=== PATIENT | female | born 1955 | race Caucasian/White ===

== ENCOUNTER 2022-09-15 12:39 | Outpatient (OUT) | payer BC, SELFPAY ==
--- NOTE | 2022-09-15 12:48 | XR_ITS ---
The [address] [address] Patient Name: HERMINIO NICKERSON MRN: [id number] date: 1955 Sex: F Assigned Patient Location: [facility] Current Patient Location: [facility] Accession/Order Number: [id number] Exam Date: 09/15/2022 12:50 Report Date: 09/15/2022 13:16 At the request of: NON-STAFF PHYSICIAN Procedure: XR chest 2V EXAM: XR chest 2V HISTORY: Acute Cough R05.1 for 2 weeks. COMPARISON: 03/09/2021 TECHNIQUE: Upright PA and lateral chest x-ray FINDINGS: The heart is not enlarged and the vasculature is not distended. No acute infiltrate, effusion or pneumothorax is identified. The osseous structures are grossly intact. IMPRESSION: No apparent acute infiltrate or evidence of cardiac decompensation. The overall appearance of the chest has not changed significantly. Electronically authenticated by: MIK MEJIA Date: 09/15/2022 13:16
== END 2022-09-15 12:40 ==
LOC: RAD 12:43
PROVIDERS: PCP Internal Medicine; Visit Provider Internal Medicine
DX: R05.9 Cough, unspecified (principal)
CPT/HCPCS: 71046

== ENCOUNTER 2023-07-29 17:40 | Emergency (ER) | payer BC, SELFPAY ==
[2023-07-29] VITALS (23 sets, daily range): BP systolic 149–166; BP diastolic 48–66; PULSE 74–104; TEMP 36.8; O2SAT 92–99; BMI 35.2
--- NOTE | 2023-07-29 18:02 | ECG_ITS ---
The [facility] Test Date: 2023-07-29 Pat Name: HERMINIO NICKERSON Department: Room: - Gender: Female [employer] T[employer]: : 1955 Requested By: [id number] Order Number: [id number] Reading MD: MURTAZA BONDS Measurements Intervals [place] Rate: 84 P: 73 MO: 166 QRS: 39 QRSD: 80 T: 32 QT: 374 QTc: 415 Interpretive Statements 1100 Sinus rhythm 9110 normal ECG Compared to ECG 03/09/2021 21:43:30 Myocardial infarct finding no longer present Electronically Signed On 07-30-2023 7:13:38 EDT by MURTAZA BONDS
--- NOTE | 2023-07-29 18:13 | CT_ITS ---
The [address] [address] Patient Name: HERMINIO NICKERSON MRN: [id number] date: 1955 Sex: F Assigned Patient Location: ER Current Patient Location: ER Accession/Order Number: [id number] Exam Date: 07/29/2023 19:25 Report Date: 07/29/2023 20:24 At the request of: SYMONE MART Procedure: CT angio chest CT angio chest HISTORY: sob TECHNIQUE: CTA chest with intravenous contrast attention to pulmonary arteries. Sagittal, coronal and slab 3D MIP coronal reconstructed images were also created for further evaluation and interpretation. One of the following dose optimization techniques was utilized in the performance of this exam: Automated exposure control; adjustment of the mA and/or kV according to the patient's size; or use of an iterative reconstruction technique. Specific details can be referenced in the facility's radiology CT exam operational policy. COMPARISON: None. FINDINGS: Thoracic aorta: Normal size no dissection. Pulmonary arteries: No evidence of pulmonary embolism. Mediastinum: Negative. Lymph nodes: Negative. Lungs/pleura: Subpleural atelectasis or fibrosis. Visualized upper abdomen: Negative. Bones/soft tissues: Negative. CT/CT angio chest IMPRESSION: 1. No evidence of pulmonary embolism. Electronically authenticated by: SUN CORBIN Date: 07/29/2023 20:24
--- NOTE | 2023-07-29 18:20 | ED.GENADUL1 ---
Documented by User: Symone Upton MD 07/29/23 20:55 HPI HPI - General Adult General Chief complaint: Upper Respiratory Infection Stated complaint: PNEUMONIA, NOT GETTING BETTER Time Seen by Provider: 07/29/23 18:00 Source: patient Mode of arrival: walk-in History of Present Illness HPI narrative: Patient is a 68-year-old female who is presenting to the ER with chief complaint of 8 weeks of coughing, dry cough, no production. Patient has had some sinus congestion. Patient also using significant amount of cough drops as well. Patient saw her PCP, Dr. Tristan on July 18. Patient had amoxicillin ordered at that time, she finished a few days ago. Patient was on no inhalers, steroids, or any other medications. Patient says that years ago, she did take a Medrol Dosepak, and she had chest fullness at that time. Patient is not diabetic. She has thyroid medication that she takes. No recent traveling. Non-smoker. No history of asthma, no history of emphysema COPD. No acute complaints. All systems are negative except as noted/marked. All systems reviewed and otherwise negative. Nurses note and vital signs reviewed and patient is not hypoxic. General: The patient appears well and in no apparent distress. Patient is resting comfortably on cart. Patient is not toxic, lethargic, or listless Skin: Warm, dry, no pallor noted. There is no rash noted. No petechiae, purpura. Head: Normocephalic, atraumatic Eye: Normal conjunctiva, no drainage, EOMI. PERRL Ears, Nose, Mouth, and Throat: oral mucosa is moist. Nares patent. Mouth without vesicles. Cardiovascular: Regular Rate and Rhythm, no murmur, gallop, rub Respiratory: Patient is in no distress, no accessory muscle use, lungs decreased breath sounds bilateral, diffuse wheezing, equal breath sounds, trachea midline, no splinting Back: non-tender, no CVA tenderness bilaterally to percussion. No CT LS midline pain GI: Obese, no tenderness to palpation, no masses appreciated. No rebound, guarding, or rigidity noted. No distention Musculoskeletal: Patient has full range of motion of all of the extremities, no motor, sensory, or focal neurological deficits Neurological: A&O x4, normal speech Psychiatric: Cooperative Related Data Home Medications ?Medication ?Instructions ?Recorded ?Confirmed benzonatate 100 mg capsule 100 mg PO Q6H 07/29/23 07/29/23 levothyroxine 100 mcg tablet 100 mcg PO DAILY 07/29/23 07/29/23 Previous Rx's ?Medication ?Instructions ?Recorded albuterol sulfate 90 mcg/actuation 2 inh inhalation Q4H PRN shortness 07/29/23 aerosol inhaler of breath or wheezing 7 days #8.5 grams ikxddgasnptfcyf-yxbsywlypgfvlfs-PU 10 ml PO Q6H PRN cold symptoms 07/29/23 2 mg-30 mg-10 mg/5 mL oral syrup #200 mL (Bromfed DM) prednisone 50 mg tablet 50 mg PO DAILY 5 days #5 tabs 07/29/23 Allergies Allergy/AdvReac Type Severity Reaction Status Date / Time No Known Drug Allergies Allergy Verified 07/29/23 17:55 Opioid HPI Opioid Management Most Recent Opioid Data: No Data to Display Exam Constitutional Vital Signs, click to edit/add: Last Vital Signs Temp 98.2 F 07/29/23 17:44 Pulse 87 07/29/23 20:44 Resp 18 07/29/23 20:44 BP 149/48 H 07/29/23 20:44 Pulse Ox 94 L 07/29/23 20:44 O2 Del Method Room Air 07/29/23 20:44 Course Vital Signs Vital signs: Vital Signs Temperature 98.2 F 07/29/23 17:44 Pulse Rate 89 07/29/23 17:44 Respiratory Rate 18 07/29/23 17:44 Blood Pressure 166/66 H 07/29/23 17:44 Pulse Oximetry 95 07/29/23 17:44 Oxygen Delivery Method Room Air 07/29/23 17:44 Temperature 98.2 F 07/29/23 17:44 Pulse Rate 87 07/29/23 20:44 Respiratory Rate 18 07/29/23 20:44 Blood Pressure 149/48 H 07/29/23 20:44 Pulse Oximetry 94 L 07/29/23 20:44 Oxygen Delivery Method Room Air 07/29/23 20:44 Medical Decision Making [facility] Narrative Medical decision making narrative: 1899 patient CBC shows no acute changes, EKG shows no acute findings. Patient was given 1 L of IV fluid, Solu-Medrol, DuoNeb. Patient will have lab work done, and a CT of the chest to rule out any other acute pathology. Patient's x-ray showed some type of airway disease, patient was uncertain what exactly that was. On July 18, patient x-ray showed pneumonia, patient was placed on amoxicillin. Patient has some sinus symptoms. CTA will be done secondary to coughing for 8 weeks. Patient most likely has mucous plugs, CT of the chest will be done. Patient is transition to Dr. Anderson. He will follow-up with patient's metabolic panel, troponin, CTA of the chest and finish disposition. Patient will be sent home with cough medication, 5-day burst of steroids, albuterol inhaler to help with mucous plugs Lab Data Lab results reviewed: Yes I reviewed the patient's lab results Labs: Lab Results 07/29/23 Range/Units 18:17 WBC 8.8 (4.0-11.0) 10^3/uL RBC 4.80 (4.20-5.40) 10^6/uL Hgb 13.2 (12.0-16.0) g/dL Hct 41.1 (36.0-48.0) % MCV 85.6 (81.0-99.0) fL MCH 27.5 (26.7-34.0) pg MCHC 32.1 (29.9-35.2) g/dL RDW 13.6 (11.0-15.0) % Plt Count 245 (150-450) 10^3/uL MPV 11.2 (9.5-13.5) fL Neut % (Auto) 66.0 (43.0-75.0) % Lymph % (Auto) 21.0 (20.5-60.0) % [place] % (Auto) 9.3 (1.7-12.0) % Eos % (Auto) 3.2 (0.9-7.0) % Baso % (Auto) 0.3 (0.2-2.0) % Neut # (Auto) 5.8 (1.4-6.5) 10^3/uL Lymph # (Auto) 1.9 (1.2-3.8) 10^3/uL [place] # (Auto) 0.8 (0.3-0.8) 10^3/uL Eos # (Auto) 0.3 (0.0-0.7) 10^3/uL Baso # (Auto) 0.0 (0.0-0.1) 10^3/uL Abs Immat Gran (auto) 0.02 (0.00-0.03) 10^3/uL Imm/Tot Granulo (auto) 0.2 (0.0-0.5) % Sodium 143 (136-145) mmol/L Potassium 3.9 (3.5-5.1) mmol/L Chloride 106 (98-107) mmol/L Carbon Dioxide 27.6 (21.0-32.0) mmol/L Anion Gap 13.3 BUN 14.0 (7.0-18.0) mg/dL Creatinine 0.70 (0.55-1.02) mg/dL Est GFR ( Amer) >60 (>=60) Est GFR (Non-Af Amer) >60 (>=60) BUN/Creatinine Ratio 20.0 Glucose 117 H (74-106) mg/dL Calcium 9.3 (8.5-10.1) mg/dL Total Bilirubin 0.3 (0.2-1.0) mg/dL AST 21 (15-37) U/L ALT 42 (14-59) U/L Alkaline Phosphatase 136 H (46-116) U/L Troponin I High Sens 8.1 (4.0-51.3) pg/mL NT-Pro-B Natriuret Pep 138.0 (<=900.0) pg/mL Total Protein 6.9 (6.4-8.2) g/dL Albumin 3.2 L (3.4-5.0) g/dL Globulin 3.7 g/dL Albumin/Globulin Ratio 0.[address] scan - chest: Radiologist's impression: ITS Impressions Chest CTA 07/29/23 18:13 IMPRESSION: 1. No evidence of pulmonary embolism. Electronically authenticated by: SUN CORBIN Date: 07/29/2023 20:24 ECG Data Attestation: I personally reviewed and interpreted this ECG as follows: (EKG interpretation. Normal sinus rhythm 84 beats a minute. Normal axis deviation. No acute ST elevation, no acute ectopy. QTc of 415.) Discharge Plan Discharge Stand Alone Forms: Portal Instructions Chief Complaint: Upper Respiratory Infection Clinical Impression: Cough, Wheezing, Bronchitis Patient Disposition: Home, Self-Care Time of Disposition Decision: 20:31 Condition: Good Mode of Transportation: Private Vehicle Prescriptions / Home Meds: New prednisone 50 mg tablet 50 mg PO DAILY 5 Days Qty: 5 0RF albuterol sulfate 90 mcg/actuation HFA aerosol inhaler 2 inh inhalation Q4H PRN (Reason: shortness of breath or wheezing) 7 Days Qty: 8.5 0RF hswdivzswejcnbe-wdunivrdu-ED [Bromfed DM] 2-30-10 mg/5 mL syrup 10 ml PO Q6H PRN (Reason: cold symptoms) Qty: 200 0RF No Action benzonatate 100 mg capsule 100 mg PO Q6H levothyroxine 100 mcg tablet 100 mcg PO DAILY Print Language: Swazi Instructions: How to Use a Metered-Dose Inhaler (ED), Chronic Bronchitis (ED), Wheezing (ED) Additional Instructions: Increase fluids at home, Gatorade, Powerade, or water. Alternate using DayQuil, NyQuil, and Flonase. Add Mucinex as well as needed. Alternate Tylenol and Motrin every 4 hours to help with fever control, body aches or joint pain. Use pdhr-byc-yadrnck vitamin C, vitamin D3, and zinc to help fight infection and help with her immune system. Referrals: SYMONE TRISTAN [Primary Care Provider] - 1 week Discharge Date/Time: 07/29/23 20:46 Documented by User: Harris Anderson MD 07/29/23 20:34 HPI HPI - General Adult General Chief complaint: Upper Respiratory Infection Stated complaint: PNEUMONIA, NOT GETTING BETTER Time Seen by Provider: 07/29/23 18:00 Related Data Home Medications ?Medication ?Instructions ?Recorded ?Confirmed benzonatate 100 mg capsule 100 mg PO Q6H 07/29/23 07/29/23 levothyroxine 100 mcg tablet 100 mcg PO DAILY 07/29/23 07/29/23 Previous Rx's ?Medication ?Instructions ?Recorded albuterol sulfate 90 mcg/actuation 2 inh inhalation Q4H PRN shortness 07/29/23 aerosol inhaler of breath or wheezing 7 days #8.5 grams veyqyoidmrwoeea-mzzdojebmqbcklk-BQ 10 ml PO Q6H PRN cold symptoms 07/29/23 2 mg-30 mg-10 mg/5 mL oral syrup #200 mL (Bromfed DM) prednisone 50 mg tablet 50 mg PO DAILY 5 days #5 tabs 07/29/23 Allergies Allergy/AdvReac Type Severity Reaction Status Date / Time No Known Drug Allergies Allergy Verified 07/29/23 17:55 Opioid HPI Opioid Management Most Recent Opioid Data: No Data to Display Exam Constitutional Vital Signs, click to edit/add: Last Vital Signs Temp 98.2 F 07/29/23 17:44 Pulse 87 07/29/23 20:44 Resp 18 07/29/23 20:44 BP 149/48 H 07/29/23 20:44 Pulse Ox 94 L 07/29/23 20:44 O2 Del Method Room Air 07/29/23 20:44 Course Vital Signs Vital signs: Vital Signs Temperature 98.2 F 07/29/23 17:44 Pulse Rate 89 07/29/23 17:44 Respiratory Rate 18 07/29/23 17:44 Blood Pressure 166/66 H 07/29/23 17:44 Pulse Oximetry 95 07/29/23 17:44 Oxygen Delivery Method Room Air 07/29/23 17:44 Temperature 98.2 F 07/29/23 17:44 Pulse Rate 87 07/29/23 20:44 Respiratory Rate 18 07/29/23 20:44 Blood Pressure 149/48 H 07/29/23 20:44 Pulse Oximetry 94 L 07/29/23 20:44 Oxygen Delivery Method Room Air 07/29/23 20:44 Medical Decision Making [facility] Narrative Medical decision making narrative: 1899 patient CBC shows no acute changes, EKG shows no acute findings. Patient was given 1 L of IV fluid, Solu-Medrol, DuoNeb. Patient will have lab work done, and a CT of the chest to rule out any other acute pathology. Patient's x-ray showed some type of airway disease, patient was uncertain what exactly that was. On July 18, patient x-ray showed pneumonia, patient was placed on amoxicillin. Patient has some sinus symptoms. CTA will be done secondary to coughing for 8 weeks. Patient most likely has mucous plugs, CT of the chest will be done. Patient is transition to Dr. Anderson. He will follow-up with patient's metabolic panel, troponin, CTA of the chest and finish disposition. Patient will be sent home with cough medication, 5-day burst of steroids, albuterol inhaler to help with mucous plugs JK 8:30 PM CTA is negative and she is able to be discharged home. Findings were discussed with the patient. Differential Diagnosis Differential Diagnosis: URI, PE, pneumonia Lab Data Labs: Lab Results 07/29/23 Range/Units 18:17 WBC 8.8 (4.0-11.0) 10^3/uL RBC 4.80 (4.20-5.40) 10^6/uL Hgb 13.2 (12.0-16.0) g/dL Hct 41.1 (36.0-48.0) % MCV 85.6 (81.0-99.0) fL MCH 27.5 (26.7-34.0) pg MCHC 32.1 (29.9-35.2) g/dL RDW 13.6 (11.0-15.0) % Plt Count 245 (150-450) 10^3/uL MPV 11.2 (9.5-13.5) fL Neut % (Auto) 66.0 (43.0-75.0) % Lymph % (Auto) 21.0 (20.5-60.0) % [place] % (Auto) 9.3 (1.7-12.0) % Eos % (Auto) 3.2 (0.9-7.0) % Baso % (Auto) 0.3 (0.2-2.0) % Neut # (Auto) 5.8 (1.4-6.5) 10^3/uL Lymph # (Auto) 1.9 (1.2-3.8) 10^3/uL [place] # (Auto) 0.8 (0.3-0.8) 10^3/uL Eos # (Auto) 0.3 (0.0-0.7) 10^3/uL Baso # (Auto) 0.0 (0.0-0.1) 10^3/uL Abs Immat Gran (auto) 0.02 (0.00-0.03) 10^3/uL Imm/Tot Granulo (auto) 0.2 (0.0-0.5) % Sodium 143 (136-145) mmol/L Potassium 3.9 (3.5-5.1) mmol/L Chloride 106 (98-107) mmol/L Carbon Dioxide 27.6 (21.0-32.0) mmol/L Anion Gap 13.3 BUN 14.0 (7.0-18.0) mg/dL Creatinine 0.70 (0.55-1.02) mg/dL Est GFR ( Amer) >60 (>=60) Est GFR (Non-Af Amer) >60 (>=60) BUN/Creatinine Ratio 20.0 Glucose 117 H (74-106) mg/dL Calcium 9.3 (8.5-10.1) mg/dL Total Bilirubin 0.3 (0.2-1.0) mg/dL AST 21 (15-37) U/L ALT 42 (14-59) U/L Alkaline Phosphatase 136 H (46-116) U/L Troponin I High Sens 8.1 (4.0-51.3) pg/mL NT-Pro-B Natriuret Pep 138.0 (<=900.0) pg/mL Total Protein 6.9 (6.4-8.2) g/dL Albumin 3.2 L (3.4-5.0) g/dL Globulin 3.7 g/dL Albumin/Globulin Ratio 0.[address] scan - chest: Radiologist's impression: ITS Impressions Chest CTA 07/29/23 18:13 IMPRESSION: 1. No evidence of pulmonary embolism. Electronically authenticated by: SUN CORBIN Date: 07/29/2023 20:24 Discharge Plan Discharge Stand Alone Forms: Portal Instructions Chief Complaint: Upper Respiratory Infection Clinical Impression: Cough, Wheezing, Bronchitis Patient Disposition: Home, Self-Care Time of Disposition Decision: 20:31 Condition: Good Mode of Transportation: Private Vehicle Prescriptions / Home Meds: New prednisone 50 mg tablet 50 mg PO DAILY 5 Days Qty: 5 0RF albuterol sulfate 90 mcg/actuation HFA aerosol inhaler 2 inh inhalation Q4H PRN (Reason: shortness of breath or wheezing) 7 Days Qty: 8.5 0RF mflkobxfkplceqo-osunufszw-IK [Bromfed DM] 2-30-10 mg/5 mL syrup 10 ml PO Q6H PRN (Reason: cold symptoms) Qty: 200 0RF No Action benzonatate 100 mg capsule 100 mg PO Q6H levothyroxine 100 mcg tablet 100 mcg PO DAILY Print Language: Swazi Instructions: How to Use a Metered-Dose Inhaler (ED), Chronic Bronchitis (ED), Wheezing (ED) Additional Instructions: Increase fluids at home, Gatorade, Powerade, or water. Alternate using DayQuil, NyQuil, and Flonase. Add Mucinex as well as needed. Alternate Tylenol and Motrin every 4 hours to help with fever control, body aches or joint pain. Use vruk-wks-ofmdhfl vitamin C, vitamin D3, and zinc to help fight infection and help with her immune system. Referrals: SYMONE TRISTAN [Primary Care Provider] - 1 week Discharge Date/Time: 07/29/23 20:46
[2023-07-29] MEDS: IPRATROPIUM/ALBUTEROL SULFATE 3 ML AMPUL.NEB IH (18:31)
[2023-07-29] MEDS: 0.9 % SODIUM CHLORIDE 1,000 ML 1000 ML IV (18:32)
[2023-07-29] MEDS: METHYLPREDNISOLONE SOD SUCC PF 125 MG/2 ML VIAL IVP (18:33)
[2023-07-29 18:36] LABS: Basophils Percent Auto 0.3 % (0.2-2.0); Eosinophils Absolute Auto 0.3 10^3/uL (0.0-0.7); Eosinophils Percent Auto 3.2 % (0.9-7.0); Hematocrit 41.1 % (36.0-48.0); Hemoglobin 13.2 g/dL (12.0-16.0); Immature Granulocytes Abs Auto 0.02 10^3/uL (0.00-0.03); Immature Granulocytes Pct Auto 0.2 % (0.0-0.5); Lymphocytes Absolute Auto 1.9 10^3/uL (1.2-3.8); Mean Corpuscular HGB Conc 32.1 g/dL (29.9-35.2); Mean Corpuscular Hemoglobin 27.5 pg (26.7-34.0); Mean Corpuscular Volume 85.6 fL (81.0-99.0); Mean Platelet Volume 11.2 fL (9.5-13.5); Monocytes Absolute Auto 0.8 10^3/uL (0.3-0.8); Monocytes Percent Auto 9.3 % (1.7-12.0); Neutrophils Absolute Auto 5.8 10^3/uL (1.4-6.5); Platelet Count 245 10^3/uL (150-450); Red Cell Distribution Width 13.6 % (11.0-15.0); White Blood Count 8.8 10^3/uL (4.0-11.0)
[2023-07-29 18:49] LABS: Alanine Aminotransferase 42 U/L (14-59); Albumin Globulin Ratio 0.9; Albumin Level 3.2 g/dL (3.4-5.0); Alkaline Phosphatase 136 U/L (46-116); Anion Gap 13.3; Aspartate Amino Transferase 21 U/L (15-37); Bilirubin Total 0.3 mg/dL (0.2-1.0); Calcium 9.3 mg/dL (8.5-10.1); Carbon Dioxide 27.6 mmol/L (21.0-32.0); Chloride 106 mmol/L (98-107); Estimated GFR (African America >60 (>=60); Estimated GFR (Non-African Ame >60 (>=60); Globulin 3.7 g/dL; Glucose 117 mg/dL (74-106); Potassium 3.9 mmol/L (3.5-5.1); Sodium 143 mmol/L (136-145); Total Protein 6.9 g/dL (6.4-8.2)
[2023-07-29 18:55] LABS: Troponin I High Sensitivity 8.1 pg/mL (4.0-51.3)
== END 2023-07-29 20:46 | disposition home or self-care (01) ==
PROVIDERS: Emergency Medicine; Emergency Provider Emergency Medicine; PCP Internal Medicine
DX: J40 Bronchitis, not specified as acute or chronic (principal); R05.9 Cough, unspecified; R06.2 Wheezing; Z79.899 Other long term (current) drug therapy; Z79.890 Hormone replacement therapy
CPT/HCPCS: 36415; 71275; 80053; 83880; 84484; 85025; 93005; 94640; 96374; 99285; J2919; Q9967

== ENCOUNTER 2024-02-16 09:52 | Emergency (ER) | payer MEDICARE, SELFPAY ==
[2024-02-16 09:58] VITALS: BP 189/71; PULSE 79; TEMP 36.6; O2SAT 99; BMI 33.6
[2024-02-16] MEDS: ONDANSETRON PF 4 MG/2 ML VIAL IV (10:17)
[2024-02-16] MEDS: KETOROLAC TROMETHAMINE 30 MG/ML VIAL 15 MG IVP (10:17)
[2024-02-16] MEDS: MORPHINE SULFATE 4 MG/ML VIAL IV (10:17)
--- NOTE | 2024-02-16 10:20 | CT_ITS ---
[address] [address] Patient Name: HERMINIO NICKERSON MRN: [id number] date: 1955 Sex: F Assigned Patient Location: ER Current Patient Location: .[facility] Accession/Order Number: [id number] Exam Date: 02/16/2024 11:05 Report Date: 02/16/2024 11:40 At the request of: SYMONE MART Procedure: CT abdomen pelvis w con EXAMINATION: CT abdomen pelvis w con HISTORY: left flank pain , left lower quadrant pain, nausea COMPARISON: CT abdomen pelvis 08/28/2020 TECHNIQUE: Axial, Coronal, and Sagittal images were obtained without and/or with IV contrast as indicated by examination type. Dose reduction techniques were achieved by using automated exposure control and/or adjustment of mA and/or kV according to patient size and/or use of iterative reconstruction technique. FINDINGS: LUNG BASES: No visible pulmonary or pleural disease. LIVER: No enlargement, atrophy, suspicious density, or significant focal lesion. BILIARY: Cholecystectomy. PANCREAS: No lesion, fluid collection, or abnormal duct dilatation. SPLEEN: No enlargement or focal lesion. ADRENALS: No mass or enlargement. KIDNEYS: A few tiny cysts. Mild left hydronephrosis and hydroureter secondary to a partially obstructing 9 x 5 x 5 mm stone within the mid ureter. No additional urinary tract calculi. BOWEL/MESENTERY: Mild diverticulosis of distal colon without acute inflammatory changes. No visible mass, obstruction, or bowel wall thickening. Normal appendix. AORTA/VASCULAR: No aneurysm or dissection. RETROPERITONEUM: No mass or adenopathy. LYMPH NODES: No adenopathy. URINARY BLADDER: No visible focal wall thickening, lesion, or calculus. PELVIC ORGANS: Prominent periuterine vessels. No visible mass. Pelvic organs appropriate for patient age. ABDOMINAL WALL: No mass or hernia. BONES: No bony lesion or fracture. OTHER: Negative. CT/CT abdomen pelvis w con IMPRESSION: 1. Minimal left hydronephrosis and hydroureter secondary to a partially obstructing 9 x 5 x 5 mm stone versus 2 adjacent stones within the mid ureter. Electronically authenticated by: BRANDT BROUSSARD Date: 02/16/2024 11:40
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
[2024-02-16 10:25] LABS: Basophils Percent Auto 0.3 % (0.2-2.0); Eosinophils Absolute Auto 0.1 10^3/uL (0.0-0.7); Eosinophils Percent Auto 1.5 % (0.9-7.0); Hematocrit 42.9 % (36.0-48.0); Hemoglobin 14.2 g/dL (12.0-16.0); Immature Granulocytes Abs Auto 0.01 10^3/uL (0.00-0.03); Immature Granulocytes Pct Auto 0.2 % (0.0-0.5); Lymphocytes Absolute Auto 1.9 10^3/uL (1.2-3.8); Lymphocytes Percent Auto 29.2 % (20.5-60.0); Mean Corpuscular HGB Conc 33.1 g/dL (29.9-35.2); Mean Corpuscular Hemoglobin 28.5 pg (26.7-34.0); Mean Platelet Volume 10.9 fL (9.5-13.5); Monocytes Absolute Auto 0.4 10^3/uL (0.3-0.8); Monocytes Percent Auto 6.6 % (1.7-12.0); Neutrophils Absolute Auto 4.1 10^3/uL (1.4-6.5); Neutrophils Percent Auto 62.2 % (43.0-75.0); Platelet Count 236 10^3/uL (150-450); Red Blood Count 4.99 10^6/uL (4.20-5.40); Red Cell Distribution Width 13.9 % (11.0-15.0); White Blood Count 6.6 10^3/uL (4.0-11.0)
[2024-02-16 10:51] LABS: Alanine Aminotransferase 57 U/L (14-59); Albumin Level 3.5 g/dL (3.4-5.0); Alkaline Phosphatase 140 U/L (46-116); Anion Gap 13.7; Aspartate Amino Transferase 31 U/L (15-37); BUN Creatinine Ratio 20.9; Bilirubin Total 0.4 mg/dL (0.2-1.0); Calcium 9.1 mg/dL (8.5-10.1); Carbon Dioxide 27.6 mmol/L (21.0-32.0); Chloride 107 mmol/L (98-107); Estimated GFR (African America >60 (>=60 mL/min/1.73m^2); Estimated GFR (Non-African Ame >60 (>=60 mL/min/1.73m^2); Globulin 3.6 g/dL; Glucose 105 mg/dL (74-106); Potassium 4.3 mmol/L (3.5-5.1); Sodium 144 mmol/L (136-145); Total Protein 7.1 g/dL (6.4-8.2)
[2024-02-16 11:59] LABS: Bilirubin Urine NEGATIVE (NEGATIVE); Blood Urine LARGE (NEGATIVE); Clarity Urine CLEAR (CLEAR); Color Urine YELLOW (YELLOW); Glucose Urine UA NEGATIVE (NEGATIVE); Ketones Urine NEGATIVE (NEGATIVE); Leukocyte Esterase Urine NEGATIVE (NEGATIVE); Nitrite Urine NEGATIVE (NEGATIVE); Protein Urine 30 mg/dL (NEG/TRACE); Specific Gravity Urine >=1.030 (1.005-1.025); Urobilinogen Urine 0.2 EU/dL (0.2-1.0); pH Urine 5.5 (5.0-9.0)
[2024-02-16 12:15] LABS: Mucus Urine MODERATE (NONE SEEN); RBC Urine 20-50 #/HPF (0-2); WBC Urine 0-2 #/HPF (NONE SEEN)
[2024-02-16 12:16] LABS: Bacteria Urine TRACE #/HPF (NONE SEEN); Cast Seen? NONE SEEN #/LPF (NONE SEEN); Crystals Seen? None Seen #/HPF (None Seen); Squamous Epithelial Cell Urine FEW #/LPF (NONE/RARE)
== END 2024-02-16 14:28 | disposition home or self-care (01) ==
PROVIDERS: Emergency Provider Emergency Medicine; PCP Internal Medicine
DX: N13.2 Hydronephrosis with renal and ureteral calculous obstruction (principal); Z90.49 Acquired absence of other specified parts of digestive tract; Z87.442 Personal history of urinary calculi
CPT/HCPCS: 36415; 74177; 80053; 81001; 83690; 85025; 96374; 96375; 99284; J1885; J2270; J2405; Q9967

== ENCOUNTER 2024-03-12 08:55 | Outpatient (OUT) | payer MEDICARE, SELFPAY ==
--- NOTE | 2024-03-12 08:57 | US_ITS ---
[address] [address] Patient Name: HERMINIO NICKERSON MRN: [id number] date: 1955 Sex: F Assigned Patient Location: Current Patient Location: Accession/Order Number: [id number] Exam Date: 03/12/2024 08:58 Report Date: 03/13/2024 06:01 At the request of: JULIUS BOOKER Procedure: US renal BI EXAMINATION: US renal BI HISTORY: Kidney Stones COMPARISON: CT abdomen pelvis 02/16/2024 TECHNIQUE: Ultrasound examination was performed of the kidneys and urinary bladder. FINDINGS: RIGHT KIDNEY: No evidence of pelvocaliectasis, mass, or calculi. Normal parenchymal echogenicity. Color Doppler demonstrates blood flow within the kidney. Kidney: 9.8 x 5.1 x 3.7 cm LEFT KIDNEY: Minimal dilation of a few calyces. No abnormal dilation of the renal pelvis. Nonobstructing 6 mm stone within inferior pole. Normal parenchymal echogenicity. Color Doppler demonstrates blood flow within the kidney. Kidney: 11.4 x 4.6 x 4.9 cm BLADDER: No visible wall thickening, mass, or calculi. US/US renal BI IMPRESSION: 1. No convincing hydronephrosis. 2. Nonobstructing left nephrolithiasis. Electronically authenticated by: BRANDT BROUSSARD Date: 03/13/2024 06:01
--- NOTE | 2024-03-12 09:36 | XR_ITS ---
The [address] [address] Patient Name: HERMINIO NICKERSON MRN: [id number] date: 1955 Sex: F Assigned Patient Location: US Current Patient Location: US Accession/Order Number: [id number] Exam Date: 03/12/2024 09:29 Report Date: 03/13/2024 06:55 At the request of: JULIUS BOOKER Procedure: XR abdomen 1V EXAMINATION: XR abdomen 1V HISTORY: Kidney Stones COMPARISON: CT abdomen pelvis 02/16/2024 FINDINGS: KIDNEY/URETER - RIGHT: No visible renal or ureteral calcifications. KIDNEY/URETER - LEFT: No visible renal or ureteral calcifications. PELVIS: No visible ureteral stones. BOWEL: No abnormal dilation or deviation. BONES: No acute abnormality. OTHER: Negative. No abnormal gaseous collections. XR/XR abdomen 1V IMPRESSION: 1. No appreciable urinary tract calculi. Electronically authenticated by: BRANDT BROUSSARD Date: 03/13/2024 06:55
== END 2024-03-12 08:56 | disposition home or self-care (01) ==
LOC: US 08:55
PROVIDERS: PCP Internal Medicine; Visit Provider Student in an Organized Health Care Education/Training Program
DX: N20.0 Calculus of kidney (principal)
CPT/HCPCS: 74018; 76775

== ENCOUNTER 2024-03-14 21:20 | Emergency (ER) | payer MEDICARE, SELFPAY ==
--- OUTSIDE RECORDS SUMMARY | 2024-03-14 21:32 | XMS_ITS | CCD ---
Author Organization [facility] Care Team Providers Care Foundation Digger Name Role Phone Bob Carter Unavailable Unavailable Unavailable EMMA, DR ASHBY Admitting Unavailable EMMA, DR ASHBY Attending Unavailable EMMA, DR ASHBY Primary Care Unavailable MISC, DR MOISE Consulting Unavailable MISC, DR MOISE Admitting Unavailable MISC, DR MOISE Attending Unavailable EMMA, DR ASHBY Primary Care Unavailable MISC, DR MOISE Consulting Unavailable MISC, DR MOISE Admitting Unavailable MISC, DR MOISE Attending Unavailable EMMA, DR ASHBY Primary Care Unavailable EMMA, DR ASHBY Admitting Unavailable EMMA, DR ASHBY Attending Unavailable EMMA, DR ASHBY Consulting Unavailable EMMA, DR ASHBY Primary Care Unavailable COOK, DR PARUL Seay Consulting Unavailable COOK, DR PARUL Seay Admitting Unavailable COOK, DR PARUL Seay Attending Unavailable EMMA, DR ASHBY Primary Care Unavailable ZIANGEL, DR BRANDT Dykes Consulting Unavailable MARKER, DR GUTIERREZ Admitting Unavailable MARKER, DR GUTIERREZ Consulting Unavailable MARKER, DR GUTIERREZ Attending Unavailable EMMA, DR ASHBY Primary Care Unavailable SaidGabe Consulting Unavailable ZIEBJOSELITO, DR BRANDT Dykes Consulting Unavailable PAY, DR ASHBY Admitting Unavailable PAY, DR ASHBY Attending Unavailable EMMA, DR ASHBY Primary Care Unavailable PAY, DR ASHBY Consulting Unavailable EMMA, DR ASHBY Primary Care Unavailable PAY, DR ASHBY Consulting Unavailable PAY, DR ASHBY Admitting Unavailable PAY, DR ASHBY Attending Unavailable JOLLY KITCHEN Consulting Unavailable Emma, Dr. Bob Rondon Primary Care Evette Clement, Dr. Agustin Referring Unavailable Urbano, Dr. Agustin Attending Unavailable Emma, Dr. Bob Rondon Referring Evette Carter, Dr. Bob Rondon Primary Care Evette Clement, Dr. Agustin Attending Unavailable Emma, Dr. Bob Rondon Primary Care Evette Cooper, ABDI Mcdonald Referring Unavailable ABDI Cooper Attending Unavailable DO Bob Carter Primary Care Provider DO Mason Fowler Attending Provider DO Bob Carter Primary Care Provider DO Bob Carter Attending Provider [phone] Bob Carter Primary Care Unavailable Mason Fowler Admitting Unavailable Mason Fowler Attending Unavailable Bob Carter Primary Care Unavailable Bob Carter Attending Unavailable Bob Carter Admitting Unavailable Bob Carter DO Primary Care Provider [phone] Bob Carter DO Unavailable BOB CARTER Primary Care Physician Unavail able BOB CARTER Attending Unavailable DOMINIQUE RAI Referring Unavailable BOB CARTER Attending Unavailable BOB CARTER Referring Unavailable BOB CARTER Referring Unavailable JOSEPH PLATT Attending Unavailable BOB CARTER Referring Unavailable BOB CARTER Attending Unavailable CECE BABIN Attending Unavailable ARIEL COOPER Attending Unavailable BOB CARTER Attending Unavailable ARIEL COOPER Attending Unavailable ARIEL COOPER Referring Unavailable ARIEL COOPER Attending Unavailable ARIEL COOPER Attending Unavailable ARIEL COOPER Attending Unavailable BOB CARTER Attending Unavailable BOB CARTER Referring Unavailable BOB CARTER Referring Unavailable BOB CARTER Attending Unavailable BOB CARTER Referring Unavailable JEISON PITT Attending Unavailable MD JULIUS RASHEED Attending Unav ailable MD JULIUS RASHEED Referring Unav ailable MD JULIUS RASHEED Admitting Unav ailable MD JULIUS RASHEED Attending Unav ailable JULIUS RASHEED Referring Unavail able JULIUS RASHEED Attending Unavail able JULIUS RASHEED Admitting Unavail able JULIUS RASHEED Attending Unavail able Allergies Allergy Classification Reported Allergen(s) Allergy Type Date of Onset Reaction(s) Facility (2 sources) Corticosteroids Propensity to adverse reactions 04-01-20 chest pressure [facility] (20 sources) PARoxetine; Translations: [paroxetine] Drug Allergy 07-13-19 GI intolerance, Unknown (qualifier value), Nausea (finding) [facility] (20 sources) methylPREDNISolone; Translations: [methylprednisolone ] Drug Allergy 07-19-19 Other, Unknown (qualifier value) [facility] (19 sources) PARoxetine Drug Allergy 01-26-20 [facility] (19 sources) Amoxicillin-Pot Clavulanate Propensity to adverse reactions 08-08-19 Rash [facility] Work Phone: (4 sources) Amoxicillin / Clavulanate; Translations: [amoxicillin-clavul anate] Drug Allergy Unknown (qualifier value) [facility] (2 sources) methylPREDNISolone; Translations: [Medrol] Drug Allergy [facility] (2 sources) No Known Medication Allergies; Translations: [No Known Medication Allergies] Propensity to adverse reactions (disorder) [facility] Medications Current Medications Medication Drug Class(es) Dates Sig (Normalized) Sig (Original) acetaminophen 325 mg / HYDROcodone bitartrate 5 mg oral tablet (4 sources) Opioid Agonist Start: 02-22-2024 acetaminophen-hydr ocodone 325 mg-5 mg oral tablet 1 tab(s), Refill(s) 0 Start Date: 02/22/24 Status: Ordered Start: 08-21-2020 End: 03-14-2021 take 1 tablet by mouth every four to six hours Hydrocodone-Acetaminophen Discontinued 1 TAB PO EVERY 4-6 HOURS 12 August 21, 2020 March 14, 2021 6:50pm acetaminophen 325 mg / oxyCODONE hydrochloride 5 mg oral tablet (9 sources) Opioid Agonist Start: 01-03-2024 End: 01-20-2024 take 1 tablet by mouth every six hours oxyCODONE-acetaminophen (Percocet) 5-325 MG tablet Indications: Hammertoe of right foot Take 1 tablet by mouth every 6 (six) hours for 5 days 20 tablet 01/15/2024 01/20/2024 Active Start: 08-21-2020 End: 03-14-2021 take 1 tablet by mouth every four hours Oxycodone-Acetaminophen Discontinued 1 - 2 TAB PO Every 4 hours August 21, 2020 12:00am March 14, 2021 6:53pm [id number] 200 actuat albuterol 0.09 mg/actuat metered dose inhaler (4 sources) beta2-Adrenergic Agonist Start: 07-30-2023 End: 01-03-2024 take 2 puff(s) by inhalation every four hours for wheezing albuterol HFA 90 mcg/act inhaler Inhale 2 puffs every 4 (four) hours if needed for shortness of breath or wheezing 07/30/2023 01/03/2024 Discontinued Start: 04-01-2021 take 1 puff(s) by in halation every six hours Albuterol Sulfate Active 1 - 2 PUFF INHALATION Q6H April 01, 2021 1:00am Ascorbic Acid (2 sources) Vitamin C Start: 02-22-2024 Vitamin C Daily Start Date: 02/22/24 Status: Ordered aspirin 81 mg delayed release oral tablet (5 sources) Platelet Aggregation Inhibitor, Nonsteroidal Anti-inflammatory Drug Start: 02-19-2021 Aspirin (Jayme Low Dose Aspirin) 81 mg Tablet,Delayed Release (Dr/Ec) Active 81 MG PO Daily April 01, 2021 1:00am brompheniramine maleate 0.4 mg/ml / dextromethorphan hydrobromide 2 mg/ml / pseudoephedrine hydrochloride 6 mg/ml oral solution (4 sources) alpha-Adrenergic Agonist, Uncompetitive O-mdkyqp-K-aspartat e Receptor Antagonist, Sigma-1 Agonist Start: 07-30-2023 End: 01-03-2024 take 10 mL by mouth every six hours as needed brompheniramine-p seudoephedrine-DM 30-2-10 MG/5ML syrup take 10ml BY MOUTH EVERY 6 HOURS NEEDED 07/30/2023 01/03/2024 Discontinued Start: 03-14-2021 take 1 mL by mouth every six hours Nwvydotmuuvhpck-Sffwoknyh-Zf Active 5 ML PO Q6H March 14, 2021 1:00am calcium citrate 600 mg and vitamin D3 (Citrical & Minerals + Vit D) 600-200 MG-UNIT tablet (19 sources) take 1 tablet by mouth once daily in the morning calcium citrate 600 mg and vitamin D3 (Citrical & Minerals + Vit D) 600-200 MG-UNIT tablet Take 1 tablet by mouth in the morning and 1 tablet before bedtime. Active cholecalciferol 0.05 mg oral capsule (2 sources) Vitamin D Start: take 1 capsule by mouth once daily Cholecalciferol (Vitamin D3) (Vitamin D3) 50 mcg (2,000 unit) Capsule Active 50 MCG PO Daily April 01, 2021 1:00am Cholecalciferol-Vitami n C (Vitamin D3-Vitamin C) 1000-500 UNIT-MG capsule (19 sources) take 1 capsule by mouth once daily Cholecalciferol-Vitam in C (Vitamin D3-Vitamin C) 1000-500 UNIT-MG capsule Take 1,000 Units by mouth 1 (one) time each day at the same time. Active diclofenac sodium 75 mg delayed release oral tablet (4 sources) Nonsteroidal Anti-inflammatory Drug Start: End: take 1 tablet by mouth in the morning diclofenac (Voltaren) 75 MG EC tablet Indications: Chronic right-sided low back pain without sciatica , Pain of right hip Take 1 tablet (75 mg) by mouth in the morning and 1 tablet (75 mg) before bedtime. Do all this for 10 days. Do not crush, chew, or split.. 20 tablet 02/13/2024 02/23/2024 Active estradiol 0.1 mg/ml vaginal cream (2 sources) Estrogen Start: estradiol (Estrace) 0.1 MG/GM vaginal cream Indications: Vaginal atrophy Apply 1 gram daily for 2 weeks, then 1 gram twice weekly 30 g 3 02/26/2024 Active Glucosamine (2 sources) Start: glucosamine Oral Start Date: 02/22/24 Status: Ordered hydrOXYzine pamoate 25 mg oral capsule (2 sources) Antihistamine Start: take 1 capsule by mouth every six hours hydrOXYzine pamoate (Vistaril) 25 MG capsule Indications: Anxiety, generalized (CMS/HCC) Take 1 capsule (25 mg) by mouth every 6 (six) hours if needed for itching 10 capsule 02/26/2024 Active ketorolac tromethamine 10 mg oral tablet (1 source) Nonsteroidal Anti-inflammatory Drug, Cyclooxygenase Inhibitor Start: ketorolac 10 mg Tab 10 mg = 1 tab(s), Refills(s) 0 Start Date: 02/22/24 Status: Ordered levothyroxine sodium 0.1 mg oral tablet (20 sources) l-Thyroxine Start: take 1 tablet by mouth once daily levothyroxine (Synthroid, Levoxyl) 100 MCG tablet Indications: Hypothyroidism, unspecified (CMS/HCC) TAKE 1 TABLET BY MOUTH DAILY ON AN EMPTY STOMACH 90 tablet 3 09/21/2023 Active Start: 08-21-2020 Synthroid Oral , Daily, Refills(s) 0 Start Date: 08/21/20 Status: Ordered Start: 08-21-2020 take 100 ug by mouth once daily Levothyroxine Active 100 MCG PO Daily August 21, 2020 12:00am metoprolol tartrate 25 mg oral tablet (5 sources) beta-Adrenergic Stiven Start: 03-14-2021 take 12.5 mg by mouth twice daily Metoprolol Tartrate Active 12.5 MG PO Twice daily March 14, 2021 1:00am Start: 02-19-2021 take 0.5 tablet by m outh twice daily Metoprolol Tartrate 25 MG Oral Tablet TAKE 0.5 TABLET Twice daily Quantity: 90 Refills: 3 Ordered: 19-Feb-2021 Urbano DO Vamsi Start : 19-Feb-2021 Active new start Multi Vitamins oral tablet (2 sources) Start: 02-22-2024 take 1 tablet by mouth once daily Multi Vitamins oral tablet 1 tab(s), Oral, Daily Start Date: 02/22/24 Status: Ordered Multiple Vitamin (Multi Vitamin) tablet (19 sources) Multiple Vitamin (Multi Vitamin) tablet 1 (one) time each day at the same time. Active Nature's B[employer] Red Krill Oil (2 sources) Start: 02-22-2024 take 1 mg by mouth once daily [employer] B[employer] Red Krill Oil mg, Oral, Daily Start Date: 02/22/24 Status: Ordered 24 hr oxybutynin chloride 5 mg extended release oral tablet (3 sources) Cholinergic Muscarinic Antagonist Start: 02-28-2024 take 1 tablet by mouth once daily oxybutynin 5 mg ER Tab 5 mg = 1 tab(s), Oral, Daily, # 90 tab(s), Refills(s) 0, Pharmacy: [id number], 154.5, cm, 02/28/24 7:03:00 EST, Height/Length Dosing, 77.5, kg, 02/28/24 7:03:00 EST, Weight Dosing Start Date: 02/28/24 Status: Ordered Start: 08-21-2020 End: 03-14-2021 take 5 mg by mouth twice daily Oxybutynin Chloride Dis continued 5 MG PO Twice daily August 21, 2020 12:00am March 14, 2021 6:53pm oxyCODONE hydrochloride 5 mg oral tablet (1 source) Opioid Agonist Start: 02-28-2024 take 1 tablet by mouth every six hours as needed for pain Roxicodone 5 mg Tab 5 mg = 1 tab(s), Oral, q6hr, PRN for pain, # 7 tab(s), Refills(s) 0, Pharmacy: [id number], 154.5, cm, 02/28/24 7:03:00 EST, Height/Length Dosing, 77.5, kg, 02/28/24 7:03:00 EST, Weight Dosing Start Date: 02/28/24 Status: Ordered tamsulosin hydrochloride 0.4 mg oral capsule (4 sources) alpha-Adrenerg ic Stiven Start: 02-22-2024 tamsulosin 0.4 mg Cap 0.4 mg = 1 cap(s), Refills(s) 0 Start Date: 02/22/24 Status: Ordered Start: 08-21-2020 End: 03-14-2021 take 0.4 mg by mouth once daily Tamsulosin Discontinued 0.4 MG PO Daily August 21, 2020 12:00am March 14, 2021 6:53pm Vitamin D3 (2 sources) Start: 02-22-2024 Vitamin D3 Sta rt Date: 02/22/24 Status: Ordered Zinc (2 sources) Start: 04-01-2021 take 50 mg by mouth once daily Zinc Active 50 MG PO Daily April 01, 2021 1:00am Completed/Discontinued Medications Medication Drug Class(es) Dates Sig (Normalized) Sig (Original) benzonatate 100 mg oral capsule (2 sources) Non-narcotic Antitussive Start: 03-14-20 End: 04-01-20 take 100 mg by mouth three times daily Benzonatate Discontinued 100 MG PO Three times daily March 14, 2021 1:00am April 01, 2021 10:17am ciprofloxacin 500 mg oral tablet (2 sources) Quinolone Antimicrobial Start: 08-22-19 End: 03-14-20 take 1 tablet by mouth every two hours Ciprofloxacin Hcl (Cipro) 500 mg tablet Discontinued 500 MG PO Q12H August 21, 2020 12:00am March 14, 2021 6:49pm administer dose at least 2 hrs before/6 hrs after dairy products, calcium, zinc, and/or iron-containing products codeine phosphate 2 mg/ml / promethazine hydrochloride 1.25 mg/ml oral solution (2 sources) Opioid Agonist, Phenothiazine Start: 03-14-20 End: 04-06-19 take 1 mL by mouth every four to six hours Promethazine-Codeine Discontinued 5 ML PO EVERY 4-6 HOURS 118 7 March 14, 2021 1:00am April 06, 2021 1:00pm dexamethasone 6 mg oral tablet (2 sources) Corticosteroid Start: 03-14-20 End: 04-01-20 take 1 tablet by mouth once daily Dexamethasone (Decadron) 6 mg tablet Discontinued 6 MG PO Daily March 14, 2021 1:00am April 01, 2021 10:18am hydroCHLOROthiazide 25 mg oral tablet (5 sources) Thiazide Diuretic Start: 02-20-20 End: 04-01-20 take 25 mg by mouth once daily Hydrochlorothiazide Discontinued 25 MG PO Daily March 14, 2021 1:00am April 01, 2021 10:18am latanoprost 0.05 mg/ml ophthalmic solution (20 sources) Prostaglandin Analog Start: 12-30-19 take 1 drop(s) into the eye(s) once daily Latanoprost 0.005 % Ophthalmic Solution INSTILL 1 DROP IN BOTH EYES EVERY NIGHT Quantity: 8 Refills: 0 Ordered: 29-Dec-2021 DO Start : 29-Dec-2021 Active Start: 08-21-2020 take 1 drop(s) into the eye(s) at bedtime Latanoprost Active 1 DROPS EYE-BOTH Bedtime August 21, 2020 12:00am latanoprost (Xal atan) 0.005 % ophthalmic solution 1 (one) time each day at the same time. Active Multi Vitamin Daily TABS (2 sources) Multi Vitamin Da josue TABS TAKE 1 TABLET DAILY. Quantity: 0 Refills: 0 Ordered: 17-Jan-2022 DO Active 24 hr nitroglycerin 0.2 mg/hr transdermal system (5 sources) Nitrate Vasodilator Start: 02-20-20 End: 04-06-19 Nitroglycerin Discontinued 1 PATCH TRANSDERML Daily March 14, 2021 1:00am April 06, 2021 3:52pm APPLY 1 PATCH FOR 12 TO 14 HOURS PER DAY THEN REMOVE ondansetron 4 mg disintegrating oral tablet (4 sources) Serotonin-3 Receptor Antagonist Start: 03-14-20 End: 04-01-20 take 4 mg by mouth every eight hours Ondansetron Discontinued 4 MG PO Q8H March 14, 2021 1:00am April 01, 2021 10:19am Start: 08-21-2020 End: 04-01-2021 take 4 mg by mouth every eight hours Ondansetron Hcl Discontinued 4 MG PO Every 8 hours August 21, 2020 12:00am April 01, 2021 10:19am sulfamethoxazole 800 mg / trimethoprim 160 mg oral tablet (4 sources) Dihydrofolate Reductase Inhibitor Antibacterial, Sulfonamide Antimicrobial Start: 01-29-2024 End: 02-13-2024 take 1 tablet by mouth once in the morning, then take 1 tablet by mouth once at bedtime sulfamethoxazole-trimethoprim (Bactrim DS) 800-160 MG per tablet Indications: Surgery follow-up examination Take 1 tablet by mouth in the morning and 1 tablet before bedtime. Do all this for 10 days. 20 tablet 01/29/2024 02/13/2024 Discontinued (Therapy completed) 1 ml triamcinolone acetonide 40 mg/ml prefilled syringe (20 sources) Corticosteroid Start: 02-21-2024 End: 02-21-2024 triamcinolone acetonide (Kenalog-40) injection 40 mg Start: 02-21-2024 End: 02-21-2024 triamcinolone acetonide (Kenalog-40) injection 40 mg Start: 02-21-2024 End: 02-21-2024 inject 40 mg by intramuscular injection once 40 mg, Intramuscular, Once, On Mon02/21/24 at 0915, For 1 dose Start: 02-21-2024 End: 02-21-2024 inject 40 mg by intramuscular injection once 40 mg, Intramuscular, Once, On Mon02/21/24 at 0915, For 1 dose Start: 02-01-2023 triamcinolone acetonide (Kenalog-40) injection 60 mg Problems Active Problems Problem Classification Problem Date Documented Da te Episodic/Chronic Acquired foot deformities (6 sources) Hammer toe; Translations: [Other hammer toe(s) (acquired), right foot] 01-03-2024 Chronic Anxiety disorders (2 sources) Generalized anxiety disorder; Translations: [Generalized anxiety disorder] 02-26-2024 Chronic Calculus of urinary tract (12 sources) Unspecified renal colic; Translations: [Calculus of kidney] Onset: 08-20-2020 Episodic Cardiac dysrhythmias (6 sources) Palpitations; Translations: [Palpitations] Onset: 02-13-2021 Episodic Complication of device; implant or graft (2 sources) Retained ureteric stent 08-28-2020 Episodic Coronary atherosclerosis and other heart disease (3 sources) Angina pectoris; Translations: [Other and unspecified angina pectoris] Chronic Disorders of lipid metabolism (20 sources) Raised low density lipoprotein cholesterol; Translations: [Pure hypercholesterolemia , unspecified] Onset: 01-03-2024 01-03-2024 Chronic Diverticulosis and diverticulitis (19 sources) Diverticular disease; Translations: [Diverticulosis of intestine, part unspecified, without perforation or abscess without bleeding] Onset: 01-23-2023 01-23-2023 Chronic Essential hypertension (5 sources) Benign essential hypertension; Translations: [Benign essential hypertension] Chronic Fever of unknown origin (1 source) Fever, unspecified; Translations: [FEVER UNSPECIFIED] Onset: 03-11-2021 Episodic Genitourinary symptoms and ill-defined conditions (20 sources) Incontinence; Translations: [Mixed incontinence] Onset: 07-17-2017 01-23-2023 Chronic Glaucoma (20 sources) Bilateral glaucoma; Translations: [Unspecified glaucoma] Onset: 01-03-2024 01-03-2024 Chronic Immunizations and screening for infectious disease (1 source) Encounter for immunization; Translations: [ENCOUNTER FOR IMMUNIZATION] Onset: 03-16-2021 Episodic Malaise and fatigue (1 source) Other fatigue; Translations: [OTHER FATIGUE] Onset: 02-13-2021 Episodic Menopausal disorders (4 sources) Atrophy of vagina; Translations: [Postmenopausal atrophic vaginitis] 02-26-2024 Chronic Osteoarthritis (20 sources) Primary gonarthrosis, bilateral; Translations: [Bilateral primary osteoarthritis of knee] Onset: 03-01-2023 01-03-2024 Chronic Osteoporosis (2 sources) Postmenopausal osteoporosis; Translations: [Age-related osteoporosis without current pathological fracture] 02-26-2024 Chronic Other acquired deformities (2 sources) Acquired deformity of ankle AND/OR foot; Translations: [Unspecified acquired deformity of right lower leg] 01-03-2024 Episodic Other aftercare (1 source) oysterman (current) use of aspirin; Translations: [JAIL CURRENT USE OF ASPIRIN] Onset: 03-11-2021 Episodic Other aftercare (4 sources) Surgical follow-up; Translations: [Encounter for follow-up examination after completed treatment for conditions other than malignant neoplasm] 01-15-2024 Episodic Other connective tissue disease (6 sources) Pain in right foot; Translations: [Pain in right foot] 01-15-2024 Episodic Other connective tissue disease (2 sources) Trochanteric bursitis; Translations: [Trochanteric bursitis, right hip] 02-21-2024 Episodic Other diseases of kidney and ureters (1 source) Hydronephrosis; Translations: [Hydronephrosis with renal and ureteral calculous obstruction] 08-21-2020 Episodic Other diseases of kidney and ureters (1 source) Hydronephrosis with renal and ureteral calculous obstruction; Translations: [Hydronephrosis with urinary obstruction due to ureteral calculus] 08-21-2020 Episodic Other diseases of kidney and ureters (1 source) Urinary tract obstruction; Translations: [Hydronephrosis with renal and ureteral calculous obstruction] Onset: 02-22-2024 Episodic Other gastrointestinal disorders (19 sources) Irritable bowel syndrome with diarrhea; Translations: [Irritable bowel syndrome with diarrhea] Onset: 05-21-2019 09-30-2022 Chronic Other lower respiratory disease (5 sources) Dyspnea on exertion; Translations: [Other respiratory abnormalities] Episodic Other lower respiratory disease (1 source) Dyspnea, unspecified; Translations: [DYSPNEA UNSPECIFIED] Onset: 03-11-2021 Episodic Other non-traumatic joint disorders (4 sources) Effusion, left ankle; Translations: [EFFUSION LEFT ANKLE] Onset: 02-08-2021 Episodic Other non-traumatic joint disorders (4 sources) Hip pain; Translations: [Pain in right hip] 02-21-2024 Episodic Other nutritional; endocrine; and metabolic disorders (7 sources) Obesity; Translations: [Obesity, unspecified] Chronic Other nutritional; endocrine; and metabolic disorders (20 sources) Obesity caused by energy imbalance; Translations: [Morbid (severe) obesity due to excess calories] Onset: 06-30-2020 01-03-2024 Chronic Other screening for suspected conditions (not mental disorders or infectious disease) (16 sources) Cardiovascular stress test abnormal; Translations: [Other nonspecific abnormal results of function study of cardiovascular system] Onset: 06-27-2020 Episodic Other skin disorders (2 sources) [place] of toe; Translations: [Corns and callosities] 01-03-2024 Episodic Residual codes; unclassified (5 sources) Edema of lower extremity; Translations: [Edema] Episodic Residual codes; unclassified (1 source) Acquired absence of other specified parts of digestive tract; Translations: [ACQ ABSENCE OTH PART DIGESTV TRACT] Onset: 03-11-2021 Episodic Spondylosis; intervertebral disc disorders; other back problems (20 sources) Arthritis of lumbosacral spine; Translations: [Spondylosis without myelopathy or radiculopathy, lumbosacral region] Onset: 01-03-2024 01-03-2024 Chronic Spondylosis; intervertebral disc disorders; other back problems (5 sources) Low back pain; Translations: [Chronic low back pain] Onset: 08-28-2020 Episodic Thyroid disorders (20 sources) Hypothyroidism; Translations: [Unspecified acquired hypothyroidism] Onset: 12-12-2019 01-03-2024 Chronic Unclassified (1 source) COUGH, UNSPECIFIED; Translations: [COUGH, UNSPECIFIED] Onset: 03-11-2021 Unclassified (2 sources) Obstructive hydronephrosis 02-22-2024 Viral infection (2 sources) Disease caused by 2019-nCoV; Translations: [COVID-19] 03-14-2021 Episodic Viral infection (4 sources) COVID-19; Translations: [COVID-19] Onset: 03-11-2021 Past or Other Problems Problem Classification Problem Date Documented Date Episodic/Chronic Abdominal pain (3 sources) Unspecified abdominal pain; Translations: [UNSPECIFIED ABDOMINAL PAIN] Onset: 08-20-2020 Episodic Headache; including migraine (19 sources) Migraine; Translations: [Migraine, unspecified, not intractable, without status migrainosus] Onset: 05-21-2019 Resolved: 01-03-2024 01-03-2024 Chronic Other aftercare (1 source) Other half-way (current) drug therapy; Translations: [OTH RESEARCH CLERK CURRENT DRUG THERAPY] Onset: 08-24-2020 Episodic Other circulatory disease (2 sources) H/O: angina pectoris; Translations: [Personal history of other diseases of circulatory system] Resolved: 01-17-2022 Episodic Other diseases of kidney and ureters (1 source) Crossing vessel and stricture of ureter without hydronephrosis; Translations: [CROSSING VES STRICT URETER W/O HN] Onset: 09-02-2020 Episodic Other diseases of veins and lymphatics (19 sources) Peripheral venous insufficiency; Translations: [Venous insufficiency (chronic) (peripheral)] Onset: 09-27-2016 01-23-2023 Episodic Other lower respiratory disease (19 sources) Persistent cough; Translations: [Persistent cough] Onset: 07-19-2023 Resolved: 01-03-2024 01-03-2024 Episodic Other nutritional; endocrine; and metabolic disorders (20 sources) Body mass index 30+ - obesity; Translations: [Body mass index (BMI) 35.0-35.9, adult] Onset: 07-19-2023 Resolved: 01-03-2024 01-03-2024 Chronic Peripheral and visceral atherosclerosis (19 sources) Atherosclerosis of aorta; Translations: [Atherosclerosis of aorta] Onset: 08-30-2023 Resolved: 02-26-2024 08-30-2023 Chronic Residual codes; unclassified (19 sources) Memory impairment; Translations: [Other amnesia] Onset: 01-23-2023 Resolved: 01-03-2024 01-03-2024 Episodic Unclassified (5 sources) Never smoked tobacco; Translations: [Never a smoker] Results Test Name Value Interpretation Reference Range Facility Calculus Analysison 03-05-20 24 Calcium oxalate dihydrate Infrared spectroscopy (Stone) [Mass fraction] 60 % Invalid Interpretation Code [facility] Comment on above: Performed By: #### 1 [id number] #### [facility] Laboratory [address] [place] [address] Calcium oxalate monohydrate (Stone) [Mass fraction] 35 % Invalid Interpretation Code [facility] Comment on above: Performed By: #### 1 [id number] #### [facility] [address] [place] [address] Calculus analysis [Interp] Comment Invalid Interpretation Code [facility] Comment on above: Result Comment: Calc ium phosphate (hydroxyl form) includes hydroxyapatite, amorphous calcium phosphate, and whitlockite. Hydroxyapatite is the most common of the calcium phosphate salts found in human kidney stones. Performed By: #### 1 [id number] #### [facility] [address] [place] [address] Color (Stone) Bee Invalid Interpretation Code [facility] Comment on above: Performed By: #### 1 [id number] #### [facility] [address] [place] [address] Composition Comment Invalid Interpretation Code [facility] Comment on above: Result Comment: Perc entage (Represents the % composition) Performed By: #### 1 [id number] #### [facility] [address] [place] [address] Disclaimer: Comment Invalid Interpretation Code [facility] Comment on above: Result Comment: This test was developed and its performance characteristics determined by [facility]. It has not been cleared or approved by the Food and Drug Administration. Performed at: [address] [id number] PhD Judith Guan Performed By: #### 1 [id number] #### [facility] [address] [place] [address] Hydroxyapatite: 5 % Invalid Interpretation Code [facility] Comment on above: Performed By: #### 1 [id number] #### [facility] [address] [place] [address] Laboratory comment Colin (Report) Comment Invalid Interpretation Code [facility] Comment on above: Result Comment: Kierra stone questions regarding Calculi Analysis contact [facility] at: [phone]. Performed By: #### 1 [id number] #### [facility] [address] [place] [address] Please Note: Comment Invalid Interpretation Code [facility] Comment on above: Result Comment: Calc elke report will follow via computer, mail or rigger delivery. Performed By: #### 1 [id number] #### [facility] [address] [place] [address] Size (Stone) [Entitic vol] 4x3 Invalid Interpretation Code [facility] Comment on above: Result Comment: Mult iple pieces received. Dimensions of the largest piece reported. Performed By: #### 1 [id number] #### [facility] [address] [place] [address] Specimen source subject Nom Comment Invalid Interpretation Code [facility] Comment on above: Result Comment: Left Kidney Performed By: #### 1 [id number] #### [facility] [address] [place] [address] Stone Photo Comment Invalid Interpretation Code [facility] Comment on above: Result Comment: Phot ograph will follow under a separate cover Performed By: #### 1 [id number] #### [facility] [address] [place] [address] Weight (Stone) 17 mg Invalid Interpretation Code [facility] Comment on above: Performed By: #### 1 [id number] #### [facility] [address] [place] [address] No Panel Informationon 03-05 WIN MISCELLANEOUS COMMENT [facility] Comment on above: Test Ordered: [id number] IGP, Apt HPV,rfx 16/18,45 DIAGNOSIS: Comment 01 NEGATIVE FOR INTRAEPITHELIAL LESION OR MALIGNANCY. Specimen adequacy: Comment 01 Satisfactory for evaluation. No endocervical component is identified. Clinician provided ICD10: Comment 01 Z01.419 Z12.4 Performed by: Comment 01 Brook Chaney, Catalogue Compiler (ASCP) . 01 Note: Comment 01 The Pap smear is a screening test designed to aid in the detection of premalignant and malignant conditions of the uterine cervix. It is not a diagnostic procedure and should not be used as the sole means of detecting cervical cancer. Both false-positive and false-negative reports do occur. Test Methodology: Comment 01 This liquid based ThinPrep(R) pap test was screened with the use of an image guided system. HPV Aptima Negative 02 Reference Range: Negative This nucleic acid amplification test detects fourteen high-risk HPV types (16,18,31,33,35,39,45,51,52,56,58,59,66,68) without differentiation. Performed At: [address], [place] [id number] Tj Epperson MD Ph:[phone] Performed At: [facility] [address] [facility] [place], [place] [id number] Tj Epperson MD Ph:[phone] Specimen Comment: No. of containers..[address] [facility] XR Urography Retrograde Left on 03-05-2024 XR Urography Retrograde Left Exam Date/Time: 02/28/2024 08:45 EST Reason for Exam: Kidney stone Report IMPRESSION: LEFT RETROGRADE UROGRAM, WITH FILLING DEFECT(S) AND SUBSEQUENT LEFT URETERAL STENT PLACEMENT. CLINICAL HISTORY: Kidney stone. COMMENT: 3 views were obtained in the OR. On the initial image, there is a guidewire extending up the left ureter to the upper pole of the left kidney and contrast has been injected into the left ureter. There is a filling defect at the left ureteropelvic junction and there also are findings suggesting additional filling defects in the proximal and mid left ureter. On the next image, an instrument has been introduced into the distal left ureter, and there are now two guidewires extending up the left ureter to the upper pole. There is some residual contrast in the left renal pelvicalyceal system. On the final image, a left ureteral stent has been placed, with the proximal end in the upper pole and the distal pigtail end in the urinary bladder. The end of a scope is visualized in the bladder. Of incidental note, there are surgical clips in the right upper quadrant of the abdomen from prior cholecystectomy. Air Kerma: 2.2 mGy. Ordering Provider: JULIUS RASHEED FINAL REPORT Dictated: 03/05/2024 11:24 am Vamsi Wong M.D. Signed (Electronic Signature): 03/05/2024 11:24 am Signed by: Vamsi Wong M.D. Transcribed by: FARIBA Technologist: PEG Technical Comments Radiation Dose: Ka,r in mGy = 2.20 DAP = 146.41 Normal [facility] COAGULATIONOrdered By: Raysa Beyer on 02-28-2024 aPTT Coag (PPP) [Time] 36.7 s High 25.1 - 36.5 second(s) [facility] Auto [facility] Comment on above: Interpretive Data: P arameter 15 days - 4 weeks 1 - 5 months 6 - 11 months 1 - 5 years 6 - 10 years 11 - 17 years PTT Mean: 35.4 (27.6-45.6) Mean: 33.5 (24.8-40.7) Mean: 32.4 (25.1-40.7) Mean: 31.6 (24.0-39.2) Mean: 31.6 (26.9-38.7) Mean: 31.0 (24.6-38.4) Pediatric Reference ranges were obtained from a study by Baljinder Barrios et al. prepared from 1437 samples obtained at 7 different centers using the same coagulation reagent and instrumentation as [facility]. Currently there are no coagulation studies available worldwide for children to 14 days, and no normal ranges. Heparin therapeutic range (represented by Anti-Factor Xa activity of 0.2 - 0.4 U/mL) corresponds to PTT of 56.6 - 109.0 sec. INR Coag (PPP) [Relative time] 1.06 {INR} Invalid Interpretation Code [facility] Comment on above: Interpretive Data: I NR results are specifically intended to assess patients stabilized on long-term Anticoagulation therapy suggested INR s Less Intensive Anticoagulation 2.0 3.0 Conventional Range 3.0 4.5 PT Coag (PPP) [Time] 11.9 s Normal 9.4 - 1 2.5 second(s) [facility] Comment on above: Interpretive Data: 1 5 days - 4 weeks 1 - 5 months 6 -11 months 1-5 years 6-10 years 11 -17 years Mean: 11.2 (9.5-12.6) Mean: 11.0 (9.7-12.8) Mean: 11.0 (9.8-13.0) Mean: 11.3 (9.9-13.4) Mean: 11.7 (10.0-14.6) Mean: 11.8 (10.0 - 14.1) Pediatric Reference ranges were obtained from a study by Baljinder Barrios et al. prepared from 1437 samples obtained at 7 different centers using the same coagulation reagent and instrumentation as [facility]. Currently there are no coagulation studies available worldwide for children to 14 days, and no normal ranges. Discharge Instructionson Discharge Instructions Discharge Instructions HERMINIO DRAKE :1955 Visit Date:02/28/2024 Inpatient Discharge Instructions Your Care Team Admitting Physician - JHONY NICHOLS, JULIUS Referring Physician - JULIUS RASHEED MD Reason for Your Visit LEFT URETERAL STONE Your Diagnosis Preoperative clearance Tests Performed Calculi Analysis Urinary -- Results Pending -- XR Chest 2 Views XR Urography Retrograde Left -- Results Pending -- Please visit your patient portal for your results or contact your primary care physician. Procedure History Cystoscopic removal of ureteric stent (08/28/2020), Cystoscope (08/12/2020), Tonsillectomy (1968), section, Cholecystectomy, Colonoscopy, Procedure on foot. What to do next Instructions From Your Doctor Event Name Event Result Discharge Instructions Freetext Stents in 5 days. Blood in the urine is suspected with stent in place. Hydrate vigorously with a least 2 L/day. Take Tylenol, ibuprofen for stent discomfort. Follow-up in 6 weeks. Discharge Activity Ambulate as tolerated, Resume normal activities in 24 hours, Arrange for a responsible adult supervision for 24 hours, Expect minimal amount of drainage and/or bleeding Discharge Restrictions No driving for 24 hrs Discharge Diet(s) Regular Call Your Doctor For Persistent or heavy bleeding, Temperature above 101.5 degrees Discharge Instructions Discharge Instructions New Follow Up Appointments after Discharge Follow Up with JULIUS RASHEED When: Comments: Follow-up in 6 weeks with [facility], renal ultrasound. Where: [address] [place] [phone] Business (1) Medications What How Much When Instructions Next Dose New oxybutynin (oxybutynin 5 mg ER Tab) 1 Tablets By Mouth Every day Pickup at [facility] New oxycodone (Roxicodone 5 mg Tab) 1 Tablets By Mouth Every 6 hours as needed for for pain Pickup at [facility] Unchanged acetaminophen-hydrocodo ne (acetaminophen-hydrocod one 325 mg-5 mg oral tablet) 1 Tablets Unchanged ascorbic acid (Vitamin C) Every day Unchanged cholecalciferol (Vitamin D3) Unchanged glucosamine By Mouth Unchanged levothyroxine (Synthroid) By Mouth Every day Unchanged multivitamin (Multi Vitamins oral tablet) 1 Tablets By Mouth Every day Unchanged omega-3 polyunsaturated fatty acids (Nature's Bounty Red Krill Oil) By Mouth Every day Unchanged tamsulosin (tamsulosin 0.4 mg Cap) 1 Capsules Pharmacy Information [facility]: [address] [place], [place] [id number] [phone] [facility] [employer] [facility] [place], [place] Dr. Parul Pitts Post-operative Instructions for Ureteroscopy, Laser Lithotripsy, Stone Extraction and Stent Placement There are no incisions or dressings to be concerned with, as the procedure was performed inside the urinary system. For 24 hours after surgery: ??? No driving or operating machinery ??? Do not make important decisions ??? Do not consume alcohol, sleeping pills Stent Placement You may have a stent which spans the distance between your bladder and your kidney, allowing urine to pass through. It prevents blockage from swelling, kidney stones in ureter (tube connecting the kidney to the bladder), or scars. The presence of the stent may cause: ??? Back or side pain, especially with urination ??? Frequent or urgent urination ??? Bladder pressure or pain ??? Blood in urine You may pass stone debris or small blood clots, which is expected. Drinking plenty of water to dilute the urine may help. If there is a thread coming out of urinary channel, be careful not to accidently pull on this, as it is attached to the stent. The stent will most likely be removed in the office during a short procedure in which a scope is placed into the bladder, the stent is grasped and removed. At other times the stent may need to stay longer, either in preparation for other procedures or for other reasons. If it is to remain half-way, however, changes of the stent are required (about every 3-4 months). Diet You may resume your normal diet, but you may want to start slowly and avoid spicy food, caffeine, carbonated beverages and alcohol, especially if you have a stent. Your diet and fluid intake may make irritation from the stent worse. Activity You may resume your normal activities, although you should take it easy on the day of the procedure. Minimizing activity may decrease the back discomfort and irritation from the stent, if present. Medications ??? You may resume your home medications unless instructed otherwise. ??? Hold aspirin, ibuprofen, Coumadin (warfarin) and other blood thinners until your office visit (we will discuss when to resume these medications) ??? Take your prescribed medications as directed, including y (more content not included)... Normal [facility] Comment on above: Result Comment: Elec tronically Signed By: Mallory TORREZ, Dimitris Durham\.br\Date and Time Signed: 02/28/24 09:16 EST Inpatient Patient Summaryon 02-28-2024 Inpatient Patient Summary Inpatient Patient Summary [place] [id number] [facility] Clinical Discharge Instructions PERSON INFORMATION Name: HERMINIO DRAKE [facility]#:[id number] PHYSICIANS Admitting Physician: JULIUS RASHEED MD Attending Physician: JULIUS RASHEED MD PCP: BOB CARTER DO Discharge Diagnosis: Comment: PATIENT EDUCATION INFORMATION Instructions: Medication Leaflets: Follow up: With: Address: When: JULIUS RASHEED [address] [place] [phone] Business (1) Comments: Follow-up in 6 weeks with [facility], renal ultrasound. MEDICATION LIST New Medications [facility], [address] [place], [place] [id number], [phone] oxybutynin (oxybutynin 5 mg ER Tab) 1 Tablets By Mouth every day. Refills: 0. oxycodone (Roxicodone 5 mg Tab) 1 Tablets By Mouth every 6 hours as needed for pain. Refills: 0. Medications to Continue with No Changes Other Medications acetaminophen-hydrocodo ne (acetaminophen-hydrocod one 325 mg-5 mg oral tablet) 1 Tablets. ascorbic acid (Vitamin C) every day. cholecalciferol (Vitamin D3) glucosamine By Mouth. levothyroxine (Synthroid) By Mouth every day. multivitamin (Multi Vitamins oral tablet) 1 Tablets By Mouth every day. omega-3 polyunsaturated fatty acids (Nature's Bounty Red Krill Oil) By Mouth every day. tamsulosin (tamsulosin 0.4 mg Cap) 1 Capsules. Comment: Viktor [facility] Main OR Intraoperative Recor don 02-28-2024 Main OR Intraoperative Record Main OR Intraoperative Record IntraOp Document Type FT Summary Primary Physician: JULIUS RASHEED MD Finalized Date/Time: 02/28/24 14:46:19 Pt. Name: KRISHANHERMINIO/Sex: 1955 Female Med Rec #: [id number] Physician: JULIUS RASHEED MD Financial #: [id number] Pt. Type: A Room/Bed: [place] [address] Admit/Disch: 02/28/24 06:12:05 - 02/28/24 10:30:46 Institution: Case Times FT Entry 1 Patient Times In Room 02/28/24 07:44:00 Out Room 02/28/24 08:31:00 Procedure Times Start 02/28/24 07:54:00 Stop 02/28/24 08:23:00 Anesthesia Times Start 02/28/24 07:44:00 Stop 02/28/24 08:31:00 Last Modified By: Tarah Porras RN 02/28/24 09:51:26 General Comments: 02/28/24 Chart opened to review and send charges [facility]FA Case Attendance FT Entry 1 Entry 2 Entry 3 Case Attendee Neftaly SOLOMON, STEVE, Queen JHONY NICHOLS, Tarah Porras RN Role Performed RELIEF MASTER Surgeon - Primary Metal Room Dental Technician - Primary Time In 02/28/24 07:44:00 02/28/24 07:53:00 02/28/24 07:44:00 Time Out 02/28/24 08:31:00 02/28/24 08:28:00 02/28/24 08:31:00 Procedure CYSTOSCOPY W/ HOMIUM CYSTOSCOPY W/ HOMIUM CYSTOSCOPY W/ HOMIUM LASER(Left), CYSTOSCOPY LASER(Left), CYSTOSCOPY LASER(Left), CYSTOSCOPY RETROGRADE STENT RETROGRADE STENT RETROGRADE STENT INSERTION(Left) INSERTION(Left) INSERTION(Left) Comments Dr. Lyon anesthesia animal shelter supervisor Last Modified By: Chiquita RN, Tarah Porras RN, Tarah Porras RN, Tarah Andrea 02/28/24 09:52:03 02/28/24 09:52:03 02/28/24 09:52:03 Entry 4 Entry 5 Entry 6 Case Attendee Atif, Rachael Marie, Zurdo Hogue RN, Carmen Seay Role Performed Scrub - Primary Animal Behaviourist Staff - Other Time In 02/28/24 07:44:00 02/28/24 07:44:00 02/28/24 07:44:00 Time Out 02/28/24 08:31:00 02/28/24 08:31:00 02/28/24 07:52:00 Procedure CYSTOSCOPY W/ HOMIUM CYSTOSCOPY W/ HOMIUM CYSTOSCOPY W/ HOMIUM LASER(Left), CYSTOSCOPY LASER(Left), CYSTOSCOPY LASER(Left), CYSTOSCOPY RETROGRADE STENT RETROGRADE STENT RETROGRADE STENT INSERTION(Left) INSERTION(Left) INSERTION(Left) Comments room assist Last Modified By: Chiquita RN, Tarah Porras RN, Tarah Porras RN, Tarah Andrea 02/28/24 09:52:23 02/28/24 09:52:23 02/28/24 09:52:03 General Comments: Ajay Cortez rep present for this case. LORE Freitastransition mgr rn Protocols FT Pre-Care Text: Implements protective measures prior to operative or invasive procedure, confirms identity before the operative or invasive procedure, verifies operative procedure, surgical site, and laterality Entry 1 Procedure(s) CYSTOSCOPY W/ HOMIUM Patient Identity Birthday, ID Band LASER(Left), CYSTOSCOPY Verified (select at Check, Patient RETROGRADE STENT least 2): Participation INSERTION(Left) Consents / H and P Anesthesia Consent, Operative Site N/A Verified H&P, Surgery/Procedure Marking Verified Consent, Transfusion Consent Surgical Site Yes Laterality Verified Yes Verified Procedure Verified Yes Correct Patient Yes Position Verified Availability Equipment, Implant, Prep Dry n/a Verified (If Medication, X-ray Applicable) PreOp Antibiotic Yes Time Out Neftaly SOLOMON CRNA, Queen Given Participants N., JHONY NICHOLS, Chiquita MADRID RN, Atif Mane Madison A, Hargrove, Bryce Time Out Complete 02/28/24 07:54:00 Outcomes Met? Yes Last Modified By: Tarah Porras RN 02/28/24 08:00:56 Post-Care Text: The patient is free from signs and symptoms of injury caused by extraneous objects Allergy Information FT Pre-Care Text: Verifies allergies Entry 1 Allergies Reviewed? Yes Allergies Reviewed Self/Patient With Outcomes Met? Yes Last Modified By: Tarah Porras RN 02/28/24 08:01:02 Post-Care Text: The patient received appropriate medication(s) safely administered during the perioperative period Surgical Procedures FT Entry 1 Entry 2 Procedure Description Procedure CYSTOSCOPY W/ HOMIUM CYSTOSCOPY RETROGRADE LASER STENT INSERTION Modifiers Left Left Surgeon Description CYSTOSCOPY, LEFT CYSTOSCOPY, LEFT URETEROSCOPY, LASER URETEROSCOPY, LASER LITHOTRIPSY, LEFT STENT LITHOTRIPSY, LEFT PLACEMENT STENT PLACEMENT Primary Procedure Yes No Primary Surgeon JHONY NICHOLS, JHONY NICHOLS, JULIUS MADRID Start 02/28/24 07:54:00 02/28/24 07:54:00 Stop 02/28/24 08:23:00 02/28/24 08:23:00 Anesthesia Type General General Surgical Service Anesthesia Anesthesia Wound Class 2 - Clean-Contaminated 2 - Clean-Contaminated Last Modified By: Tarah Porras RN, RN, Leann E 02/28/24 09:52:55 02/28/24 09:53:06 General Case Data FT Pre-Care Text: Classifies surgical wound, implements aseptic technique, initiates traffic control Entry 1 Case Information OR OR 1 FT Case Level Level 3 Wound Class 2 - Clean-Contaminated Specialty Anesthesia ASA Class 2 Preop Diagnosis LEFT URETERAL STONE Postop Same As Preop Yes Postop Diagnosis LEFT URETERAL STONE Outcomes Met? Yes Last Modified By: (more content not included)... Normal [facility] Main OR PACU I Recordon 02-02 Main OR PACU I Record Main OR PACU I Rec ord PACU Phase I Document Type FT Summary Primary Physician: JULIUS RASHEED MD Finalized Date/Time: 02/28/24 09:16:28 Pt. Name: HERMINIO DRAKE Nell Lucio./Sex: 1955 Female Med Rec #: [id number] Physician: JULIUS RASHEED MD Financial #: [id number] Pt. Type: A Room/Bed: [place] [address] Admit/Disch: 02/28/24 06:12:05 - Institution: Case Times PACU I FT Pre-Care Text: Identifies barriers to communication and implements measures to provide psychological support Develops individualized plan of care, and ensures continuity of care Maintains patient's dignity and privacy, and maintains patient confidentiality Identifies and reports philosophical, cultural, and spiritual beliefs and values Identifies individual values and wishes concerning care Implements aseptic technique, and administers prescribed antibiotic therapy and immunizing agents as ordered Evaluates postoperative tissue perfusion Implements thermoregulation measures, and monitors body temperature Evaluates postoperative respiratory status Evaluates postoperative cardiac status Evaluates postoperative neurological status Assesses pain control, collaborated in initiating patient-controlled analgesia and implements alternative methods of pain control Verifies allergies, administers prescribed medications and solutions, evaluates response to medications Entry 1 In PACU I 02/28/24 08:33:00 Discharge from PACU 02/28/24 09:03:00 I Outcomes Met? Yes Last Modified By: Sydni Sparrow RN 02/28/24 09:16:13 Post-Care Text: The patient demonstrates knowledge of the expected response to the operative or invasive procedure The patient's care is consistent with the individualized perioperative plan of care The patient's right to privacy is maintained The patient's value system, lifestyle, ethnicity, and culture are considered, respected, and incorporated into the perioperative plan of care The patient participates in decisions affecting his or her perioperative plan of care The patient is free from signs and symptoms of infection The patient has wound/tissue perfusion consistent with or improved from baseline levels established preoperatively The patient is at or returning to normothermia at the conclusion of the immediate postoperative period The patient's respiratory function is consistent with or improved from baseline levels established preoperatively The patient's cardiovascular status is consistent with or improved from baseline levels established preoperatively The patient's cardiovascular status is consistent with or improved from baseline levels established preoperatively The patient demonstrates and/or reports adequate pain control throughout the perioperative period The patient received appropriate medication(s), safely administered during the perioperative period Acuity Level PACU I FT Entry 1 Start Time 02/28/24 08:33:00 Stop Time 02/28/24 09:03:00 Acuity Level Acuity Level I Last Modified By: Sydni Sparrow RN 02/28/24 09:16:24 Finalized By: Sydni Sparrow RN Document Signatures Signed By: Sydni Sparrow RN 02/28/24 09:16 [facility] Main OR PACU II Recordon Main OR PACU II Record Main OR PACU II Record PACU Phase II Document Type FT Summary Primary Physician: JULIUS RASHEED MD Finalized Date/Time: 02/28/24 10:29:31 Pt. Name: KRISHANHERMINIO/Sex: 1955 Female Med Rec #: [id number] Physician: JULIUS RASHEED MD Financial #: [id number] Pt. Type: Room/Bed: [place] [address] Admit/Disch: 02/28/24 06:12:05 - Institution: Case Times PACU II FT Pre-Care Text: Identifies barriers to communication and implements measures to provide psychological support and determines knowledge level Develops individualized plan of care, and ensures continuity of care Maintains patient's dignity and privacy, and maintains patient confidentiality Identifies and reports philosophical, cultural, and spiritual beliefs and values Identifies individual values and wishes concerning care administers prescribed antibiotic therapy and immunizing agents as ordered, Evaluates postoperative tissue perfusion Implements thermoregulation measures, and monitors body temperature Evaluates postoperative respiratory status Evaluates postoperative cardiac status Evaluates postoperative neurological status Assesses pain control, collaborated in initiating patient-controlled analgesia and implements alternative methods of pain control Verifies allergies, administers prescribed medications and solutions, evaluates response to medications Entry 1 In PACU II 02/28/24 09:10:00 Discharge from PACU 02/28/24 10:29:00 II Last Modified By: Carli Solorzano 02/28/24 10:29:29 Post-Care Text: The patient demonstrates knowledge of the expected response to the operative or invasive procedure The patient's care is consistent with the individualized perioperative plan of care The patient's right to privacy is maintained The patient's value system, lifestyle, ethnicity, and culture are considered, respected, and incorporated into the perioperative plan of care The patient participates in decisions affecting his or her perioperative plan of care. The patient is free from signs and symptoms of infection The patient has wound/tissue perfusion consistent with or improved from baseline levels established preoperatively The patient is at or returning to normothermia at the conclusion of the immediate postoperative period The patient's respiratory function is consistent with or improved from baseline levels established preoperatively The patient's cardiovascular status is consistent with or improved from baseline levels established preoperatively The patient's neurological status is consistent with or improved from baseline levels established preoperatively The patient demonstrates and/or reports adequate pain control throughout the perioperative period The patient received appropriate medication(s), safely administered during the perioperative period Finalized By: Carli Solorzano Document Signatures Signed By: Carli Solorzano 02/28/24 10:29 [facility] Main OR Preoperative Recordo n 02-28-2024 Main OR Preoperative Record Main OR Preoperative Record PreOp Document Type FT Summary Primary Physician: JUILUS RASHEED MD Finalized Date/Time: 02/28/24 09:50:18 Pt. Name: HERMINIO DRAKE/Sex: 1955 Female Med Rec #: [id number] Physician: JULIUS RAHSEED MD Financial #: [id number] Pt. Type: A Room/Bed: [place] [address] Admit/Disch: 02/28/24 06:12:05 - Institution: Case Times PreOp FT Pre-Care Text: Verifies consent for planned procedure, identifies individual values and wishes concerning care, includes family members in perioperative teaching Entry 1 Patient Times. In Pre Surgery 02/28/24 06:00:00 Out Pre Surgery 02/28/24 07:42:00 Outcomes Met? Yes Last Modified By: Tarah Porras RN 02/28/24 09:50:17 Post-Care Text: The patient participates in decisions affecting his or her perioperative plan of care Finalized By: Tarah Porras RN Document Signatures Signed By: Tarah Porras RN 02/28/24 09:50 Normal [facility] Operative Reporton Operative Report Operative Report Patient: HERMINIO DRAKE Age: 68 years Sex: Female : 1955 Associated Diagnoses: None Author: JULIUS RASHEED MD Procedure SURGEON: Julius Rasheed MD PREOPERATIVE DIAGNOSIS: Left obstructing ureteral calculi POSTOPERATIVE DIAGNOSIS: Same PROCEDURE: Cystoscopy, Left ureteroscopy left laser lithotripsy, left ureteral stent placement, left retrograde pyelogram FINDINGS: Ureteral stone lasered into submillimeter fragments and flushed out of the ureter with no calculi noted at conclusion of procedure ANESTHESIA: General INTRAVENOUS FLUIDS: See anesthesia records ESTIMATED BLOOD LOSS: None TUBES AND DRAINS: 6 x 24 cm double-J ureteral stent with a string SPECIMENS: Stone analysis COMPLICATIONS: None INDICATIONS FOR PROCEDURE: Is a 68-year-old Female Who Presented with an Impacted Left Mid Ureteral Stone. She Presents Today for Definitive Stone Treatment. H&P Was Reviewed, Informed Consent Was Obtained, Patient Understood Risk, Benefits, Alternatives to the Procedure and Wished to Proceed. OPERATIVE DETAIL: Patient was brought to the operative suite and placed on continuous pulse oximetry and cardiac monitoring by anesthesia. IV antibiotics including 2 g of Ancef was administered. Patient was then placed in the dorsolithotomy position and prepped and draped in normal sterile fashion. Timeout was performed confirming patient, procedure, side, all in the room agreed. A well-lubricated 22 Estonian cystoscopic sheath with a 30 degree lens was inserted into the urethral meatus and advanced into the bladder. Upon entering the bladder we did a mcclelland cystoscopy I did not visualize any abnormalities. We then directed attention to the left ureteral orifice which we cannulated with a Glidewire and passed the dual-lumen shooting contrast to delineate a mid ureteral impacted stone. We then passed a second wire and over one of the wires we went up with a semirigid ureteroscope into the mid ureter where we visualized the stone and obtained a 200 ???m laser fiber and lasered the stone into small submillimeter fragments. We then basketed a couple of the stones for analysis. The stones were then flushed out of the ureter and we took the semirigid ureteroscope all the way to the proximal ureter where no stones were visualized. The scope was then removed. Then over the wire we placed a 6 x 24 cm double-J ureteral stent visualizing a curl in the renal pelvis and a curl in the bladder. Patient's bladder was then emptied. The strings on the stent were then taped to the mons pubis. This concluded the procedure. Patient was then awakened by anesthesia and transferred to PACU in stable condition. PLAN: Will remove her stent in 5 days Hydrate vigorously with at least 2 L/day Take Tylenol, ibuprofen for pain. Roxicodone for breakthrough. Oxybutynin for bladder spasms. Normal [facility] Comment on above: Result Comment: Elec tronically Signed By: JULIUS RASHEED MD\.br\Date and Time Signed: 02/28/24 08:55 EST Outpatient Surgery Discharge Instructionon 02-28-2024 Outpatient Surgery Discharge Instruction Outpatient Surgery Discharge Instruction [address] [address] Patient Discharge Instructions PERSON INFORMATION Name: HERMINIO DRAKE Date of : 1955 Current Date: 02/28/2024 08:42:38 PHYSICIANS Admitting Physician: JULIUS RASHEED MD Discharge Diagnosis: HERMINIO DRAKE has been given the following list of follow-up instructions, prescriptions, and patient education materials: IF UNABLE TO CONTACT YOUR PHYSICIAN AND YOU FEEL IT IS AN EMERGENCY, GO TO THE NEAREST EMERGENCY ROOM OR CALL 911 I, HERMINIO DRAKE, have received the attached patient education materials/instructions and have verbalized understanding: May we do a follow up call? Yes No I was present when discharge instructions were given Patient Signature Date Clinican/Nurse Signature _ Date Follow up: With: Address: When: JULIUS RASHEED [address] [place] [address] [phone] Business (1) Comments: Follow-up in 6 weeks with [facility], renal ultrasound. Pharmacy Information: You may receive a survey from [facility] asking you to rate your care experience. Your feedback is important and will help us understand what we do well and how we can improve the quality of care we provide to you, your loved ones and our community. It???s an honor to serve you. Thank you for choosing [facility] HERE ARE THE MEDICATION CHANGES THAT OCCURRED DURING YOUR HOSPITAL STAY New Medications [id number], [address] [place], [place] [id number], [phone] oxybutynin (oxybutynin 5 mg ER Tab) 1 Tablets By Mouth every day. Refills: 0. oxycodone (Roxicodone 5 mg Tab) 1 Tablets By Mouth every 6 hours as needed for pain. Refills: 0. Medications to Continue with No Changes Other Medications acetaminophen-hydrocodo ne (acetaminophen-hydrocod one 325 mg-5 mg oral tablet) 1 Tablets. ascorbic acid (Vitamin C) every day. cholecalciferol (Vitamin D3) glucosamine By Mouth. levothyroxine (Synthroid) By Mouth every day. multivitamin (Multi Vitamins oral tablet) 1 Tablets By Mouth every day. omega-3 polyunsaturated fatty acids (Nature's Bounty Red Krill Oil) By Mouth every day. tamsulosin (tamsulosin 0.4 mg Cap) 1 Capsules. PATIENT EDUCATION INFORMATION Instructions: Medication Leaflets: Normal [facility] PT & PTTon 02-28-2024 aPTT Coag (PPP) [Time] 36.7 second(s) High 25.1-36.5 [facility] Comment on above: Result Comment: Para meter 15 days - 4 weeks 1 - 5 months 6 - 11 months 1 - 5 years 6 - 10 years 11 - 17 years PTT Mean: 35.4 (27.6-45.6) Mean: 33.5 (24.8-40.7) Mean: 32.4 (25.1-40.7) Mean: 31.6 (24.0-39.2) Mean: 31.6 (26.9-38.7) Mean: 31.0 (24.6-38.4) Pediatric Reference ranges were obtained from a study by Baljinder Barrios et al. prepared from 1437 samples obtained at 7 different centers using the same coagulation reagent and instrumentation as [facility]. Currently there are no coagulation studies available worldwide for children to 14 days, and no normal ranges. Heparin therapeutic range (represented by Anti-Factor Xa activity of 0.2 - 0.4 U/mL) corresponds to PTT of 56.6 - 109.0 sec. Performed By: #### 1 [id number] ####[facility] [id number] [place] [address] INR Coag (PPP) [Relative time] 1.06 {INR} Invalid Interpretation Code [facility] Comment on above: Result Comment: INR results are specifically intended to assess patients stabilized on long-term Anticoagulation therapy suggested INR???s ???Less Intensive Anticoagulation??? 2.0 ??? 3.0 Conventional Range 3.0 ??? 4.5 Performed By: #### 1 [id number] ####[facility] [id number] [place] [address] PT Coag (PPP) [Time] 11.9 second(s) Normal 9.4-12.5 [facility] Comment on above: Result Comment: 15 d ays - 4 weeks 1 - 5 months 6 -11 months 1- 5 years 6-10 years 11 -17 years Mean: 11.2 (9.5-12.6) Mean: 11.0 (9.7-12.8) Mean: 11.0 (9.8-13.0) Mean: 11.3 (9.9-13.4) Mean: 11.7 (10.0-14.6) Mean: 11.8 (10.0 - 14.1) Pediatric Reference ranges were obtained from a study by jer Mcneil al. prepared from 1437 samples obtained at 7 different centers using the same coagulation reagent and instrumentation as [facility]. Currently there are no coagulation studies available worldwide for children to 14 days, and no normal ranges. Performed By: #### 1 [id number] ####[facility] [id number] [place] [address] XR Chest 2 Viewson XR Chest 2 Views Exam Date/Time: 02/28/2024 06:28 EST Reason for Exam: P.A.T. Report IMPRESSION: NO EVIDENCE OF ACTIVE CARDIOPULMONARY DISEASE. EXAM: XR Chest 2 Views DATE: 02/28/2024 6:16 AM CLINICAL HISTORY: P.A.T.. COMPARISON: None available TECHNIQUE: Upright PA and lateral radiographs of the chest were obtained. FINDINGS: There is no significant pulmonary infiltrate, cardiomegaly, pleural effusion, vascular congestion, pneumothorax, or displaced fractures identified. Ordering Provider: Jasiel Teague FINAL REPORT Dictated: 02/28/2024 7:04 am Enoch Martino MD Signed (Electronic Signature): 02/28/2024 7:04 am Signed by: Enoch Martino MD Transcribed by: AFRIBA Technologist: JAVI Technical Comments Radiation Dose: Ka,r in mGy = 0 DAP = 0 Normal [facility] Ambulatory Visit Summaryon 1 04-23-2023 Ambulatory Visit Summary Ambulatory Visit Summary HERMINIO DRAKE :1955 Visit Date:02/22/2024 Ambulatory Visit Instructions Your Diagnosis Ureteral stone with hydronephrosis Urge incontinence Your Care Team Attending Physician - JHONY NICHOLS, JULIUS Primary Care Physician - BOB CARTER DO This Is Your Medications List Contact prescribing physician if questions or concerns acetaminophen-hydrocodo ne (acetaminophen-hydrocod one 325 mg-5 mg oral tablet) ascorbic acid (Vitamin C) cholecalciferol (Vitamin D3) glucosamine ketorolac (ketorolac 10 mg Tab) levothyroxine (Synthroid) multivitamin (Multi Vitamins oral tablet) omega-3 polyunsaturated fatty acids (Nature's Bounty Red Krill Oil) tamsulosin (tamsulosin 0.4 mg Cap) Procedures Performed Cystoscopic removal of ureteric stent (08/28/2020), Cystoscope (08/12/2020), Tonsillectomy (1968), section, Cholecystectomy, Colonoscopy, Procedure on foot. Discharge Vitals Height 152 cm Height 60 in Weight 78.4 kg Weight 172.842 lb BMI 33.93 What to do next Scheduled Follow-Up Appointments Monday 8:45 AM EST Where: [facility] Monday 10:30 AM EST Where: [facility] You Need to Schedule the Following Appointments Follow Up with JHONY NICHOLS, MAYO MADRID When: Where: Medications What How Much When Instructions Unchanged acetaminophen-hydrocodo ne (acetaminophen-hydrocod one 325 mg-5 mg oral tablet) 1 Tablets Contact prescribing physician if questions or concerns Unchanged ascorbic acid (Vitamin C) Every day Contact prescribing physician if questions or concerns Unchanged cholecalciferol (Vitamin D3) Contact prescribing physician if questions or concerns Unchanged glucosamine By Mouth Contact prescribing physician if questions or concerns Unchanged ketorolac (ketorolac 10 mg Tab) 1 Tablets Contact prescribing physician if questions or concerns Unchanged levothyroxine (Synthroid) By Mouth Every day Contact prescribing physician if questions or concerns Unchanged multivitamin (Multi Vitamins oral tablet) 1 Tablets By Mouth Every day Contact prescribing physician if questions or concerns Unchanged omega-3 polyunsaturated fatty acids (Nature's Bounty Red Krill Oil) By Mouth Every day Contact prescribing physician if questions or concerns Unchanged tamsulosin (tamsulosin 0.4 mg Cap) 1 Capsules Contact prescribing physician if questions or concerns Allergies Augmentin (Unknown) Medrol (Unknown) PARoxetine (Unknown) Problems Ongoing - Any problem that you are currently receiving treatment for. BMI 34.0-34.9,adult Glaucoma Hypothyroidism Kidney stone Retained ureteral stent Ureteral stone Ureteral stone with hydronephrosis Urge incontinence Patient Survey You may receive a survey via text or e-mail asking about your office visit. Please share your experience with us by completing your survey. We appreciate your feedback and thank you for choosing us for your care. Education Materials Ureteroscopy Ureteroscopy is a procedure to check for and treat problems inside part of the urinary tract. In this procedure, a long rigid or flexible tube with a lens and light at the end (ureteroscope) is used to look at the inside of the kidneys and the ureters. The ureters are the tubes that carry urine from the kidneys to the bladder. The ureteroscope is inserted into one or both of the ureters. You may need this procedure if you have frequent urinary tract infections (UTIs), blood in your urine, or a stone in one or both of your ureters. A ureteroscopy can be done: ??? To find the cause of urine blockage in a ureter and to evaluate other abnormalities inside the ureters or kidneys. ??? To remove stones. ??? To remove or treat growths of tissue (polyps), abnormal tissue, and some types of tumors. ??? To remove a tissue sample and check it for disease under a microscope (biopsy). Tell a health care provider about: ??? Any allergies you have. ??? All medicines you are taking, including vitamins, herbs, eye drops, creams, and kncb-sfb-ggmeunf medicines. ??? Any problems you or family members have had with anesthetic medicines. ??? Any bleeding problems you have. ??? Any surgeries you have had. ??? Any medical conditions you have. ??? Whether you are or may be . What are the risks? Your health care provider will talk with you about risks. These may include: ??? Abdominal pain or a burning feeling or pain while urinating. ??? Abnormal bleeding. ??? A UTI. ??? Allergic reactions to medicines. ??? Scarring that narrows the ureter (stricture) or swelling. ??? Creating a hole (perforation) in the ureter. ??? Damage to other structures or organs, such as the part of your body that drains urine from your bladder (urethra), your bladder, or y (more content not included)... Normal [facility] Urology Office/Clinic Noteon 02-22-2024 Urology Office/Clinic Note Urology Office/Clinic Note Chief Complaint ER F/U HPI Staff 68 year old female here for F/U to [facility] ER on 02/16/24 due to Lt. flank and Lt. lower quadrant pain. Pt. has seen Dr. Bryson in 2020 for kidney stones and had a stent placed. Pt. has passed other kidney stones in the passed. Pt. states she has passed some gravel stones since being in the ER. Pt. states not having pain now but did take some pain medication this morning due to Lt. flank pain CT while in ER History of Present Illness Tests reviewed: reviewed UA, ER records, labs, CT, external records. I have reviewed the previous health record information and history for this patient from external provider and Dr. Bryson. I have reviewed and verified the staff HPI to be accurate for this encounter. There have been no associated fever, chills, flank pain, or blood in the urine. Denies any urinary infections since last encounter. Review of Systems ROS - Provider Constitutional: denies weight loss, denies hot flashes. Eyes: denies eye problems. Gastrointestinal: denies nausea, denies vomiting. Cardiovascular: denies chest pain or angina. Integumentary: no dryness Musculoskeletal: denies musculoskeletal symptoms. ENMT: denies otolaryngeal symptoms. Respiratory: no shortness of breath. Heme/Lymph: denies easy bleeding tendency, denies easy bruising tendency. Psychiatric: no confusion, no anxiety. Genitourinary: See HPI. Physical Exam Vitals & Measurements HT: 60 in HT: 152 cm WT: 78.4 kg WT: 172.842 lb BMI: 33.93 General Appearance: alert , no acute distress, well nourished, well developed female. Assessment/Plan Prior Dr. Bryson pt who is here for f/up to ureteral stone episode. Hx of hypogonadism. PSH ~three sections, cholecystectomy, tubal ligation. Pt shares that she has severe hip pain and has been worked up for this. Nothing has been found. 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 Portions of this record may have been created with voice recognition artificial intelligence software, specifically [employer], [employer] and or [employer]. Substitutions may have occurred due to the inherent limitations of voice recognition and artificial intelligence software. 1. Ureteral stone with hydronephrosis (N13.2: Hydronephrosis with renal and ureteral calculous obstruction) S/p cysto, R RPG, R URS, ureteroscopic holmium laser ablation, ureteroscopic stone basket extraction and R stent placement 08/21/20. S/p cysto and R stent removal 08/28/20. Stone analysis ~60% ca ox monohydrate and 40% ca ox dihydrate. Mentions following stent removal she was diagnosed with a staph infection and was told she had MRSA, had boils which were very bothersome. Pt has passed stones naturally in the past. Reports she has had three stones in the past (pt only remembers 2 stone episodes, daughter states she had 3 stones) Pt presented to [facility] ER 02/16/24 with L flank pain and mild nausea. CT AP w con [facility] - minimal L hydronephrosis and hydroureter secondary to a partial obstructing 9 x 5 x 5 mm stone vs 2 adjacent stones within the mid ureter. BUN & Cr are not significantly elevated. Has been straining her urine, has seen sediment pass but not the actual stone. Not currently experiencing pain but took pain medication this morning. UA today shows large blood and trace leuks. Given the size and location of stone surgical management is recommended. Pt states she did not tolerate a stent in the past. Explained to pt the risks of not placing a stent. Discussed risks of ureteroscopy which include bleeding, pain, infection, damage to surrounding structures, ureteral perforation, stricture, inability to treat the stone and need for additional procedures. If a stent is placed, pt understands this is not permanent and needs to be removed or exchanged within 3 months to prevent encrustation, infection, permanent renal damage and need for more invasive procedures. -Cont straining urine, obtain stone if she passes it -Will schedule cysto, L RPG, L URS, laser litho, possible L stent placement under MAC. Risks above 2. Urge incontinence (N39.41: Urge incontinence) BBSQ 23 Pt states she has no control over her bladder. Not taking any bladder meds. Advised pt that we will further eval pt's bladder during stone treatment. -Eval bladder at the time of cysto and ureteroscopy -Will further discuss at f/up visit Patient presents with left-sided flank pain. CT abdomen pelvis demonstrates an obstructing 9 mm mid ureteral stone. We will proceed with a ureteroscopy, laser lithotripsy. Patient did state that she is having overactive bladder as well. We will discuss this history upon resolution of her stone with treatment. Follow-up With When Contact Information JHONY NCIHOLS, JULIUS, MAYO Additional Instructions: Schedule cysto, L RPG, L URS, laser litho, possible L stent placement Patient Education Ureteroscopy I, Jaylin Lopez, personally scribed for Dr (more content not included)... Normal [facility] Comment on above: Result Comment: Elec tronically Signed By: JULIUS RASHEED MD\.br\Date and Time Signed: 02/22/24 16:06 EST\.br\Electronically Co-Signed By: Jaylin Lopez\.br\Date and Time Co-Signed: 02/22/24 15:39 EST\.br\Electronically Co-Signed By: Jaylin Lopez\.br\Date and Time Co-Signed: 02/22/24 15:43 EST\.br\Electronically Co-Signed By: Jaylin Lopez\.br\Date and Time Co-Signed: 02/22/24 15:44 EST XR Foot - right 3 Viewson Imaging Result: Three views of the right foot: AP, MO, LAT were performed today in the office. Radiographs were read by myself and demonstrate: No evidence of acute fracture or dislocation. Normal joint spaces noted with no evidence of narrowing or osteophyte formation. Resection of the head of the 5th proximal phalanx, good position to the 5th digit [facility] Radiology Study observation (narrative) [facility] XR HIPS BILATERAL 2 VW WITH OR WITHOUT PELVISon 02-13-2024 XR HIPS BILATERAL 2 VW WITH OR WITHOUT PELVIS EXAM: XR Pelvis and Bilateral Hips, Five Views. REASON FOR EXAM: Low back pain radiates to bilateral hips. COMPARISON: None FINDINGS: Five images. Joint space is maintained. Trabecular pattern of the hips is preserved. Sacral struts and sacroiliac joints are preserved. Bony cortices and joint spaces are maintained. No radiopaque foreign body visualized radiographically.Soft tissues without abnormality radiographically. No erosions. IMPRESSION: No acute bony abnormalities. *This report is generated using voice recognition reporting ([employer]). On occasion [employer] erroneously drops words from the report or replaces the spoken word with similar sounding words. Please call with any questions/concerns regarding this report.* Dictated and transcribed 02/13/24/dpd This report has been electronically signed and approved by the interpreting radiologist. Normal Not Available XR LUMBAR SPINE 2-3 VIEWSon 02-13-2024 XR LUMBAR SPINE 2-3 VIEWS EXAM: XR Lumbar Spine, Two Views. REASON FOR EXAM: Low back pain that radiates to bilateral hips. COMPARISON: None FINDINGS: Two images. For counting purposes, there are five nonrib-bearing type lumbar vertebral bodies. Vertebral body height is maintained. 2 to 3 mm of anterolisthesis of L4 on L5 and L3 on L4 present. Mild anterior spurring at these levels. Atherosclerosis noted. Angulation of the sacrococcygeal elements chronic appearing. Sacral struts and sacroiliac joints are preserved. IMPRESSION: Spondylosis with grade 1 spondylolisthesis of L4 on L5 and L5 on S1. This report is generated using voice recognition reporting (Prelert). On occasion, Powerscribe erroneously drops words from the report or replaces the spoken word with a similar sounding word. Please call with any questions/concerns regarding the report. Dictated and transcribed 02/13/2024/tm This report has been electronically signed and approved by the interpreting radiologist. Normal Not Available XR Lumbar spine 2 or 3 Views on 02-13-2024 EXAM: XR Lumbar Spin e, Two Views. REASON FOR EXAM: Low back pain that radiates to bilateral hips. COMPARISON: None FINDINGS: Two images. For counting purposes, there are five nonrib-bearing type lumbar vertebral bodies. Vertebral body height is maintained. 2 to 3 mm of anterolisthesis of L4 on L5 and L3 on L4 present. Mild anterior spurring at these levels. Atherosclerosis noted. Angulation of the sacrococcygeal elements chronic appearing. Sacral struts and sacroiliac joints are preserved. IMPRESSION: Spondylosis with grade 1 spondylolisthesis of L4 on L5 and L5 on S1. This report is generated using voice recognition reporting (Somonic Solutionscribe). On occasion, Powerscribe erroneously drops words from the report or replaces the spoken word with a similar sounding word. Please call with any questions/concerns regarding the report. Dictated and transcribed 02/13/2024/tm This report has been electronically signed and approved by the interpreting radiologist. IMAGING Vamsi Hutton MD - 02/13/2024 EXAM: XR Lumbar Spine, Two Views. REASON FOR EXAM: Low back pain that radiates to bilateral hips. COMPARISON: None FINDINGS: Two images. For counting purposes, there are five nonrib-bearing type lumbar vertebral bodies. Vertebral body height is maintained. 2 to 3 mm of anterolisthesis of L4 on L5 and L3 on L4 present. Mild anterior spurring at these levels. Atherosclerosis noted. Angulation of the sacrococcygeal elements chronic appearing. Sacral struts and sacroiliac joints are preserved. IMPRESSION: Spondylosis with grade 1 spondylolisthesis of L4 on L5 and L5 on S1. This report is generated using voice recognition reporting (Somonic Solutionscribe). On occasion, Powerscribe erroneously drops words from the report or replaces the spoken word with a similar sounding word. Please call with any questions/concerns regarding the report. Dictated and transcribed 02/13/2024/tm This report has been electronically signed and approved by the interpreting radiologist. [facility] Radiology Study observation (narrative) [facility] XR Pelvis AP and Hip - bilat eral GE 2 Viewson 02-13-2024 EXAM: XR Pelvis and Bilateral Hips, Five Views. REASON FOR EXAM: Low back pain radiates to bilateral hips. COMPARISON: None FINDINGS: Five images. Joint space is maintained. Trabecular pattern of the hips is preserved. Sacral struts and sacroiliac joints are preserved. Bony cortices and joint spaces are maintained. No radiopaque foreign body visualized radiographically.Soft tissues without abnormality radiographically. No erosions. IMPRESSION: No acute bony abnormalities. *This report is generated using voice recognition reporting (PowerScribe). On occasion PowerScribe erroneously drops words from the report or replaces the spoken word with similar sounding words. Please call with any questions/concerns regarding this report.* Dictated and transcribed 02/13/24/dpd This report has been electronically signed and approved by the interpreting radiologist. IMAGING Vamsi Hutton MD - 02/13/2024 EXAM: XR Pelvis and Bilateral Hips, Five Views. REASON FOR EXAM: Low back pain radiates to bilateral hips. COMPARISON: None FINDINGS: Five images. Joint space is maintained. Trabecular pattern of the hips is preserved. Sacral struts and sacroiliac joints are preserved. Bony cortices and joint spaces are maintained. No radiopaque foreign body visualized radiographically.Soft tissues without abnormality radiographically. No erosions. IMPRESSION: No acute bony abnormalities. *This report is generated using voice recognition reporting ([employer]). On occasion [employer] erroneously drops words from the report or replaces the spoken word with similar sounding words. Please call with any questions/concerns regarding this report.* Dictated and transcribed 02/13/24dpd This report has been electronically signed and approved by the interpreting radiologist. [facility] Radiology Study observation (narrative) [facility] XR Pelvis AP and Hip - bilat eral GE 2 ViewsOrdered By: Vamsi Hutton on 02-13-2024 [facility] Work Phone: XR Foot - right 3 Viewson Imaging Result: Three views of the right foot: AP, MO, LAT were performed today in the office. Radiographs were read by myself and demonstrate: No evidence of acute fracture or dislocation. Normal joint spaces noted with no evidence of narrowing or osteophyte formation. Resection of the head of the 5th proximal phalanx, good position to the 5th digit [facility] Radiology Study observation (narrative) [facility] XR CHEST 2 VIEWSon 4 XR CHEST 2 VIEWS FINDINGS: Comparison made with prior examination of July 19, 2023. Stable right apical pleural thickening and diffuse interstitial prominence. No new parenchymal consolidation, lymphadenopathy pulmonary edema or pleural effusion. Normal cardiac silhouette size, mild left ventricular prominence IMPRESSION: Stable parenchymal and pleural findings. TRANSCRIBED BY: ELECTRONICALLY SIGNED BY: Linwood Cooley MD Normal Not Available XR CHEST 2 VIEWSon 4 XR CHEST 2 VIEWS HISTORY: Cough, SOB FINDINGS: Very subtle interstitial prominence within both lung bases. Mild upper lobe emphysematous changes. Asymmetric right apical pleural thickening. No calcified or non-calcified pleural plaques throughout the remainder of the hemithoraces. No pulmonary edema or pleural effusions. Normal cardiac silhouette size. IMPRESSION: 1. Parenchymal findings can be consistent with interstitial lung disease, conceivably interstitial pneumonia if clinically suspect. 2. Right apical pleural thickening, non-aggressive appearance with underlying emphysematous changes. If prior film stability cannot be established chest CT imaging would be of assistance. TRANSCRIBED BY: ELECTRONICALLY SIGNED BY: Linwood Cooley MD Normal Not Available MM diagnostic mammo BI w/CAD on 01-26-2023 MM diagnostic mammo BI w/CAD [facility] [place] [address] [place] [address] Mammography Report Signed Patient: Herminio Drake MR#: [id number] : 1955 Acct:[id number] Age/Sex: 67 / F ADM Date: 01/26/23 Loc: [place] Room: Type: [facility] Attending Dr: Bob Carter DO Copies to: Bob Carter DO Ordering Provider: Bob Carter DO Date of Service: 01/26/23 MM/MM diagnostic mammo BI w/CAD: R92.1 CLINICAL DATA: Follow-up suspicious calcifications right breast BilateralDIAGNOSTIC MAMMOGRAM - WITH TOMOSYNTHESIS AND CAD COMPARISON:Mammograms dating back to 2019 Tomosynthesis imaging was obtained using low-dose digital technique. This examination was reviewed with the aid of CAD. FINDINGS: The breasts are composed of scattered fibroglandular densities. No evidence of architectural distortion, worrisome masses or suspicious microcalcifications are noted. The calcifications seen within the right breast appear benign in morphology. MM/MM diagnostic mammo BI w/CAD IMPRESSION: NO MAMMOGRAPHIC EVIDENCE OF MALIGNANCY. ROUTINE FOLLOW-UP IS RECOMMENDED IN ONE YEAR. RESULT CODE: 2 Benign Findings(s) DENSITY CODE: 2 (approximately 25-50% glandular) FOLLOW UP: 1YR The false-negative rate of mammography is approximately 10-percent. Management of a palpable abnormality must be based on clinical grounds. Patient was entered into a reminder system with a target due date for the next mammogram. Impression dictated by: Linwood Johnson Jr., D.ODevin01/26/2023 8:19 AM Dictation Location: DWS01 Transcribed By: YANIV 01/26/23818 Dictated By: Linwood Johnson Jr, 01/26/23799 Signed By: 01/26/23818 Normal [facility] MM diagnostic mammo BI w/CAD on 07-26-2022 MM diagnostic mammo BI w/CAD [place] [address] Mammography Report Signed Patient: Herminio Drake MR#: [id number] : 1955 Acct:[id number] Age/Sex: 67 / F ADM Date: 07/26/22 Loc: [place] Room: Type: [facility] Attending Dr: Mason Fowler DO Copies to: DO Mason Lala DO Ordering Provider: Mason Fowler DO Date of Service: 07/26/22 MM/MM diagnostic mammo BI w/CAD: 6mos. f/u;Abnormal mammogram of right breast BILATERAL Diagnostic Full Field digital mammogram with 3-D imaging. Full field digital CC and MLO imaging performed. CAD utilized. COMPARISON: 01/17/2022, 07/12/2021. HISTORY:Follow-up right breast calcifications. BREAST COMPOSITION: Scattered fibroglandular densities of the breast parenchyma identified BENIGN BREAST CALCIFICATIONS: Similar loosely grouped and scattered bilateral breast calcifications identified. Similar loose grouped calcifications of the right breast at a posterior depth identified. VASCULAR CALCIFICATIONS:None DEVELOPING ARCHITECTURAL DISTORTION:None DEVELOPING BREAST NODULE:None DEVELOPING MALIGNANT CALCIFICATIONS:None AXILLARY LYMPH NODES:Normal POSTSURGICAL CHANGES:None MM/MM diagnostic mammo BI w/CAD IMPRESSION:Stable loosely grouped calcifications of the right breast. Six-month follow-up diagnostic right mammogram recommended. RESULT CODE: 3 Probably Benign Finding Short Term Follow-Up DENSITY CODE: 2 (approximately 25-50% glandular) FOLLOW UP: 6M THE FALSE-NEGATIVE RATE OF MAMMOGRAPHY IS APPROXIMATELY 10%. IMAGING OF A PALPABLE ABNORMALITY MUST BE BASED ON CLINICAL GROUNDS. PATIENT WAS ENTERED INTO A REMINDER SYSTEM WITH A TARGET DUE DATE FOR THE NEXT MAMMOGRAM. Impression dictated by: Bob Crawford M.D.07/26/2022 9:53 AM Dictation Location: DWS01 Transcribed By: YANIV 07/26/22 0953 Dictated By: Bob Crawford DO 07/26/22 0822 Signed By: 07/26/22 0953 [facility] Office Visit (Cardiology)on 01-17-2022 Follow-up visit Diagnoses/Problems Assessed Normal coronary angiogram (V72.85) Normal echocardiogram (V72.85) Class 1 obesity with body mass index (BMI) of 33.0 to 33.9 in adult (278.00,V85.33) (E66.9,Z68.33) Orders Class 1 obesity with body mass index (BMI) of 33.0 to 33.9 in adult A diet that is low in fat, cholesterol, and sodium is considered a cardiac diet.; Status:Complete; Done: 17Jan2022 Patient Instructions Please bring all medicines, vitamins, and herbal supplements with you when you come to the office. Prescriptions will not be filled unless you are compliant with your follow up appointments or have a follow up appointment scheduled as per instruction of your physician. Refills should be requested at the time of your visit. PLAN: Through informed decision making process incorporating patients unique circumstances, the following treatment plan will be initiated: 1. Prescription drug management of cardiovascular medication for efficacy, adherence to treatment, side effect assessment and polypharmacy. Current treatment clinically warranted and to continue without modifications. 2. Follow-up [facility] as needed Chief Complaint Cardiac risk stratification for R TKR. HERMINIO DRAKE is being seen for a month follow-up of pre-operative clearance. Patient presents to the office today to obtain cardiac risk stratification prior to a right total knee replacement with Dr. Vazquez , date yet to be scheduled. Patient is ambulatory with steady gait. Last evaluated in clinic Dr. Clement February 2021. Cardiovascular history: April 2021 cardiac cath with angiographically normal coronaries February 2021 echo LVEF 60%, no valvular heart disease No history of dysrhythmias Patient denies any hospitalizations since last office follow-up. Daily activity is mostly limited due to right total knee pain. She denies any exertional chest pain, no dyspnea on exertion or change in exercise capacity or functional tolerance. Total DASI: 36.7 METs 7.25 EKG in office sinus rhythm/sinus arrhythmia without evidence of ischemic changes. Patient does not exhibit any major clinical markers: No ACS within 30 days, evidence of decompensated heart failure, severe valvular heart disease or significant dysrhythmias. Surgical specific risk: Intermediate orthopedic procedure According to ACC/AHA guidelines a patient with recent favorable results on angiogram with no change in symptoms may proceed to the operating room without additional cardiovascular testing. LUCY Revised Cardiac Risk Index: Very low risk with 0.4% MACE. At this time, there are no prohibitive cardiovascular risk to proceed with much-needed surgical procedure. History of Present Illness The patient states she has been generally doing well since the last visit. Symptoms: denies chest pain at rest, denies exertional chest pain, denies dyspnea, denies fatigue, stable exercise intolerance, denies palpitations, denies edema, denies orthopnea, denies dizziness and denies orthostatic dizziness. Associated symptoms: no syncope. Her symptoms do not limit her activities. Disease Monitoring: The patient has had a stable weight. Medications: the patient is adherent with her medication regimen. She denies medication side effects. Surgical History Problems History of section x 3 History of Cholecystectomy History of Complete colonoscopy History of Plantar fasciotomy History of Tonsillectomy Past Medical History Problems History of angina pectoris (V12.59) (Z86.79) Resolved Date: 17 Jan 2022 Current Meds Medication NameInstruction Latanoprost 0.005 % Ophthalmic SolutionINSTILL 1 DROP IN BOTH EYES EVERY NIGHT Multi Vitamin Daily TABSTAKE 1 TABLET DAILY. Synthroid 100 MCG Oral TabletTAKE 1 TABLET DAILY. Patient did not bring medication list or bottles. Updated verbally with patient. Allergies Medication No Known Drug Allergies Recorded By: Melly Justice; 02/19/2021 9:32:01 AM Family History Mother Family history of asthma (V17.5) (Z82.5) Family history of diabetes mellitus (V18.0) (Z83.3) Family history of myocardial infarction (V17.3) (Z82.49) Father Family history of cardiac disorder (V17.49) (Z82.49) Family history of throat cancer (V16.0) (Z80.0) Sister Family history of emphysema (V17.6) (Z82.5) Family history of macular degeneration (V19.19) (Z83.518) Brother Family history of Bradycardia Family history of diabetes mellitus (V18.0) (Z83.3) Family history of lymphoma (V16.7) (Z80.7) Family history of malignant neoplasm of colon (V16.0) (Z80.0) Family history of malignant neoplasm of kidney (V16.51) (Z80.51) Family history of PTCA (V17.49) (Z82.49) Social History Problems Consumes alcohol occasionally (V49.89) (Z78.9) Daily caffeine consumption Coffee 1 cup every other day. Pop 2 monthly. Tea 2 monthly Never a smoker No illicit drug use Review of Systems Constitutional: not feeling tired. Cardiovascula (more content not included)... [facility] PHQ-2 VITALSon 01-17-2022 Adult depression screening assessment No [facility] [employer] [place] [address] DO Work Phone: Fall risk assessment a) No falls within the last year [facility] [employer] [place] [address] DO Work Phone: Tobacco use status [facility] b) No [facility] [employer] 250 DO Work Phone: Diagnostic Mammogram, Unilat eral Right w/Pedro (3D)on 06-28-2021 Diagnostic Mammogram, Unilateral Right w/Pedro (3D) CLINICAL HISTORY: Abnormal Screening Mammogram COMPARISON: 12/28/2020, 12/14/2020, 12/12/2019, 08/06/2018, and 07/09/2016. TECHNIQUE: Spot compression 2D and 3D Tomosynthesis of the left breast was performed. Directed left breast ultrasound was also performed. FINDINGS: A somewhat linear group of fine pleomorphic microcalcifications are present within the lateral aspect of the right breast. A stereotactic biopsy is suggested. IMPRESSION: BIRADS 4 : SUSPICIOUS ABNORMALITIES, BIOPSY SHOULD BE CONSIDERED. A STEREOTACTIC RIGHT BREAST BIOPSY IS SUGGESTED. Board certified radiologist. Accredited by the ACR and FDA. MAMMOGRAPHY IS VERY IMPORTANT TO YOUR HEALTH. CURRENT [employer] GUIDELINES RECOMMENDS ANNUAL MAMMOGRAPHY BEGINNING AT AGE 40. THIS FACILITY USUALLY USES A REMINDER SYSTEM TO ENSURE ALL POSITIONS RECEIVED REMINDER NOTIFICATIONS AT THE TIME BASED ON THE RECOMMENDATIONS OF THIS EXAM. Report reported and signed by Brandt Martion on 06/28/[address] [facility] Specialist Laboratory - Chemistry and C hemistry - challengeon 04-01-2021 Cholesterol [Mass/Vol] 253\S\253 above high threshold 140-200 [facility] [place] [address] DO Work Phone: [phone] Comment on above: Chol less than 200 m g/dl low risk Chol 201-239 mg/dl borderline risk Chol 240 mg/dl and greater high risk Cholesterol in LDL [Mass/Vol] 154\S\154 above high threshold 0-100 [facility] [place] [address] DO Work Phone: [phone] Comment on above: LDL ATP III CLASSIFI CATION LDL less than 100 mg/dL Optimal LDL 100-129 mg/dL Near or above optimal LDL 130-159 mg/dL Borderline high LDL 160-189 mg/dL High LDL greater than 189 mg/dL Very high No Panel Informationon 04-01 0.0\S\0.0 Normal 0.0-0.2 [facility] [place] [address] DO Work Phone: [phone] Comment on above: PERFORMED BY:[place] [id number] [place], [place] [id number] MEDICAL DIRECTORCHAIM FORMAN M.D. 0.2\S\0.2 Normal 0.0-0.45 [facility] [place] [address] DO Work Phone: 0.5\S\0.5 Normal 0.0-0.8 [facility] [place] [address] DO Work Phone: [phone] 1.6\S\1.6 Normal 1.00-4.8 [facility] [place] [address] DO Work Phone: [phone] 3.1\S\3.1 Normal 1.8-7.7 [facility] [place] [address] DO Work Phone: [phone] 0.1\S\0.1 Normal 0-0.5 [facility] [place] [address] DO Work Phone: [phone] 0.6\S\0.6 Normal . [facility] [place] [address] DO Work Phone: 3.5\S\3.5 Normal . [facility] [place] [address] DO Work Phone: 9.3\S\9.3 Normal . [facility] [place] [address] DO Work Phone: 29.2\S\29.2 Normal . [facility] [place] [address] DO Work Phone: 57.4\S\57.4 Normal . [facility] [place] [address] DO Work Phone: 8.2\S\8.2 Normal 6.3-10.7 [facility] [place] [address] DO Work Phone: 208\S\208 Normal 150-450 [facility] [place] [address] DO Work Phone: 14.7\S\14.7 Normal 11.9-15.3 [facility] [place] [address] DO Work Phone: 33.2\S\33.2 Normal 32.0-35.0 [facility] [place] [address] DO Work Phone: 28.4\S\28.4 Normal 24.7-34.3 [facility] [place] [address] DO Work Phone: 85.6\S\85.6 Normal 80-100 [facility] [place] [address] DO Work Phone: 40.9\S\40.9 Normal 34.0-46.4 [facility] [place] [address] DO Work Phone: 13.6\S\13.6 Normal 11.8-15.4 [facility] [place] [address] DO Work Phone: 4.78\S\4.78 Normal 3.60-5.00 [facility] [place] [address] DO Work Phone: 5.5\S\5.5 Normal 3.8-11.6 [facility] [place] [address] DO Work Phone: 32.3\S\32.3 Normal 25.1-36.5 [facility] [place] [address] DO Work Phone: [phone] Comment on above: PERFORMED BY:[place] [id number] [place], [place] [id number] MEDICAL DIRECTORCHAIM FORMAN M.D. 1.0\S\1.0 Normal [facility] [place] [address] DO Work Phone: [phone] Comment on above: INR Therapeutic Rang e A) Pre- and Peroperative OAT started two weeks before surgery. NOT HIP SURGERY: 1.5 - 2.5 HIP SURGERY: 2 - 3 B) Primary and secondary prevention of venous THROMBOSIS: 2 - 3 C) Active venous thrombosis, pulmonary embolism and prevention of recurrent venous thrombosis: 2 - 3 D) Prevention of arterial thromboembolism including patients with mechanical heart valves: 3 - 4.5 11.0\S\11.0 Normal 9.0-12.9 [facility] [address] DO Work Phone: 27.2\S\27.2 Normal 22.0-30.0 [facility] [place] [address] DO Work Phone: 103\S\103 Normal 95-114 [facility] [place] [address] DO Work Phone: 4.5\S\4.5 Normal 3.5-5.1 [facility] [place] [address] DO Work Phone: 139\S\139 Normal 136-146 [facility] [place] [address] DO Work Phone: 12\S\12 Normal 9-23 [facility] [place] [address] DO Work Phone: > 60 Normal [facility] [place] [address] DO Work Phone: [phone] Comment on above: GFR estimated refere nce range: According to KDOQI guidelines, <60 ml/min/1.73m2 is sufficient to diagnose a patient with chronic kidney disease. 0.75\S\0.75 Normal 0.44-1.03 [facility] [place] [address] DO Work Phone: [phone] 5.4\S\5.4 Normal <5.0 [facility] [place] [address] DO Work Phone: Comment on above: PERFORMED BY:[place] [address] [place], [place] [id number] MEDICAL DIRECTORCHAIM FORMAN M.D. 52\S\52 Normal [facility] [place] [address] DO Work Phone: 262\S\262 above high threshold 35-149 [facility] [place] [address] DO Work Phone: Comment on above: TRIG ATP III CLASSIF ICATION TRIG less than 150 mg/dL Normal TRIG 150-199 mg/dL Borderline high TRIG 200-500 mg/dL High TRIG greater than 500 mg/dL Very high Standard traceable to the Center for Disease Conrtrol and Prevention (CDC) test method. 47\S\47 Normal 35-85 [facility] [place] 250 DO Work Phone: Comment on above: HDL CHOL ATP-III CLA SSIFICATION Cardiovascular Risk HDL > or equal to 60 mg/dL LOW HDL < 40 mg/dL HIGH CT Chest w/o Contraston 03-04 CT Chest w/o Contrast CLINICAL HISTORY: Recent diagnosis of COVID pneumonia COMPARISON: Chest x-ray 03/03/21. TECHNIQUE: Spiral CT acquisition of the chest from the thoracic inlet to the upper abdomen. Coronal and sagittal reconstructions. MIP reconstructions. CONTRAST: None. All CT scans at this facility use dose modulation, iterative reconstruction, and/or weight based dosing when appropriate to reduce radiation dose to as low as reasonably achievable. RESULT: Limitations: None. Lines, tubes, and devices: None. Lung parenchyma and pleura: Central airways are patent. There are scattered bilateral ground glass opacities predominantly in the peripheral mid to lower lung zones, compatible with COVID-19 pneumonia. No pleural effusion or pneumothorax. Thoracic inlet, heart, and mediastinum: Visualized thyroid unremarkable. No supraclavicular, axillary, mediastinal, or hilar lymphadenopathy. Mild atherosclerotic calcification of the thoracic aorta. Normal thoracic aorta. Normal pulmonary artery. Normal heart size. No coronary artery calcifications. No pericardial effusion or thickening. Esophagus nondilated. Bones and soft tissues: No destructive bone lesion or acute osseous findings. Chest wall unremarkable. Upper abdomen: No acute abnormality in the imaged upper abdomen. IMPRESSION: Scattered bilateral ground glass opacities predominantly in the lower lung zones, compatible with COVID 19 pneumonia. No suspicious thoracic adenopathy. Report reported and signed by HUY SILVA on 03/30/2021 1022 Normal [facility] Microwave Radio Technician XR CHEST 1 Von 03-10-2021 XR CHEST 1 V EXAMINATION: XR CHES T 1 V, , 03/09/2021 9:50 PM EST INDICATION: SHORTNESS OF BREATH HISTORY: Ordering Provider Reason for Exam: Technologist Note: Additional: COMPARISON: None. TECHNIQUE: Chest x-ray: One view. FINDINGS: Subtle hazy changes are seen in the left lower lung field, which may represent hazy infiltrates. Please correlate clinically and obtain follow-up imaging as clinically indicated. No significant pleural effusion or obvious pneumothorax is seen. Heart is normal in size. Bony thorax is unremarkable. IMPRESSION: Subtle hazy changes are seen in the left lower lung field, which may represent hazy infiltrates. Please correlate clinically and obtain follow-up imaging as clinically indicated. Electronically authenticated by: JOLLY KITCHEN Date: 2021-03-09 22:36 Normal [facility] BNPon 03-09-2021 Natriuretic peptide B (Bld) [Mass/Vol] 60.0 pg/mL Normal <=900.0 [facility] Comment on above: Performed By: #### H STROPN, BNP, BMP ####[facility] [address]jt[address] [place] [id number] Castillo CBC W MANUAL DIFFon 03-09-20 21 ATYPICAL LYMPH # 0.33 103/ul Normal [facility] Comment on above: Performed By: #### C BCMAN ####[facility] Ktjwfzfx[address] [place] [id number] Castillo ATYPICAL LYMPH % 10 % Normal The [facility] Comment on above: Performed By: #### C BCMAN ####[facility] Axkokynkeg3979 [place] [id number] Castillo BAND # Normal 0.0-0.3 [facility] Comment on above: Performed By: #### C BCPURNIMA ####[facility] Qfxcyvcadv0524 [place] [id number]. Yilan Castillo BAND % Normal 0-5 [facility] Comment on above: Performed By: #### C BCMAN ####[facility] Cwcmvmqzzc2264 [place] [id number]. Yilan Castillo BASOM # 0.00 103/ul Normal 0.00-0.10 [facility] Comment on above: Performed By: #### C BCMAN ####[facility] Rykjzxvzoq4566 [place] [id number]. Yilan Castillo BASOM % 0.0 % Critically low 0.2-2.0 The [facility] Comment on above: Performed By: #### C DAYNA ####[facility] Eugpohkv[address] [place] [address]Dr. Yilan Castillo BLAST # Normal [facility] Comment on above: Performed By: #### C DAYNA ####[facility] Dtpxwfzjsz[address] [place] [address]Dr. Yilan Castillo BLAST % Normal [facility] Comment on above: Performed By: #### C BCPURNIMA ####[facility] G[address]rjeof[address] [place] [address]Dr. Maryann Castillo CORRECTED WBC Normal 4.0-11.0 [facility] Comment on above: Performed By: #### C BCPURNIMA ####[facility] Funxklgpii[address] [place] [address]Dr. Yicordell Castillo EOS # 0.00 103/ul Normal 0.00-0.70 [facility] Comment on above: Performed By: #### C BCPURNIMA ####[facility] Ldwmrspjhp8235 [place] [address]Dr. Yicordell Castillo EOS% 0.0 % Critically low 0.9-7.0 [facility] Comment on above: Performed By: #### C BCPURNIMA ####[facility] Ocnhdfasdx6485 [place] [id number]. Yilan Castillo HCT 45.1 % Normal 36.0-48.0 [facility] Comment on above: Performed By: #### C DAYNA ####[facility] Qlcehsdeai2490 [place] [id number]. Maryann Castillo HGB 14.6 g/dl Normal 12.0-16.0 [facility] Comment on above: Performed By: #### C DAYNA ####[facility] Kagiolqxij9775 [place] [id number]. Maryann Castillo LYMPHM # 0.33 103/ul Critically low 1.20-3.80 [facility] Comment on above: Performed By: #### C DAYNA ####[facility] Zoxuwzbgff1595 [place] [id number]. Maryann Castillo LYMPHM% 10.0 % Critically low 20.5-60.0 [facility] Comment on above: Performed By: #### C DAYNA ####[facility] Stzaleopqr0865 [place] [id number]. Maryann Castillo MCH 27.5 pg Normal 26.7-34.0 [facility] Comment on above: Performed By: #### C DAYNA ####[facility] Mbuaieranu2013 [place] [phone]. Maryann Castillo MCHC 32.4 g/dl Normal 29.9-35.2 [facility] Comment on above: Performed By: #### C DAYNA ####[facility] Uhreolwcic4425 [place] [id number]. Maryann Castillo MCV 85.1 fL Normal 81.0-99.0 [facility] Comment on above: Performed By: #### C DAYNA ####[facility] Gxnhxxooew[address]2 [place], [place] [address]Ud. Maryann Castillo METAMYELOCYTE # Normal [facility] Comment on above: Performed By: #### C DAYNA ####[facility] Jviyaqflkb1263 [place] [id number]. Maryann Castillo METAMYELOCYTE % Normal [facility] Comment on above: Performed By: #### Doroteo MCINTOSH ####[facility] Arrgsgbksp32[address] [place] [address]Dr. Maryann Castillo MONOM# 0.33 103/ul Normal 0.30-0.80 [facility] Comment on above: Performed By: #### C DAYNA ####[facility] Ngmgrsnupo0666 [place] [id number]. Maryann Castillo MONOM% 10.0 % Normal 1.7-12.0 [facility] Comment on above: Performed By: #### C DAYNA ####[facility] Zmxsjlpfci8852 [place] [phone]. Maryann Castillo MPV 11.2 fL Normal 9.5-13.5 [facility] Comment on above: Performed By: #### C DAYNA ####[facility] Lufodtjmit[address] [place] [address]Dr. Maryann Castillo MYELOCYTE # Normal [facility] Comment on above: Performed By: #### C DAYNA ####[facility] Skirgldekd[address] [place] [address]Dr. Maryann Castillo MYELOCYTE % Normal [facility] Comment on above: Performed By: #### C DAYNA ####[facility] Odticgjyky75[address] [place] [address]Dr. Maryann Castillo NRBC Normal [facility] Comment on above: Performed By: #### C DAYNA ####[facility] Hzauitcnyx9294 [place] [address]Dr. Maryann Castillo PLT 153 103/ul Normal 150-450 [facility] Comment on above: Performed By: #### C DAYNA ####[facility] Ibewmsypzy2135 [place] [phone]. Maryann Castillo RBC 5.30 106/ul Normal 4.20-5.40 [facility] Comment on above: Performed By: #### C DAYNA ####[facility] Dgmfvynqri4531 [place] [address]Dr. Maryann Castillo RDW 13.2 % Normal 11.0-15.0 [facility] Comment on above: Performed By: #### C DAYNA ####[facility] Wuctmwpspn3414 [place] [address]Dr. Maryann Castillo SEG # 2.31 103/ul Normal 1.40-6.50 [facility] Comment on above: Performed By: #### C DAYNA ####[facility] Gquybgnkrd0013 [place] [address]Dr. Maryann Castillo SEG % 70.0 % Normal 43.0-75.0 [facility] Comment on above: Performed By: #### C DAYNA ####[facility] Ltoajuwugf65[address] [place] [address]Dr. Maryann Castillo WBC 3.3 103/ul Critically low 4.0-11.0 [facility] Comment on above: Performed By: #### C DAYNA ####[facility] Ojizrcjpsu39[address] [place] [address]Dr. Brigettecordell Castillo PROF CHEM 8 (BAS METB)on Anion gap [Moles/Vol] 11.5 mmol/L Normal [facility] Comment on above: Performed By: #### H STROPN, BNP, BMP ####[facility] Cnonkodjzo2947 [place] [address]Dr. Maryann Castillo Calcium [Mass/Vol] 8.8 mg/dL Normal 8.4-10.[address] [facility] Comment on above: Performed By: #### H STROPN, BNP, BMP ####[facility] Hxultdqlsf3922 [place] [address]Dr. Maryann Castillo Chloride [Moles/Vol] 95 mmol/L Critically low 98-107 [facility] Comment on above: Performed By: #### H STROPN, BNP, BMP ####[facility] Ztksnueilj4852 [place] [address]Dr. Maryann Castillo CO2 [Moles/Vol] 30.0 mmol/L Normal 22.0-30.0 [facility] Comment on above: Performed By: #### H STROPN, BNP, BMP ####[facility] Ajywzcsqnl8022 [place] [address]Dr. Maryann Castillo Creatinine [Mass/Vol] 0.87 mg/dL Normal 0.52-1.04 [facility] Comment on above: Performed By: #### H STROPN, BNP, BMP ####[facility] Delbkatemv7974 [place] [address]Dr. Maryann Castillo EGFR-AF SOUTH AFRICAN >60 Normal >=60 [facility] Comment on above: Performed By: #### H STROPN, BNP, BMP ####[facility] Ikoqijlzai4209 [place] [address]Dr. Maryann Castillo EGFR-NON AF SOUTH AFRICAN >60 Normal >=60 [facility] Comment on above: Performed By: #### H STROPN, BNP, BMP ####[facility] Bxyieypfbd9939 [place] [address]Dr. Brigettecordell Castillo Glucose [Mass/Vol] 114 mg/dL Critically high 74-106 T [facility] [place] Comment on above: Performed By: #### H STROPN, BNP, BMP ####[facility] Yekz[address] [place], [place] [address]Dr. Maryann Castillo Potassium [Moles/Vol] 3.5 mmol/L Normal 3.4-5.0 [facility] Comment on above: Performed By: #### H STROPN, BNP, BMP ####[facility] Beubwem[address] [place], [place] [address]Dr. Brigettecordell Jonathan Sodium [Moles/Vol] 133 mmol/L Critically low 137-[address] [facility] Comment on above: Performed By: #### H STROPN, BNP, BMP ####[facility] Ikpedlgmvo9441 [place] [address]Dr. Brigettecordell Jonathan Urea nitrogen [Mass/Vol] 19.0 mg/dL Critically high 7.0-17.0 [facility] Comment on above: Performed By: #### H STROPN, BNP, BMP ####[facility] Xjvpx[address] [place], [place] [address]Dr. Brigettecordell Jonathan Urea nitrogen/Creatinine [Mass ratio] 21.8 mg/mg Normal [facility] Comment on above: Performed By: #### H STROPN, BNP, BMP ####[facility] Lrlrwvtmuv[address] [place], [place] [address]Dr. Maryann Castillo TROPONIN, HIGH SENSITIVITYon 03-09-2021 HSTROP 16.8 pg/mL Normal 4.0-35.5 [facility] Comment on above: Result Comment: CUT- OFF POINTS HAVE BEEN ESTABLISHED BASED ON THE FOURTH UNIVERSAL DEFINITIONS OF MYOCARDIAL INFARCTION. THE UPPER REFERENCE LIMIT (URL) OF TROPONIN, DEFINED THE 99TH PERCENTILE OF cTnI DISTRIBUTION IN A REFERENCE POPULATION, HAS BEEN CONFIRMED THE DECISION THRESHOLD FOR HI DIAGNOSIS. Performed By: #### H STROPN, BNP, BMP ####[facility] Zmeudcuwaq030[address] [place], [place] [address]SeDevin Castillo Office Visit (Cardiology)on 02-19-2021 Follow-up visit Diagnoses/Problems Assessed Dyspnea on exertion (786.09) (R06.00) Hypothyroidism (244.9) (E03.9) Abnormal stress test (794.39) (R94.39) Never a smoker Class 2 obesity with body mass index (BMI) of 35.0 to 35.9 in adult (278.00,V85.35) (E66.9,Z68.35) Palpitation (785.1) (R00.2) Angina pectoris (413.9) (I20.9) Essential hypertension, benign (401.1) (I10) Lower extremity edema (782.3) (R60.0) Orders Abnormal stress test, Angina pectoris, Dyspnea on exertion Cardiac Catherization; Status:Active; Requested for:19Feb2021; Abnormal stress test, Dyspnea on exertion IO EKG Electrocardiogram- 12 Lead; Status:Complete; Done: 19Feb2021 Angina pectoris Start: Nitroglycerin 0.2 MG/HR Transdermal Patch 24 Hour; APPLY PATCH FOR 12 TO 14 HOURS DAILY, THEN REMOVE Angina pectoris, Dyspnea on exertion Start: Aspirin EC Adult Low Strength 81 MG Oral Tablet Delayed Release; TAKE 1 TABLET DAILY DIRECTED Start: Metoprolol Tartrate 25 MG Oral Tablet; TAKE 0.5 TABLET Twice daily Class 2 obesity with body mass index (BMI) of 35.0 to 35.9 in adult, SocHx: Never a smoker Healthy Weight Tips; Status:Complete - Retrospective Authorization; Done: 19Feb2021 Lower extremity edema Start: hydroCHLOROthiazide 25 MG Oral Tablet; TAKE 1 TABLET DAILY SocHx: Never a smoker Tobacco Use Screening; Status:Complete; Done: [id number] Patient Instructions By signing my name below, I, Rianna Link LPN ,Cindy, attest that this documentation has been prepared under the direction and in the presence of Dr. Vamsi Clement DO. All medical record entries made by the Ashleyibrena were at my direction and personally dictated by me. I have reviewed the chart and agree that the record accurately reflects my personal performance of the history, physical exam, discussion and plan. Please bring all medicines, vitamins, and herbal supplements with you when you come to the office. Prescriptions will not be filled unless you are compliant with your follow up appointments or have a follow up appointment scheduled as per instruction of your physician. Refills should be requested at the time of your visit. Follow-up after testing completed Chief Complaint HERMINIO DRAKE is being seen for a consultation for abnormal test(s) results. Patient is a 65-year-old female seen in cardiology consultation at the request of her nurse practitioner for abnormal stress test and symptoms of angina. She describes typical and atypical anterior and retrosternal chest discomfort and shoulder discomfort with and without exertion for approximately a year, worsening over the last 2 to 3 months. She supposed to have knee surgery and because of this and her complaints she underwent preoperative stress perfusion imaging and echocardiography which revealed inferior ischemia, otherwise normal echocardiogram with no evidence of valvular lesions or wall motion abnormalities. Patient is a non-smoker denies diabetes, does not admit to hypertension or current medical therapies other than Synthroid. There is no prior history of myocardial infarction, revascularization, stroke, thromboembolic or bleeding disorder. She professes she is otherwise been healthy and reasonably active. She does complain of significant lower extremity edema and exertional dyspnea in addition to her chest discomfort. Risk benefits alternatives and informed decision-making process of been performed with patient today, today's ECG reveals sinus rhythm and is otherwise normal. We have offered both invasive versus noninvasive management, including initiation appropriate primary/secondary preventive therapies Recommendations: Initiate 81 mg aspirin, metoprolol 12.5 twice daily, Nitro-Dur patch 0.2 mg, hydrochlorothiazide 25 mg daily for substantial 2-3+ edema that occurs now on a regular basis in conjunction with her shortness of breath, proceed with left heart catheterization and possible revascularization next week. Surgical History Problems History of section x 3 History of Cholecystectomy History of Complete colonoscopy History of Plantar fasciotomy History of Tonsillectomy Current Meds Medication NameInstruction Synthroid 100 MCG Oral TabletTAKE 1 TABLET DAILY. Patient did not bring medication list or bottles. Updated verbally with patient Allergies Medication No Known Drug Allergies Recorded By: Melly Justice; 02/19/2021 9:32:01 AM Family History Mother Family history of asthma (V17.5) (Z82.5) Family history of diabetes mellitus (V18.0) (Z83.3) Family history of myocardial infarction (V17.3) (Z82.49) Father Family history of cardiac disorder (V17.49) (Z82.49) Family history of throat cancer (V16.0) (Z80.0) Sister Family history of emphysema (V17.6) (Z82.5) Family history of macular degeneration (V19.19) (Z83.518) Brother Family history of Bradycardia Family history of diabetes mellitus (V18.0) (Z83.3) Family history of lymphoma (V16.7) (Z80.7) Family history of (more content not included)... Normal [email or web address] Tobacco Screening.on 021 Tobacco use status [facility] b) No -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 METHODS: After risks, benefits, and alternatives were explained, written informed consent was obtained. The patient was brought to the stress lab in a resting and fasting state. She was connected to the appropriate hemodynamic and electrocardiographic monitoring. She underwent a Andres protocol for exercise. She was monitored for the standard duration and discharged in a stable state. FINDINGS: TREADMILL EXERCISE: The patient exercised for 1 minute and 54 seconds. The test was terminated due to shortness of breath, neck pain, and back pain. She complained of pain between her shoulder blades. She achieved 4.6 METs. She reached state 1 of the Andres protocol. HEMODYNAMICS: Resting heart rate was 69 bpm, increasing to a maximum of 142 bpm, which is 91% of maximum predicted. Resting blood pressure was 130/90 increasing to maximum of 196/102. EKG: REST EKG: Sinus rhythm, 69 bpm, normal resting EKG. During exercise, there are horizontal depressions in II, III, and aVF 1 mm in amplitude. During exercise that continued into recovery. There are 0.[address] depressions in V5 and V6. These changes returned to baseline at the completion of the test. IMPRESSION: 1. Ischemic EKG changes seen in leads II, III and aVF on treadmill exercise test. 2. Poor exercise tolerance. 3. Varma treadmill score is -8 indicating a one year mortality of 1 to 1.1%. Risk category is moderate risk. Angiography may be indicated. Electronically Authenticated and Edited by: Leland Tabor MD on 02/23/2021 01:13 PM [facility] Signed and Approved by: DR LELAND TABOR 02/23/2021 13:13:00 Normal [facility] ECHOCARDIO M/2D COMPLETEon 1 04-10-2020 ECHOCARDIO M/2D COMPLETE Patient: HERMINIO DRAKE Exam Date: 02/08/2021 : 1955 Gender:F Ordering : DR BOB CARTER Admission #: [id number] Family : Order #: [id number] CLICK HERE TO VIEW EXAM ECHOCARDIOGRAM REPORT PROCEDURE: CARDIO PULMONARY ECHOCARDIO M/2D COMP INDICATIONS: Leg edema, Palpitations, Fatigue COMPARISON: None. DESCRIPTION: COMPLETE ECHOCARDIOGRAM Real-time transthoracic echocardiography with 2D, M-mode, spectral and color flow Doppler performed. QUALITY: Technical quality was good. LEFT VENTRICLE: Normal chamber size. Borderline left ventricular hypertrophy. LV EF: Global left ventricular systolic function appears normal. Calculated left ventricular ejection fraction is 56%. DIASTOLIC: Normal diastolic function. ATRIAL SEPTUM: Inadequately seen. LEFT ATRIUM: Normal chamber size. RIGHT ATRIUM: Mild dilatation. RIGHT VENTRICLE: Normal chamber size. Normal right ventricular systolic function. TRICUSPID VALVE: Normal mobility and thickness. No stenosis with mild regurgitation. No evidence of pulmonary hypertension. RVSP 31mmHg MITRAL VALVE: Normal mobility and thickness. No mitral valve prolapse. No evidence of mitral valve stenosis. There is no mitral annular calcification. Trivial mitral regurgitation. AORTIC VALVE: Normal trileaflet appearance. No visible sclerosis. Normal leaflet mobility. No evidence of aortic valve stenosis. No aortic regurgitation. AORTIC ROOT: Normal diameter and appearance. PULMONIC VALVE: Normal thickness and mobility. No stenosis. Trivial regurgitation. PERICARDIUM: No evidence of pericardial effusion. IVC: Collapses with inspirations. CONCLUSION: Global left ventricular systolic function is normal; visually estimated ejection fraction 55 to 60%. Borderline left ventricular hypertrophy. Normal diastolic function. Mild right atrial enlargement. The right ventricle is normal in size and systolic function. Mild tricuspid regurgitation. Adult Echocardiography Procedure Report Left Ventricle LVEDD (3.7 - 5.6 cm): 4.87 cm LVESD (2.2 - 4.0 cm): 3.63 cm LVIVS thickness (0.6 - 1.2 cm): 1.05 cm LVPW thickness (0.5 - 1.0 cm): 9.52 mm e': 8.77 cm/s E - e': 10.10 LVOT Area (cm2): 3.14 cm2 Peak Velocity (LVOT): 76.50 cm/s LVOT Diameter 2.00 cm Left Ventricular Ejection Fraction: 50 % Left Ventricular Ejection Fraction (A2C): 56 % Left Ventricular Ejection Fraction (A4C): 56 % Left Atrium LA Volume Index (2D A2C): 21.70 ml/m2 Left Atrium Systolic Dimension: 3.30 cm Left Atrium Systolic Area(A2C): 14.90 cm2 Left Atrium Systolic Area(A4C): 17.50 cm2 Left Atrium Systolic Volume(A2C): 14136 mm3 Left Atrium Systolic Volume(A4C): 54027 mm3 Mitral Valve MV E to A Ratio: 1.10 Deceleration Warrick: 5510 mm/s2 Mitral Valve A-Wave Peak Velocity: 80.90 cm/s Mitral Valve E-Wave Peak Velocity: 88.40 cm/s Right Ventricle RV Internal Diastolic Dimension: 3.10 cm Aorta AO Root Diam: 2.50 cm Aortic Valve AoV Area (Peak Jesus): 1.96 cm2 Aortic Valve Cusp Separation: 1.70 cm Peak Velocity(Antegrade Flow): 137.00 cm/s Peak Gradient(Antegrade Flow): 8 mm[Hg] Tricuspid Valve Peak Velocity (Regurgitant Flow): 255.00 cm/s Pulmonic Valve Peak Velocity: 88.90 cm/s Peak Gradient: 3 mm[Hg] Right Atrium Dictated by: Leland Tabor M.D. on 02/08/2021 at 12:17 Approved by: Leland Tabor M.D. on 02/08/2021 at 12:22 Normal [facility] CBC AUTO DIFFon 08-28-2020 BASO # 0.0 103/ul Normal 0.0-0.1 [facility] Comment on above: Performed By: #### C BC ####[facility] [address] [place] [address] Shaniqua Basophils/100 WBC (Bld) 0.2 % Normal 0.2-2.0 [facility] Comment on above: Performed By: #### C BC ####[facility] [address]dukhzrm[address] [place] [address] Shaniqua EO # 0.3 103/ul Normal 0.0-0.7 [facility] Comment on above: Performed By: #### C BC ####[facility] [address] [place] [address] Shaniqua Eosinophils/100 WBC (Bld) 2.7 % Normal 0.9-7.0 [facility] Comment on above: Performed By: #### C BC ####[facility] [address] [place] [address] Shaniqua Erythrocyte distribution width (RBC) [Ratio] 13.5 % Normal 11.0-15.0 [facility] Comment on above: Performed By: #### C BC ####[facility] [address]eyqujf[address] [place] [address] Shaniqua Hematocrit (Bld) [Volume fraction] 45.7 % Normal 36.0-48.0 [facility] Comment on above: Performed By: #### C BC ####[facility] [address] [place], [place] [address]Gerken Shaniqua Hemoglobin (Bld) [Mass/Vol] 15.1 g/dL Normal 12.0-16.0 [facility] Comment on above: Performed By: #### C BC ####[facility] [address] [place] [address] Shaniqua IG # 0.03 10e3/ul Normal 0.00-0.03 [facility] Comment on above: Performed By: #### C BC ####[facility] [address]rs[address] [place] [address] Shaniqua IG % 0.3 % Normal 0.0-0.5 [facility] Comment on above: Performed By: #### C BC ####[facility] [address] [place] [address] Shaniqua LYMPH # 2.0 103/ul Normal 1.2-3.8 [facility] Comment on above: Performed By: #### C BC ####[facility] [address] [place] [address] Shaniqua Lymphocytes/100 WBC (Bld) 18.1 % Critically low 20.5-60.0 [facility] Comment on above: Performed By: #### C BC ####[facility] [address] [place] [address] Shaniqua MANUAL DIFF REQ NO Normal [facility] Comment on above: Performed By: #### C BC ####[facility] [address] [place] [address] Shaniqua MCH (RBC) [Entitic mass] 28.3 pg Normal 26.7-34.0 [facility] Comment on above: Performed By: #### C BC ####[facility] [address] [place] [address] Shaniqua MCHC (RBC) [Mass/Vol] 33.0 g/dL Normal 29.9-35.2 [facility] Comment on above: Performed By: #### C BC ####[facility] [address] [place] [address] Shaniqua MCV (RBC) [Entitic vol] 85.6 fL Normal 81.0-99.0 [facility] Comment on above: Performed By: #### C BC ####[facility] [address]ylx[address]fh[address] [place] [id number] Shaniqua MONO # 0.7 103/ul Normal 0.3-0.8 [facility] Comment on above: Performed By: #### C BC ####[facility] Nyrukygqtx3624 [place] [id number] Shaniqua Monocytes/100 WBC (Bld) 5.9 % Normal 1.7-12.0 [facility] Comment on above: Performed By: #### C BC ####[facility] [address] [place], [place] [address]Gerken Shaniqua NEUT # 8.2 103/ul Critically high 1.4-6.5 [facility] Comment on above: Performed By: #### C BC ####[facility] [address] [place] [address] Shaniqua Neutrophils/100 WBC (Bld) 72.8 % Normal 43.0-75.0 [facility] Comment on above: Performed By: #### C BC ####[facility] [address] [place], [place] [id number] Mcgovern Platelet mean volume (Bld) [Entitic vol] 10.2 fL Normal 9.5-13.5 [facility] Comment on above: Performed By: #### C BC ####[facility] [address] [place], [place] [address]ken Shaniqua PLT 307 103/ul Normal 150-450 [facility] Comment on above: Performed By: #### C BC ####[facility] [address] [place], [place] [address]Gerken Shaniqua RBC 5.34 106/ul Normal 4.20-5.40 [facility] Comment on above: Performed By: #### C BC ####[facility] [address] [place], [place] [address]Gerken Shaniqua WBC 11.2 103/ul Critically high 4.0-11.0 [facility] Comment on above: Performed By: #### C BC ####[facility] [address] [place], [place] [address] ABD/PELV W CONon 08-29-19 CT ABD/PELV W CON EXAMINATION: CT ABD/PELV W CON HISTORY: GENERALIZED ABDOMINAL PAIN ; pain since stent removal from right lower abdomen earlier today COMPARISON: CT abdomen and pelvis without contrast 08/20/2020 TECHNIQUE: Axial, Coronal, and Sagittal images were created with IV contrast. Dose reduction techniques were achieved by using automated exposure control and/or adjustment of mA and/or kV according to patient size and/or use of iterative reconstruction technique. FINDINGS: LUNG BASES: No visible pulmonary or pleural disease. LIVER: No enlargement, atrophy, abnormal density, or significant focal lesion. BILIARY: Cholecystectomy. PANCREAS: No lesion, fluid collection, ductal dilatation, or atrophy. SPLEEN: No enlargement or focal lesion. ADRENALS: No mass or enlargement. KIDNEYS: Mild right hydronephrosis and hydroureter with perinephric stranding extending to the level of the urinary bladder; no visible stone or mass. 3 mm nonobstructing stone and small cyst within left kidney. BOWEL/MESENTERY: Mild diverticulosis of the sigmoid colon. No visible mass, obstruction, or bowel wall thickening. AORTA/VASCULAR: No aneurysm or dissection. RETROPERITONEUM: No mass or adenopathy. LYMPH NODES: No adenopathy. URINARY BLADDER: Air within the urinary bladder consistent with recent procedure. No visible focal wall thickening, lesion, or calculus. PELVIC ORGANS: No visible mass. Pelvic organs appropriate for patient age. ABDOMINAL WALL: Tiny fat filled umbilical hernia without stimulation. BONES: No bony lesion or fracture. OTHER: Negative. IMPRESSION: 1. Mild right hydronephrosis, hydroureter, and mild perinephric edema; nonspecific but likely related to previously seen stone which is no longer present. No ureteral stents. 2. Air within the urinary bladder likely related to recent procedure. Correlate with clinical history. Electronically authenticated by: BRANDT BROUSSARD Date: 2020-08-28 11:58 Normal [facility] LIPASEon 08-28-2020 Lipase [Catalytic activity/Vol] 104.0 U/L Normal 23.0-300.0 [facility] Comment on above: Performed By: #### L IPA, CMP ####[facility] [address] [place], [place] [address]Knnkoc Shaniqua PROF 14(COMP METB)on 021 Albumin [Mass/Vol] 3.7 g/dL Normal 3.5-5.[address] [facility] Comment on above: Performed By: #### L IPA, CMP ####[facility] [address] [place], [place] [address]Krfcfu Shaniqua Albumin/Globulin [Mass ratio] 0.8 {ratio} Normal [facility] Comment on above: Performed By: #### L IPA, CMP ####[facility] [address] [place], [place] [address]Ymstgg Shaniqua ALP [Catalytic activity/Vol] 126 U/L Normal 38-126 [facility] Comment on above: Performed By: #### L IPA, CMP ####[facility] [address] [place], [place] [address]Tapyoo Shaniqua ALT [Catalytic activity/Vol] 69 U/L Critically high 9-52 [facility] Comment on above: Performed By: #### L IPA, CMP ####[facility] [address] [place], [place] [address]Hznhog Shaniqua Anion gap [Moles/Vol] 15.4 mmol/L Normal [facility] Comment on above: Performed By: #### L IPA, CMP ####[facility] [address] [place], [place] [address]Rapmtl Shaniqua AST [Catalytic activity/Vol] 38 U/L Critically high 14-36 [facility] Comment on above: Performed By: #### L IPA, CMP ####[facility] [address] [place], [place] [address]Lhhbtx Shaniqua Bilirubin [Mass/Vol] 0.4 mg/dL Normal 0.2-1.3 [facility] Comment on above: Performed By: #### L IPA, CMP ####[facility] [address] [place], [place] [address]Lphehp Shaniqua Calcium [Mass/Vol] 9.4 mg/dL Normal 8.4-10.2 [facility] [place] [facility] Comment on above: Performed By: #### L IPA, CMP ####[facility] [address] [place], [place] [address]Yecegh Shaniqua Chloride [Moles/Vol] 104 mmol/L Normal 98-107 [facility] Comment on above: Performed By: #### L IPA, CMP ####[facility] [address] [place], [place] [address]Ibkxei Shaniqua CO2 [Moles/Vol] 26.7 mmol/L Normal 22.0-30.0 [facility] Comment on above: Performed By: #### L IPA, CMP ####[facility] [address] [place], [place] [address]Tupmyp Shaniqua Creatinine [Mass/Vol] 1.05 mg/dL Critically high 0.52-1.04 [facility] Comment on above: Performed By: #### L IPA, CMP ####[facility] [address] [place] [address]Tdyivd Shaniqua EGFR-AF SOUTH AFRICAN >60 Normal >=60 [facility] Comment on above: Performed By: #### L IPA, CMP ####[facility] [address] [place] [address]Jlssvw Shaniqua EGFR-NON AF SOUTH AFRICAN 53 mL/min/1.73m2 Critically low >=60 [facility] Comment on above: Performed By: #### L IPA, CMP ####[facility] [address] [place] [address]Qwvymw Shaniqua Globulin (S) [Mass/Vol] 4.4 g/dL Normal [facility] Comment on above: Performed By: #### L IPA, CMP ####[facility] [address] [place], [place] [address]Boozlc Shaniqua Glucose [Mass/Vol] 97 mg/dL Normal 74-106 [facility] [place] [facility] Comment on above: Performed By: #### L IPA, CMP ####[facility] [address] [place] [address]Kvozwp Shaniqua Potassium [Moles/Vol] 4.1 mmol/L Normal 3.4-5.0 [facility] Comment on above: Performed By: #### L IPA, CMP ####[facility] [address] [place], [place] [address]Axgivt Shaniqua Protein [Mass/Vol] 8.1 g/dL Normal 6.1-8.[address] [facility] Comment on above: Performed By: #### L IPA, CMP ####[facility] [address] [place], [place] [address]Pbxgbc Shaniqua Sodium [Moles/Vol] 142 mmol/L Normal 137-145 [facility] [place] [facility] Comment on above: Performed By: #### L IPA, CMP ####[facility] [address] [place], [place] [address]Wiehqr Shaniqua Urea nitrogen [Mass/Vol] 30.0 mg/dL Critically high 7.0-17.0 [facility] Comment on above: Performed By: #### L IPA, CMP ####[facility] [address] [place] [address]Dhrnrh Shaniqua Urea nitrogen/Creatinine [Mass ratio] 28.6 mg/mg Normal [facility] Comment on above: Performed By: #### L IPA, CMP ####[facility] [address] [place] [address]Waaggk Shaniqua XR KUB 1 VIEWon 08-21-2020 XR KUB 1 VIEW EXAMINATION: XR KUB 1 VIEW HISTORY: Kidney stone ; acute right lower quadrant pain; history of kidney stones COMPARISON: CT abdomen pelvis 08/20/2020 FINDINGS: KIDNEY/URETER - RIGHT: No visible renal or ureteral calcifications. KIDNEY/URETER - LEFT: No visible renal or ureteral calcifications. PELVIS: No visible ureteral stones. BOWEL: No abnormal dilation or deviation. BONES: No acute abnormality. OTHER: Negative. No abnormal gaseous collections. IMPRESSION: 1. The stone within the distal right ureter on today's CT study is not visible on this KUB study. No visible urinary tract calculi. Electronically authenticated by: BRANDT BROUSSARD Date: 2020-08-21 07:18 Normal [facility] CBC AUTO DIFFon 08-20-2020 BASO # 0.0 103/ul Normal 0.0-0.1 [facility] Comment on above: Performed By: #### C BC #### [facility] [address] [place], [place] [address] Keron Shaniqua Basophils/100 WBC (Bld) 0.5 % Normal 0.2-2.0 [facility] Comment on above: Performed By: #### C BC #### [facility] [address] [place] [phone] Keron Shaniqua EO # 0.2 103/ul Normal 0.0-0.7 [facility] Comment on above: Performed By: #### C BC #### [facility] [address] [place] [id number] Keron Shaniqua Eosinophils/100 WBC (Bld) 2.4 % Normal 0.9-7.0 [facility] Comment on above: Performed By: #### C BC #### [facility] [address] [place], [place] [address] Keron Shaniqua Erythrocyte distribution width (RBC) [Ratio] 13.3 % Normal 11.0-15.0 [facility] Comment on above: Performed By: #### C BC #### [facility] [address] [place], [place] [address] Keron Shaniqua Hematocrit (Bld) [Volume fraction] 43.0 % Normal 36.0-48.0 [facility] Comment on above: Performed By: #### C BC #### [facility] [address] [place], [place] [address] Keron Shaniqua Hemoglobin (Bld) [Mass/Vol] 14.1 g/dL Normal 12.0-16.0 [facility] Comment on above: Performed By: #### C BC #### [facility] [address] [place], [place] [address] Keron Shaniqua IG # 0.03 10e3/ul Normal 0.00-0.03 [facility] Comment on above: Performed By: #### C BC #### [facility] [address] [place], [place] [address] Keron Shaniqua IG % 0.3 % Normal 0.0-0.5 [facility] Comment on above: Performed By: #### C BC #### [facility] [address] [place] [address] Keron Shaniqua LYMPH # 2.9 103/ul Normal 1.2-3.8 [facility] Comment on above: Performed By: #### C BC #### [facility] [address] [place], [place] [address] Keron Shaniqua Lymphocytes/100 WBC (Bld) 33.0 % Normal 20.5-60.0 [facility] Comment on above: Performed By: #### C BC #### [facility] [address] [place], [place] [address] Keron Shaniqua MANUAL DIFF REQ NO Normal [facility] Comment on above: Performed By: #### C BC #### [facility] [address] [place] [address] Keronsandi Mcgovern MCH (RBC) [Entitic mass] 28.3 pg Normal 26.7-34.0 [facility] Comment on above: Performed By: #### C BC #### [facility] [address] [place] [address] Keronsandi Mcgovern MCHC (RBC) [Mass/Vol] 32.8 g/dL Normal 29.9-35.2 [facility] Comment on above: Performed By: #### C BC #### [facility] [address] [place] [address] Keronsandi Mcgovern MCV (RBC) [Entitic vol] 86.2 fL Normal 81.0-99.0 [facility] Comment on above: Performed By: #### C BC #### [facility] [address] [place] [address] Keron Shaniqua MONO # 0.6 103/ul Normal 0.3-0.8 [facility] Comment on above: Performed By: #### C BC #### [facility] [address] [place], [place] [address] Keron Shaniqua Monocytes/100 WBC (Bld) 7.1 % Normal 1.7-12.0 [facility] Comment on above: Performed By: #### C BC #### [facility] [address] [place] [address] Keron Shaniqua NEUT # 5.0 103/ul Normal 1.4-6.5 [facility] Comment on above: Performed By: #### C BC #### [facility] [address] [place], [place] [address] Keron Mcgovern Neutrophils/100 WBC (Bld) 56.7 % Normal 43.0-75.0 [facility] Comment on above: Performed By: #### C BC #### [facility] [address] [place], [place] [address] Keron Mcgovern Platelet mean volume (Bld) [Entitic vol] 11.3 fL Normal 9.5-13.5 [facility] Comment on above: Performed By: #### C BC #### [facility] [address] [place], [place] [address] Keron Fabianen PLT 201 103/ul Normal 150-450 [facility] Comment on above: Performed By: #### C BC #### [facility] [address] [place], [place] [address] Keron Shaniqua RBC 4.99 106/ul Normal 4.20-5.40 [facility] Comment on above: Performed By: #### C BC #### [facility] [address] [place] [address] Keron Mcgovern WBC 8.8 103/ul Normal 4.0-11.0 [facility] Comment on above: Performed By: #### C BC #### [facility] [address] [place] [address] ABD/PELVIS WO CONon 08-20 CT ABD/PELVIS WO CON EXAM: CT ABD/PELVIS WO CON 08/20/2020 3:00 AM EDT OH001 CLINICAL STATEMENT: CALCULUS OF KIDNEY COMPARISON: 08/24/2012 report TECHNIQUE: Helically acquired images were obtained of the abdomen and pelvis without IV contrast. No oral contrast was administered. AEC is utilized. 2-D reconstructed images are provided. FINDINGS: There is a 6 mm right distal ureteric calculus with moderate right-sided hydronephrosis and hydroureter. Right perinephric stranding. There is a 3 mm nonobstructive left renal calculus. Cholecystectomy. Small ventral umbilical fat-containing hernia. Hepatomegaly. The remaining upper abdominal solid organs are unremarkable. There is no bowel obstruction or free air. There is no ascites. There is no evidence of aortic aneurysm. There is no retroperitoneal adenopathy. There is no appendicitis. Scattered sigmoid diverticulosis without acute diverticulitis. There are no pelvic masses or loculated fluid collections. The lung bases are clear. There are no destructive bone lesions identified. IMPRESSION: 6 mm right distal ureteric calculus with moderate right-sided hydronephrosis and hydroureter. Right perinephric stranding. 3 mm nonobstructive left renal calculus. Hepatomegaly. Small ventral umbilical fat-containing hernia. Scattered sigmoid diverticulosis without acute diverticulitis. FOLLOW-UP: Follow-up as clinically indicated. Dose reduction techniques were achieved by using automated exposure control and/or adjustment of mA and/or kV according to patient size and/or use of iterative reconstruction technique. Electronically authenticated by: GABE BARTON Date: 2020-08-20 04:35 Normal [facility] CULTURE URINEon 08-20-2020 CULTURE URINE Culture Observations : LIGHT GROWTH OF MIXED GENITAL KEVIN. NO POTENTIAL PATHOGENS SEEN. Normal [facility] Comment on above: Performed By: #### U RCX ####[facility] [address] [place] [address]Gerken Shaniqua ER URINE PROFILEon 1 Bilirubin Ql (U) Negative Normal NEGATIVE [facility] Comment on above: Performed By: #### U MICRO, ERUR #### [facility] [address] [place] [address] Keron Shaniqua Clarity (U) CLEAR Normal CLEAR [facility] Comment on above: Performed By: #### U MICRO, ERUR #### [facility] [address] [place] [address] Keron Shaniqua Color (U) YELLOW Normal YELLOW [facility] Comment on above: Performed By: #### U MICRO, ERUR #### [facility] [address] [place] [address] Keron Shaniqua ERUAHD A micrscopic examination will be performed if indicated. Normal [facility] Comment on above: Performed By: #### U MICRO, ERUR #### [facility] [address] [place] [address] Keron Shaniqua Glucose Ql (U) Negative Normal NEGATIVE [facility] Comment on above: Performed By: #### U MICRO, ERUR #### [facility] [address] [place] [address] Keron Shaniqua Hemoglobin Ql (U) LARGE Abnormal NEGATIVE [facility] Comment on above: Performed By: #### U MICRO, ERUR #### [facility] [address] [place] [address] Keron Shaniqua Ketones Ql (U) Negative Normal NEGATIVE [facility] Comment on above: Performed By: #### U MICRO, ERUR #### [facility] [address] [place] [address] Keron Shaniqua LEUKOCYTES Negative Normal NEGATIVE [facility] Comment on above: Performed By: #### U MICRO, ERUR #### [facility] [address] [place] [address] Keron Shaniqua Nitrite Ql (U) Negative Normal NEGATIVE [facility] Comment on above: Performed By: #### U MICRO, ERUR #### [facility] [address] [place] [address] Keron Shaniqua pH (U) 5.5 [pH] Normal 5-9 [facility] Comment on above: Performed By: #### U MICRO, ERUR #### [facility] [address] [place] [address] Keron Shaniqua SPEC GRAVITY >=1.030 Abnormal 1.005-<=1.[address] [place] [address] Comment on above: Performed By: #### U MICRO, ERUR #### [facility] [address] [place] [address] Keron Shaniqua UA PROTEIN TRACE Normal NEGATIVE/ TRACE [facility] Comment on above: Performed By: #### U MICRO, ERUR #### [facility] [address] [place] [address] Keron Shaniqua UR MICRO IND INDICATED Normal [facility] Comment on above: Performed By: #### U MICRO, ERUR #### [facility] [address] [place] [address] Keron Shaniqua Urobilinogen Qn (U) 0.2 {Debra'U}/dL Normal 0.2 - 1. 0 [facility] Comment on above: Performed By: #### U MICRO, ERUR #### [facility] [address] [place], [place] [address] Keronsandi Mcgovern PROF 14(COMP METB)on 021 Albumin [Mass/Vol] 3.7 g/dL Normal 3.5-5.[address] [facility] Comment on above: Performed By: #### C MP #### [facility] [address] [place], [place] [address] Keron Shaniqua Albumin/Globulin [Mass ratio] 0.9 {ratio} Normal [facility] Comment on above: Performed By: #### C MP #### [facility] [address] [place] [address] Keron Shaniqua ALP [Catalytic activity/Vol] 133 U/L Critically high 38-126 [facility] Comment on above: Performed By: #### C MP #### [facility] [address] [place], [place] [address] Keron Shaniqua ALT [Catalytic activity/Vol] 35 U/L Normal 9-52 [facility] Comment on above: Performed By: #### C MP #### [facility] [address] [place], [place] [address] Keron Shaniqua Anion gap [Moles/Vol] 12.3 mmol/L Normal [facility] Comment on above: Performed By: #### C MP #### [facility] [address] [place], [place] [address] Keron Shaniqua AST [Catalytic activity/Vol] 16 U/L Normal 14-36 [facility] Comment on above: Performed By: #### C MP #### [facility] [address] [place], [place] [address] Keron Shaniqua Bilirubin [Mass/Vol] 0.2 mg/dL Normal 0.2-1.3 [facility] Comment on above: Performed By: #### C MP #### [facility] [address] [place], [place] [address] Keron Shaniqua Calcium [Mass/Vol] 9.4 mg/dL Normal 8.4-10.[address] [facility] Comment on above: Performed By: #### C MP #### [facility] [address] [place] [address] Keron Shaniqua Chloride [Moles/Vol] 103 mmol/L Normal 98-107 [facility] Comment on above: Performed By: #### C MP #### [facility] [address] [place] [address] Keron Shaniqua CO2 [Moles/Vol] 30.4 mmol/L Critically high 22.0-30.0 [facility] Comment on above: Performed By: #### C MP #### [facility] [address] [place] [address] Keron Shaniqua Creatinine [Mass/Vol] 0.93 mg/dL Normal 0.52-1.04 [facility] Comment on above: Performed By: #### C MP #### [facility] [address] [place] [address] Keron Shaniqua EGFR-AF SOUTH AFRICAN >60 Normal >=60 [facility] Comment on above: Performed By: #### C MP #### [facility] [address] [place] [address] Keron Shaniqua EGFR-NON AF SOUTH AFRICAN >60 Normal >=60 [facility] Comment on above: Performed By: #### C MP #### [facility] [address] [place] [address] Keron Shaniqua Globulin (S) [Mass/Vol] 4.2 g/dL Normal [facility] Comment on above: Performed By: #### C MP #### [facility] [address] [place] [address] Keron Shaniqua Glucose [Mass/Vol] 120 mg/dL Critically high 74-106 [facility] Comment on above: Performed By: #### C MP #### [facility] [address] [place] [address] Keron Shaniqua Potassium [Moles/Vol] 3.7 mmol/L Normal 3.4-5.0 [facility] Comment on above: Performed By: #### C MP #### [facility] [address] [place] [address] Keron Shaniqua Protein [Mass/Vol] 7.9 g/dL Normal 6.1-8.2 [facility] [place] [facility] Comment on above: Performed By: #### C MP #### [facility] [address] [place] [id number] Keron Shaniqua Sodium [Moles/Vol] 142 mmol/L Normal 137-145 [facility] [place] [facility] Comment on above: Performed By: #### C MP #### [facility] [address] [place] [id number] Keron Shaniqua Urea nitrogen [Mass/Vol] 19.0 mg/dL Critically high 7.0-17.0 [facility] Comment on above: Performed By: #### C MP #### [facility] [address] [place] [address] Keron Shaniqua Urea nitrogen/Creatinine [Mass ratio] 20.4 mg/mg Normal [facility] Comment on above: Performed By: #### C MP #### [facility] [address] [place] [id number] Keron Shaniqua URINE MICROSCOPIC ONLYon BACTERIA SMALL Abnormal NONE SEEN [facility] Comment on above: Performed By: #### U MICRO, ERUR #### [facility] [address] [place] [address] Keron Shaniqua Bacteria identified Cx Nom (U) INDICATED Normal [facility] Comment on above: Performed By: #### U MICRO, ERUR #### [facility] [address] [place] [id number] Keron Shaniqua CAST NONE SEEN Normal NONE SEEN [facility] Comment on above: Performed By: #### U MICRO, ERUR #### [facility] [address] [place] [id number] Keron Shaniqua Crystals LM Nom (Urine sed) NONE SEEN Normal NONE SEEN [facility] Comment on above: Performed By: #### U MICRO, ERUR #### [facility] [address] [place] [id number] Keron Shaniqua Epithelial cells LM Ql (Urine sed) RARE Normal NONE SEEN /RARE [facility] Comment on above: Performed By: #### U MICRO, ERUR #### [facility] [address] [place], [place] [address] Keron Shaniqua MUCOUS NONE SEEN Normal NONE SEEN [facility] Comment on above: Performed By: #### U MICRO, ERUR #### [facility] [address] [place], [place] [address] Keron Shaniqua RBC 20-50 Abnormal 0-2 [facility] Comment on above: Performed By: #### U MICRO, ERUR #### [facility] [address] [place], [place] [address] Keron Shaniqua WBC 0-2 Abnormal NONE SEEN [facility] Comment on above: Performed By: #### U MICRO, ERUR #### [facility] [address] [place] [address] Keron Shaniqua CBC AUTO DIFFon 06-27-2020 BASO # 0.0 103/ul Normal 0.0-0.1 [facility] Comment on above: Performed By: #### C BC #### [facility] [address] [place], [place] [address] Keron Shaniqua Basophils/100 WBC (Bld) 0.5 % Normal 0.2-2.0 [facility] [facility] Comment on above: Performed By: #### C BC #### [facility] [address] [place], [place] [id number] Keron Shaniqua EO # 0.1 103/ul Normal 0.0-0.7 [facility] Comment on above: Performed By: #### C BC #### [facility] [address] [place] [address] Keron Shaniqua Eosinophils/100 WBC (Bld) 2.0 % Normal 0.9-7.0 [facility] Comment on above: Performed By: #### C BC #### [facility] [address] [place], [place] [id number] Keron Shaniqua Erythrocyte distribution width (RBC) [Ratio] 13.2 % Normal 11.0-15.0 [facility] Comment on above: Performed By: #### C BC #### [facility] [address] [place], [place] [id number] Keron Shaniqua Hematocrit (Bld) [Volume fraction] 40.9 % Normal 36.0-48.0 [facility] Comment on above: Performed By: #### C BC #### [facility] [address] [place], [place] [id number] Keron Shaniqua Hemoglobin (Bld) [Mass/Vol] 13.2 g/dL Normal 12.0-16.0 [facility] Comment on above: Performed By: #### C BC #### [facility] [address] [place] [address] Keron Shaniqua IG # 0.04 10e3/ul Critically high 0.00-0.03 [facility] Comment on above: Performed By: #### C BC #### [facility] [address] [place] [address] Keron Shaniqua IG % 0.6 % Critically high 0.0-0.5 [facility] Comment on above: Performed By: #### C BC #### [facility] [address] [place] [address] Keron Shaniqua LYMPH # 1.8 103/ul Normal 1.2-3.8 [facility] Comment on above: Performed By: #### C BC #### [facility] [address] [place], [place] [id number] Keron Mcgovern Lymphocytes/100 WBC (Bld) 27.7 % Normal 20.5-60.0 [facility] Comment on above: Performed By: #### C BC #### [facility] [address] [place] [address] Keronsandi Fabianen MANUAL DIFF REQ NO Normal [facility] Comment on above: Performed By: #### C BC #### [facility] [address] [place], [place] [id number] Keronsandi Fabianen MCH (RBC) [Entitic mass] 28.3 pg Normal 26.7-34.0 [facility] Comment on above: Performed By: #### C BC #### [facility] [address] [place], [place] [id number] Keronsandi Fabianen MCHC (RBC) [Mass/Vol] 32.3 g/dL Normal 29.9-35.2 [facility] Comment on above: Performed By: #### C BC #### [facility] [address] [place], [place] [id number] Keron Mcgovern MCV (RBC) [Entitic vol] 87.8 fL Normal 81.0-99.0 [facility] Comment on above: Performed By: #### C BC #### [facility] [address] [place], [place] [address] Keronsandi Fabianen MONO # 0.5 103/ul Normal 0.3-0.8 [facility] Comment on above: Performed By: #### C BC #### [facility] [address] [place] [address] Keronsandi Mcgovern Monocytes/100 WBC (Bld) 7.9 % Normal 1.7-12.0 [facility] Comment on above: Performed By: #### C BC #### [facility] [address] [place] [address] Keronsandi Fabianen NEUT # 4.0 103/ul Normal 1.4-6.5 [facility] Comment on above: Performed By: #### C BC #### [facility] [address] [place], [place] [address] Keronsandi Mcgovern Neutrophils/100 WBC (Bld) 61.3 % Normal 43.0-75.0 [facility] Comment on above: Performed By: #### C BC #### [facility] [address] [place], [place] [address] Keronsandi Mcgovern Platelet mean volume (Bld) [Entitic vol] 10.3 fL Normal 9.5-13.5 [facility] Comment on above: Performed By: #### C BC #### [facility] [address] [place], [place] [address] Keron Shaniqua PLT 223 103/ul Normal 150-450 [facility] Comment on above: Performed By: #### C BC #### [facility] [address] [place], [place] [address] Keron Shaniqua RBC 4.66 106/ul Normal 4.20-5.40 [facility] Comment on above: Performed By: #### C BC #### [facility] [address] [place], [place] [address] Keron Shaniqua WBC 6.5 103/ul Normal 4.0-11.0 [facility] Comment on above: Performed By: #### C BC #### [facility] [address] [place], [place] [address] Keron Shaniqua LIPID PROFILEon 06-27-2020 CHOL-HDL RATIO NORM SEE BELOW Normal [facility] Comment on above: Result Comment: 3.3 - 4.4 LOW RISK 4.4 - 7.1 AVERAGE RISK 7.1 - 11.0 MODERATE RISK >11.0 HIGH RISK Performed By: #### C MP, LIPID, TSH #### [facility] [address] [address] Keron Shaniqua Cholesterol [Mass/Vol] 184 mg/dL Normal <=200 [facility] Comment on above: Performed By: #### C MP, LIPID, TSH #### [facility] [address] [address] Keron Shaniqua Cholesterol in HDL [Mass/Vol] 53 mg/dL Normal [facility] Comment on above: Performed By: #### C MP, LIPID, TSH #### [facility] [address] [id number] Keron Shaniqua Cholesterol in LDL [Mass/Vol] 104.8 mg/dL Normal [facility] Comment on above: Performed By: #### C MP, LIPID, TSH #### [facility] [address] [id number] Keron Shaniqua Cholesterol.total/Cho lesterol in HDL [Mass ratio] 3.5 {ratio} Normal [facility] Comment on above: Performed By: #### C MP, LIPID, TSH #### [facility] [address] [id number] Keron Shaniqua HDL NORMAL > or = 60 mg/dl - LO W CARDIOVASCULAR RISK <40 mg/dl - HIGH CARDIOVASCULAR RISK Normal [facility] Comment on above: Performed By: #### C MP, LIPID, TSH #### [facility] [address] [id number] Keron Shaniqua LDL CALC NORMAL SEE BELOW Normal [facility] Comment on above: Result Comment: <100 mg/dl OPTIMAL 100 - 129 mg/dl NEAR OR ABOVE OPTIMAL 130 - 159 mg/dl BORDERLINE HIGH 160 - 189 mg/dl HIGH >190 mg/dl VERY HIGH Performed By: #### C MP, LIPID, TSH #### [facility] [address] [id number] Keron Shaniqua Triglyceride [Mass/Vol] 131 mg/dL Normal <=150 [facility] Comment on above: Performed By: #### C MP, LIPID, TSH #### [facility] [address] [id number] Keron Shaniqua VLDL CALC 26.2 mg/dL Normal [facility] Comment on above: Performed By: #### C MP, LIPID, TSH #### [facility] [address] [id number] Keron Mcgovern PROF 14(COMP METB)on 021 Albumin [Mass/Vol] 3.4 g/dL Critically low 3.5-5.0 [facility] Comment on above: Performed By: #### C MP, LIPID, TSH #### [facility] [address] [id number] Keronsandi Fabianen Albumin/Globulin [Mass ratio] 0.9 {ratio} Normal [facility] Comment on above: Performed By: #### C MP, LIPID, TSH #### [facility] [address] [id number] Keron Shaniqua ALP [Catalytic activity/Vol] 111 U/L Normal 38-126 [facility] Comment on above: Performed By: #### C MP, LIPID, TSH #### [facility] [address] [id number] Keron Shaniqua ALT [Catalytic activity/Vol] 41 U/L Normal 9-52 [facility] Comment on above: Performed By: #### C MP, LIPID, TSH #### [facility] [address] [id number] Keron Shaniqua Anion gap [Moles/Vol] 12.1 mmol/L Normal [facility] Comment on above: Performed By: #### C MP, LIPID, TSH #### [facility] [address] [address] Keron Shaniqua AST [Catalytic activity/Vol] 24 U/L Normal 14-36 [facility] Comment on above: Performed By: #### C MP, LIPID, TSH #### [facility] [address] [id number] Keron Shaniqua Bilirubin [Mass/Vol] 0.3 mg/dL Normal 0.2-1.3 [facility] Comment on above: Performed By: #### C MP, LIPID, TSH #### [facility] [address] [place] [address] Keron Shaniqua Calcium [Mass/Vol] 8.8 mg/dL Normal 8.4-10.[address] [facility] Comment on above: Performed By: #### C MP, LIPID, TSH #### [facility] [address] [place] [address] Keron Shaniqua Chloride [Moles/Vol] 104 mmol/L Normal 98-107 [facility] Comment on above: Performed By: #### C MP, LIPID, TSH #### [facility] [address] [place] [address] Keron Shaniqua CO2 [Moles/Vol] 28.9 mmol/L Normal 22.0-30.0 [facility] Comment on above: Performed By: #### C MP, LIPID, TSH #### [facility] [address] [place] [address] Keron Shaniqua Creatinine [Mass/Vol] 0.81 mg/dL Normal 0.52-1.04 [facility] Comment on above: Performed By: #### C MP, LIPID, TSH #### [facility] [address] [place], [place] [address] Keron Shaniqua EGFR-AF SOUTH AFRICAN >60 Normal >=60 [facility] Comment on above: Performed By: #### C MP, LIPID, TSH #### [facility] [address] [place], [place] [address] Keron Shaniqua EGFR-NON AF [place]OUTH AFRICAN >60 Normal >=60 [facility] Comment on above: Performed By: #### C MP, LIPID, TSH #### [facility] [address] [id number] Keron Shaniqua Globulin (S) [Mass/Vol] 3.9 g/dL Normal [facility] Comment on above: Performed By: #### C MP, LIPID, TSH #### [facility] [address] [place] [address] Keron Shaniqua Glucose [Mass/Vol] 92 mg/dL Normal 74-106 [facility] [place] [facility] Comment on above: Performed By: #### C MP, LIPID, TSH #### [facility] [address] [place] [address] Keron Shaniqua Potassium [Moles/Vol] 4.0 mmol/L Normal 3.4-5.0 [facility] Comment on above: Performed By: #### C MP, LIPID, TSH #### [facility] [address] [place] [address] Keron Shaniqua Protein [Mass/Vol] 7.3 g/dL Normal 6.1-8.2 [facility] [place] [facility] Comment on above: Performed By: #### C MP, LIPID, TSH #### [facility] [address] [place] [address] Keron Shaniqua Sodium [Moles/Vol] 141 mmol/L Normal 137-145 [facility] [place] [facility] Comment on above: Performed By: #### C MP, LIPID, TSH #### [facility] [address] [place] [address] Keron Shaniqua Urea nitrogen [Mass/Vol] 18.0 mg/dL Critically high 7.0-17.0 [facility] Comment on above: Performed By: #### C MP, LIPID, TSH #### [facility] [address] [place] [address] Keron Shaniqua Urea nitrogen/Creatinine [Mass ratio] 22.2 mg/mg Normal [facility] Comment on above: Performed By: #### C MP, LIPID, TSH #### [facility] [address] [place] [address] Keron Shaniqua TSHon 06-27-2020 TSH 1.459 uIU/mL Normal 0.470-4.680 [facility] Comment on above: Performed By: #### C MP, LIPID, TSH #### [facility] [address] [place], [place] [address] Keron Mcgovern TSH RANGE SEE BELOW Normal [facility] Comment on above: Result Comment: <0.3 4 UIU/ml HYPERTHYROID 0.34-5.60 UIU/ml EUTHYROID >5.60 UIU/ml HYPOTHYROID Performed By: #### C MP, LIPID, TSH #### [facility] [address] [place], [place] [address] Keron Fabianen Vital Signs Date Time Vital Sign Value Performing Clinician Facility 02-28-2024 10:18-0500 Heart rate 78 /min JULIUS NKANSAH-AMANKRA [facility] 02-28-2024 10:18-0500 SaO2% (BldA) [Mass fraction] 100 % JULIUS NKANSAH-AMANKRA [facility] 02-28-2024 10:17-0500 Diastolic blood pressure 66 mm[Hg] JULIUS NKANSAH-AMANKRA [facility] 02-28-2024 10:17-0500 Mean blood pressure 90 mm[Hg] JULIUS NKANSAH-AMANKRA [facility] 02-28-2024 10:17-0500 Systolic blood pressure 138 mm[Hg] JULIUS NKANSAH-AMANKRA [facility] 02-28-2024 10:16-0500 Respiratory rate 18 /min JULIUS NKANSAH-AMANKRA [facility] 02-28-2024 09:07-0500 Heart rate 67 /min JULIUS NKANSAH-AMANKRA [facility] 02-28-2024 09:07-0500 SaO2% (BldA) [Mass fraction] 99 % JULIUS NKANSAH-AMANKRA [facility] 02-28-2024 09:07-0500 Body temperature 96.62 [degF] JULIUS NKANSAH-AMANKRA [facility] 02-28-2024 09:07-0500 Respiratory rate 16 /min JULIUS NKANSAH-AMANKRA [facility] 02-28-2024 09:05-0500 Diastolic blood pressure 69 mm[Hg] JULIUS NKANSAH-AMANKRA [facility] 02-28-2024 09:05-0500 Mean blood pressure 98 mm[Hg] JULIUS NKANSAH-AMANKRA [facility] 02-28-2024 09:05-0500 Systolic blood pressure 156 mm[Hg] JULIUS NKANSAH-AMANKRA [facility] 02-28-2024 09:00-0500 Diastolic blood pressure 67 mm[Hg] JULIUS NKANSAH-AMANKRA [facility] 02-28-2024 09:00-0500 Heart rate 71 /min JULIUS NKANSAH-AMANKRA [facility] 02-28-2024 09:00-0500 Mean blood pressure 89 mm[Hg] JULIUS NKANSAH-AMANKRA [facility] 02-28-2024 09:00-0500 SaO2% (BldA) [Mass fraction] 98 % JULIUS NKANSAH-AMANKRA [facility] 02-28-2024 09:00-0500 Systolic blood pressure 132 mm[Hg] JULIUS NKANSAH-AMANKRA [facility] 02-28-2024 08:50-0500 Blood Pressure Location JULIUS NKANSAH-AMANKRA [facility] 02-28-2024 08:50-0500 Mean blood pressure 90 mm[Hg] JULIUS NKANSAH-AMANKRA [facility] 02-28-2024 08:50-0500 Respiratory rate 22 /min JULIUS NKANSAH-AMANKRA [facility] 02-28-2024 08:45-0500 Mean blood pressure 86 mm[Hg] JULIUS NKANSAH-AMANKRA [facility] 02-28-2024 08:45-0500 Respiratory rate 12 /min JULIUS NKANSAH-AMANKRA [facility] 02-28-2024 08:33-0500 Body temperature 97.34 [degF] JULIUS NKANSAH-AMANKRA [facility] 02-28-2024 08:30-0500 Respiratory rate 2 /min JULIUS NKANSAH-AMANKRA [facility] 02-28-2024 06:37-0500 Mean blood pressure 90 mm[Hg] JULIUS NKANSAH-AMANKRA [facility] 02-26-2024 15:25-0500 Body mass index (BMI) [Ratio] 33.59 kg/m2 Jeison Pitt MD Work Phone: [facility] 02-26-2024 15:25-0500 Body weight 78.02 kg Jeison Pitt MD Work Phone: [facility] 02-26-2024 15:25-0500 Diastolic blood pressure 70 mm[Hg] Jeison Pitt MD Work Phone: [facility] 02-26-2024 15:25-0500 Systolic blood pressure 138 mm[Hg] Jeison Pitt MD Work Phone: [facility] 02-21-2024 08:52-0500 Body mass index (BMI) [Ratio] 34.18 kg/m2 Bob Carter DO Work Phone: [facility] 02-21-2024 08:52-0500 Body weight 79.38 kg Bob Carter DO Work Phone: [facility] 02-21-2024 08:52-0500 Heart rate 70 /min Bob Carter DO Work Phone: [facility] 02-21-2024 08:52-0500 SaO2% (BldA) [Mass fraction] 98 % Bob Carter DO Work Phone: [facility] 02-13-2024 15:25-0500 Body mass index (BMI) [Ratio] 33.79 kg/m2 Bob Carter DO Work Phone: [facility] 02-13-2024 15:25-0500 Body weight 78.47 kg Bob Carter DO Work Phone: [facility] 02-13-2024 15:25-0500 Diastolic blood pressure 62 mm[Hg] Bob Carter DO Work Phone: [facility] 02-13-2024 15:25-0500 Heart rate 72 /min Bob Carter DO Work Phone: [facility] 02-13-2024 15:25-0500 SaO2% (BldA) [Mass fraction] 98 % Bob Carter DO Work Phone: [facility] 02-13-2024 15:25-0500 Systolic blood pressure 136 mm[Hg] Bobernestine Carter DO Work Phone: [facility] 01-03-2024 10:24-0400 Body height 152.4 cm Bobernestine Carter DO Work Phone: [facility] 01-03-2024 10:24-0400 Body mass index (BMI) [Ratio] 34.37 kg/m2 Bobernestine Carter DO Work Phone: [facility] 01-03-2024 10:24-0400 Body weight 79.83 kg Bob Carter DO Work Phone: [facility] 01-03-2024 10:24-0400 Heart rate 84 /min Bob Carter DO Work Phone: [facility] 01-03-2024 10:24-0400 SaO2% (BldA) [Mass fraction] 97 % Bob Carter DO Work Phone: [facility] 01-17-2022 13:29-0400 Body height 152.4 cm Bob Vasquezman Work Phone: [facility] [employer] 250 DO Work Phone: 01-17-2022 13:29-0400 Body mass index (BMI) [Ratio] 33.79 kg/m2 Bob Vasquezman Work Phone: [facility] [employer] 250 DO Work Phone: 01-17-2022 13:29-0400 Body surface area Derived from formula 1.76 m2 Bob Vasquezman Work Phone: [facility] [employer] 250 DO Work Phone: 01-17-2022 13:29-0400 Body weight 78.47 kg Bob Vasquezman Work Phone: [facility] 250 DO Work Phone: 01-17-2022 13:29-0400 Diastolic blood pressure 78 mm[Hg] Bob Vasquezman Work Phone: [facility] 250 DO Work Phone: 01-17-2022 13:29-0400 Heart rate 64 /min Bob Carter Work Phone: [facility] [employer] 250 DO Work Phone: 01-17-2022 13:29-0400 Systolic blood pressure 136 mm[Hg] Bob Carter Work Phone: [facility] 250 DO Work Phone: 04-01-2021 00:00-0500 154 1 Bob Carter Work Phone: [facility] 250 DO Work Phone: Comment on above: [facility] 02-19-2021 09:35-0500 Diastolic blood pressure 72 mm[Hg] Bob Carter Work Phone: [facility] 250 DO Work Phone: 02-19-2021 09:35-0500 Systolic blood pressure 146 mm[Hg] Bob Carter Work Phone: [facility] 250 DO Work Phone: 02-19-2021 09:34-0500 Body height 152.4 cm Bob Carter Work Phone: [facility] 250 DO Work Phone: 02-19-2021 09:34-0500 Body mass index (BMI) [Ratio] 35.35 kg/m2 Bob Carter Work Phone: [facility] 250 DO Work Phone: 02-19-2021 09:34-0500 Body surface area Derived from formula 1.79 m2 Bob Carter Work Phone: [facility] 250 DO Work Phone: 02-19-2021 09:34-0500 Body weight 82.1 kg Bob Carter Work Phone: [facility] 250 DO Work Phone: 02-19-2021 09:34-0500 Diastolic blood pressure 70 mm[Hg] Bob Carter Work Phone: [facility] 250 DO Work Phone: 02-19-2021 09:34-0500 Heart rate 67 /min Bob Carter Work Phone: [facility] 250 DO Work Phone: 02-19-2021 09:34-0500 Systolic blood pressure 142 mm[Hg] Bob Carter Work Phone: [facility] 250 DO Work Phone: Encounters Encounter Date Encounter Type Care Provider Facility Start: 04-04-2024 ambulatory JULIUS RASHEED Facility:[facility] Start: 02-28-2024 End: 02-28-2024 Admission to same day surgery center [facility] Start: 02-28-2024 End: 02-28-2024 ambulatory MD JULIUS RASHEED Facility:[facility] Start: 02-26-2024 End: 02-26-2024 Initial preventive medicine new patient 66yrs&> Jeison Pitt MD Work Phone: [facility] Comment on above: Screening for malign ant neoplasm of cervix (Primary Dx); Mixed incontinence; Encounter for gynecological examination without abnormal finding; Encounter for screening mammogram for malignant neoplasm of breast; Osteoporosis, post-menopausal (CMS/HCC); Vaginal atrophy; Anxiety, generalized (CMS/HCC) Start: 02-26-2024 End: 02-26-2024 Patient encounter status Jeison Pitt MD Work Phone: [facility] Start: 02-26-2024 End: 02-26-2024 ambulatory JEISON PITT Not Available Start: 02-22-2024 End: 02-22-2024 ambulatory MD JULIUS RASHEED Facility:[facility] Start: 02-22-2024 End: 02-22-2024 Patient encounter procedure JULIUS RASHEED [facility] Start: 02-21-2024 End: 02-21-2024 ambulatory BOB CARTER Not Available Start: 02-21-2024 End: 02-21-2024 Office outpatient visit 25 minutes Bob Carter DO Work Phone: [facility] Comment on above: Kidney stone (Primar y Dx); Pain of right hip; Greater trochanteric bursitis of right hip Start: 02-13-2024 End: 02-13-2024 ambulatory BOB CARTER Not Available Start: 02-13-2024 End: 02-13-2024 ambulatory BOB CARTER Not Available Start: 02-13-2024 End: 02-13-2024 Office outpatient visit 25 minutes Bob Carter DO Work Phone: [facility] Comment on above: Chronic right-sided low back pain without sciatica (Primary Dx); Pain of right hip Start: 02-13-2024 End: 02-13-2024 ambulatory ARIEL COOPER Not Available Start: 02-13-2024 End: 02-13-2024 Postop follow up visit related to original px Ariel Gilmore Cooper DPM Work Phone: [facility] Comment on above: Right foot pain Start: 01-22-2024 End: 01-22-2024 Bamboo flowsheet Ariel Gilmore Cooper DPM Work Phone: [facility] Start: 01-22-2024 End: 01-22-2024 Bamboo flowsheet Ariel Gilmore Cooper DPM Work Phone: [facility] Start: 01-22-2024 End: 01-22-2024 ambulatory ARIEL COOPER Not Available Start: 01-22-2024 End: 01-22-2024 Postop follow up visit related to original px Ariel H Cooper DPM Work Phone: [facility] Comment on above: Surgery follow-up ex amination (Primary Dx); Hammertoe of right foot; Right foot pain Start: 01-15-2024 End: 01-15-2024 Bamboo flowsheet Ariel Cooper DPM Work Phone: [facility] Start: 01-15-2024 End: 01-15-2024 Bamboo flowsheet Ariel Cooper DPM Work Phone: [facility] Start: 01-15-2024 End: 01-15-2024 Postop follow up visit related to original px Ariel Cooper DPM Work Phone: [facility] Comment on above: Surgery follow-up ex amination (Primary Dx); Right foot pain; Hammertoe of right foot Start: 01-15-2024 End: 01-15-2024 ambulatory ARIEL COOPER Not Available Start: 01-10-2024 End: 01-10-2024 ambulatory ARIEL COOPER Not Available Start: 01-03-2024 End: 01-03-2024 Telephone encounter Jr. Reed Vazquez DO Work Phone: [facility] Start: 01-03-2024 End: 01-03-2024 ambulatory ARIEL COOPER Not Available Start: 01-03-2024 End: 01-03-2024 Office outpatient visit 15 minutes Ariel Cooper DPM Work Phone: [facility] Comment on above: Hammertoe of right f oot (Primary Dx); [place] of toe Start: 01-03-2024 End: 01-03-2024 ambulatory BOB CARTER Not Available Start: 01-03-2024 End: 01-03-2024 Office outpatient visit 40 minutes Bob Carter DO Work Phone: [facility] Comment on above: Pre-op evaluation (P rimary Dx); Acquired ankle/foot deformity, right; Facet arthritis of lumbosacral region; Bilateral primary osteoarthritis of knee; Acquired hypothyroidism (CMS/HCC); Glaucoma of both eyes, unspecified glaucoma type (CMS/HCC); Elevated LDL cholesterol level (CMS/HCC); Morbid (severe) obesity due to excess calories (CMS/HCC); Body mass index (BMI) 35.0-35.9, adult Start: 01-03-2024 End: 01-03-2024 Preprocedural examination done Bob Carter DO Work Phone: [facility] Work Phone: Start: 11-27-2023 End: 11-27-2023 ambulatory ARIEL COOPER Not Available Start: 10-04-2023 End: 10-04-2023 ambulatory CECE Zhou OLAF Not Available Start: 08-30-2023 End: 08-30-2023 ambulatory BOB CARTER Not Available Start: 08-23-2023 End: 08-23-2023 ambulatory BOB CARTER Not Available Start: 08-08-2023 End: 08-08-2023 ambulatory BOB CARTER Not Available Start: 07-19-2023 End: 07-19-2023 ambulatory DOMINIQUE Geni RAI Not Available Start: 03-01-2023 End: 03-01-2023 ambulatory BOB CARTER Not Available Start: 01-26-2023 End: 01-26-2023 ambulatory Bob Carter Facility:[facility] Start: 01-26-2023 End: 01-26-2023 ambulatory DO Bob Carter Work Phone: [facility] Work Phone: Start: 01-26-2023 End: 01-26-2023 Patient encounter procedure DO Bob Carter Work Phone: [facility] Work Phone: Start: 07-26-2022 End: 07-26-2022 ambulatory Bob Carter Facility:[facility] Start: 07-26-2022 End: 07-26-2022 ambulatory DO Bob Carter Work Phone: [facility] Work Phone: Start: 07-26-2022 End: 07-26-2022 Patient encounter procedure DO Bob Carter Work Phone: [facility] Work Phone: Start: 01-17-2022 Office outpatient vi sit 15 minutes Bob Carter Work Phone: [facility] 250 DO Work Phone: Start: 01-17-2022 Patient encounter procedure Bob Carter Work Phone: [facility] 250 DO Work Phone: Start: 01-17-[address] Bob Wong Facility: Start: 04-08-2021 FUV, Provider: Vamsi Clement, Status: Pen, Time: 9:10 AM Bob Carter Work Phone: [facility] 250 DO Work Phone: Start: 04-06-[address] Bob Wong Facility:[id number] Start: 04-06-2021 Chart Update Bob keane Work Phone: [facility] 250 DO Work Phone: Start: 03-11-2021 End: 03-11-[address] DOCTOR COTTER Facility:[facility] Start: 03-09-2021 End: 03-10-[address] BOB CARTER Facility:[facility] Start: 02-19-[address] Bob Wong Facility: Start: 02-19-2021 Office consultation new/estab patient 80 min Bob Carter Work Phone: [facility] 250 DO Work Phone: Start: 02-19-2021 Patient encounter procedure Bob Carter Work Phone: [facility] 250 DO Work Phone: Start: 02-16-[address] Bob Carter Faci lity:[facility] Start: 02-08-2021 End: 02-09-[address] DOCTOR COTTER Facility:[facility]1 Start: 08-28-2020 End: 08-28-[address] BRANDT BROUSSARD Facility:[facility] Start: 08-27-[address] BOB CARTER Facil ity:[facility]1 Start: 08-20-2020 End: 08-21-[address] PARUL BRYSON Facility:[facility] Start: 08-20-2020 End: 08-20-[address] MATT URBINA Facility:[facility] Start: 06-27-2020 End: 06-28-[address] BOB CARTER Facility:[facility] Echocardiogram normal Bob Carter Work Phone: [facility] 250 DO Work Phone: Imaging result normal Bob Carter Work Phone: [facility] 250 DO Work Phone: Procedures Date Procedure Procedure Detail Performing Clinician Start: 02-28-2024 Cystoscopy JULIUS RASHEED Comment on above: Left cystoscopy with homium laser, retro stent insert Start: 02-26-2024 SENDOUT TEST MISCELL ANEOUS [facility] Jeison Pitt MD Work Phone: Start: 02-13-2024 End: 02-13-2024 Radex spine lumbosacral 2/3 views Bob Carter DO Work Phone: Start: 02-13-2024 Radex foot complete minimum 3 views Ariel Cooper DPM Work Phone: Start: 01-15-2024 Radex foot complete minimum 3 views Ariel Cooper DPM Work Phone: Start: 01-26-2023 End: 01-26-2023 Bilateral mammography DO Bob Carter Work Phone: Start: 07-26-2022 Bilateral mammography D O Bob Carter Work Phone: Start: 08-28-2020 Cystoscopic removal of ureteric stent JULIUS RASHEED Start: 08-12-2020 Cystoscope, device ( physical object) JULIUS RASHEED Start: 04-03-2000 Total colonoscopy Em Richmond Emma Work Phone: Start: 04-03-1968 Tonsillectomy JULIUS RASHEED section Bob Mauro armdiya Work Phone: Comment on above: x 3; section JULIUS RASHEED Cholecystectomy Bobernestine goodwindiya Work Phone: Cholecystectomy JULIUS RASHEED Colonoscopy JULIUS RASHEED Fasciotomy of foot Bob Vasquezman Work Phone: Procedure on foot JULIUS RASHEED Tonsillectomy Bob Vasqueznell diya Work Phone: Plan of Treatment Date Care Activity Detail Author Start: 03-03-2025 End: 03-03-2025 Patient encounter procedure 03/03/2025 2:30 PM EST Office Visit [facility] [address] [place] [address] Jeison Pitt MD [address] [place] [address] [facility] Start: 02-25-2025 End: 05-28-2025 DBT Breast - bilateral screening Bilateral screening mammogram with tomosynthesis Imaging Routine Encounter for screening mammogram for malignant neoplasm of breast Expected: 02/25/2025, Expires: 05/28/2025 [facility] Work Phone: Comment on above: Expected: 02/25/2025 , Expires: 05/28/2025 Start: 02-25-2025 Medicare Annual Wellness (AWV) Medicare Annual Wellness (AWV) [facility] Start: 07-08-2024 End: 07-08-2024 Patient encounter procedure 07/08/2024 10:30 AM EDT Office Visit [facility] [address] [place] [address] Bob Carter DO [address] [place] [address] [facility] Start: 07-03-2024 End: 01-02-2025 CBC panel - Blood by Automated count CBC Lab Routine Pre-op evaluation Acquired ankle/foot deformity, right Facet arthritis of lumbosacral region Bilateral primary osteoarthritis of knee Acquired hypothyroidism (CMS/HCC) Glaucoma of both eyes, unspecified glaucoma type (CMS/HCC) Elevated LDL cholesterol level (CMS/HCC) Morbid (severe) obesity due to excess calories (CMS/HCC) Body mass index (BMI) 35.0-35.9, adult Expected: 07/03/2024 (Approximate), Expires: 01/02/2025 [facility] Work Phone: Comment on above: Expected: 07/03/2024 (Approximate), Expires: 01/02/2025 Start: 07-03-2024 End: 01-02-2025 Comprehensive metabolic 2000 panel - Serum or Plasma Comprehensive metabolic panel Lab Routine Pre-op evaluation Acquired ankle/foot deformity, right Facet arthritis of lumbosacral region Bilateral primary osteoarthritis of knee Acquired hypothyroidism (CMS/HCC) Glaucoma of both eyes, unspecified glaucoma type (CMS/HCC) Elevated LDL cholesterol level (CMS/HCC) Morbid (severe) obesity due to excess calories (CMS/HCC) Body mass index (BMI) 35.0-35.9, adult Expected: 07/03/2024 (Approximate), Expires: 01/02/2025 [facility] Comment on above: Expected: 07/03/2024 (Approximate), Expires: 01/02/2025 Start: 07-03-2024 End: 01-02-2025 Lipid 1996 panel - Serum or Plasma Lipid panel Lab Routine Pre-op evaluation Acquired ankle/foot deformity, right Facet arthritis of lumbosacral region Bilateral primary osteoarthritis of knee Acquired hypothyroidism (CMS/HCC) Glaucoma of both eyes, unspecified glaucoma type (CMS/HCC) Elevated LDL cholesterol level (CMS/HCC) Morbid (severe) obesity due to excess calories (CMS/HCC) Body mass index (BMI) 35.0-35.9, adult Expected: 07/03/2024 (Approximate), Expires: 01/02/2025 [facility] Comment on above: Expected: 07/03/2024 (Approximate), Expires: 01/02/2025 Start: 07-03-2024 End: 01-02-2025 Thyrotropin [Units/volume] in Serum or Plasma TSH Lab Routine Pre-op evaluation Acquired ankle/foot deformity, right Facet arthritis of lumbosacral region Bilateral primary osteoarthritis of knee Acquired hypothyroidism (CMS/HCC) Glaucoma of both eyes, unspecified glaucoma type (CMS/HCC) Elevated LDL cholesterol level (CMS/HCC) Morbid (severe) obesity due to excess calories (CMS/HCC) Body mass index (BMI) 35.0-35.9, adult Expected: 07/03/2024 (Approximate), Expires: 01/02/2025 [facility] Comment on above: Expected: 07/03/2024 (Approximate), Expires: 01/02/2025 Start: 03-21-2024 End: 03-21-2024 Patient encounter procedure 03/21/2024 2:45 PM EST Office Visit [facility] [address] [facility] [address] [place] [address] Jeison Pitt MD [address] [facility] [address] [place] [address] [facility] Start: 03-21-2024 End: 03-21-2024 Professional / ancillary services management 03/21/2024 2:00 PM EST Ancillary Procedure [facility] [address] [facility] [address] [place] [address] [facility] Start: 03-05-2024 End: 03-05-2024 Patient encounter procedure 03/05/2024 4:00 PM EST Office Visit [facility] [address] [place] [address] Ariel Cooper, DPM [address] [place] [address] [facility] Start: 03-04-2024 End: 03-04-2024 Patient encounter procedure 03/04/2024 2:30 PM EST Office Visit [facility] [address] [place] [id number] Jr. Reed Vazquez, DO [address] [place] [address] [facility] Start: 03-04-2024 End: 03-04-2024 Patient encounter procedure 03/04/2024 11:15 AM EST Office Visit [facility] [address] [place] [phone] Bob Carter, [address] [place] [address] [facility] Start: 03-01-2024 Medicare Annual Wellness (AWV) Medicare Annual Wellness ([facility]) [facility] Start: 02-26-2024 End: 02-25-2025 DXA Skeletal system Views for bone density DEXA bone density Imaging Routine Osteoporosis, post-menopausal ([facility]) Expected: 02/26/2024, Expires: 02/25/2025 [facility] Comment on above: Expected: 02/26/2024 , Expires: 02/25/2025 Start: 02-21-2024 End: 02-21-2024 Patient encounter procedure 02/21/2024 8:45 AM EST Office Visit [facility] [address] [place] [phone] Bob Carter, [address] [place] [address] [facility] Start: 02-13-2024 End: 02-13-2024 Patient encounter procedure 02/13/2024 4:30 PM EST Office Visit [facility] [address] [place] [address] Ariel Cooper, DPM [address] [place] [address] [facility] Start: 01-27-2024 Screening for malign ant neoplasm of breast Mammogram [facility] Start: 01-22-2024 End: 01-22-2024 Patient encounter procedure 01/22/2024 9:30 AM EDT Office Visit [facility] [address] [place] [phone] Ariel Cooper, DPM [address] [place] [address] [facility] Start: 01-15-2024 End: 01-15-2024 Patient encounter procedure [facility] Comment on above: Arrived Start: 01-12-2024 End: 01-12-2024 Patient encounter procedure 01/12/2024 12:30 PM EDT Procedure Visit [facility] Ariel Cooper, DPM [address] [place] [address] [facility] Start: 01-03-2024 End: 01-03-2024 Patient encounter procedure 01/03/2024 11:15 AM EDT Office Visit [facility] [address] [place] [address] Ariel Cooper, DPM [address] [place] [address] [facility] Start: 12-03-2023 Influenza vaccination Influenza Vacc ine (#1) [facility] Start: 03-11-2021 FUV, Provider: Vamsi Clement, Status: Pen, Time: 10:00 AM FUV, Provider: Vamsi Clement, Status: Pen, Time: 10:00 AM [facility] 250 DO Work Phone: Start: 02-23-2021 SURGNONUH, Provider: Vamsi Clement, Status: Pen, Time: 1:00 PM SURGNON, Provider: Vamsi Clement, Status: Pen, Time: 1:00 PM [facility] 250 DO Work Phone: Start: 1961 Pneumococcal Vaccine : 65+ Years (1 of 2 - PCV) Pneumococcal Vaccine: 65+ Years (1 of 2 - PCV) [facility] Start: 1955 Screening for malign ant neoplasm of colon [facility] Immunizations Immunization Date Immunization Notes Care Provider Fa cility NEGATED: Highlighted row has not occurred!08-21-2020 influenza virus vaccine, unspecified formulation JULIUS RASHEED [facility] Payers Date Payer Category Payer Medicare [id number] 2023 Private Health Insurance [id number] 2023 Medicare [id number] 2023 Private Health Insurance CLI [id number] 1959 Self-pay 1955 Unknown [id number] 2.16.840.1.270347.3.579.2.59 3 1956 Unknown [id number] 2.16.840.1.764936.3.579.2.59 3 1956 Unknown [id number] 2.16.840.1.312627.3.579.2.59 3 1956 Unknown [id number] 2.16.840.1.389915.3.579.2.59 3 1956 Unknown [id number] 2.16.840.1.536964.3.579.2.59 3 1956 Unknown [id number] 2.16.840.1.256353.3.579.2.59 3 1956 Unknown [id number] 2.16.840.1.524301.3.579.2.59 3 1956 Unknown [id number] 2.16.840.1.180600.3.579.2.59 3 1956 Unknown [id number] 2.16.840.1.921085.3.579.2.35 6 1956 Unknown [id number] 2.16.840.1.475910.3.579.2.35 6 1956 Unknown [id number] 2.16.840.1.705167.3.579.2.35 6 1956 Unknown [id number] 2.16.840.1.538128.3.579.2.12 59 1956 Unknown [id number] 2.16.840.1.161751.3.579.2.12 59 1956 Unknown [id number] 2.16.840.1.852546.3.579.2.12 59 1956 Unknown [id number] 2.16.840.1.092673.3.579.2.12 59 1956 Unknown [id number] 2.16.840.1.003354.3.579.2.12 59 1956 Unknown [id number] 2.16.840.1.933044.3.579.2.12 59 1956 Unknown [id number] 2.16.840.1.351758.3.579.2.12 59 1956 Unknown [id number] 2.16.840.1.143704.3.579.2.12 59 1956 Unknown [id number] 2.16.840.1.270227.3.579.2.12 59 1956 Unknown [id number] 2.16.840.1.466229.3.579.2.12 59 1956 Unknown [id number] 2.16.840.1.473869.3.579.2.12 59 1956 Unknown [id number] 2.16.840.1.336820.3.579.2.12 59 1956 Unknown [id number] 2.16.840.1.419493.3.579.2.12 59 1956 Unknown [id number] 2.16.840.1.057012.3.579.2.12 59 1956 Unknown [id number] 2.16.840.1.870536.3.579.2.12 59 1956 Unknown [id number] 2.16.840.1.422144.3.579.2.12 59 1956 Unknown [id number] 2.16.840.1.614761.3.579.2.12 59 1956 Unknown [id number] 2.16.840.1.871854.3.579.2.12 59 1956 Unknown [id number] 2.16.840.1.629785.3.579.2.12 59 1956 Unknown [id number] 2.16.840.1.976783.3.579.2.72 7 1956 Unknown [id number] 2.16.840.1.205431.3.579.2.72 7 1956 Unknown [id number] 2.16.840.1.939300.3.579.2.72 7 1956 Unknown [id number] 2.16.840.1.226322.3.579.2.72 7 Unknown [id number] Unknown Unknown [facility] M[facility] [id number] Social History Date Type Detail Facility Start: 07-19-2023 End: 02-26-2024 Consumes alcohol occasionally Consumes alcohol occasionally [facility] 250 DO Work Phone: Comment on above: Coffee 1 cup every o ther day. Pop 2 monthly. Tea 2 monthly; Start: 04-06-2021 End: 09-09-2022 Tobacco smoking status NHIS Never smoked tobacco (finding) [facility] Start: 1955 Sex Assigned At Female F [facility] Start: 09-09-2022 Tobacco use and exposure Smoke less tobacco non-user [facility] Start: 01-03-2024 End: 02-26-2024 Alcoholic beverage intake [facility] Start: 07-19-2023 End: 02-26-2024 Alcohol Use Disorder Identification Test - Consumption [AUDIT-C] [facility] How often to you hav e a drink containing alcohol? Never [facility] How many standard dr inks containing alcohol do you have on a typical day? Patient does not drink [facility] Start: 02-12-2023 Alcohol Comment caffeine- 1 to 2 cups of coffee per day [facility] Start: 1955 Sex assigned at Not on file [facility] Medical Equipment Procedure Code Equipment Code Equipment Origin al Text Equipment Identifier Dates Cystoscopy, with ureteral calculus manipulation and stent placement Polymeric ureteral stent [id number] FDA Start: 08-21-2020 CYSTOSCOPY W/ HOMIUM LASER JULIUS RASHEED MD 02/28/24 Unknown Ureter L FDA Start: 02-28-2024 Functional Status Date Assessment Result Facility 02-28-2024 Functional Status No [facility] 02-26-2024 Functional Status No [facility] 02-22-2024 Functional Status N/A [facility] Clinical Notes 02-19-2021 to 02-28-2024 Note Date & Type Note Facility 02-28-2024 Evaluation + Plan note Extrac citlali from: Title:ANES Post-operative Note---General Author: Dony Lyon MD. Date:02/28/24 Plan Transfer/Discharge: Transfer/Discharge Discharge when meets criteria ( To home ). Extracted from: Title:ANES Pre-operative Note 2022 Author:Dony Smith. Date:02/28/24 Plan [place] [employer] Anesthesiologists (ASA) physical status classification: Class II. Anesthetic Preoperative Plan: Anesthesia General. Diagnostic Tests Pending * Calculi Analysis Urinary 02/28/24 [facility] [id number] Hospital Discharge instructions Patient Education 02/28/2024 09:14:51 [id number] Utereroscopy,Lithotripsy, Stone Extraction, Stent Placement (CUSTOM) [facility] [place], [place] Dr. Parul Pitts Post-operative Instructions for Ureteroscopy, Laser Lithotripsy, Stone Extraction and Stent Placement There are no incisions or dressings to be concerned with, as the procedure was performed inside theurinary system. For 24 hours after surgery: No driving or operating machinery Do not make important decisions Do not consume alcohol, sleeping pills Stent Placement You may have a stent which spans the distance between your bladder and your kidney, allowing urine to pass through. It prevents blockage from swelling, kidney stones in ureter (tube connecting the kidney to the bladder), or scars. The presence of the stent may cause: Back or side pain, especially with urination Frequent or urgent urination Bladder pressure or pain Blood in urine You may pass stone debris or small blood clots, which is expected. Drinking plenty of water to dilute the urine may help. If there is a thread coming out of urinary channel, be careful not to accidently pull on this, as it is attached to the stent. The stent will most likely be removed in the office during a short procedure in which a scope is placed into the bladder, the stent is grasped and removed. At other times the stent may need to stay longer, either in preparation for other procedures or for other reasons. 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 Diet You may resume your normal diet, but you may want to start slowly and avoid spicy food, caffeine, carbonated beverages and alcohol, especially if you have a stent. Your diet and fluid intake may makeirritation from the stent worse. Activity You may resume your normal activities, although you should take it easy on the day of the procedure. Minimizing activity may decrease the back discomfort and irritation from the stent, if present. Medications You may resume your home medications unless instructed otherwise. Hold aspirin, ibuprofen, Coumadin (warfarin) and other blood thinners until your office visit (we will discuss when to resume these medications) Take your prescribed medications as directed, including your antibiotics. You may also be given a prescription for pain medicine or medicines to help with the bladder irritation from stent, if present. Things to watch for which would require an Emergency Room Visit (or call 911) (This is not a complete list) Fever over 101.5 degrees, with or without chills Severe bleeding Severe drug reactions with itching, hives, rash, or severe flank pain Tenderness or swelling or the calves, chest pain, or shortness of breath Please call the office to arrange for your post-operative appointment (with XRAY) [phone] 02/28/2024 09:14:44 Post Op Patient Instructions - FT (CUSTOM) Follow Up Care 02/22/2024 15:55:04 With:JULIUS RASHEED Address: [address] [place] [phone] Business (1) When: Unknown Comments:Follow-up in 6 weeks with KUB, renal ultrasound. [facility] 11-27-2024 NotePatient Education - Text [facility] [place], [place] Dr. Parul Pitts Post-operative Instructions for Ureteroscopy, Laser Lithotripsy, Stone Extraction and Stent Placement There are no incisions or dressings to be concerned with, as the procedure was performed inside theurinary system. For 24 hours after surgery: ??? No driving or operating machinery ??? Do not make important decisions ??? Do not consume alcohol, sleeping pills Stent Placement You may have a stent which spans the distance between your bladder and your kidney, allowing urine to pass through. It prevents blockage from swelling, kidney stones in ureter (tube connecting the kidney to the bladder), or scars. The presence of the stent may cause: ??? Back or side pain, especially with urination ??? Frequent or urgent urination ??? Bladder pressure or pain ??? Blood in urine You may pass stone debris or small blood clots, which is expected. Drinking plenty of water to dilute the urine may help. If there is a thread coming out of urinary channel, be careful not to accidently pull on this, as it is attached to the stent. The stent will most likely be removed in the office during a short procedure in which a scope is placed into the bladder, the stent is grasped and removed. At other times the stent may need to stay longer, either in preparation for other procedures or for other reasons. 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 Diet You may resume your normal diet, but you may want to start slowly and avoid spicy food, caffeine, carbonated beverages and alcohol, especially if you have a stent. Your diet and fluid intake may makeirritation from the stent worse. Activity You may resume your normal activities, although you should take it easy on the day of the procedure. Minimizing activity may decrease the back discomfort and irritation from the stent, if present. Medications ??? You may resume your home medications unless instructed otherwise. ??? Hold aspirin, ibuprofen, Coumadin (warfarin) and other blood thinners until your office visit (we will discuss when to resume these medications) ??? Take your prescribed medications as directed, including your antibiotics. You may also be givena prescription for pain medicine or medicines to help with the bladder irritation from stent, if present. Things to watch for which would require an Emergency Room Visit (or call 911) (This is not a complete list) ??? Fever over 101.5 degrees, with or without chills ??? Severe bleeding ??? Severe drug reactions with itching, hives, rash, or severe flank pain ??? Tenderness or swelling or the calves, chest pain, or shortness of breath Please call the office to arrange for your post-operative appointment (with XRAY) [phone] [facility]11-27-2024 Note Progress Note-Physician Patient: HERMINIO DRAKE Age: 68 years Sex: Female : 1955 Associated Diagnoses: None Author: Dony Lyon MD Postoperative Information Postoperative disposition: Postoperative disposition: To PACU. Optimetrix number: Optimetrix number [id number]. Anesthetic utilized: General. Health Status Allergies: Allergic Reactions (Selected) Severity Not Documented Augmentin- Hives and unknown. Medrol- Unknown. PARoxetine- Nausea and unknown. Physical Examination Vital Signs 02/28/2024 9:07 EST Heart Rate Monitored 67 bpm SpO2 99 % 02/28/2024 9:07 EST Temperature Axillary 35.9 DegC 02/28/2024 9:07 EST Respiratory Rate 16 br/min 02/28/2024 9:05 EST Systolic Blood Pressure 156 mmHg HI Diastolic Blood Pressure 69 mmHg Mean Arterial Pressure, Monitered 98 mmHg 02/28/2024 8:50 EST Heart Rate Monitored 74 bpm Respiratory Rate Monitored 22 br/min Systolic Blood Pressure 138 mmHg Diastolic Blood Pressure 66 mmHg Blood Pressure Location Right arm Mean Arterial Pressure, Cuff 90 mmHg SpO2 98 % Pain Assessment: Controlled. General: Awake, Appropriate. Respiratory: Adequate air exchange. Cardiovascular: Stable. Neurological Assessment Anesthetic outcome No anesthetic complications noted. Adequate pain relief. Review / Management Condition: Stable. Plan Transfer/Discharge: Transfer/Discharge Discharge when meets criteria ( To home ).[facility]Result Comment: Electronically Signed By: Dony Lyon MD\.br\Date and Time Signed: 02/28/24 09:09 EST 02-28-2024 NoteProgress Note-Physician Patient: HERMINIO DRAKE Age: 68 years Sex: Female : 1955 Associated Diagnoses: None Author: Dony Lyon MD Preoperative Information Anesthesia Preop Info: Time patient last ate or drank 02/28/2024 00:00:00. Anesthesia history: Patient history: None. Family history+: None. Informed consent: Signed by patient. Re-evaluation prior to induction: Initial evaluation reviewed: No significant change. Review of Systems Eye Ear/Nose/Mouth/Throat Respiratory: No shortness of breath, No cough. Cardiovascular: Negative, No chest pain. Gastrointestinal: No heartburn. Musculoskeletal Neurologic Health Status Allergies: Allergic Reactions (Selected) Severity Not Documented Augmentin- Hives and unknown. Medrol- Unknown. PARoxetine- Nausea and unknown., Allergies (4) Active Severity Reaction Medrol Unknown Augmentin Unknown PARoxetine Unknown, Nausea Augmentin Hives Current medications: (Selected) Inpatient Medications Ordered Sodium Chloride 0.9% IV Nissa 1000 mL 1,000 mL: 1,000 mL, IV, 150 mL/hr, Routine, Start date 248:30:00 EST, 6.7 hour(s), Total volume (mL): 1,000, 78.4 kg, 1.82, m2 cefazolin additive + Sodium Chloride 0.9% intravenous solution 50 mL: 2 gram = 1 EA, Powder-Inj, IVPiggyback, Once, Stop date 02/28/24 9:00:00 EST, Routine, Start date 02/28/24 9:00:00 EST, 100 mL/hr, Infuse over 30 minute(s), HOLD if patient has history of anaphylactic allergic reaction to Penicillin Documented Medications Documented Multi Vitamins oral tablet: 1 tab(s), Oral, Daily Nature's Bounty Red Krill Oil: mg, Oral, Daily Synthroid: Oral, Daily, Refills(s) 0 Vitamin C: Daily Vitamin D3: acetaminophen-hydrocodone 325 mg-5 mg oral tablet: 1 tab(s), Refill(s) 0 glucosamine: Oral tamsulosin 0.4 mg Cap: 0.4 mg = 1 cap(s), Refills(s) 0, Home Medications (8) Active acetaminophen-hydrocodone 325 mg-5 mg oral tablet 1 tab(s) glucosamine , Oral Multi Vitamins oral tablet 1 tab(s), Oral, Daily Nature's Bounty Red Krill Oil , Oral, Daily Synthroid , Oral, Daily tamsulosin 0.4 mg Cap 0.4 mg = 1 cap(s) Vitamin C , Daily Vitamin D3 , Medications (2) Active Scheduled: (1) ceFAZolin + Sodium Chloride 0.9% Minibag 50 mL 2 gram 1 EA, IV Piggyback, Once Continuous: (1) Sodium Chloride 0.9% 1,000 mL 1,000 mL, IV, 150 mL/hr PRN: (0) Problem list: All Problems BMI 34.0-34.9,adult / SNOMED CT 929433892 / Confirmed Glaucoma / SNOMED CT 85001146 / Confirmed Hypothyroidism / SNOMED CT 50998230 / Confirmed Kidney stone / SNOMED CT 315356548 / Confirmed Retained ureteral stent / SNOMED CT 9683521034 / Confirmed Ureteral stone / SNOMED CT 92740576 / Confirmed Ureteral stone with hydronephrosis / SNOMED CT 2274314456 / Confirmed Urge incontinence / SNOMED CT 806548642 / Confirmed, Active Problems (8) BMI 34.0-34.9,adult Glaucoma Hypothyroidism Kidney stone Retained ureteral stent Ureteral stone Ureteral stone with hydronephrosis Urge incontinence Histories Past Medical History: No active or resolved past medical history items have been selected or recorded. Family History: Diabetes mellitus Mother () Hypertension Mother () Brother () Heart disease Mother () Acute myocardial infarction Mother () Cancer Father Brother () Malignant lymphoma Brother () Procedure history: Cystoscopic removal of ureteric stent ([id number]) on 08/28/2020 at 65 Years. Cystoscope/Rt/ RG/Rt ureteroscopy/ureteroscopic homium laser ablation/ureteroscopic stone basket extraction and Rt. stent ([id number]) on 08/12/2020 at 65 Years. Tonsillectomy (132805121) in 1968 at 13 Years. Cholecystectomy (62127451). sectionx3 (17301949). Procedure on foot ([id number]). Colonoscopy (328239252). Social History Social & Psychosocial Habits Tobacco 02/26/2024 Tobacco Use: Never (less than 100 in l . Physical Examination Vital Signs 02/28/2024 6:37 EST Heart Rate Monitored 62 bpm Systolic Blood Pressure 136 mmHg Diastolic Blood Pressure 67 mmHg Blood Pressure Location Left arm Mean Arterial Pressure, Monitered 90 mmHg 02/28/2024 6:37 EST Heart Rate Monitored 64 bpm SpO2 95 % 02/28/2024 6:36 EST Respiratory Rate 16 br/min 02/28/2024 6:36 EST Temperature Axillary 36.4 DegC 02/28/2024 6:36 EST Systolic Blood Pressure 148 mmHg HI Diastolic Blood Pressure 75 mmHg Blood Pressure Location Right arm Mean Arterial Pressure, Monitered 99 mmHg Vital Signs (last 24 hrs) Last Charted Temp Axillary 36.4 DegC (FEB 27 06:36) Heart Rate Monitored 62 bpm (FEB 27 06:37) SBP 136 mmHg (FEB 27 06:37) DBP 67 mmHg (FEB 27 06:37) Weight 77.5 kg (FEB 27 07:08) BMI 32.47 (FEB 27 06:58) Measurements from flowsheet : Measurements 02/28/2024 7:08 EST Height/Length Measured 154.5 cm Weight Measured 77 (more content not included)...[facility] Comment on above:Result Comment: Electronically Signed By: Camron NICHOLS, Dony Pappas\.br\Date and Time Signed: 02/28/24 07:46 [id number] History of Present illness Narrative* Jeison Pitt MD - 02/26/2024 3:00 PM EST Images from the original note were not included. 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 Pt was referred by Dr Carter. 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 But a few week later found out she has a kidney stone onher left side. Reports having a hip issue and pain, which has not improved with chiropractic treatments and massage therapy. She has been seeing Dr. Carter for this issue. She had foot surgery on January 17 and experienced blood discharge afterward. A few weeks later, she had another kidney stone. She is scheduled for a stent placement on Monday due to the stone being too large to pass. She is postmenopausal and inquires about the possibility of having endometriosis. She has not been sexually active since 2004. The patient experienced vaginal bleeding and is unsure if it was related to her kidney stones or another issue. She has researched endometriosis and its potential relation to sciatic nerve issues andleg aching. Visit Vitals BP 138/70 Wt 172 lb BMI 33.59 kg/m OB Status Postmenopausal Smoking Status Never BSA 1.82 m History of Present Illness, Associated Treatments and Results - OB History Para Term AB Living 3 0 0 0 0 3 SAB IAB Ectopic Multiple Live Births 0 0 0 0 0 # Outcome Date GA Lbr Carmine/2nd Weight Sex Type Anes PTL Lv 3 CS-LTranv 2 CS-LTranv 1 CS-LTranv Obstetric Comments Last pap smear 12/12/19 negative Last mammogram 12/12/19 benign Dexa 07/19/18 normal Review of Systems - Constitutional: Negative. HENT: Negative. Eyes: Negative. Respiratory: Negative. Cardiovascular: Negative. Gastrointestinal: Negative. Endocrine: Negative. Genitourinary: Negative. Musculoskeletal: Negative. Skin: Negative. Allergic/Immunologic: Negative. Neurological: Negative. Hematological: Negative. Psychiatric/Behavioral: Negative. Allergies Allergen Reactions Augmentin [Amoxicillin-Pot Clavulanate] Rash Medrol [Methylprednisolone] Other Chest Pain Paroxetine GI intolerance Paroxetine Hcl Other Reaction(s): nausea and vomiting Current Outpatient Medications: calcium citrate 600 mg and vitamin D3 (Citrical & Minerals + Vit D) 600-200 MG- UNIT tablet, Take 1 tablet by mouth in the morning and 1 tablet before bedtime., Disp: , Rfl: Cholecalciferol-Vitamin C (Vitamin D3-Vitamin C) 1000-500 UNIT-MG capsule, Take 1,000 Units by mouth 1 (one) time each day at the same time., Disp: , Rfl: estradiol (Estrace) 0.1 MG/GM vaginal cream, Apply 1 gram daily for 2 weeks, then 1 gram twice weekly, Disp: 30 g, Rfl: 3 hydrOXYzine pamoate (Vistaril) 25 MG capsule, Take 1 capsule (25 mg) by mouth every 6 (six) hours if needed for itching, Disp: 10 capsule, Rfl: 0 latanoprost (Xalatan) 0.005 % ophthalmic solution, 1 (one) time each day at the same time., Disp: ,Rfl: levothyroxine (Synthroid, Levoxyl) 100 MCG tablet, TAKE 1 TABLET BY MOUTH DAILY ON AN EMPTY STOMACH, Disp: 90 tablet, Rfl: 3 Multiple Vitamin (Multi Vitamin) tablet, 1 (one) time each day at the same time., Disp: , Rfl: Current Facility-Administered Medications: triamcinolone acetonide (Kenalog-40) injection 60 mg, 60 mg, Intramuscular, Once, Becki Ness NP Past Medical History: Diagnosis Date Acute tonsillitis Arthritis Chicken pox Esophageal reflux Glaucoma (CMS/HCC) Heart murmur Hypothyroidism, unspecified (CMS/HCC) Irritable bowel syndrome Kidney stones Lumbago with sciatica, right side Lymphedema Measles Migraine, unspecified, not intractable, without status migrainosus (CMS/HCC) Mitral valve disorder MRSA (methicillin resistant Staphylococcus aureus) Mumps Obesity, unspecified x3 Thyroid disease (CMS/HCC) Unspecified menopausal and perimenopausal disorder Vaginal infection Past Surgical History: Procedure Laterality Date 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 Derotational arthroplasty 5th digit RT CARDIAC CATHETERIZATION 04/2021 negative SECTION, LOW TRANSVERSE x3 CHOLECYSTECTOMY COLONOSCOPY 2009 COLPOSCOPY Procedure:colposcopy-bx's were ok-in [place], [place].;Disease:abnormal pap LAPAROSCOPIC ROSALES PROCEDURE cholecystectomy LITHOTRIPSY 08/2020 OTHER SURGICAL HISTORY 2001 Heel spurs OTHER SURGICAL HISTORY abnormal pap smear TONSILLECTOMY Family History Problem Relation Name Age of Onset Breast cancer Mother Preeti Cousino Diabetes Mother Preeti Cousino Heart disease Mother Preeti Cousino Asthma Mother Preeti Cousino Miscarriages / Stillbirths Mother Preeti Cousino Throat cancer Father Linwood Cousino Heart disease Father Linwood Cousino Hypertension Father Linwood Cousino Cancer Father Linwood Cousino Macular degeneration Sister Cancer Sister Cancer Brother Edkevin Cousino renal and colon Lymphoma Brother Edkevin Cousino Lupus Daughter Kim Col[place] Ulcerative colitis Daughter Kim [place] Miscarriages / Stillbirths Daughter Kim [place] Breast cancer Paternal Grandmother Cancer Brother Angel Cousino Diabetes Brother Angel Cousino Hearing loss Brother Víctor Cousino Vision loss Sister Giana Cousino Social History Tobacco Use Smoking Status Never Smokeless Tobacco Never Physical Exam - General appearance, mentation, extraocular movements, facial strength and movement, hearing, upper and lower extremity strength and tone, sensation to gross testing, coordination, and gait are normalor at baseline unless noted below. Physical Exam Constitutional: Appearance: Normal appearance. Genitourinary: Right Labia: No rash or lesions. Left Labia: No lesions or rash. No vaginal discharge or erythema. No vaginal prolapse present. No vaginal atrophy present. Right Adnexa: not tender and no mass present. Left Adnexa: not tender and no mass present. No cervical lesion. Uterus is not tender. Uterus is anteverted. Breasts: Right: Normal. No mass or nipple discharge. Left: Normal. No mass or nipple discharge. HENT: Head: Normocephalic and atraumatic. Cardiovascular: Rate and Rhythm: Normal rate and regular rhythm. Pulmonary: Breath sounds: Normal breath sounds. Abdominal: General: There is no distension. Palpations: Abdomen is soft. There is no mass. Tenderness: There is no abdominal tenderness. Musculoskeletal: General: Normal range of motion. Cervical back: Neck supple. Lymphadenopathy: Cervical: No cervical adenopathy. Neurological: Mental Status: She is alert and oriented to person, place, and time. Skin: General: Skin is warm and dry. Psychiatric: Mood and Affect: Mood normal. Assessment/Plan ICD-10-CM 1. Screening for malignant neoplasm of cervix Z12.4 SENDOUT TEST MISCELLANEOUS [facility] 2. Mixed incontinence N39.46 3. Encounter for gynecological examination without abnormal finding Z01.419 SENDOUT TEST MISCELLANEOUS [facility] 4. Encounter for screening mammogram for malignant neoplasm of breast Z12.31 Bilateral screening mammogram with tomosynthesis 5. Osteoporosis, post-menopausal ([facility]) M81.0 DEXA bone density 6. Vaginal atrophy N95.2 estradiol (Estrace) 0.1 MG/GM vaginal cream Ambulatory referral to Physical Therapy 7. Anxiety, generalized ([facility]) F41.1 hydrOXYzine pamoate (Vistaril) 25 MG capsule Pap and exam performed. Mammogram ordered Results can be found in [employer] in 7 days Return 1 year for annual 1. Postmenopausal vaginal bleeding: - Plan: a) Perform a transvaginal ultrasound to assess uterine lining thickness and rule out abnormalities. b) Prescribe Estrace cream to be used daily for a week before the ultrasound. c) Instruct the patient to monitor for any further bleeding and report if it occurs. d) Consider a D&C under anesthesia if bleeding persists. 2. Hip pain and sciatic nerve issues: - Plan: a) Continue follow-up with Dr. Carter for hip pain management. b) Discuss the possibility of endometriosis-related sciatic nerve issues with Dr. Carter. 3. Kidney stones and upcoming stent placement: - Plan: a) Proceed with the scheduled stent placement for the 9mm kidney stone. b) Perform the transvaginal ultrasound after the stent is removed. c) Instruct the patient to differentiate between vaginal and bladder bleeding using a tampon. 4. Anxiety management for future paps test - No current medications for anxiety - Plan: a) Monitor and address any anxiety-related concerns during future visits. 5. Pelvic floor dysfunction: - Plan: a) Recommend physical therapy for pelvic floor relaxation and dilation. b) Instruct the patient to use the prescribed Estrace cream before physical therapy sessions. c) Schedule physical therapy sessions after the stent removal to he;p with future pap exams Await IHUS results Probable D&C documented in this encounter[facility] [id number] Hospital Discharge instructions Patient Education 02/22/2024 15:32:56 Ureteroscopy Ureteroscopy Ureteroscopy is a procedure to check for and treat problems inside part of the urinary tract. In this procedure, a long rigid or flexible tube with a lens and light at the end (ureteroscope) is used to look at the inside of the kidneys and the ureters. The ureters are the tubes that carry urine from the kidneys to the bladder. The ureteroscope is inserted into one or both of the ureters. You may need this procedure if you have frequent urinary tract infections (UTIs), blood in your urine, or a stone in one or both of your ureters. A ureteroscopy can be done: To find the cause of urine blockage in a ureter and to evaluate other abnormalities inside the ureters or kidneys. To remove stones. To remove or treat growths of tissue (polyps), abnormal tissue, and some types of tumors. To remove a tissue sample and check it for disease under a microscope (biopsy). Tell a health care provider about: Any allergies you have. All medicines you are taking, including vitamins, herbs, eye drops, creams, and ivuy-zlw-ptjafec medicines. Any problems you or family members have had with anesthetic medicines. Any bleeding problems you have. Any surgeries you have had. Any medical conditions you have. Whether you are or may be . What are the risks? Your health care provider will talk with you about risks. These may include: Abdominal pain or a burning feeling or pain while urinating. Abnormal bleeding. A UTI. Allergic reactions to medicines. Scarring that narrows the ureter (stricture) or swelling. Creating a hole (perforation) in the ureter. Damage to other structures or organs, such as the part of your body that drains urine from your bladder (urethra), your bladder, or your uterus. What happens before the procedure? When to stop eating and drinking 8 hours before your procedure ?Stop eating most foods. Do not eat meat, fried foods, or fatty foods. ?Eat only light foods, such as toast or crackers. ?All liquids are okay except energy drinks and alcohol. 6 hours before your procedure ?Stop eating. ?Drink only clear liquids, such as water, clear fruit juice, black coffee, plain tea, and sports drinks. ?Do not drink energy drinks or alcohol. 2 hours before your procedure ?Stop drinking all liquids. ?You may be allowed to take medicines with small sips of water. Medicines Ask your health care provider about: Changing or stopping your regular medicines. These include any diabetes medicines or blood thinnersyou take. Taking medicines such as aspirin and ibuprofen. These medicines can thin your blood. Do not take these medicines unless your health care provider tells you to. Taking vmnx-gqp-dpclptv medicines, vitamins, herbs, and supplements. General instructions Do not use any products that contain nicotine or tobacco for at least 4 weeks before the procedure.These products include cigarettes, chewing tobacco, and vaping devices, such as e-cigarettes. If you need help quitting, ask your health care provider. If you will be going home right after the procedure, plan to have a responsible adult: ?Take you home from the hospital or clinic. You will not be allowed to drive. ?Care for you for the time you are told. Ask your health care provider what steps will be taken to help prevent infection. These may include: ?Washing skin with a soap that kills germs. ?Receiving antibiotic medicine. Tests You may have an exam or testing. ?You may have a urine sample taken to check for infection. What happens during the procedure? An IV will be inserted into one of your veins. You may be given: ?A sedative. This helps you relax. ?Anesthesia. This will: ?Numb certain areas of your body. ?Make you fall asleep for surgery. Your urethra will be cleaned with a germ-killing solution. The ureteroscope will be passed through your urethra into your bladder. A salt-water solution will be sent through the ureteroscope to fill your bladder. This will help the health care provider see the openings of your ureters more clearly. The ureteroscope will be passed into your ureter. ?If a growth is found, a biopsy may be done. ?If a stone is found, it may be removed through the ureteroscope, or the stone may be broken up using a laser, shock waves, or electrical energy. ?In some cases, if the ureter is too small, a tube may be inserted that keeps the ureter open (ureteral stent). The stent may be left in place for 1 or 2 weeks, and then the ureteroscopy procedure will be done again. The scope will be removed, and your bladder will be emptied. The procedure may vary among health care providers and hospitals. What happens after the procedure? Your blood pressure, heart rate, breathing rate, and blood oxygen level will be monitored until youleave the hospital or clinic. It is up to you to get the results of your procedure. Ask your health care provider, or the department that is doing the procedure, when your results will be ready. Summary Ureteroscopy is a procedure used to look at the inside of the kidneys and the ureters. You may need this procedure if you have frequent urinary tract infections (UTIs), blood in your urine, or a stone in one or both of your ureters. Follow instructions from your health care provider about eating and drinking. In some cases, if the ureter is too small, a tube may be inserted that keeps the ureter open (ureteral stent). The stent may be left in place for 1 or 2 weeks to keep the ureter open, and then the ureteroscopy procedure will be done again. This information is not intended to replace advice given to you by your health care provider. Make sure you discuss any questions you have with your health care provider. Document Revised: 02/20/2023 Document Reviewed: 02/20/2023 [employer] Patient Education 2023 [employer]. Follow Up Care 02/20/2024 12:28:58 With:JULIUS RASHEED MD, URL Address: When: Unknown [facility] 11-21-2024 NotePatient Education Urology Ureteroscopy Ureteroscopy is a procedure to check for and treat problems inside part of the urinary tract. In this procedure, a long rigid or flexible tube with a lens and light at the end (ureteroscope) is used to look at the inside of the kidneys and the ureters. The ureters are the tubes that carry urine from the kidneys to the bladder. The ureteroscope is inserted into one or both of the ureters. You may need this procedure if you have frequent urinary tract infections (UTIs), blood in your urine, or a stone in one or both of your ureters. A ureteroscopy can be done: ??? To find the cause of urine blockage in a ureter and to evaluate other abnormalities inside the ureters or kidneys. ??? To remove stones. ??? To remove or treat growths of tissue (polyps), abnormal tissue, and some types of tumors. ??? To remove a tissue sample and check it for disease under a microscope (biopsy). Tell a health care provider about: ??? Any allergies you have. ??? All medicines you are taking, including vitamins, herbs, eye drops, creams, and ujat-bot-dsfxlaf medicines. ??? Any problems you or family members have had with anesthetic medicines. ??? Any bleeding problems you have. ??? Any surgeries you have had. ??? Any medical conditions you have. ??? Whether you are or may be . What are the risks? Your health care provider will talk with you about risks. These may include: ??? Abdominal pain or a burning feeling or pain while urinating. ??? Abnormal bleeding. ??? A UTI. ??? Allergic reactions to medicines. ??? Scarring that narrows the ureter (stricture) or swelling. ??? Creating a hole (perforation) in the ureter. ??? Damage to other structures or organs, such as the part of your body that drains urine from yourbladder (urethra), your bladder, or your uterus. What happens before the procedure? When to stop eating and drinking ??? 8 hours before your procedure ? Stop eating most foods. Do not eat meat, fried foods, or fatty foods. ? Eat only light foods, such as toast or crackers. ? All liquids are okay except energy drinks and alcohol. ??? 6 hours before your procedure ? Stop eating. ? Drink only clear liquids, such as water, clear fruit juice, black coffee, plain tea, and sports drinks. ? Do not drink energy drinks or alcohol. ??? 2 hours before your procedure ? Stop drinking all liquids. ? You may be allowed to take medicines with small sips of water. Medicines Ask your health care provider about: ??? Changing or stopping your regular medicines. These include any diabetes medicines or blood thinners you take. ??? Taking medicines such as aspirin and ibuprofen. These medicines can thin your blood. Do not take these medicines unless your health care provider tells you to. ??? Taking qkpl-vpw-sweylgb medicines, vitamins, herbs, and supplements. General instructions ??? Do not use any products that contain nicotine or tobacco for at least 4 weeks before the procedure. These products include cigarettes, chewing tobacco, and vaping devices, such as e-cigarettes. If you need help quitting, ask your health care provider. ??? If you will be going home right after the procedure, plan to have a responsible adult: ? Take you home from the hospital or clinic. You will not be allowed to drive. ? Care for you for the time you are told. ??? Ask your health care provider what steps will be taken to help prevent infection. These may include: ? Washing skin with a soap that kills germs. ? Receiving antibiotic medicine. Tests ??? You may have an exam or testing. ? You may have a urine sample taken to check for infection. What happens during the procedure? An IV will be inserted into one of your veins. ??? You may be given: ? A sedative. This helps you relax. ? Anesthesia. This will: ? Numb certain areas of your body. ? Make you fall asleep for surgery. ??? Your urethra will be cleaned with a germ-killing solution. ??? The ureteroscope will be passed through your urethra into your bladder. ??? A salt-water solution will be sent through the ureteroscope to fill your bladder. This will help the health care provider see the openings of your ureters more clearly. ??? The ureteroscope will be passed into your ureter. ? If a growth is found, a biopsy may be done. ? If a stone is found, it may be removed through the ureteroscope, or the stone may be broken up using a laser, shock waves, or electrical energy. ? In some cases, if the ureter is too small, a tube may be inserted that keeps the ureter open (ureteral stent). The stent may be left in place for 1 or 2 weeks, and then the ureteroscopy procedure will be done again. ??? The scope will be removed, and your bladder will be emptied. The procedure may vary among health care providers and hospitals. What happens after the procedure? (more content not included)...[facility]11-12-2024 History of Present illness Narrative* Ariel Cooper, DPNell - 02/13/2024 4:30 PM EST Images from the original note were not included. HPI: Herminio Drake presents today for post-op appointment of derotational arthroplasty right 5th digit. Surgery was performed on 01/12/2024 at [facility]. Patient complains of pain 3 with weight bearing. Current symptoms are sharp and stinging, increased swelling. Majority of her symptoms are along the surgical sites. Patient has been elevating as instructed. Exam: General Examination: GENERAL APPEARANCE: awake, aware of surroundings, in no acute distress Vascular: DORSALIS PEDIS PULSE: 2/4, bilaterally POSTERIOR TIBIAL PULSE: 2/4, bilaterally TEMPERATURE GRADIENT: warm to cool EDEMA: to the 5th digit right CAPILLARY FILLING TIME(sec): capillary fill inact bilateral digits less than 3 secs Neurologic: NEUROLOGIC: light touch is intact to the plantar foot Dermatologic: SKIN FINDINGS: incision site over the 5th toe is well healed. Edema to the right 5th toe. HYPERKERATOSIS: lateral 5th digital nail right NAIL PATHOLOGY: digits 1-5 bilateral are intact SKIN PATHOLOGY: texture, turgor, hair growth, within normal limits Orthopedic: FOOT MORPHOLOGY: neutral JOINT RANGE OF MOTION: without pain or crepitus to the foot and ankle bilateral DEFORMITIES: 5th digit right contracted, rigid PAIN ELICITED WITH PALPATION OF: overlying the PIPJ 5th digit right, to the callous right 5th digit PAIN ELICITED WITH ROM: right 5th digit MUSCLE STRENGTH: 5/5 for all pedal groups tested Assessments: ICD M20.41 - Acquired hammer toe of right foot: ICD M79.671 - Pain in right foot: Treatment Note: Surgery Follow-up Examination: Patient is doing well and has been using the surgical shoe for ambulation. Incision site is healed and majority of dry skin was removed over the incision. Patient was instructed that she can start toreturn to normal shoe gear as long as she does not have any increased pain or symptoms. I did advise that she may need to accommodate shoes based on any rubbing or symptoms over the fifth toe. Coban was dispensed compression to the fifth digit to improve swelling. Patient will follow up in 3-4 weeks with repeat radiographs and for recheck. documented in this encounterShriners Hospitals for [id number] History of Present illness Narrative* Bob Carter, - 02/13/2024 3:00 PM EST Images from the original note were not included. Herminio Drake is a 68 y.o. female presents with chief complaint of Hip Pain (Pt presents right hip pain, since the end of August. Pt. Did see a chiropractor and that didn't help the right hip pain. Pt. Is using ice, which is not helping and taking tylenol or motrin. Pt. Reports she has more pain when she is laying down with pain shoot to her right stomach.) HPI: I have reviewed and reconciled the history and medication list with the patient today. PAST MEDICAL HISTORY: Past Medical History: Diagnosis Date Acute tonsillitis Arthritis Chicken pox Esophageal reflux Glaucoma (CMS/HCC) Heart murmur Hypothyroidism, unspecified (CMS/HCC) Irritable bowel syndrome Kidney stones Lumbago with sciatica, right side Lymphedema Measles Migraine, unspecified, not intractable, without status migrainosus (CMS/HCC) Mitral valve disorder MRSA (methicillin resistant Staphylococcus aureus) Mumps Obesity, unspecified x3 Thyroid disease (CMS/HCC) Unspecified menopausal and perimenopausal disorder Vaginal infection SURGICAL HISTORY: Past Surgical History: Procedure Laterality Date 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 Derotational arthroplasty 5th digit RT CARDIAC CATHETERIZATION 04/2021 negative SECTION, LOW TRANSVERSE x3 CHOLECYSTECTOMY COLONOSCOPY 2010 COLPOSCOPY Procedure:colposcopy-bx's were ok-in [place], [place]Disease:abnormal pap LAPAROSCOPIC ROSALES PROCEDURE cholecystectomy LITHOTRIPSY 08/2020 OTHER SURGICAL HISTORY 2001 Heel spurs OTHER SURGICAL HISTORY abnormal pap smear TONSILLECTOMY SOCIAL HISTORY: Social History Tobacco Use Smoking status: Never Smokeless tobacco: Never Substance Use Topics Alcohol use: Not Currently Comment: caffeine- 1 to 2 cups of coffee per day Drug use: Never Depression: Not at risk (09/30/2022) PHQ-2 PHQ-2 Score: 0 FAMILY HISTORY: Family History Problem Relation Name Age of Onset Breast cancer Mother Preeti Cousino Diabetes Mother Preeti Cousino Heart disease Mother Preeti Cousino Asthma Mother Preeti Cousino Miscarriages / Stillbirths Mother Preeti Cousino Throat cancer Father Linwood Cousino Heart disease Father Linwood Cousino Hypertension Father Linwood Cousino Cancer Father Linwood Cousino Macular degeneration Sister Cancer Sister Cancer Brother Vinny Cousino renal and colon Lymphoma Brother Vinny Cousino Lupus Daughter Kim Colindres Ulcerative colitis Daughter Kim Colindres Miscarriages / Stillbirths Daughter Kim Colindres Breast cancer Paternal Grandmother Cancer Brother Angel Cousino Diabetes Brother Angel Broosksino Hearing loss Brother Víctor Cousino Vision loss Sister Giana Falcon MEDICATIONS: Current Outpatient Medications Medication Instructions calcium citrate 600 mg and vitamin D3 (Citrical & Minerals + Vit D) 600-200 MG- UNIT tablet 1 tablet, 2 times daily Cholecalciferol-Vitamin C (Vitamin D3-Vitamin C) 1000-500 UNIT-MG capsule 1,000 Units, Every 24 hours latanoprost (Xalatan) 0.005 % ophthalmic solution Every 24 hours levothyroxine (SYNTHROID, LEVOXYL) 100 mcg, Oral, Daily, Take on an empty stomach. Multiple Vitamin (Multi Vitamin) tablet Every 24 hours ALLERGIES: Allergies Allergen Reactions Augmentin [Amoxicillin-Pot Clavulanate] Rash Medrol [Methylprednisolone] Other Chest Pain Paroxetine GI intolerance Paroxetine Hcl Other Reaction(s): nausea and vomiting REVIEW OF SYMPTOMS: The ROS was neg. No chest pain or dyspnea. Denies any GI issues. Weight stable. No swellng. Denies any issues with meds. PHYSICAL EXAM: Visit Vitals Pulse 72 Wt 173 lb SpO2 98% BMI 33.79 kg/m Smoking Status Never BSA 1.82 m BP Readings from Last 3 Encounters: 01/03/24 120/60 08/30/23 138/78 08/08/23 152/80 Wt Readings from Last 3 Encounters: 02/13/24 173 lb 01/03/24 176 lb 08/30/23 181 lb Physical exam- No focal neuro signs. No enlarged Lymph Nodes, no thyromegaly/ nodules, HRRR, LCTA, benign ABD exam w/ no bruits. Carotid pulse wnl, no bruits. Pulses intact and palp in all extremities, no edema ASSESSMENT AND PLAN: Assessment/Plan Problem List Items Addressed This Visit None Visit Diagnoses Chronic right-sided low back pain without sciatica - Primary Pain of right hip She is seen today for complaint of right hip and back pain. She had recent surgery on her right foot, which is improving. She also has a right knee that s arthritic and anticipates having surgery on that as well as some point. She s had this pain mouse since August. She has had us over both right and left greater bursa. She has pain greater on the right in the sacral iliac region. The lower spine midline is not tender. The sciatic notches are not tender bilaterally, but there is some pain on the right. 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 I m gonna put her on diclofenac 75 twice a day for 10 days. She s going to get a lumbar and a hip x- ray now. She has some diminished range of motion with right hip flexion. Good muscle strength in both lower extremities. Ambulates without any significant limp, from the fact that she s had right foot surgery. I ll review the x-rays to determine a physical therapy appropriate or if I should bring her back for an injection of steroid in the bursa or SI joint area. This note was Dictated and not read. documented in this encounterShriners Hospitals for [id number] Miscellaneous Notes* Addendum Note - Ariel Arteaga - 02/13/2024 3:00 PM ESTAddended by: ARIEL ARTEAGA on: 02/13/2024 03:48 PM Modules accepted: Orders * Addendum Note - Benjie Rios LPN - 02/13/2024 3:00 PM ESTAddended by: BENJIE RIOS on: 02/13/2024 03:50 PM Modules accepted: Orders documented in this encounterShriners Hospitals for [id number] Note* Addendum Note - Ariel Arteaga - 02/13/2024 3:00 PM ESTAddended by: ARIEL ARTEAGA on: 02/13/2024 03:48 PM Modules accepted: Orders [facility] for [id number] Note* Addendum Note - Benjie Rios LPN - 02/13/2024 3:00 PM ESTAddended by: BENJIE RIOS on: 02/13/2024 03:50 PM Modules accepted: Orders [facility] [id number] Note* Addendum Note - Ariel Arteaga - 02/13/2024 3:00 PM ESTAddended by: ARIEL ARTEAGA on: 02/13/2024 03:48 PM Modules accepted: Orders [facility] for [id number] Note* Addendum Note - Benjie Rios LPN - 02/13/2024 3:00 PM ESTAddended by: BENJIE RIOS on: 02/13/2024 03:50 PM Modules accepted: Orders [facility] for [id number] History of Present illness Narrative* Ariel Cooper DPM - 01/22/2024 9:30 AM EDT HPI: Herminio Drake presents today for post-op appointment of derotational arthroplasty right 5th digit. Surgery was performed on 01/12/2024 at [facility]. Patient complains of pain 3 with weight bearing. Current symptoms are sharp. Majority of her symptoms are along the surgical sites. Honorio dupree has been icing and elevating as instructed. Exam: General Examination: GENERAL APPEARANCE: awake, aware of surroundings, in no acute distress Vascular: DORSALIS PEDIS PULSE: 2/4, bilaterally POSTERIOR TIBIAL PULSE: 2/4, bilaterally TEMPERATURE GRADIENT: warm to cool EDEMA: to the 5th digit right CAPILLARY FILLING TIME(sec): capillary fill inact bilateral digits less than 3 secs Neurologic: NEUROLOGIC: light touch is intact to the plantar foot Dermatologic: SKIN FINDINGS: incision site over the 5th toe is well coapted with sutures intact. Slight edema to the right 5th toe. HYPERKERATOSIS: lateral 5th digital nail right NAIL PATHOLOGY: digits 1-5 bilateral are intact SKIN PATHOLOGY: texture, turgor, hair growth, within normal limits Orthopedic: FOOT MORPHOLOGY: neutral JOINT RANGE OF MOTION: without pain or crepitus to the foot and ankle bilateral DEFORMITIES: 5th digit right contracted, rigid PAIN ELICITED WITH PALPATION OF: overlying the PIPJ 5th digit right, to the callous right 5th digit PAIN ELICITED WITH ROM: right 5th digit MUSCLE STRENGTH: 5/5 for all pedal groups tested Assessments: ICD M20.41 - Acquired hammer toe of right foot: ICD M79.671 - Pain in right foot: Treatment Note: Surgery Follow-up Examination: Sutures were removed to the incision site. Advised that she can begin to get the area wet, but to avoid soaking for the next 2-3 weeks until the skin is completely healed. Patient can use antibiotic cream over the incision due to the opening from the sutures until healed. She can start light touch massage to help prevent nerve pain or symptoms along the incision site. Patient advised to continue with the walking boot/surgical shoe at all times when weightbearing. She can transition back into a softer, accommodative shoe when not working as long as she does not have any pain or symptoms. RTC: 3 weeks. documented in this encounterShriners Hospitals for [id number] History of Present illness Narrative* Ariel Cooper DPM - 01/15/2024 9:30 AM EDT Images from the original note were not included. HPI: Herminio Drake presents today for post-op appointment of derotational arthroplasty right 5th digit. Surgery was performed on 01/12/2024 at [facility]. Patient complains of pain 8. Current symptoms are sharp. Majority of her symptoms are along the surgical sites. Patient has not been i cing but has been elevating as instructed. Exam: General Examination: GENERAL APPEARANCE: awake, aware of surroundings, in no acute distress Vascular: DORSALIS PEDIS PULSE: 2/4, bilaterally POSTERIOR TIBIAL PULSE: 2/4, bilaterally TEMPERATURE GRADIENT: warm to cool EDEMA: to the 5th digit right CAPILLARY FILLING TIME(sec): capillary fill inact bilateral digits less than 3 secs Neurologic: NEUROLOGIC: light touch is intact to the plantar foot Dermatologic: SKIN FINDINGS: incision site over the 5th toe is well coapted with sutures intact. Slight edema to the right 5th toe. HYPERKERATOSIS: lateral 5th digital nail right NAIL PATHOLOGY: digits 1-5 bilateral are intact SKIN PATHOLOGY: texture, turgor, hair growth, within normal limits Orthopedic: FOOT MORPHOLOGY: neutral JOINT RANGE OF MOTION: without pain or crepitus to the foot and ankle bilateral DEFORMITIES: 5th digit right contracted, rigid PAIN ELICITED WITH PALPATION OF: overlying the PIPJ 5th digit right, to the callous right 5th digit PAIN ELICITED WITH ROM: right 5th digit MUSCLE STRENGTH: 5/5 for all pedal groups tested Assessments: ICD M20.41 - Acquired hammer toe of right foot: ICD M79.671 - Pain in right foot: Treatment Note: Surgery Follow-up Examination: Incision site was dressed with betadine, Adaptic and dry sterile dressing splinting the corrected digits in a corrected position. Patient was instructed to continue with use of the surgical shoe at all times when weightbearing. She can remove the shoe and perform passive ROM exercises as tolerated.Advised patient to keep the dressing intact and continue to keep it covered when bathing. Patient does want a refill of her pain medication. Patient will follow- up in 7-10 days for suture removal. documented in this encounterShriners Hospitals for [id number] Telephone encounter Note* Telephone Encounter - Summer Romero - 01/03/2024 1:55 PM EDT Patient scheduled for 03/04/24 with . [facility] [id number] Miscellaneous Notes* Telephone Encounter - Summer Romero - 01/03/2024 1:55 PM EDT Patient scheduled for 03/04/24 with . * Telephone Encounter - Summer Romero - 01/03/2024 12:02 PM EDT Patient stopped in regarding her RT Knee. She wants to do her (R) TKA in May. Patient would like toknow when she should schedule her first appt to see to get everything started? Please advise [phone]. documented in this encounterShriners Hospitals for [id number] Telephone encounter Note* Telephone Encounter - Summer Romero - 01/03/2024 12:02 PM EDT Patient stopped in regarding her RT Knee. She wants to do her (R) TKA in May. Patient would like toknow when she should schedule her first appt to see to get everything started? Please advise [phone]. [facility] for [id number] History of Present illness Narrative* Ariel Cooper DPM - 01/03/2024 11:15 AM EDT Images from the original note were not included. Patient presents today for their pre-operative appointment. The patient is scheduled for derotational arthroplasty right 5th digit at [facility] with Dr. Cooper on 01/12/2024 at 12:30 pm. The patient is here to sign surgery paperwork, receive post-operative shoe (if needed), post-operative instructions and any post-operative prescriptions. HPI: Patient has noted a hammertoe deformity for the past chronic. She are having pain to the toe mostlyrelated with shoe gear and pressure. Patient has tried pading, shoe changes, trimming for treatmentwith improvement, but very temporary. They relate a negative family history of foot deformities. Noother pedal complaints. Exam: General Examination: GENERAL APPEARANCE: awake, aware of surroundings, in no acute distress Vascular: DORSALIS PEDIS PULSE: 2/4, bilaterally POSTERIOR TIBIAL PULSE: 2/4, bilaterally TEMPERATURE GRADIENT: warm to cool EDEMA: to the 5th digit right CAPILLARY FILLING TIME(sec): capillary fill inact bilateral digits less than 3 secs Neurologic: NEUROLOGIC: light touch is intact to the plantar foot Dermatologic: SKIN FINDINGS: normal HYPERKERATOSIS: lateral 5th digital nail right NAIL PATHOLOGY: digits 1-5 bilateral are intact SKIN PATHOLOGY: texture, turgor, hair growth, within normal limits Orthopedic: FOOT MORPHOLOGY: neutral JOINT RANGE OF MOTION: without pain or crepitus to the foot and ankle bilateral DEFORMITIES: 5th digit right contracted, rigid PAIN ELICITED WITH PALPATION OF: overlying the PIPJ 5th digit right, to the callous right 5th digit PAIN ELICITED WITH ROM: right 5th digit MUSCLE STRENGTH: 5/5 for all pedal groups tested Assessments: ICD M20.41 - Acquired hammer toe of right foot: ICD M79.671 - Pain in right foot: Treatment Note: Patient presents today for their pre-operative appointment for proposed procedure: CORRECTION 5TH DIGIT DEFORMITY WITH DEROTATIONAL ARTHROPLASTY RIGHT. Surgical paperwork was completed and signed. The patient elects to proceed with surgical intervention at this time. The risks, complications, benefits, alternatives to surgery including 2nd opinion, OR personnel and rafa and post-op care were discussed in detail with the patient. The elective nature of the procedure was also discussed in detail with the patient. Specific complications related to this surgery were also discussed including, but not limited to: possible infection, the need for oral or IV antibiotics, hospitalization, additionalsurgery including removal of hardware, prolonged pain, stiffness or reoccurrence. Other complications include blood clot, hematoma, loss of use, loss of toe, foot and or leg. Possible complications relating to over activity and limitations during the post-operative period were reviewed in detail. We have reviewed the fact that prolonged swelling is possible up to a year after surgery and could delay return to normal shoes and activities. Patient was dispensed their postoperative prescriptions including: Percocet. A post- operative shoe was also dispensed for use after surgery. Patient instructed to bring this with them on the day of surgery. We discussed the postoperative instructions including protected weight bearing on the surgical foot for at least 4-6 weeks with use of a surgical shoe. The patient was told that no guarantee could be made as to the outcome of the procedure patient consented to the procedure. They will be contacted by the surgery center/hospital regarding their surgical appointment time. Patient was reminded to be NPO at midnight prior to their procedure. Patient will schedule post-op appointment for 3-5 days after surgery. documented in this encounterShriners Hospitals for [id number] NoteHISTORY: Bone density screening COMPARISON: 08/06/2018. PROCEDURE: Imaging of the lumbar spine and bilateral hips was obtained for bone density evaluation. FINDINGS: REGION BMD (g/cm??) YOUNG ADULT T-SCORE AGE-MATCHED Z-SCORE LEFT NECK 0.793 -0.5 1.0 RIGHT NECK 0.825 -0.2 1.3 LUMBAR (L1-L4) 0.934 -1.0 0.8 The mean BMD and corresponding T-score listed above indicates: Normal Bone Mass and places the patient at no significant risk for fracture. This information can serve as a baseline with which to compare future studies. Recommend follow-up exam in 2 years, sooner as clinically necessary. Difficult to compare to prior study due to dissimilar scan type or analysis methods. Within these limits, 3.1% increase in BMD of the hips and 8.5% decrease in BMD of the lumbar spine Comment: The T-score is the primary focus of the interpretation of a patient???s bone mineral density measurement. The T-score is the number of standard deviations and individual is above or below the mean value for a young female having normal bone mass. The WHO defines osteoporosis based on the T-score value: +1.0 to -0.9 : Normal bone mass -1.0 to -2.5 : Osteopenia and thus may be at future risk of fracture. -2.6 to -5.0 : Osteoporosis and at significantly increased risk of fracture. IMPRESSION: NORMAL BONE MASS : TWO YEAR FOLLOW-UP RECOMMENDED Report reported and signed by Pablo Garcia on 02/18/2022 1551[facility] [id number] Chief complaint Narrative - Reported* HERMINIO DRAKE is being seen for a consultation for abnormal test(s) results. * Patient is a 65-year-old female seen in cardiology consultation at the request of her nurse practitioner for abnormal stress test and symptoms of angina. She describes typical and atypical anterior and retrosternal chest discomfort and shoulder discomfort with and without exertion for approximatelya year, worsening over the last 2 to 3 months. She supposed to have knee surgery and because of this and her complaints she underwent preoperative stress perfusion imaging and echocardiography which revealed inferior ischemia, otherwise normal echocardiogram with no evidence of valvular lesions or wall motion abnormalities. * Patient is a non-smoker denies diabetes, does not admit to hypertension or current medical therapies other than Synthroid. * There is no prior history of myocardial infarction, revascularization, stroke, thromboembolic or bleeding disorder. She professes she is otherwise been healthy and reasonably active. She does complain of significant lower extremity edema and exertional dyspnea in addition to her chest discomfort. * Risk benefits alternatives and informed decision-making process of been performed with patient today, today's ECG reveals sinus rhythm and is otherwise normal. * We have offered both invasive versus noninvasive management, including initiation appropriate primary/secondary preventive therapies * Recommendations: Initiate 81 mg aspirin, metoprolol 12.5 twice daily, Nitro- Dur patch 0.2 mg, hydrochlorothiazide 25 mg daily for substantial 2-3+ edema that occurs now on a regular basis in conjunction with her shortness of breath, proceed with left heart catheterization and possible revascularization next week. -[facility] [employer] [address] DO Work Phone: Chief complaint Narrative - ReportedSUSWAPNIL DRAKE is being seen for a consultation for abnormal test(s) results.[facility] [employer] DO Work Phone: Evaluation + Plan note Future Appointments Appointment Date:02/26/2024 08:45:00 AM Scheduled Provider: Location:[facility] Appointment Type:Surgery CALL PAT Appointment Date:02/28/2024 10:30:00 AM Scheduled Provider: Location:[facility] Appointment Type:Surgery [facility] Evaluation noteNo assessment information available [facility] Work Phone: Evaluation note* Diagnosis Pre-op evaluation- Primary Acquired ankle/foot deformity, right Facet arthritis of lumbosacral region Bilateral primary osteoarthritis of knee Acquired hypothyroidism (CMS/HCC) Unspecified hypothyroidism Glaucoma of both eyes, unspecified glaucoma type (CMS/HCC) Elevated LDL cholesterol level (CMS/HCC) Morbid (severe) obesity due to excess calories (CMS/HCC) Body mass index (BMI) 35.0-35.9, adult [facility] Diagnosis Hammertoe of right foot- Primary [place] of toe Corns and callosities [facility]* Diagnosis Surgery follow-up examination- Primary Follow-up examination, following unspecified surgery Right foot pain Pain in soft tissues of limb Hammertoe of right foot [facility]* Diagnosis Surgery follow-up examination- Primary Follow-up examination, following unspecified surgery Hammertoe of right foot Right foot pain Pain in soft tissues of limb [facility]* Diagnosis Right foot pain Pain in soft tissues of limb [facility]* Diagnosis Kidney stone- Primary [place] of kidney Pain of right hip Greater trochanteric bursitis of right hip [facility]* Diagnosis Chronic right-sided low back pain without sciatica- Primary Pain of right hip [facility]* Diagnosis Screening for malignant neoplasm of cervix- Primary Screening for malignant neoplasm of the cervix Mixed incontinence Mixed incontinence urge and stress (male)(female) Encounter for gynecological examination without abnormal finding Encounter for screening mammogram for malignant neoplasm of breast Osteoporosis, post-menopausal (CMS/HCC) Senile osteoporosis Vaginal atrophy Postmenopausal atrophic vaginitis Anxiety, generalized (CMS/HCC) documented in this encounter [facility]ative* The patient states she has been generally doing well since the last visit. * Symptoms: denies chest pain at rest, denies exertional chest pain, denies dyspnea, denies fatigue, stable exercise intolerance, denies palpitations, denies edema, denies orthopnea, denies dizziness and denies orthostatic dizziness. * Associated symptoms: no syncope. * Her symptoms do not limit her activities. * Disease Monitoring: The patient has had a stable weight. * Medications: the patient is adherent with her medication regimen. She denies medication side effects. [facility] [employer] Work Phone: History of Present illness Narrative* The patient states she has been generally doing well since the last visit. * Symptoms: denies chest pain at rest, denies exertional chest pain, denies dyspnea, denies fatigue, stable exercise intolerance, denies palpitations, denies edema, denies orthopnea, denies dizziness and denies orthostatic dizziness. * Associated symptoms: no syncope. * Her symptoms do not limit her activities. * Disease Monitoring: The patient has had a stable weight. * Medications: the patient is adherent with her medication regimen. She denies medication side effects. [facility] [employer] Work Phone: Hospital course Narrative No data available for this section [facility] Progress note No data available for this section [facility] Family History Unknown Family Member Name Dates Details Family history of asthma: Mo ther(V17.5, Z82.5) Status:Active Family history of myocardial infarction: Mother(V17.3, Z82.49) Status:Active Family history of diabetes m ellitus: Mother, Brother(V18.0, Z83.3) Status:Active Family history of throat can cer: Father(V16.0, Z80.0) Status:Active Family history of cardiac di sorder: Father(V17.49, Z82.49) Status:Active Family history of macular de generation: Sister(V19.19, Z83.518) Status:Active Family history of emphysema: Sister(V17.6, Z82.5) Status:Active Family history of lymphoma: Brother(V16.7, Z80.7) Status:Active Family history of malignant neoplasm of kidney: Brother(V16.51, Z80.51) Status:Active Family history of malignant neoplasm of colon: Brother(V16.0, Z80.0) Status:Active Bradycardia: Brother Status:Active Family history of PTCA: Brot her(V17.49, Z82.49) Status:Active Unknown Family Member Name Dates Details Family history of asthma: Mo ther(V17.5, Z82.5) Status:Active Family history of myocardial infarction: Mother(V17.3, Z82.49) Status:Active Family history of diabetes m ellitus: Mother, Brother(V18.0, Z83.3) Status:Active Family history of throat can cer: Father(V16.0, Z80.0) Status:Active Family history of cardiac di sorder: Father(V17.49, Z82.49) Status:Active Family history of macular de generation: Sister(V19.19, Z83.518) Status:Active Family history of emphysema: Sister(V17.6, Z82.5) Status:Active Family history of lymphoma: Brother(V16.7, Z80.7) Status:Active Family history of malignant neoplasm of kidney: Brother(V16.51, Z80.51) Status:Active Family history of malignant neoplasm of colon: Brother(V16.0, Z80.0) Status:Active Bradycardia: Brother Status:Active Family history of PTCA: Brot her(V17.49, Z82.49) Status:Active Unknown Family Member Name Dates Details Family history of asthma: Mo ther(V17.5, Z82.5) Status:Active Family history of myocardial infarction: Mother(V17.3, Z82.49) Status:Active Family history of diabetes m ellitus: Mother, Brother(V18.0, Z83.3) Status:Active Family history of throat can cer: Father(V16.0, Z80.0) Status:Active Family history of cardiac di sorder: Father(V17.49, Z82.49) Status:Active Family history of macular de generation: Sister(V19.19, Z83.518) Status:Active Family history of emphysema: Sister(V17.6, Z82.5) Status:Active Family history of lymphoma: Brother(V16.7, Z80.7) Status:Active Family history of malignant neoplasm of kidney: Brother(V16.51, Z80.51) Status:Active Family history of malignant neoplasm of colon: Brother(V16.0, Z80.0) Status:Active Bradycardia: Brother Status:Active Family history of PTCA: Brot her(V17.49, Z82.49) Status:Active Unknown Family Member Name Dates Details Family history of diabetes m ellitus: Mother, Brother(V18.0, Z83.3) Status:Active Family history of asthma: Mo ther(V17.5, Z82.5) Status:Active Family history of myocardial infarction: Mother(V17.3, Z82.49) Status:Active Family history of throat can cer: Father(V16.0, Z80.0) Status:Active Family history of cardiac di sorder: Father(V17.49, Z82.49) Status:Active Family history of macular de generation: Sister(V19.19, Z83.518) Status:Active Family history of emphysema: Sister(V17.6, Z82.5) Status:Active Family history of lymphoma: Brother(V16.7, Z80.7) Status:Active Family history of malignant neoplasm of kidney: Brother(V16.51, Z80.51) Status:Active Family history of malignant neoplasm of colon: Brother(V16.0, Z80.0) Status:Active Bradycardia: Brother Status:Active Family history of PTCA: Brot her(V17.49, Z82.49) Status:Active Unknown Family Member Name Dates Details Family history of diabetes m ellitus: Mother, Brother(V18.0, Z83.3) Status:Active Family history of asthma: Mo ther(V17.5, Z82.5) Status:Active Family history of myocardial infarction: Mother(V17.3, Z82.49) Status:Active Family history of throat can cer: Father(V16.0, Z80.0) Status:Active Family history of cardiac di sorder: Father(V17.49, Z82.49) Status:Active Family history of macular de generation: Sister(V19.19, Z83.518) Status:Active Family history of emphysema: Sister(V17.6, Z82.5) Status:Active Family history of lymphoma: Brother(V16.7, Z80.7) Status:Active Family history of malignant neoplasm of kidney: Brother(V16.51, Z80.51) Status:Active Family history of malignant neoplasm of colon: Brother(V16.0, Z80.0) Status:Active Bradycardia: Brother Status:Active Family history of PTCA: Brot her(V17.49, Z82.49) Status:Active Relationship Condition Age at Onset Recorded Date/T jakub Not Specified Asthma Unknown Diabetes mellitus Unknown Coronary artery disease Unknown father Coronary artery disease Unknown Malignant neoplasm of throat Unknown Presence of cardiac pacemaker Unknown History of coronary artery bypass surgery Unknown brother Lymphoma Unknown brother Malignant neoplasm of colon Unknown Glaucoma Unknown brother Coronary artery disease Unknown Bradyarrhythmia Unknown Irritable bowel syndrome Unknown Summary Purpose Advance Directives Advance Directive Response Recorded Date/ Time Advance Directives No August 21 12:18pm Chief Complaint * Cardiac risk stratification for R TKR. * HERMINIO DRAKE is being seen for a month follow-up of pre-operative clearance. * Cardiac risk stratification for R TKR. * HERMINIO DRAKE is being seen for a month follow-up of pre-operative clearance. * Patient presents to the office today to obtain cardiac risk stratification prior to a right total knee replacement with Dr. Vazquez , date yet to be scheduled. * Patient is ambulatory with steady gait. * Last evaluated in clinic Dr. Clement February 2021. * Cardiovascular history: * April 2021 cardiac cath with angiographically normal coronaries * February 2021 echo LVEF 60%, no valvular heart disease * No history of dysrhythmias * Patient denies any hospitalizations since last office follow-up. * Daily activity is mostly limited due to right total knee pain. * She denies any exertional chest pain, no dyspnea on exertion or change in exercise capacity or functional tolerance. * Total DASI: 36.7 * METs 7.25 * EKG in office sinus rhythm/sinus arrhythmia without evidence of ischemic changes. * Patient does not exhibit any major clinical markers: No ACS within 30 days, evidence of decompensated heart failure, severe valvular heart disease or significant dysrhythmias. * Surgical specific risk: Intermediate orthopedic procedure * According to ACC/AHA guidelines a patient with recent favorable results on angiogram with no changein symptoms may proceed to the operating room without additional cardiovascular testing. * LUCY Revised Cardiac Risk Index: Very low risk with 0.4% MACE. * At this time, there are no prohibitive cardiovascular risk to proceed with much-needed surgical procedure. Chief Complaint and Reason for Visit Chief Complaint abn mandi Chief Complaint R92.1 Additional Source Comments INFORMATION SOURCE (unrecogn ized section and content) DATE CREATED AUTHOR 03/17/2021 [facility] DATE CREATED AUTHOR AUTHOR'S ORGANIZ ATION 01/22/2022 [facility] DATE CREATED AUTHOR AUTHOR'S ORGANIZ ATION 01/23/2022 [employer] DATE CREATED AUTHOR AUTHOR'S ORGANIZ ATION 02/19/2022 [facility] DATE CREATED AUTHOR AUTHOR'S ORGANIZ ATION 01/28/2023 [facility] DATE CREATED AUTHOR AUTHOR'S ORGANIZ ATION 02/27/2024 [facility] EPIC DATE CREATED AUTHOR AUTHOR'S ORGANIZ ATION 03/01/2024 [facility] DATE CREATED AUTHOR AUTHOR'S ORGANIZ ATION 03/07/2024 [facility] Care Teams (unrecognized sec tion and content) Team Status: Active Member Role Status Dates Bob Carter DO Primary Care Provider Active Team Status: Inactive Member Role Status Dates Bob Carter DO Primary Care Provider Active Mason Fowler DO Attending Provider Active Team Status: Inactive Member Role Status Dates Bob Carter DO Primary Care Provider, Attending Dawood medina Active [employer] Relationship Specialty Start Date End Date Bob Carter DO [address] [place] [address] PCP - General Internal Medicine 09/09/22 Bob Carter DO [address] [place] [address] PCP - [employer] 03/03/23 [employer] Relationship Specialty Start Date End Date Bob Carter DO [address] [place] [address] PCP - General Internal Medicine 09/09/22 Bob Carter DO [address] [place] [address] PCP - [employer] 03/03/23 [employer] Relationship Specialty Start Date End Date Bob Carter DO [address] [place] [address] PCP - General Internal Medicine 09/09/22 Bob Carter DO [address] [place] [address] PCP - [employer] 03/03/23 [employer] Relationship Specialty Start Date End Date Bob Carter DO [address] [place] [address] PCP - General Internal Medicine 09/09/22 [employer] Relationship Specialty Start Date End Date Bob Carter DO [address] [place] [address] PCP - General Internal Medicine 09/09/22 [employer] Relationship Specialty Start Date End Date Bob Carter DO [address] [place] [address] PCP - General Internal Medicine 09/09/22 [employer] Relationship Specialty Start Date End Date Bob Carter DO [address] [place] [address] PCP - General Internal Medicine 09/09/22 [employer] Relationship Specialty Start Date End Date Bob Carter DO [address] [place] [address] PCP - General Internal Medicine 09/09/22 [employer] Relationship Specialty Start Date End Date Bob Carter DO [address] [place] [address] PCP - General Internal Medicine 09/09/22 [employer] Relationship Specialty Start Date End Date Bob Carter DO [address] [place] [address] PCP - General Internal Medicine 09/09/22 Goals (unrecognized section and content) Goals may be documented in a n alternate sectionGoals may be documented in an alternate section No data available for this section No data available for this section Reason for Visit (unrecogniz ed section and content) Reason Comments PSC foot surgery CORRECTION 5TH DIGIT DEFORMITY WITH DEROTATIONAL ARTHROPLASTY RIGHT Reason Comments ER Follow-up Pt presents ER maríao w up on 02/16/2024 for LT flank LLQ pain. She was on [place], Ketorolac, Flomax, Zofran. Pt. Would like to follow up with the x-rays she had done for you on 02/13/24 a hip and lumbar spine. Reason Comments Hip Pain Pt presents right hi p pain, since the end of August. Pt. Did see a chiropractor and that didn't help the right hip pain. Pt. Is using ice, which is not helping and taking tylenol or motrin. Pt. Reports she has more pain when she is laying down with pain shoot to her right stomach. Reason Comments Gynecologic Exam FOR RECORDS PERTAINING TO PATIENTS WHO ARE OR HAVE BEEN ENROLLED IN A CHEMICAL DEPENDENCY/SUBSTANCEABUSE PROGRAM, SOME INFORMATION MAY BE OMITTED. This clinical summary was aggregated from multiple sources. Caution should be exercised in using it in the provision of clinical care. This summary normalizes information from multiple sources, and as a consequence, information in this document may materially change the coding, format and clinical context of patient data. In addition, data may be omitted in some cases. CLINICAL DECISIONS SHOULD BE BASED ON THE PRIMARY CLINICAL RECORDS. [facility] [employer] [facility]. provides no warranty or guarantee of the accuracy or completeness of information in this document.
[2024-03-14 22:03] VITALS: BP 124/70; PULSE 50; TEMP 36.6; O2SAT 98; BMI 33.6
== END 2024-03-14 22:41 | disposition left against medical advice (07) ==
LOC: ER 21:29
PROVIDERS: Emergency Provider Emergency Medicine; PCP Internal Medicine
DX: Z53.21 Procedure and treatment not carried out due to patient leaving prior to being seen by health care provider (principal)

== ENCOUNTER 2024-06-24 22:39 | Emergency (ER) | payer MEDICARE, SELFPAY ==
[2024-06-24 22:45] VITALS: BP 186/89; PULSE 70; TEMP 36.8; O2SAT 98; BMI 33.2
--- OUTSIDE RECORDS SUMMARY | 2024-06-24 22:45 | XMS_ITS | CCD ---
Author Organization [facility] [employer]iniSyn[employer] Care Team Providers Care Crane Helper Name Role Phone Bob Carter Unavailable Unavailable [...] Unavailable EMMA, DR ASHBY Primary Care Unavailable ZIEBJOSELITO, DR BRANDT Dykes Consulting Unavailable MARKER, DR GUTIERREZ Admitting Unavailable MARKER, DR GUTIERREZ Consulting Unavailable MARKER, DR GUTIERREZ Attending Unavailable EMMA, DR ASHBY Primary Care Unavailable SaidGabe Consulting Unavailable BOBO, DR BRANDT Dykes Consulting Unavailable PAY, DR [...] Unavailable Emma, Dr. Bob Rondon Primary Care Unastephanie Cooper, ABDI Mcdonald Referring Unavailable ABDI Cooper Attending Unavailable DO Bob Carter Primary Care Provider DO Mason Fowler Attending Provider DO Bob Carter Primary Care Provider [phone] DO Bob Carter Attending Provider [phone] Bob Carter DO Primary Care Provider [phone] Bob Carter DO Unavailable BOB CARTER Primary Care Physician Unavail able BOB CARTER Attending Unavailable TAIWO RAI Referring Unavailable BOB CARTER Attending Unavailable [...] Attending Unavailable MD JULIUS RASHEED Attending Unav MD JULIUS Juan Referring Unav ailable MD JULIUS RASHEED Admitting Unav ailable MD JULIUS RASHEED Attending Unav ailable Bob Carter Primary Care Unavailable Taiwo Rai Attending Unavailable Taiwo Rai Admitting Unavailable Bob Carter DO Primary Care Provider [phone] Taiwo Rai RN Attending Provider [phone] JULIUS RASHEED Referring Unavail able JULIUS RASHEED Attending Unavail able JULIUS RASHEED Admitting Unavail JULIUS Abbott Attending Unavail MD JULIUS Abbott Attending Una ailable Allergies Allergy Classification Reported Allergen(s) Allergy Type Date of Onset Reaction(s) Facility (3 sources) Corticosteroids Propensity to adverse reactions 04-01-20 chest pressure [facility] Comment on above: oral dose pack (20 sources) PARoxetine; Translations: [paroxetine] Drug Allergy 07-13-19 GI intolerance, Unknown (qualifier value), Nausea (finding) [facility] (20 sources) methylPREDNISolone; Translations: [methylprednisolone ] Drug Allergy 07-19-19 Other, Unknown (qualifier value) [facility] (20 sources) PARoxetine Drug Allergy 01-26-20 [facility] (20 sources) Amoxicillin-Pot Clavulanate Propensity to adverse reactions 08-08-19 24 Rash [facility] Work Phone: (9 sources) Amoxicillin / Clavulanate; Translations: [amoxicillin-clavul anate] Drug Allergy Unknown (qualifier value) [facility] (3 sources) methylPREDNISolone; Translations: [Medrol] Drug Allergy [facility] (3 sources) No Known Medication Allergies; Translations: [No Known Medication Allergies] Propensity to adverse reactions (disorder) [facility] Medications Current Medications Medication Drug Class(es) Dates Sig (Normalized) Sig (Original) acetaminophen 325 mg / HYDROcodone bitartrate 5 mg oral tablet (9 sources) Opioid Agonist Start: 02-22-2024 acetaminophen-hydr ocodone 325 mg-5 mg oral tablet 1 tab(s), Refill(s) 0 Start Date: 02/22/24 Status: Ordered Start: 08-21-2020 End: 03-14-2021 take 1 tablet by mouth every four to six hours as needed for pain Hydrocodone-Acetaminophen 5-325 mg table t Discontinued 1 TAB PO EVERY 4-6 HOURS as needed for pain 03 05August 21, 2020 March 14, 2021 5:50pm acetaminophen 325 mg / oxyCODONE hydrochloride 5 mg oral tablet (10 sources) Opioid Agonist Start: 01-03-2024 End: 01-20-2024 take 1 tablet by mouth every six hours oxyCODONE-acetaminophen (Percocet) 5-325 MG tablet Indications: Hammertoe of right foot Take 1 tablet by mouth every 6 (six) hours for 5 days 20 tablet 01/15/2024 01/20/2024 Active Start: 08-21-2020 End: 03-14-2021 take 1 tablet by mouth every four hours as needed for pain Oxycodone-Acetaminophen 5-325 mg tablet Discontinued 1 - 2 TAB PO Every 4 hours as needed for Pain August 20, 2020 11:00pm March 14, 2021 5:53pm [id number] actuat albuterol 0.09 mg/actuat metered dose inhaler (8 sources) beta2-Adrenergic Agonist Start: 07-30-2023 End: 01-03-2024 take 2 puff(s) by inhalation every four hours for wheezing albuterol HFA 90 mcg/act inhaler Inhale 2 puffs every 4 (four) hours if needed for shortness of breath or wheezing 07/30/2023 01/03/2024 Discontinued Start: 04-01-2021 take 1 puff(s) by in halation every six hours as needed for wheezing Albuterol Sulfate 90 mcg/actuation Hfa Aerosol Inhaler Active 1 - 2 PUFF INHALATION Q6H as needed for Sob/wheezing April 01, 2021 12:00am Ascorbic Acid (6 sources) Vitamin C Start: 02-22-2024 Vitamin C Daily Start Date: 02/22/24 Status: Ordered aspirin 81 mg delayed release oral tablet (6 sources) Platelet Aggregation Inhibitor, Nonsteroidal Anti-inflammatory Drug Start: 02-19-2021 Aspirin (Jayme Low Dose Aspirin) 81 mg Tablet,Delayed Release (Dr/Ec) Active 81 MG PO Daily April 01, 2021 12:00am brompheniramine maleate 0.4 mg/ml / dextromethorphan hydrobromide 2 mg/ml / pseudoephedrine hydrochloride 6 mg/ml oral solution (8 sources) alpha-Adrenergic Agonist, Uncompetitive L-fpotka-Z-aspartat e Receptor Antagonist, Sigma-1 Agonist Start: 07-30-2023 End: 01-03-2024 take 10 mL by mouth every six hours as needed brompheniramine-p seudoephedrine-DM 30-2-10 MG/5ML syrup take 10ml BY MOUTH EVERY 6 HOURS NEEDED 07/30/2023 01/03/2024 Discontinued Start: 03-14-2021 take 1 mL by mouth every six hours Mqxirmlbcgiqfcx-Slmuyqkpt-Bh 2-30-10 mg/ 5 mL syrup Active 5 ML PO Q6H March 14, 2021 12:00am calcium citrate 600 mg and vitamin D3 (Citrical & Minerals + Vit D) 600-200 MG-UNIT tablet (20 sources) take 1 tablet by mouth once daily in the morning calcium citrate 600 mg and vitamin D3 (Citrical & Minerals + Vit D) 600-200 MG-UNIT tablet Take 1 tablet by mouth in the morning and 1 tablet before bedtime. Active cholecalciferol 0.05 mg oral capsule (3 sources) Vitamin D Start: take 1 capsule by mouth once daily Cholecalciferol (Vitamin D3) (Vitamin D3) 50 mcg (2,000 unit) Capsule Active 50 MCG PO Daily April 01, 2021 12:00am Cholecalciferol-Vitami n C (Vitamin D3-Vitamin C) 1000-500 UNIT-MG capsule (20 sources) take 1 capsule by mouth once [...] weekly 30 g 3 02/26/2024 Active Glucosamine (6 sources) Start: glucosamine Oral Start Date: 02/22/24 [...] Refills(s) 0 Start Date: 02/22/24 Status: Ordered Synthroid (20 sources) l-Thyroxine Start: Synthroid Oral, Daily, Refills(s) 0 Start Date: 08/21/20 Status: Ordered Start: 08-21-2020 take 1 tablet by dominic th once daily levothyroxine (Synthroid, Levoxyl) 100 MCG tablet Indications: Hypothyroidism, unspecified (CMS/HCC) TAKE 1 TABLET BY MOUTH DAILY ON AN EMPTY STOMACH 90 tablet 3 09/21/2023 Active metoprolol tartrate 25 mg oral tablet (6 sources) beta-Adrenergic Stiven Start: 03-14-2021 Metopr olol Tartrate 25 mg tablet Active 12.5 MG PO Twice daily March 14, 2021 12:00am Start: 03-14-2021 take 12.5 mg by mout h twice daily Metoprolol Tartrate Active 12.5 MG PO Twice daily March 14, 2021 1:00am Start: 02-19-2021 take 0.5 tablet by m outh twice daily Metoprolol Tartrate 25 MG Oral Tablet TAKE 0.5 TABLET Twice daily Quantity: 90 Refills: 3 Ordered: 19-Feb-2021 Vamsi Clement DO Start : 19-Feb-2021 Active new start Multi Vitamins oral tablet (6 sources) Start: 02-22-2024 take 1 tablet by mouth once daily Multi Vitamins oral tablet 1 tab(s), Oral, Daily Start Date: 02/22/24 Status: Ordered Multiple Vitamin (Multi Vitamin) tablet (20 sources) Multiple Vitamin (Multi Vitamin) tablet 1 (one) time each day at the same time. Active Nature's Bounty Red Krill Oil (6 sources) Start: 02-22-2024 take 1 mg by mouth once daily Evan Franco Red Krill Oil mg, Oral, Daily Start Date: 02/22/24 Status: Ordered 24 hr oxybutynin chloride 5 mg extended release oral tablet (8 sources) Cholinergic Muscarinic Antagonist Start: 02-28-2024 take 1 tablet by mouth once daily oxybutynin 5 mg ER Tab 5 mg = 1 tab(s), Oral, Daily, # 90 tab(s), Refills(s) 0, Pharmacy: [id number], 154.5, cm, 02/28/24 7:03:00 EST, Height/Length Dosing, 77.5, kg, 02/28/24 7:03:00 EST, Weight Dosing Start Date: 02/28/24 Status: Ordered Start: 08-21-2020 End: 03-14-2021 take 1 tablet by mouth twice daily as needed for muscle spasms Oxybutynin Chloride 5 mg tablet Discontinued 5 MG PO Twice daily as needed for bladder spasms 30 August 20, 2020 11:00pm March 14, 2021 5:53pm oxyCODONE hydrochloride 5 mg oral tablet (5 sources) Opioid Agonist Start: 02-28-2024 take 1 tablet by mouth every six hours as needed for pain Roxicodone 5 mg Tab 5 mg = 1 tab(s), Oral, q6hr, PRN for pain, # 7 tab(s), Refills(s) 0, Pharmacy: [id number], 154.5, cm, 02/28/24 7:03:00 EST, Height/Length Dosing, 77.5, kg, 02/28/24 7:03:00 EST, Weight Dosing Start Date: 02/28/24 Status: Ordered tamsulosin hydrochloride 0.4 mg oral capsule (5 sources) alpha-Adrenerg ic Stiven Start: 02-22-2024 tamsulosin 0.4 mg Cap 0.4 mg = 1 cap(s), Refills(s) 0 Start Date: 02/22/24 Status: Ordered Start: 08-21-2020 End: 03-14-2021 take 1 capsule by mouth once daily Tamsulosin 0.4 mg capsule Discontinued 0.4 MG PO Daily August 20, 2020 11:00pm March 14, 2021 5:53pm Vitamin D3 (6 sources) Start: 02-22-2024 Vitamin D3 Sta rt Date: 02/22/24 Status: Ordered Zinc (3 sources) Start: 04-01-2021 take 1 tablet by dominic th once daily Zinc 50 mg Tablet Active 50 MG PO Daily April 01, 2021 12:00am Start: 04-01-2021 take 50 mg by mouth once daily Zinc Active 50 MG PO Daily April 01, 2021 1:00am Completed/Discontinued Medications Medication Drug Class(es) Dates Sig (Normalized) Sig (Original) benzonatate 100 mg oral capsule (3 sources) Non-narcotic Antitussive Start: 03-14-20 End: 04-01-20 take 1 capsule by mouth three times daily as needed for cough Benzonatate 100 mg capsule Discontinued 100 MG PO Three times daily as needed for Cough March 14, 2021 12:00am April 01, 2021 9:17am ciprofloxacin 500 mg oral tablet (3 sources) Quinolone Antimicrobial Start: 08-22-19 End: 03-14-20 take 1 tablet by mouth every two hours Ciprofloxacin Hcl (Cipro) 500 mg tablet Discontinued 500 MG PO Q12H August 20, 2020 11:00pm March 14, 2021 5:49pm administer dose at least 2 hrs before/6 hrs after dairy products, calcium, zinc, and/or iron-containing products codeine phosphate 2 mg/ml / promethazine hydrochloride 1.25 mg/ml oral solution (3 sources) Opioid Agonist, Phenothiazine Start: 03-14-20 End: 04-06-19 take 1 mL by mouth every four to six hours as needed for cough Promethazine-Codeine 6.25-10 mg/5 mL syrup Discontinued 5 ML PO EVERY 4-6 HOURS as needed for cough 118 7 March 14, 2021 12:00am April 06, 2021 12:00pm dexamethasone 6 mg oral tablet (3 sources) Corticosteroid Start: 03-14-20 End: 04-01-20 21 take 1 tablet by mouth once daily Dexamethasone (Decadron) 6 mg tablet Discontinued 6 MG PO Daily March 14, 2021 12:00am April 01, 2021 9:18am hydroCHLOROthiazide 25 mg oral tablet (6 sources) Thiazide Diuretic Start: 02-20-20 End: 04-01-20 take 1 tablet by mouth once daily Hydrochlorothiazide 25 mg tablet Discontinued 25 MG PO Daily March 14, 2021 12:00am April 01, 2021 9:18am latanoprost 0.05 mg/ml ophthalmic solution (20 sources) Prostaglandin Analog Start: 12-30-19 take 1 drop(s) into the eye(s) once daily Latanoprost 0.005 % Ophthalmic Solution INSTILL 1 DROP IN BOTH EYES EVERY NIGHT Quantity: 8 Refills: 0 Ordered: 29-Dec-2021 DO Start : 29-Dec-2021 Active Start: 08-21-2020 take 1 drop(s) into the eye(s) at bedtime Latanoprost 0.005 % drops Active 1 DROPS EYE-BOTH Bedtime August 20, 2020 11:00pm Start: 08-21-2020 take 1 drop(s) into the [...] 24 hr nitroglycerin 0.2 mg/hr transdermal system (6 sources) Nitrate Vasodilator Start: End: apply 1 dose transdermal route once daily as needed, then apply 1 dose transdermal route every twenty-four hours as needed Nitroglycerin 0.2 mg/hr patch 24 hour Discontinued 1 PATCH TRANSDERML Daily as needed for Angina March 14, 2021 12:00am April 06, 2021 2:52pm APPLY 1 PATCH FOR 12 TO 14 HOURS PER DAY THEN REMOVE ondansetron 4 mg disintegrating oral tablet (6 sources) Serotonin-3 Receptor Antagonist Start: End: take 1 tablet by mouth every eight hours Ondansetron 4 mg tablet,disintegratin g Discontinued 4 MG PO Q8H March 14, 2021 12:00am April 01, 2021 9:19am Start: 08-21-2020 End: 12-30-2021 take 1 tablet by mouth every eight hours as needed for nausea Ondansetron Hcl 4 mg tablet Discontinued 4 MG PO Every 8 hours as needed for Nausea August 20, 2020 11:00pm April 01, 2021 9:19am sulfamethoxazole 800 mg / trimethoprim 160 mg [...] Documented Da te Episodic/Chronic Acquired foot deformities (8 sources) Hammer toe; Translations: [Other hammer toe(s) (acquired), right foot] 01-03-2024 Chronic Anxiety disorders (2 sources) Generalized anxiety disorder; Translations: [Generalized anxiety disorder] 02-26-2024 Chronic Calculus of urinary tract (20 sources) Unspecified renal colic; Translations: [Calculus of kidney] Onset: 08-20-2020 Episodic Cardiac dysrhythmias (6 sources) Palpitations; Translations: [Palpitations] Onset: 02-13-2021 Episodic Complication of device; implant or graft (6 sources) Retained ureteric stent 08-28-2020 Episodic Coronary atherosclerosis and other heart disease (3 sources) Angina pectoris; Translations: [Other and unspecified angina pectoris] Chronic Disorders of lipid metabolism (20 sources) Raised low density lipoprotein cholesterol; Translations: [Pure hypercholesterolemia , unspecified] Onset: 01-03-2024 01-03-2024 Chronic Diverticulosis and diverticulitis (20 sources) Diverticular disease; Translations: [Diverticulosis of intestine, [...] leg] 01-03-2024 Episodic Other aftercare (1 source) termite treater (current) use of aspirin; Translations: [RETIREMENT CURRENT USE OF ASPIRIN] Onset: 03-11-2021 Episodic [...] Episodic Other diseases of kidney and ureters (2 sources) Hydronephrosis with renal and ureteral calculous obstruction; Translations: [Hydronephrosis with urinary obstruction due to ureteral calculus] 08-21-2020 Episodic Other diseases of kidney and ureters (2 sources) Urinary tract obstruction; Translations: [Hydronephrosis with renal and ureteral calculous obstruction] Onset: 02-22-2024 Episodic Other gastrointestinal disorders (20 sources) Irritable bowel syndrome with diarrhea; Translations: [...] excess calories] Onset: 06-30-2020 01-03-2024 Chronic Other nutritional; endocrine; and metabolic disorders (20 sources) Body mass index 30+ - obesity; Translations: [Body mass index (BMI) 35.0-35.9, adult] Onset: 07-19-2023 Resolved: 01-03-2024 01-03-2024 Chronic Other screening for suspected conditions (not mental disorders or infectious disease) (16 sources) Cardiovascular stress test abnormal; Translations: [Other nonspecific abnormal results of function study of cardiovascular system] Onset: 06-27-2020 Episodic Other skin disorders (4 sources) [place] of toe; Translations: [Corns and callosities] 01-03-2024 [...] UNSPECIFIED; Translations: [COUGH, UNSPECIFIED] Onset: 03-11-2021 Unclassified (6 sources) Obstructive hydronephrosis 02-22-2024 Viral infection (3 sources) Disease caused by 2019-nCoV; Translations: [COVID-19] 03-14-2021 Episodic Viral infection (4 sources) COVID-19; Translations: [COVID-19] Onset: 03-11-2021 Past or Other Problems Problem Classification Problem Date Documented Date Episodic/Chronic Abdominal pain (3 sources) Unspecified abdominal pain; Translations: [UNSPECIFIED ABDOMINAL PAIN] Onset: 08-20-2020 Episodic Headache; including migraine (20 sources) Migraine; Translations: [Migraine, unspecified, not intractable, without status migrainosus] Onset: 05-21-2019 Resolved: 01-03-2024 01-03-2024 Chronic Other aftercare (1 source) Other snf (current) drug therapy; Translations: [OTH BARREL POLISHER CURRENT DRUG THERAPY] Onset: 08-24-2020 Episodic Other circulatory disease (2 sources) H/O: angina pectoris; Translations: [Personal history of other diseases of circulatory system] Resolved: 01-17-2022 Episodic Other diseases of kidney and ureters (1 source) Crossing vessel and stricture of ureter without hydronephrosis; Translations: [CROSSING VES STRICT URETER W/O HN] Onset: 09-02-2020 Episodic Other diseases of veins and lymphatics (20 sources) Peripheral venous insufficiency; Translations: [Venous insufficiency (chronic) (peripheral)] Onset: 09-27-2016 01-23-2023 Episodic Other lower respiratory disease (20 sources) Persistent cough; Translations: [Persistent cough] Onset: 07-19-2023 Resolved: 01-03-2024 01-03-2024 Episodic Peripheral and visceral atherosclerosis (20 sources) Atherosclerosis of aorta; Translations: [Atherosclerosis of aorta] Onset: 08-30-2023 Resolved: 02-26-2024 08-30-2023 Chronic Residual codes; unclassified (20 sources) Memory impairment; Translations: [Other amnesia] Onset: 01-23-2023 Resolved: 01-03-2024 01-03-2024 Episodic Unclassified (5 sources) Never smoked tobacco; Translations: [Never a smoker] Results Test Name Value Interpretation Reference Range Facility Ambulatory Visit Summaryon 0 04-23-2024 Ambulatory Visit Summary Ambulatory Visit Summary KANDYRoeHERMINIO Emir :1955 Visit Date:04/23/2024 Ambulatory Visit Instructions Your Diagnosis Ureteral stone with hydronephrosis Kidney stone Mixed incontinence Your Care Team Attending Physician - JHONY NICHOLS, [facility] Primary Care Physician - BOB CARTER DO This Is Your Medications List oxybutynin (oxybutynin 5 mg ER Tab) oxycodone (Roxicodone 5 mg Tab) Contact prescribing physician if questions or concerns acetaminophen-hydrocodo ne (acetaminophen-hydrocod one 325 mg-5 mg oral tablet) ascorbic acid (Vitamin C) cholecalciferol (Vitamin D3) glucosamine levothyroxine (Synthroid) multivitamin (Multi Vitamins oral tablet) omega-3 polyunsaturated fatty acids (Nature's Bounty Red Krill Oil) Procedures Performed Cystoscopy (02/28/2024), Cystoscopic removal of ureteric stent (08/28/2020), Cystoscope (08/12/2020), Tonsillectomy (1969), section, Cholecystectomy, Colonoscopy, Procedure on foot. Discharge Vitals Height 152 cm Height 60 in Weight 78.4 kg Weight 172.842 lb BMI 33.93 What to do next Scheduled Follow-Up Appointments 2024 12:30 PM EST Where: [facility] 2024 8:00 AM EST Where: [facility] You Need to Schedule the Following Appointments Follow Up with JHONY NICHOLS, [facility] When: Where: Medications What How Much When Instructions Unchanged oxybutynin (oxybutynin 5 mg ER Tab) 1 Tablets By Mouth Every day Unchanged oxycodone (Roxicodone 5 mg Tab) 1 Tablets By Mouth Every 6 hours as needed for for pain Unchanged acetaminophen-hydrocodo ne (acetaminophen-hydrocod one 325 mg-5 [...] physician if questions or concerns Allergies Augmentin (Hives, Unknown) Medrol (Unknown) PARoxetine (Nausea, Unknown) Problems Ongoing - Any problem that you are currently receiving treatment for. BMI 34.0-34.9,adult Glaucoma Hypothyroidism Kidney stone Mixed incontinence Retained ureteral stent Ureteral stone Ureteral stone with hydronephrosis Urge incontinence Patient Survey You may receive a survey via text or e-mail asking about your office visit. Please share your experience with us by completing your survey. We appreciate your feedback and thank you for choosing us for your care. Education Materials ESWL for Kidney Stones Extracorporeal shock wave lithotripsy (ESWL) is a treatment that can help break up kidney stones that are too large to pass on their own. This is a nonsurgical procedure that breaks up a kidney stone with shock waves. These shock waves pass through your body and focus on the kidney stone. They cause the kidney stone to break into smaller pieces (fragments) while it is still in the urinary tract. The fragments of stone can pass more easily out of your body in the urine. Tell a health care provider about: ??? Any allergies you have. ??? All medicines you are taking, including vitamins, herbs, eye drops, creams, and ahbb-kad-adqumcq medicines. ??? Any problems you or family members have had with anesthetic medicines. ??? Any bleeding problems you have. ??? Any surgeries you have had. ??? Any medical conditions you have. ??? Whether you are or may be . What are the risks? Your health care provider will talk with you about risks. These may include: ??? Infection. ??? Bleeding from the kidney. ??? Bruising of the kidney or skin. ??? Scarring of the kidney. This can lead to: ? Increased blood pressure. ? Poor kidney function. ? Return (recurrence) of kidney stones. ??? Damage to other structures or organs. This may include the liver, colon, spleen, or pancreas. ??? Blockage (obstruction) of the tube that carries urine from the kidney to the bladder (ureter). ??? Failure of the kidney stone to break into fragments. What happens before the procedure? When to stop eating and drinking Follow instructions from your health care provider about what you may eat and drink. These may include: ??? 8 hours before your procedure ? Stop eating most foods. Do not eat meat, fried foods, or fat (more content not included)... [facility] Ambulatory Visit Summary Ambulatory Visit Summary HERMINIO DRAKE :1955 Visit Date:04/23/2024 Ambulatory Visit Instructions Your Diagnosis Ureteral stone with hydronephrosis Kidney stone Mixed incontinence Your Care Team Attending Physician - JHONY NICHOLS, JULIUS Primary Care Physician - BOB CARTER DO This Is Your Medications List oxybutynin (oxybutynin 5 mg ER Tab) oxycodone (Roxicodone 5 mg Tab) Contact prescribing physician if questions or concerns acetaminophen-hydrocodo ne (acetaminophen-hydrocod one 325 mg-5 mg oral tablet) ascorbic acid (Vitamin C) cholecalciferol (Vitamin D3) glucosamine levothyroxine (Synthroid) multivitamin (Multi Vitamins oral tablet) omega-3 polyunsaturated fatty acids (EVRGR's Bounty Red Krill Oil) Procedures Performed Cystoscopy (02/28/2024), Cystoscopic removal of ureteric stent (08/28/2020), Cystoscope (08/12/2020), Tonsillectomy (1969), section, Cholecystectomy, Colonoscopy, Procedure on foot. Discharge Vitals Height 152 cm Height 60 in Weight 78.4 kg Weight 172.842 lb BMI 33.93 What to do next Scheduled Follow-Up Appointments 2024 12:30 PM EST Where: [facility] 2024 8:00 AM EST Where: [facility] You Need to Schedule the Following Appointments Follow Up with JHONY NICHOLS, [facility] When: Where: Medications What How Much When Instructions Unchanged oxybutynin (oxybutynin 5 mg ER Tab) 1 Tablets By Mouth Every day Unchanged oxycodone (Roxicodone 5 mg Tab) 1 Tablets By Mouth Every 6 hours as needed for for pain Unchanged acetaminophen-hydrocodo ne (acetaminophen-hydrocod one 325 mg-5 [...] physician if questions or concerns Allergies Augmentin (Hives, Unknown) Medrol (Unknown) PARoxetine (Nausea, Unknown) Problems Ongoing - Any problem that you are currently receiving treatment for. BMI 34.0-34.9,adult Glaucoma Hypothyroidism Kidney stone Mixed incontinence Retained ureteral stent Ureteral stone Ureteral stone with hydronephrosis Urge incontinence Patient Survey You may receive a survey via text or e-mail asking about your office visit. Please share your experience with us by completing your survey. We appreciate your feedback and thank you for choosing us for your care. Education Materials ESWL for Kidney Stones Extracorporeal shock wave lithotripsy (ESWL) is a treatment that can help break up kidney stones that are too large to pass on their own. This is a nonsurgical procedure that breaks up a kidney stone with shock waves. These shock waves pass through your body and focus on the kidney stone. They cause the kidney stone to break into smaller pieces (fragments) while it is still in the urinary tract. The fragments of stone can pass more easily out of your body in the urine. Tell a health care provider about: ??? Any allergies you have. ??? All medicines you are taking, including vitamins, herbs, eye drops, creams, and [id number]-jaq-[id number] medicines. ??? Any problems you or family members have had with anesthetic medicines. ??? Any bleeding problems you have. ??? Any surgeries you have had. ??? Any medical conditions you have. ??? Whether you are or may be . What are the risks? Your health care provider will talk with you about risks. These may include: ??? Infection. ??? Bleeding from the kidney. ??? Bruising of the kidney or skin. ??? Scarring of the kidney. This can lead to: ? Increased blood pressure. ? Poor kidney function. ? Return (recurrence) of kidney stones. ??? Damage to other structures or organs. This may include the liver, colon, spleen, or pancreas. ??? Blockage (obstruction) of the tube that carries urine from the kidney to the bladder (ureter). ??? Failure of the kidney stone to break into fragments. What happens before the procedure? When to stop eating and drinking Follow instructions from your health care provider about what you may eat and drink. These may include: ??? 8 hours before your procedure ? Stop eating most foods. Do not eat meat, fried foods, or fat (more content not included)... [facility] Urology Office/Clinic Noteon 04-23-2024 Urology Office/Clinic Note Urology Office/Clinic Note Chief Complaint F/U HPI Staff 68 year old female here for 6 week F/U with KUB Previous DX: ureteral stone with hydronephrosis, urge incontinence S/p Cystoscopy, Left ureteroscopy left laser lithotripsy, left ureteral stent placement, left retrograde pyelogram 02/28/24 and cysto, R RPG, R URS, ureteroscopic holmium laser ablation, ureteroscopic stone basket extraction and R stent placement 08/21/20 and cysto and R stent removal 08/28/20. KUB and renal US done 03/12/24 Pt. states no pain with urination and no blood in the urine. Pt. c/o of lower Rt abd pain going around to the back since Last August, mixed incontinence ( Pt. is wearing 4 pads a day). Pt. states the urge incontinence is the biggest urinary issues. History of Present Illness Tests reviewed: reviewed UA, stone analysis, renal US, KUB. I have reviewed the previous health record information and history for this patient from Dr. Sullivan I have reviewed and verified the staff HPI to be accurate for this encounter. There have been no associated fever, chills, flank pain, or blood in the urine. Denies any urinary infections since last encounter. Review of Systems PHQ Score Initial Depression Screen Score: 0 SCORE ROS - Provider Constitutional: denies weight loss, [...] pt who is here for f/up to laser litho. Hx of hypogonadism. PSH ~three sections, cholecystectomy, tubal ligation. Pt shares that she has severe hip pain and has been worked up for this. Nothing has been found. Portions of this record may have been created with voice recognition artificial intelligence software, specifically [employer] ([employer]), [employer] and or [employer]. Substitutions may have occurred due to the [...] she had 3 stones) Pt presented to [facility] ER 02/16/24 with L flank pain and mild nausea. CT AP w con [facility] - minimal L hydronephrosis and hydroureter secondary to a partial obstructing 9 x 5 x 5 mm stone vs 2 adjacent stones within the mid ureter. BUN & Cr are not significantly elevated. S/p cysto, L RPG, L URS, L laser litho, L stent placement 02/28/24 ~Ureteral stone lasered into submillimeter fragments and flushed out of the ureter with no calculi noted at conclusion of procedure. Reports she had no issues with string stent removal. Stone analysis ~60% ca ox dihydrate and 35% ca ox mono, 5% hydroxyapatite. KUB 03/12/24 [facility] - no appreciable urinary tract calculi. Renal US 03/12/24 [facility] - no convincing hydro. -Fluids -See below 2. Kidney stone (N20.0: Calculus of kidney) Renal US 03/12/24 [facility] - no convincing hydro and nonobstructing 6 mm stone within inferior pole. Advised pt that ultrasound tends to overestimate the size of stones. Discussed monitoring stone over time or proceeding with ESWL. Pt wishes to proceed with surgical mgmt of stone. -Will schedule L ESWL. The procedure risks, benefits, details and treatment alternatives have been discussed with the patient. These include blood in the urine, infection, bleeding around the kidney, kidney bruising, inability to break up the stone, need for blood transfusion, blockage from stone fragments, and need for additional procedures, among others. Full informed consent has been obtained. Will order General anesthesia. 3. Mixed incontinence (N39.46: Mixed incontinence) BBSQ 20 (23) UUI > LIBBY. 4 pads per day. UA today shows moderate leuks. Recommend treating UUI first. Discussed med mgmt for OAB vs surgical mgmt such as Botox or Axonics. Pt states Oxybutynin was sent to pharmacy for stone procedure but she never took it. Counseled pt on possible SE (more content not included)... [facility] Comment on above: Result Comment: Elec tronically Signed By: JULIUS RASHEED MD\.br\Date and Time Signed: 04/23/24 10:20 EST\.br\Electronically Co-Signed By: Jaylin Lopez\.br\Date and Time Co-Signed: 04/23/24 10:00 EST MM screening mammo BI w/CADo n 04-02-2024 MM screening mammo BI w/CAD [facility] Main [place] [address] [place] [address] Mammography Report Signed Patient: Herminio Drake MR#: [id number] : 1955 Acct:[id number] Age/Sex: 68 / F ADM Date: 04/02/24 Loc: IN Room: Type: [facility] Attending Dr: Taiwo Rai RN, MSN, ANP-C Copies to: DO CECELIA Lala MICHELE L RN, MSN Ordering Provider: TAIWO RAI RN, MSN Date of Service: 04/02/24 MM/MM screening mammo BI w/CAD: Breast cancer screening CLINICAL DATA: Screening for malignancy. BILATERAL SCREENING MAMMOGRAMS - FULL FIELD DIGITAL WITH TOMOSYNTHESIS AND CAD Tomosynthesis craniocaudal and mediolateral oblique views of both breasts were obtained using low- dose digital technique. Comparison is made to prior studies from July 12, 2021 (right) through January 26, 2023. This examination was reviewed with the aid of CAD. There are scattered fibroglandular densities. Benign calcifications are again seen. There are no developing masses, typically malignant calcifications or architectural distortion. There has been n o significant interval change. MM/MM screening mammo BI w/CAD IMPRESSION: NO MAMMOGRAPHIC EVIDENCE [...] for the next mammogram. Impression dictated by: Shaniqua Harrington M.D.04/02/2024 3:59 PM Dictation Location: [facility] Transcribed By: YANIV 04/02/241558 Dictated By: Shaniqua Harrington MD 04/02/241555 Signed By: 04/02/241558 Normal The Counts Include 234 Beds At [facility] Mammography reportOrdered By : Shaniqua Harrington on 04-02-2024 Diagnostic imaging study [facility] [place] [address] Mammography Report Signed Patient: Herminio Drake MR#: [id number] : 1955 Acct:[id number] Age/Sex: 68 / F ADM Date: 4 Loc: IN Room: Type: [facility] Attending Dr: Taiwo Rai RN, MSN, ANP-C Copies to: DO CECELIA Lala MICHELE L RN, MSN~ Ordering Provider: TAIWO RAI RN, MSN Date of Service: 04/02/24 MM/MM screening mammo BI w/CAD: Breast cancer screening CLINICAL DATA: Screening for malignancy. BILATERAL SCREENING MAMMOGRAMS - FULL FIELD DIGITAL WITH TOMOSYNTHESIS AND CAD Tomosynthesis craniocaudal and mediolateral oblique views of both breasts were obtained using low-dose digital technique. Comparison is made to prior studies from July 12, 2021 (right) through January 26, 2023. This examination was reviewed with the aid of CAD. There are scattered fibroglandular densities. Benign calcifications are again seen. There are no developing masses, typically malignant calcifications or architectural distortion. There has been no significant interval change. MM/MM screening mammo BI w/CAD IMPRESSION: NO MAMMOGRAPHIC EVIDENCE [...] for the next mammogram. Impression dictated by: Shaniqua Harrington M.D.04/02/2024 3:59 PM Dictation Location: [facility] Transcribed By: [facility] 04/02/241558 Dictated By: Shaniqua Harrington MD 04/02/241555 Signed By: 04/02/241558 [facility] Work Phone: Calculus Analysison 03-05-20 24 Calcium oxalate dihydrate Infrared spectroscopy (Stone) [Mass fraction] 60 % Invalid Interpretation Code [facility] Comment on above: Performed By: #### 1 [id number] #### [facility] [address] [place] [address] Calcium oxalate monohydrate (Stone) [Mass fraction] 35 % Invalid Interpretation Code [facility] Comment on above: Performed By: #### 1 [id number] #### [facility] [address] [place] [address] Calculus analysis [Interp] Comment Invalid Interpretation Code [facility] Comment on above: Result Comment: Calc ium phosphate (hydroxyl form) includes hydroxyapatite, amorphous calcium phosphate, and whitlockite. Hydroxyapatite is the most common of the calcium phosphate salts found in human kidney stones. Performed By: #### 1 [id number] #### [facility] [address] [place] [address] Color (Stone) Bee Invalid Interpretation Code [facility] Comment on above: Performed By: #### 1 [id number] #### [facility] [address] [place] [address] Composition Comment Invalid Interpretation Code [facility] Comment on above: Result Comment: Perc entage (Represents the % composition) Performed By: #### 1 [id number] #### [facility] [address] [place] [address] Disclaimer: Comment Invalid Interpretation Code [facility] Comment on above: Result Comment: This test was developed and its performance characteristics determined by [facility]. It has not been cleared or approved by the Food and Drug Administration. Performed at: [facility] [address] [id number] PhD Judith Guan Performed By: #### 1 [id number] #### [facility] [address] [place] [address] Hydroxyapatite: 5 % Invalid Interpretation Code [facility] Comment on above: Performed By: #### 1 [id number] #### [facility] [address] [place] [address] Laboratory comment Colin (Report) Comment Invalid Interpretation Code [facility] Comment on above: Result Comment: Kierra stone questions regarding Calculi Analysis contact [facility] at: [phone]. Performed By: #### 1 [id number] #### [facility] [address] [place] [address] Please Note: Comment Invalid Interpretation Code [facility] Comment on above: Result Comment: Calc elke report will follow via computer, mail or line builder delivery. Performed By: #### 1 [id number] #### [facility] [address] [place] [address] Size (Stone) [Entitic vol] 4x3 Invalid Interpretation Code [facility] Comment on above: Result Comment: Mult iple pieces received. Dimensions of the largest piece reported. Performed By: #### 1 [id number] #### [facility] [address] [place] [address] Specimen source subject Nom Comment Invalid Interpretation Code [facility] Comment on above: Result Comment: Left Kidney Performed By: #### 1 [id number] #### [facility] [address] [place] [address] Stone Photo Comment Invalid Interpretation Code [facility] Comment on above: Result Comment: Phot ograph will follow under a separate cover Performed By: #### 1 [id number] #### [facility] [address] [place] [address] Weight (Stone) 17 mg Invalid Interpretation Code [facility] Comment on above: Performed By: #### 1 [id number] #### [facility] [address] [place] [address] No Panel Informationon 03-05 WIN MISCELLANEOUS COMMENT [facility] Comment on above: Test Ordered: [id number] IGP, Apt HPV,rfx 16/18,45 DIAGNOSIS: Comment 01 NEGATIVE FOR INTRAEPITHELIAL LESION OR MALIGNANCY. Specimen adequacy: Comment 01 Satisfactory for evaluation. No endocervical component is identified. Clinician provided ICD10: Comment 01 Z01.419 Z12.4 Performed by: Comment 01 Brook Chaney, Slat Basket Maker (ASCP) . 01 Note: Comment 01 The [...] types (16,18,31,33,35,39,45,51,52,56,58,59,66,68) without differentiation. Performed At: [address] [id number] Tj Epperson MD Ph:[phone] Performed At: [address] [id number] Tj Epperson MD Ph:[phone] Specimen Comment: No. of containers..01 ThinPrep Vial [facility] XR Urography Retrograde Left on 03-05-2024 [...] mGy = 2.20 DAP = 146.41 [facility] COAGULATIONOrdered By: Raysa Beyer on 02-28-2024 aPTT Coag (PPP) [Time] 36.7 s High 25.1 - 36.5 second(s) [facility] Comment on above: Interpretive Data: [...] the same coagulation reagent and instrumentation as [facility]. Currently there are no coagulation studies available worldwide for children to 14 days, and no normal ranges. Heparin therapeutic range (represented by Anti-Factor Xa activity of 0.2 - 0.4 U/mL) corresponds to PTT of 56.6 - 109.0 sec. INR Coag (PPP) [Relative time] 1.06 {INR} Invalid Interpretation Code [facility] Comment on above: Interpretive Data: I NR results are specifically intended to assess patients stabilized on long-term Anticoagulation therapy suggested INR s Less Intensive Anticoagulation 2.0 3.0 Conventional Range 3.0 4.5 PT Coag (PPP) [Time] 11.9 s Normal 9.4 - 1 2.5 second(s) [facility] Comment on above: Interpretive Data: [...] the same coagulation reagent and instrumentation as [facility]. Currently there are no coagulation studies available worldwide for children to 14 days, and no normal ranges. Discharge Instructionson Discharge Instructions Discharge Instructions HERMINIO DRAKE :1955 Visit Date:02/28/2024 Inpatient Discharge Instructions Your Care Team Admitting Physician - JULIUS RASHEED MD Referring Physician - JULIUS RASHEED MD Reason [...] weeks with KUB, renal ultrasound. Where: [address], [place] [phone] Business (1) Medications What How Much When Instructions Next Dose New oxybutynin (oxybutynin 5 mg ER Tab) 1 Tablets By Mouth Every day Pickup at [facility] New oxycodone (Roxicodone 5 mg Tab) 1 Tablets By Mouth Every 6 hours as needed for for pain Pickup at [facility] Unchanged acetaminophen-hydrocodo ne (acetaminophen-hydrocod one 325 [...] 0.4 mg Cap) 1 Capsules Pharmacy Information [facility]: [address] [place], [place] [phone] [employer] [facility] [place], [place] Dr. Parul Pitts Post-operative Instructions for [...] other reasons. If it is to remain termite treater, however, changes of the stent are required [...] including y (more content not included)... [facility] Comment on above: Result Comment: Elec tronically Signed By: Mallory TORREZ, Dimitris Durham\.br\Date and Time Signed: 02/28/24 09:16 EST Inpatient Patient Summaryon 02-28-2024 Inpatient Patient Summary Inpatient Patient Summary [place] [id number] [facility] Clinical Discharge Instructions PERSON INFORMATION Name: HERMINIO DRAKE PHYSICIANS Admitting Physician: JULIUS RASHEED MD Attending Physician: JULIUS RASHEED MD PCP: BOB CARTER DO Discharge Diagnosis: Comment: PATIENT EDUCATION INFORMATION Instructions: Medication Leaflets: Follow up: With: Address: When: JULIUS RASHEED [address] [place] [phone] Business (1) Comments: Follow-up in 6 weeks with KUB, renal ultrasound. MEDICATION LIST New Medications [facility], [address] [place] [phone], [phone] oxybutynin (oxybutynin 5 mg ER Tab) 1 [...] (tamsulosin 0.4 mg Cap) 1 Capsules. Comment: [facility] Main OR Intraoperative Recor don 02-28-2024 Main OR Intraoperative Record Main OR Intraoperative Record IntraOp Document Type FT Summary Primary Physician: JULIUS RASHEED MD Finalized Date/Time: 02/28/24 14:46:19 Pt. Name: HERMINIO DRAKE/Sex: 1955 Female Med Rec #: [id number] Physician: JULIUS RASHEED MD Financial #: [id number] Pt. Type: A Room/Bed: [facility] Admit/Disch: 02/28/24 06:12:05 - 02/28/24 10:30:46 Institution: Case Times FT Entry 1 Patient Times In Room 02/28/24 07:44:00 Out Room 02/28/24 08:31:00 Procedure Times Start 02/28/24 07:54:00 Stop 02/28/24 08:23:00 Anesthesia Times Start 02/28/24 07:44:00 Stop 02/28/24 08:31:00 Last Modified By: Chiquita TORREZ, Tarah Andrea 02/28/24 09:51:26 General Comments: 02/28/24 Chart opened to review and send charges [facility]FA Case Attendance FT Entry 1 Entry 2 Entry 3 Case Attendee Neftaly SOLOMON, [employer], Queen JHONY NICHOLS, Chiquita TORREZ, Tarah MADRID Role Performed [employer] Surgeon - Primary Manager Travel - Primary Time In 02/28/24 07:44:00 02/28/24 07:53:00 02/28/24 07:44:00 Time Out 02/28/24 08:31:00 02/28/24 08:28:00 02/28/24 08:31:00 Procedure CYSTOSCOPY W/ HOMIUM CYSTOSCOPY W/ HOMIUM CYSTOSCOPY W/ HOMIUM LASER(Left), CYSTOSCOPY LASER(Left), CYSTOSCOPY LASER(Left), CYSTOSCOPY RETROGRADE STENT RETROGRADE STENT RETROGRADE STENT INSERTION(Left) INSERTION(Left) INSERTION(Left) Comments Dr. Lyon anesthesia retail route supervisor Last Modified By: Tarah Porras RN, RN, Tarah Porras RN, Tarah Andrea 02/28/24 09:52:03 02/28/24 09:52:03 02/28/24 09:52:03 Entry 4 Entry 5 Entry 6 Case Attendee Rachael Srivastava Bryce Ferrer RN, Carmen Seay Role Performed Scrub - Primary Vascular Nurse Staff - Other Time In 02/28/24 07:44:00 02/28/24 07:44:00 02/28/24 07:44:00 Time Out 02/28/24 08:31:00 02/28/24 08:31:00 02/28/24 07:52:00 Procedure CYSTOSCOPY W/ HOMIUM CYSTOSCOPY W/ HOMIUM CYSTOSCOPY W/ HOMIUM LASER(Left), CYSTOSCOPY LASER(Left), CYSTOSCOPY LASER(Left), CYSTOSCOPY RETROGRADE STENT RETROGRADE STENT RETROGRADE STENT INSERTION(Left) INSERTION(Left) INSERTION(Left) Comments room assist Last Modified By: Tarah Porras RN, RN, Leann E Ott RN, Leann E 02/28/24 09:52:23 02/28/24 09:52:23 02/28/24 09:52:03 General Comments: Ajay Espinalcuba rep present for this case. 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 [facility] Main OR PACU I Recordon 02-02 Main OR PACU I Record Main OR PACU I Rec ord PACU Phase I Document Type FT Summary Primary Physician: JULIUS RASHEED MD Finalized Date/Time: 02/28/24 09:16:28 Pt. Name: KRISHANHERMINIO./Sex: 1955 Female Med Rec #: [id number] Physician: JULIUS RASHEED MD Financial #: [id number] Pt. Type: A Room/Bed: [place] [address] Admit/Disch: 02/28/24 06:12:05 - Institution: Case Times [...] Signed By: Sydni Sparrow RN 02/28/24 09:16 [facility] Main OR PACU II Recordon Main OR PACU II Record Main OR PACU II Record PACU Phase II Document Type FT Summary Primary Physician: JULIUS RASHEED MD Finalized Date/Time: 02/28/24 10:29:31 Pt. Name: HERMINIO DRAKE/Sex: 1955 Female Med Rec #: [id number] Physician: JULIUS RASHEED MD Financial #: [id number] Pt. Type: A Room/Bed: [place] [address] Admit/Disch: 02/28/24 06:12:05 - Institution: Case Times [...] Signatures Signed By: Carli Solorzano 02/28/24 10:29 [facility] Main OR Preoperative Recordo n 02-28-2024 Main OR Preoperative Record Main OR Preoperative Record PreOp Document Type FT Summary Primary Physician: JULIUS RASHEED MD Finalized Date/Time: 02/28/24 09:50:18 Pt. Name: HERMINIO DRAKE /Sex: 1955 Female Med Rec #: [id number] Physician: JULIUS RASHEED MD Financial #: [id number] Pt. Type: A Room/Bed: [place] [address] Admit/Disch: 02/28/24 06:12:05 - Institution: Case Times [...] By: Tarah Porras RN 02/28/24 09:50 [facility] Operative Reporton Operative Report Operative Report Patient: [...] in the room agreed. A well-lubricated 22 Kiswahili cystoscopic sheath with a 30 degree lens [...] for breakthrough. Oxybutynin for bladder spasms. [facility] Comment on above: Result Comment: Elec tronically Signed By: JHONY NICHOLS, JULIUS\.renetta\Date and Time Signed: 02/28/24 08:55 EST Outpatient Surgery Discharge Instructionon 02-28-2024 Outpatient Surgery Discharge Instruction Outpatient Surgery Discharge Instruction [place] [id number] Patient Discharge Instructions PERSON INFORMATION Name: HERMINIO DRAKE Date of : 1955 Current Date: 02/28/2024 08:42:38 PHYSICIANS Admitting Physician: JHONY NICHOLS, JULIUS Discharge Diagnosis: HERMINIO DRAKE has been given [...] Follow up: With: Address: When: JULIUS RASHEED [address] [place] [phone] Business (1) Comments: Follow-up in 6 weeks with KUB, renal ultrasound. Pharmacy Information: You may receive a survey from [employer] asking you to rate your care experience. Your feedback is important and will help us understand what we do well and how we can improve the quality of care we provide to you, your loved ones and our community. It???s an honor to serve you. Thank you for choosing [facility] HERE ARE THE MEDICATION CHANGES THAT OCCURRED DURING YOUR HOSPITAL STAY New Medications [facility], [address] [place] [phone], [phone] oxybutynin (oxybutynin 5 mg ER Tab) 1 [...] PATIENT EDUCATION INFORMATION Instructions: Medication Leaflets: [facility] PT & PTTon 02-28-2024 aPTT Coag (PPP) [Time] 36.7 second(s) High 25.1-36.5 [facility] Comment on above: Result Comment: Para meter [...] the same coagulation reagent and instrumentation as [facility]. Currently there are no coagulation studies available worldwide for children to 14 days, and no normal ranges. Heparin therapeutic range (represented by Anti-Factor Xa activity of 0.2 - 0.4 U/mL) corresponds to PTT of 56.6 - 109.0 sec. Performed By: #### 1 [id number] #### [facility] [address] [place] [address] INR Coag (PPP) [Relative time] 1.06 {INR} Invalid Interpretation Code [facility] Comment on above: Result Comment: INR results are specifically intended to assess patients stabilized on long-term Anticoagulation therapy suggested INR???s ???Less Intensive Anticoagulation??? 2.0 ??? 3.0 Conventional Range 3.0 ??? 4.5 Performed By: #### 1 [id number] #### [facility] [address] [place] [address] PT Coag (PPP) [Time] 11.9 second(s) Normal 9.4-12.5 [facility] Comment on above: Result Comment: 15 d [...] the same coagulation reagent and instrumentation as [facility]. Currently there are no coagulation studies available worldwide for children to 14 days, and no normal ranges. Performed By: #### 1 [id number] #### [facility] [address] [place] [address] XR Chest 2 Viewson XR Chest 2 [...] Signed by: Enoch Martino MD Transcribed by: FARIBA Technologist: JAVI Technical Comments Radiation Dose: Ka,r in mGy = 0 DAP = 0 [facility] Ambulatory Visit Summaryon 1 04-23-2023 Ambulatory Visit Summary Ambulatory Visit Summary HERMINIO DRAKE :1955 Visit Date:02/22/2024 Ambulatory Visit Instructions Your Diagnosis Ureteral stone with hydronephrosis Urge incontinence Your Care Team Attending Physician - JULIUS RASHEED MD Primary Care Physician - BOB CARTER DO [...] Follow-Up Appointments Monday 8:45 AM EST Where: [facility] Monday 10:30 AM EST Where: [facility] You Need to Schedule the Following Appointments Follow Up with JULIUS RASHEED MD, URL When: Where: Medications What How Much When [...] including vitamins, herbs, eye drops, creams, and bzrt-mof-tbgxosn medicines. ??? Any problems you or family [...] or y (more content not included)... [facility] Urology Office/Clinic Noteon 02-22-2024 Urology Office/Clinic Note Urology Office/Clinic Note Chief Complaint ER F/U HPI Staff 68 year old female here for F/U to [facility] ER on 02/16/24 due to Lt. [...] been found. Pt states she has a CERAMIC ENGINEER appointment next week. Portions of this record may have been created with voice recognition artificial intelligence software, specifically Azuki (Vozero/Gengibre), [employer] and or WebVisible. Substitutions may have occurred due to the [...] she had 3 stones) Pt presented to [facility] ER 02/16/24 with L flank pain and mild nausea. CT AP w con [facility] - minimal L hydronephrosis and hydroureter [...] with treatment. Follow-up With When Contact Information JULIUS RASHEED MD, URL Additional Instructions: Schedule cysto, L RPG, L URS, laser litho, possible L stent placement Patient Education Ureteroscopy IJaylin, personally scribed for (more content not included)... [facility] Comment on above: Result Comment: Elec tronically [...] phalanx, good position to the 5th digit Critical access hospital Radiology Study observation (narrative) [facility] XR HIPS BILATERAL 2 VW WITH OR [...] report is generated using voice recognition reporting (PrepChamps). On occasion PowerScribe erroneously drops words from [...] report is generated using voice recognition reporting (BuildersCloud). On occasion, Powerscribe erroneously drops words from [...] report is generated using voice recognition reporting (BuildersCloud). On occasion, Powerscribe erroneously drops words from the report or replaces the spoken word with a similar sounding word. Please call with any questions/concerns regarding the report. Dictated and transcribed 02/13/2024 This report has been electronically signed and [...] report is generated using voice recognition reporting (BuildersCloud). On occasion, Powerscribe erroneously drops words from the report or replaces the spoken word with a similar sounding word. Please call with any questions/concerns regarding the report. Dictated and transcribed 02/13/2024/tm This report has been electronically signed and approved by the interpreting radiologist. Critical access hospital Radiology Study observation (narrative) [facility] XR Pelvis AP and Hip - bilat [...] report is generated using voice recognition reporting (PrepChamps). On occasion PowerScribe erroneously drops words from the report or replaces the spoken word with similar sounding words. Please call with any questions/concerns regarding this report.* Dictated and transcribed 02/13/24/dpd This report has been electronically signed and approved by the interpreting radiologist. Vamsi Owens MD - 02/13/2024 EXAM: XR Pelvis and [...] report is generated using voice recognition reporting (PrepChamps). On occasion PowerScribe erroneously drops words from the report or replaces the spoken word with similar sounding words. Please call with any questions/concerns regarding this report.* Dictated and transcribed 02/13/24/dpd This report has been electronically signed and approved by the interpreting radiologist. [facility] 51edj Radiology Study observation (narrative) [facility] 51edj XR Pelvis AP and Hip - bilat eral GE 2 ViewsOrdered By: Vamsi Hutton on 02-13-2024 [facility] 51edj Work Phone: XR Foot - right 3 [...] phalanx, good position to the 5th digit Critical access hospital Radiology Study observation (narrative) [facility] XR Foot - right 3 [facility] Result: Three views of the right foot: AP, MO, LAT were performed today in the office. Radiographs were read by myself and demonstrate: No evidence of acute fracture or dislocation. Normal joint spaces noted with no evidence of narrowing or osteophyte formation. Delta phalanx along the head of the proximal phalanx with lateral deviation of the PIPJ 5th digit Critical access hospital Radiology Study observation (narrative) [facility] XR CHEST 2 VIEWSon 4 XR CHEST [...] BY: Linwood Cooley MD Normal Not Available Office Visit (Cardiology)on 01-17-2022 Follow-up visit Diagnoses/Problems [...] tired. Cardiovascula (more content not included)... Normal [facility] PHQ-2 VITALSon 01-17-2022 Adult depression screening assessment No -[facility] 250 DO Work Phone: Fall risk assessment a) No falls within the last year [facility] 250 DO Work Phone: Tobacco use status CP b) No [facility] 250 DO Work Phone: Diagnostic Mammogram, Unilat [...] IS VERY IMPORTANT TO YOUR HEALTH. CURRENT [employer] GUIDELINES RECOMMENDS ANNUAL MAMMOGRAPHY BEGINNING AT AGE 41. THIS FACILITY USUALLY USES A REMINDER SYSTEM TO ENSURE ALL POSITIONS RECEIVED REMINDER NOTIFICATIONS AT THE TIME BASED ON THE RECOMMENDATIONS OF THIS EXAM. Report reported and signed by Brandt Martino on 06/28/2021 1002 Normal [facility] Specification Writer Laboratory - Chemistry and C hemistry - challengeon 04-01-2021 Cholesterol [Mass/Vol] 253\S\253 above high threshold 140-200 [facility] 250 DO Work Phone: Comment on above: Chol less than 200 m g/dl low risk Chol 201-239 mg/dl borderline risk Chol 240 mg/dl and greater high risk Cholesterol in LDL [Mass/Vol] 154\S\154 above high threshold 0-100 [facility] 250 DO Work Phone: Comment on above: LDL ATP III CLASSIFI CATION LDL less than 100 mg/dL Optimal LDL 100-129 mg/dL Near or above optimal LDL 130-159 mg/dL Borderline high LDL 160-189 mg/dL High LDL greater than 189 mg/dL Very high No Panel Informationon 04-01 0.0\S\0.0 Normal 0.0-0.2 -[facility] 250 DO Work Phone: [phone] Comment on above: PERFORMED BY:[facility] [place]UNGin[place]WE[address] [place] [phone] MEDICAL DIRECTORCHAIM FORMAN M.D. 0.2\S\0.2 Normal 0.0-0.45 [facility] 250 DO Work Phone: 0.5\S\0.5 Normal 0.0-0.8 [facility] 250 DO Work Phone: 1.6\S\1.6 Normal 1.00-4.8 [facility] 250 DO Work Phone: 3.1\S\3.1 Normal 1.8-7.7 [facility] 250 DO Work Phone: 0.1\S\0.1 Normal 0-0.5 [facility] 250 DO Work Phone: 0.6\S\0.6 Normal . [facility] 250 DO Work Phone: 3.5\S\3.5 Normal . [facility] 250 DO Work Phone: 9.3\S\9.3 Normal . [facility] 250 DO Work Phone: 29.2\S\29.2 Normal . [facility] 250 DO Work Phone: 57.4\S\57.4 Normal . [facility] 250 DO Work Phone: 8.2\S\8.2 Normal 6.3-10.7 [facility] 250 DO Work Phone: 208\S\208 Normal 150-450 [facility] 250 DO Work Phone: 14.7\S\14.7 Normal 11.9-15.3 [facility] 250 DO Work Phone: 33.2\S\33.2 Normal 32.0-35.0 [facility] 250 DO Work Phone: 28.4\S\28.4 Normal 24.7-34.3 [facility] 250 DO Work Phone: 85.6\S\85.6 Normal 80-100 [facility] 250 DO Work Phone: 40.9\S\40.9 Normal 34.0-46.4 [facility] 250 DO Work Phone: 13.6\S\13.6 Normal 11.8-15.4 [facility] 250 DO Work Phone: 4.78\S\4.78 Normal 3.60-5.00 [facility] 250 DO Work Phone: 5.5\S\5.5 Normal 3.8-11.6 [facility] 250 DO Work Phone: 32.3\S\32.3 Normal 25.1-36.5 [facility] 250 DO Work Phone: Comment on above: PERFORMED BY:[facility] [place], [place] [phone] MEDICAL DIRECTORCHAIM FORMAN M.D. 1.0\S\1.0 Normal [facility] 250 DO Work Phone: [phone] Comment on above: INR Therapeutic Rang [...] valves: 3 - 4.5 11.0\S\11.0 Normal 9.0-12.9 [facility] 250 DO Work Phone: 27.2\S\27.2 Normal 22.0-30.0 [facility] 250 DO Work Phone: 103\S\103 Normal 95-114 [facility] 250 DO Work Phone: 4.5\S\4.5 Normal 3.5-5.1 [facility] 250 DO Work Phone: 139\S\139 Normal 136-146 [facility] 250 DO Work Phone: 12\S\12 Normal 9-23 [facility] 250 DO Work Phone: > 60 Normal [facility] 250 DO Work Phone: [phone] Comment on above: GFR estimated refere nce range: According to KDOQI guidelines, <60 ml/min/1.73m2 is sufficient to diagnose a patient with chronic kidney disease. 0.75\S\0.75 Normal 0.44-1.03 [facility] 250 DO Work Phone: 5.4\S\5.4 Normal <5.0 [facility] 250 DO Work Phone: Comment on above: PERFORMED BY:[place] [address] [place] [place], [place] [phone] MEDICAL DIRECTORCHAIM FORMAN M.D. 52\S\52 Normal [facility] 250 DO Work Phone: 262\S\262 above high threshold 35-149 [facility] 250 DO Work Phone: Comment on above: TRIG ATP III CLASSIF ICATION TRIG less than 150 mg/dL Normal TRIG 150-199 mg/dL Borderline high TRIG 200-500 mg/dL High TRIG greater than 500 mg/dL Very high Standard traceable to the Center for Disease Conrtrol and Prevention (CDC) test method. 47\S\47 Normal 35-85 -[facility] 250 DO Work Phone: Comment on above: [...] by HUY SILVA on 03/30/2021 1022 Normal [facility] Specification Writer XR CHEST 1 Von 03-10-2021 XR CHEST [...] JOLLY KITCHEN Date: 2021-03-09 22:36 Normal [facility] BNPon 03-09-2021 Natriuretic peptide B (Bld) [Mass/Vol] 60.0 pg/mL Normal <=900.0 [facility] Comment on above: Performed By: #### H STROPN, BNP, BMP ####[facility] [address] [place] [address]Dr. Brigettelan Castillo CBC W MANUAL DIFFon 03-09-20 21 ATYPICAL LYMPH # 0.33 103/ul Normal [facility] Comment on above: Performed By: #### C DAYNA ####[facility] [address] [place] [address]Dr. Brigtetelan Castillo ATYPICAL LYMPH % 10 % Normal [facility] Comment on above: Performed By: #### C BCMAN ####[facility] [address] [place] [address]Dr. Yilan Castillo BAND # Normal 0.0-0.3 [facility] Comment on above: Performed By: #### C DAYNA ####[facility] [address] [place] [address]Dr. Yilan Castillo BAND % Normal 0-5 [facility] Comment on above: Performed By: #### C BCMAN ####[facility] [address] [place] [address]Dr. Brigettelan Castillo BASOM # 0.00 103/ul Normal 0.00-0.10 [facility] Comment on above: Performed By: #### C WENDYMAN ####[facility] [address] [place] [address]Dr. Maryann Castillo BASOM % 0.0 % Critically low 0.2-2.0 The [facility] Comment on above: Performed By: #### C DAYNA ####[facility] [address] [place] [address]Dr. Maryann Castillo BLAST # Normal [facility] Comment on above: Performed By: #### C DAYNA ####[facility] [address] [place] [id number]. Maryann Castillo BLAST % Normal [facility] Comment on above: Performed By: #### C DAYNA ####[facility] [address]to[address] [place] [address]Dr. Maryann Castillo CORRECTED WBC Normal 4.0-11.0 [facility] Comment on above: Performed By: #### C DAYNA ####[facility] [address] [place], [place] [address]Dr. Maryann Castillo EOS # 0.00 103/ul Normal 0.00-0.70 [facility] Comment on above: Performed By: #### C DAYNA ####[facility] [address] [place], [place] [address]Dr. Maryann Castillo EOS% 0.0 % Critically low 0.9-7.0 [facility] Comment on above: Performed By: #### C DAYNA ####[facility] [address] [place], [place] [address]Dr. Maryann Castillo HCT 45.1 % Normal 36.0-48.0 [facility] Comment on above: Performed By: #### C DAYNA ####[facility] S[address] [place], [place] [address]Dr. Maryann Castillo HGB 14.6 g/dl Normal 12.0-16.0 [facility] Comment on above: Performed By: #### C DAYNA ####[facility] [address] [place], [place] [address]Dr. Maryann Castillo LYMPHM # 0.33 103/ul Critically low 1.20-3.80 The [facility] Comment on above: Performed By: #### C DAYNA ####[facility] [address] [place], [place] [address]Dr. Yilan Castillo LYMPHM% 10.0 % Critically low 20.5-60.0 The [facility] Comment on above: Performed By: #### C DAYNA ####[facility] [address] [place] [id number]. Maryann Castillo MCH 27.5 pg Normal 26.7-34.0 [facility] Comment on above: Performed By: #### C DAYNA ####[facility] [address] [place] [phone]. Maryann Castillo MCHC 32.4 g/dl Normal 29.9-35.2 [facility] Comment on above: Performed By: #### C DAYNA ####[facility] [address] [place] [phone]. Maryann Castillo MCV 85.1 fL Normal 81.0-99.0 [facility] Comment on above: Performed By: #### C DAYNA ####[facility] [address] [place] [phone]. Maryann Castillo METAMYELOCYTE # Normal [facility] Comment on above: Performed By: #### C DAYNA ####[facility] [address] [place] [phone]. Maryann Castillo METAMYELOCYTE % Normal [facility] Comment on above: Performed By: #### C DAYNA ####[facility] [address] [place] [address]Dr. Maryann Castillo MONOM# 0.33 103/ul Normal 0.30-0.80 [facility] Comment on above: Performed By: #### C DAYNA ####[facility] [address] [place] [phone]. Maryann Castillo MONOM% 10.0 % Normal 1.7-12.0 [facility] Comment on above: Performed By: #### C DAYNA ####[facility] [address] [place] [phone]. Maryann Castillo MPV 11.2 fL Normal 9.5-13.5 [facility] Comment on above: Performed By: #### C DAYNA ####[facility] [address] [place], [place] [address]Tu. Maryann Castillo MYELOCYTE # Normal [facility] Comment on above: Performed By: #### C DAYNA ####[facility] [address] [place] [phone]. Maryann Castillo MYELOCYTE % Normal [facility] Comment on above: Performed By: #### C DAYNA ####[facility] [address]emdx[address] [place] [phone]. Maryann Castillo NRBC Normal [facility] Comment on above: Performed By: #### C DAYNA ####[facility] [address] [place] [phone]. Maryann Castillo PLT 153 103/ul Normal 150-450 [facility] Comment on above: Performed By: #### Doroteo MCINTOSH ####[facility] [address] [place] [phone]. Maryann Castillo RBC 5.30 106/ul Normal 4.20-5.40 [facility] Comment on above: Performed By: #### C DAYNA ####[facility] [address] [place] [phone]. Maryann Castillo RDW 13.2 % Normal 11.0-15.0 [facility] Comment on above: Performed By: #### Doroteo MCINTOSH ####[facility] [address]av[address] [place] [phone]. Maryann Castillo SEG # 2.31 103/ul Normal 1.40-6.50 [facility] Comment on above: Performed By: #### Doroteo MCINTOSH ####[facility] [address]tcngb[address] [place] [phone]. Maryann Castillo SEG % 70.0 % Normal 43.0-75.0 [facility] Comment on above: Performed By: #### C DAYNA ####[facility] X[address]ux4[address] [place] [phone]. Maryann Castillo WBC 3.3 103/ul Critically low 4.0-11.0 The [facility] Comment on above: Performed By: #### Doroteo MCINTOSH ####[facility] [address] [place] [address]Dr. Maryann Castillo PROF CHEM 8 (BAS METB)on Anion gap [Moles/Vol] 11.5 mmol/L Normal [facility] Comment on above: Performed By: #### H STROPN, BNP, BMP ####[facility] [address]qsi[address] [place] [address]Dr. Brigettecordell Castillo Calcium [Mass/Vol] 8.8 mg/dL Normal 8.4-10.2 [facility] Comment on above: Performed By: #### H STROPN, BNP, BMP ####[facility] [address] [place] [address]Dr. Maryann Castillo Chloride [Moles/Vol] 95 mmol/L Critically low 98-107 [facility] Comment on above: Performed By: #### H STROPN, BNP, BMP ####[facility] [address]ub[address] [place] [address]Dr. Brigettecordell Castillo CO2 [Moles/Vol] 30.0 mmol/L Normal 22.0-30.0 [facility] Comment on above: Performed By: #### H STROPN, BNP, BMP ####[facility] [address]fr[address]ftic[address] [place] [address]Dr. Maryann Castillo Creatinine [Mass/Vol] 0.87 mg/dL Normal 0.52-1.04 [facility] Comment on above: Performed By: #### H STROPN, BNP, BMP ####[facility] [address] [place] [address]Dr. Brigettecordell Jonathan EGFR-AF BURMESE >60 Normal >=60 [facility] Comment on above: Performed By: #### H STROPN, BNP, BMP ####[facility] [address] [place] [address]Dr. Maryann Castillo EGFR-NON AF BURMESE >60 Normal >=60 [facility] Comment on above: Performed By: #### H STROPN, BNP, BMP ####[facility] [address]xot[address] [place] [address]Dr. Maryann Castillo Glucose [Mass/Vol] 114 mg/dL Critically high 74-106 T [facility] Comment on above: Performed By: #### H STROPN, BNP, BMP ####[facility] [address]laaf[address] [place] [address]Dr. Maryann Castillo Potassium [Moles/Vol] 3.5 mmol/L Normal 3.4-5.0 [facility] Comment on above: Performed By: #### H STROPN, BNP, BMP ####[facility] [address]vddp[address] [place] [address]Dr. Maryann Castillo Sodium [Moles/Vol] 133 mmol/L Critically low 137-145 Th [facility] Comment on above: Performed By: #### H STROPN, BNP, BMP ####[facility] [address]akt[address] [place] [address]Dr. Maryann Castillo Urea nitrogen [Mass/Vol] 19.0 mg/dL Critically high 7.0-17.0 [facility] Comment on above: Performed By: #### H STROPN, BNP, BMP ####[facility] [address]des[address] [place] [address]Dr. Maryann Castillo Urea nitrogen/Creatinine [Mass ratio] 21.8 mg/mg Normal [facility] Comment on above: Performed By: #### H STROPN, BNP, BMP ####[facility] [address] [place] [address]Dr. Maryann Castillo TROPONIN, HIGH SENSITIVITYon 03-09-2021 HSTROP 16.8 pg/mL Normal 4.0-35.5 [facility] Comment on above: Result Comment: CUT- OFF POINTS HAVE BEEN ESTABLISHED BASED ON THE FOURTH UNIVERSAL DEFINITIONS OF MYOCARDIAL INFARCTION. THE UPPER REFERENCE LIMIT (URL) OF TROPONIN, DEFINED THE 99TH PERCENTILE OF cTnI DISTRIBUTION IN A REFERENCE POPULATION, HAS BEEN CONFIRMED THE DECISION THRESHOLD FOR [place] DIAGNOSIS. Performed By: #### H STROPN, BNP, BMP ####[facility] [address] [place] [address]Dr. Maryann Castillo Office Visit (Cardiology)on 02-19-2021 Follow-up visit [...] a smoker Tobacco Use Screening; Status:Complete; Done: 19Feb2021 Patient Instructions By signing my name below, I, Rianna Link LPN, Scribe, attest that this documentation has been prepared under the direction and in the presence of Dr. Vamsi Clement DO. All medical record entries made by the Cindy were at my direction and personally dictated [...] Follow-up after testing completed Chief Complaint HERMINIO SEBETTO is being seen for a consultation for [...] history of (more content not included)... Normal [employer] 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 DATE: 02/09/2021 09:00 DICTATING PHYSICIAN: LELAND TABOR [...] Leland Tabor MD on 02/23/2021 01:13 PM EST [facility] Signed and Approved by: DR LELAND TABOR 02/23/2021 13:13:00 Normal [facility] ECHOCARDIO M/2D COMPLETEon 1 04-10-2020 ECHOCARDIO M/2D COMPLETE Patient: HERMINIO DRAKE Exam Date: 02/08/2021 : 1955 Gender:F Ordering : DR BOB CARTER Admission #: [id number] Family : Order #: [id number] CLICK HERE TO VIEW EXAM ECHOCARDIOGRAM REPORT [...] Area(A4C): 17.50 cm2 Left Atrium Systolic Volume(A2C): 41707 mm3 Left Atrium Systolic Volume(A4C): 85041 mm3 Mitral Valve MV E to A Ratio: 1.10 Deceleration Luna: 5510 mm/s2 Mitral Valve A-Wave Peak Velocity: [...] M.D. on 02/08/2021 at 12:22 Normal [facility] CBC AUTO DIFFon 08-28-2020 BASO # 0.0 103/ul Normal 0.0-0.1 [facility] Comment on above: Performed By: #### C BC ####[facility] [address] [place], [place] [address]Gerken Shaniqua Basophils/100 WBC (Bld) 0.2 % Normal 0.2-2.0 [facility] Comment on above: Performed By: #### C BC ####[facility] [address] [place], [place] [address]Gerken Shaniqua EO # 0.3 103/ul Normal 0.0-0.7 [facility] Comment on above: Performed By: #### C BC ####[facility] [address] [place], [place] [address]Gerken Shaniqua Eosinophils/100 WBC (Bld) 2.7 % Normal 0.9-7.0 [facility] Comment on above: Performed By: #### C BC ####[facility] W[address] [place], [place] [address]Gerken Shaniqua Erythrocyte distribution width (RBC) [Ratio] 13.5 % Normal 11.0-15.0 [facility] Comment on above: Performed By: #### C BC ####[facility] [address] [place], [place] [address]Gerken Shaniqua Hematocrit (Bld) [Volume fraction] 45.7 % Normal 36.0-48.0 [facility] Comment on above: Performed By: #### C BC ####[facility] Cf[address]rs[address]hw[address] [place], [place] [address]Gerken Shaniqua Hemoglobin (Bld) [Mass/Vol] 15.1 g/dL Normal 12.0-16.0 [facility] Comment on above: Performed By: #### C BC ####[facility] [address]awtj[address] [place], [place] [address]Gerken Shaniqua IG # 0.03 10e3/ul Normal 0.00-0.03 [facility] Comment on above: Performed By: #### C BC ####[facility] [address] [place], [place] [address]Gerken Shaniqua IG % 0.3 % Normal 0.0-0.5 [facility] Comment on above: Performed By: #### C BC ####[facility] [address] [place] [address] Shaniqua LYMPH # 2.0 103/ul Normal 1.2-3.8 [facility] Comment on above: Performed By: #### C BC ####[facility] [address] [place] [address] Shaniqua Lymphocytes/100 WBC (Bld) 18.1 % Critically low 20.5-60.0 [facility] Comment on above: Performed By: #### C BC ####[facility] [address] [place] [address] Shaniqua MANUAL DIFF REQ NO Normal [facility] Comment on above: Performed By: #### C BC ####[facility] [address] [place] [address] Shaniqua MCH (RBC) [Entitic mass] 28.3 pg Normal 26.7-34.0 [facility] Comment on above: Performed By: #### C BC ####[facility] [address] [place] [address] Shaniqua MCHC (RBC) [Mass/Vol] 33.0 g/dL Normal 29.9-35.2 [facility] Comment on above: Performed By: #### C BC ####[facility] [address] [place] [address] Shaniqua MCV (RBC) [Entitic vol] 85.6 fL Normal 81.0-99.0 [facility] Comment on above: Performed By: #### C BC ####[facility] [address] [place] [address] Shaniqua MONO # 0.7 103/ul Normal 0.3-0.8 [facility] Comment on above: Performed By: #### C BC ####[facility] [address] [place], [place] [address]sandi Mcgovern Monocytes/100 WBC (Bld) 5.9 % Normal 1.7-12.0 [facility] Comment on above: Performed By: #### C BC ####[facility] [address] [place] [address] Shaniqua NEUT # 8.2 103/ul Critically high 1.4-6.5 The [facility] Comment on above: Performed By: #### C BC ####[facility] [address] [place] [address]Geovanna Mcgovern Neutrophils/100 WBC (Bld) 72.8 % Normal 43.0-75.0 The [facility] Comment on above: Performed By: #### C BC ####[facility] [address] [place] [address]Keron Mcgovern Platelet mean volume (Bld) [Entitic vol] 10.2 fL Normal 9.5-13.5 [facility] Comment on above: Performed By: #### C BC ####[facility] [address] [place] [address]Gerken Shaniqua PLT 307 103/ul Normal 150-450 [facility] Comment on above: Performed By: #### C BC ####[facility] [address] [place] [id number] Mcgovern RBC 5.34 106/ul Normal 4.20-5.40 [facility] Comment on above: Performed By: #### C BC ####[facility] [address] [place], [place] [address]Keron Mcgovern WBC 11.2 103/ul Critically high 4.0-11.0 The [facility] Comment on above: Performed By: #### C BC ####[facility] [address] [place], [place] [address]Keron Mcgovern CT ABD/PELV W CONon 08-29-19 CT [...] BRANDT BROUSSARD Date: 2020-08-28 11:58 Normal The [facility] LIPASEon 08-28-2020 Lipase [Catalytic activity/Vol] 104.0 U/L Normal 23.0-300.0 [facility] Comment on above: Performed By: #### L IPA CMP ####[facility] [address] [place] [address]Keron Mcgovern PROF 14(COMP METB)on 021 Albumin [Mass/Vol] 3.7 g/dL Normal 3.5-5.0 [facility] Comment on above: Performed By: #### L LACY CMP ####[facility] [address] [place] [address]Keron Mcgovern Albumin/Globulin [Mass ratio] 0.8 {ratio} Normal [facility] Comment on above: Performed By: #### L IPA CMP ####[facility] [address] [place] [phone] Shaniqua ALP [Catalytic activity/Vol] 126 U/L Normal 38-126 [facility] Comment on above: Performed By: #### L IPA, CMP ####[facility] [address] [place], [place] [address]Uhogxv Shaniqua ALT [Catalytic activity/Vol] 69 U/L Critically high 9-52 [facility] Comment on above: Performed By: #### L IPA, CMP ####[facility] [address] [place], [place] [address]Dwerxv Shaniqua Anion gap [Moles/Vol] 15.4 mmol/L Normal Th e [facility] Comment on above: Performed By: #### L IPA, CMP ####[facility] [address] [place], [place] [address]Auxtvg Shaniqua AST [Catalytic activity/Vol] 38 U/L Critically high 14-36 [facility] Comment on above: Performed By: #### L IPA, CMP ####[facility] [address] [place], [place] [address]Vndjus Shaniqua Bilirubin [Mass/Vol] 0.4 mg/dL Normal 0.2-1.3 [facility] Comment on above: Performed By: #### L IPA, CMP ####[facility] [address] [place] [address]Cpjjav Shaniqua Calcium [Mass/Vol] 9.4 mg/dL Normal 8.4-10.2 [facility] Comment on above: Performed By: #### L IPA, CMP ####[facility] [address] [place], [place] [address]Rdcgot Shaniqua Chloride [Moles/Vol] 104 mmol/L Normal 98-107 The [facility] Comment on above: Performed By: #### L IPA, CMP ####[facility] [address]24[address] [place], [place] [address]Cdrawx Shaniqua CO2 [Moles/Vol] 26.7 mmol/L Normal 22.0-30.0 [facility] Comment on above: Performed By: #### L IPA, CMP ####[facility] [address] [place], [place] [address]Emqcpk Shaniqua Creatinine [Mass/Vol] 1.05 mg/dL Critically high 0.52-1.04 [facility] Comment on above: Performed By: #### L IPA, CMP ####[facility] [address] [place], [place] [address]Uaicmq Shaniqua EGFR-AF BURMESE >60 Normal >=60 [facility] Comment on above: Performed By: #### L IPA, CMP ####[facility] [address] [place], [place] [address]Ylljmj Shaniqua EGFR-NON AF BURMESE 53 mL/min/1.73m2 Critically low >=60 [facility] Comment on above: Performed By: #### L IPA, CMP ####[facility] [address] [place], [place] [address]Rmueou Shaniqua Globulin (S) [Mass/Vol] 4.4 g/dL Normal [facility] Comment on above: Performed By: #### L IPA, CMP ####[facility] [address] [place] [phone] Shaniqua Glucose [Mass/Vol] 97 mg/dL Normal 74-106 [facility] Comment on above: Performed By: #### L IPA, CMP ####[facility] [address] [place], [place] [address]Gerken Shaniqua Potassium [Moles/Vol] 4.1 mmol/L Normal 3.4-5.0 [facility] Comment on above: Performed By: #### L IPA, CMP ####[facility] [address] [place], [place] [address]Pxoitu Shaniqua Protein [Mass/Vol] 8.1 g/dL Normal 6.1-8.2 [facility] Comment on above: Performed By: #### L IPA, CMP ####[facility] [address] [place] [phone] Shaniqua Sodium [Moles/Vol] 142 mmol/L Normal 137-145 [facility] Comment on above: Performed By: #### L IPA, CMP ####[facility] [address] [place], [place] [address]Giykvx Shaniqua Urea nitrogen [Mass/Vol] 30.0 mg/dL Critically high 7.0-17.0 [facility] Comment on above: Performed By: #### L IPA, CMP ####[facility] [address] [place], [place] [address]Jjeapr Shaniqua Urea nitrogen/Creatinine [Mass ratio] 28.6 mg/mg Normal The [facility] Comment on above: Performed By: #### L IPA, CMP ####[facility] [address] [place], [place] [address]Uncbeh Shaniqua XR KUB 1 VIEWon 08-21-2020 XR [...] BRANDT BROUSSARD Date: 2020-08-21 07:18 Normal The [facility] CBC AUTO DIFFon 08-20-2020 BASO # 0.0 103/ul Normal 0.0-0.1 [facility] Comment on above: Performed By: #### C BC #### [facility] [address] [place], [place] [address] Keron Shaniqua Basophils/100 WBC (Bld) 0.5 % Normal 0.2-2.0 [facility] Comment on above: Performed By: #### C BC #### [facility] [address] [place], [place] [address] Keron Shaniqua EO # 0.2 103/ul Normal 0.0-0.7 [facility] Comment on above: Performed By: #### C BC #### [facility] [address] [place], [place] [address] Keron Shaniqua Eosinophils/100 WBC (Bld) 2.4 % Normal 0.9-7.0 [facility] Comment on above: Performed By: #### C BC #### [facility] [address] [place] [address] Keron Shaniqua Erythrocyte distribution width (RBC) [Ratio] 13.3 % Normal 11.0-15.0 [facility] Comment on above: Performed By: #### C BC #### [facility] [address] [place] [address] Keron Shaniqua Hematocrit (Bld) [Volume fraction] 43.0 % Normal 36.0-48.0 [facility] Comment on above: Performed By: #### C BC #### [facility] [address] [place] [address] Keron Shaniqua Hemoglobin (Bld) [Mass/Vol] 14.1 g/dL Normal 12.0-16.0 [facility] Comment on above: Performed By: #### C BC #### [facility] [address] [place] [address] Keron Shaniqua IG # 0.03 10e3/ul Normal 0.00-0.03 [facility] Comment on above: Performed By: #### C BC #### [facility] [address] [place] [address] Keron Shaniqua IG % 0.3 % Normal 0.0-0.5 [facility] Comment on above: Performed By: #### C BC #### [facility] [address] [place] [address] Keron Shaniqua LYMPH # 2.9 103/ul Normal 1.2-3.8 [facility] Comment on above: Performed By: #### C BC #### [facility] [address] [place] [address] Keron Shaniqua Lymphocytes/100 WBC (Bld) 33.0 % Normal 20.5-60.0 [facility] Comment on above: Performed By: #### C BC #### [facility] [address] [place], [place] [phone] Keron Shaniqua MANUAL DIFF REQ NO Normal [facility] Comment on above: Performed By: #### C BC #### [facility] [address] [place] [address] Keron Mcgovern MCH (RBC) [Entitic mass] 28.3 pg Normal 26.7-34.0 [facility] Comment on above: Performed By: #### C BC #### [facility] [address] [place] [address] Keron Mcgovern MCHC (RBC) [Mass/Vol] 32.8 g/dL Normal 29.9-35.2 [facility] Comment on above: Performed By: #### C BC #### [facility] [address] [place], [place] [address] Keronsandi Mcgovern MCV (RBC) [Entitic vol] 86.2 fL Normal 81.0-99.0 [facility] Comment on above: Performed By: #### C BC #### [facility] [address] [place] [address] Keron Mcgovern MONO # 0.6 103/ul Normal 0.3-0.8 [facility] Comment on above: Performed By: #### C BC #### [facility] [address] [place] [address] Keron Mcgovern Monocytes/100 WBC (Bld) 7.1 % Normal 1.7-12.0 [facility] Comment on above: Performed By: #### C BC #### [facility] [address] [place] [address] Keron Mcgovern NEUT # 5.0 103/ul Normal 1.4-6.5 [facility] Comment on above: Performed By: #### C BC #### [facility] [address] [place] [address] Keron Mcgovern Neutrophils/100 WBC (Bld) 56.7 % Normal 43.0-75.0 [facility] Comment on above: Performed By: #### C BC #### [facility] [address] [place], [place] [phone] Keronsandi Mcgovern Platelet mean volume (Bld) [Entitic vol] 11.3 fL Normal 9.5-13.5 [facility] Comment on above: Performed By: #### C BC #### [facility] [address] [place], [place] [address] Keron Mcgovern PLT 201 103/ul Normal 150-450 [facility] Comment on above: Performed By: #### C BC #### [facility] [address] [place], [place] [address] Keron Mcgovern RBC 4.99 106/ul Normal 4.20-5.40 [facility] Comment on above: Performed By: #### C BC #### [facility] [address] [place], [place] [address] Keron Fabianen WBC 8.8 103/ul Normal 4.0-11.0 [facility] Comment on above: Performed By: #### C BC #### [facility] [address] [place], [place] [address] ABD/PELVIS WO CONon 08-20 [...] iterative reconstruction technique. Electronically authenticated by: GABE SAID Date: 2020-08-20 04:35 Normal [facility] CULTURE URINEon 08-20-2020 CULTURE URINE Culture Observations : LIGHT GROWTH OF MIXED GENITAL KEVIN. NO POTENTIAL PATHOGENS SEEN. Normal [facility] Comment on above: Performed By: #### U RCX ####[facility] [address] [place] [id number] Shaniqua ER URINE PROFILEon Bilirubin Ql (U) Negative Normal NEGATIVE [facility] Comment on above: Performed By: #### U MICRO, ERUR #### [facility] [address] [place] [address] Keron Shaniqua Clarity (U) CLEAR Normal CLEAR [facility] Comment on above: Performed By: #### U MICRO, ERUR #### [facility] [address] [place] [address] Keron Shaniqua Color (U) YELLOW Normal YELLOW [facility] Comment on above: Performed By: #### U MICRO, ERUR #### [facility] [address] [place] [address] Keron Shaniqua ERUAHD A micrscopic examination will be performed if indicated. Normal [facility] Comment on above: Performed By: #### U MICRO, ERUR #### [facility] [address] [place] [address] Keron Shaniqua Glucose Ql (U) Negative Normal NEGATIVE The [facility] Comment on above: Performed By: #### U MICRO, ERUR #### [facility] [address] [place] [address] Keron Shaniqua Hemoglobin Ql (U) LARGE Abnormal NEGATIVE [facility] Comment on above: Performed By: #### U MICRO, ERUR #### [facility] [address] [place] [address] Keron Shaniqua Ketones Ql (U) Negative Normal NEGATIVE The [facility] Comment on above: Performed By: #### U MICRO, ERUR #### [facility] [address] [place] [address] Keron Shaniqua LEUKOCYTES Negative Normal NEGATIVE [facility] Comment on above: Performed By: #### U MICRO, ERUR #### [facility] [address] [place], [place] [phone] Keron Mcgovern Nitrite Ql (U) Negative Normal NEGATIVE [facility] Comment on above: Performed By: #### U MICRO, ERUR #### [facility] [address] [place], [place] [address] Keron Mcgovern pH (U) 5.5 [pH] Normal 5-9 [facility] Comment on above: Performed By: #### U MICRO, ERUR #### [facility] [address] [place] [address] Keron Mcgovern SPEC GRAVITY >=1.030 Abnormal 1.005-<=1.02 5 [facility] Comment on above: Performed By: #### U MICRO, ERUR #### [facility] [address] [place] [address] Keron Mcgovern UA PROTEIN TRACE Normal NEGATIVE/ TRACE [facility] Comment on above: Performed By: #### U MICRO, ERUR #### [facility] [address] [place] [address] Keron Mcgovern UR MICRO IND INDICATED Normal [facility] Comment on above: Performed By: #### U MICRO, ERUR #### [facility] [address] [place] [address] Keron Mcgovern Urobilinogen Qn (U) 0.2 {Debra'U}/dL Normal 0.2 - 1. 0 [facility] Comment on above: Performed By: #### U MICRO, ERUR #### [facility] [address] [place] [address] Keron Mcgovern PROF 14(COMP METB)on 021 Albumin [Mass/Vol] 3.7 g/dL Normal 3.5-5.0 [facility] Comment on above: Performed By: #### C MP #### [facility] [address] [place] [address] Keron Mcgovern Albumin/Globulin [Mass ratio] 0.9 {ratio} Normal [facility] Comment on above: Performed By: #### C MP #### [facility] [address] [place], [place] [address] Keron Shaniqua ALP [Catalytic activity/Vol] 133 U/L Critically high 38-126 [facility] Comment on above: Performed By: #### C MP #### [facility] [address] [place] [phone] Keron Shaniqua ALT [Catalytic activity/Vol] 35 U/L Normal 9-52 [facility] Comment on above: Performed By: #### C MP #### [facility] [address] [place] [address] Keron Shaniqua Anion gap [Moles/Vol] 12.3 mmol/L Normal Th [facility] Comment on above: Performed By: #### C MP #### [facility] [address] [place] [address] Keron Shaniqua AST [Catalytic activity/Vol] 16 U/L Normal 14-36 [facility] Comment on above: Performed By: #### C MP #### [facility] [address] [place] [address] Keron Shaniqua Bilirubin [Mass/Vol] 0.2 mg/dL Normal 0.2-1.3 [facility] Comment on above: Performed By: #### C MP #### [facility] [address] [place] [address] Keron Shaniqua Calcium [Mass/Vol] 9.4 mg/dL Normal 8.4-10.2 [facility] Comment on above: Performed By: #### C MP #### [facility] [address] [place] [address] Keron Shaniqua Chloride [Moles/Vol] 103 mmol/L Normal 98-107 [facility] Comment on above: Performed By: #### C MP #### [facility] [address] [place] [phone] Keron Shaniqua CO2 [Moles/Vol] 30.4 mmol/L Critically high 22.0-30.0 [facility] Comment on above: Performed By: #### C MP #### [facility] [address] [place] [phone] Keron Shaniqua Creatinine [Mass/Vol] 0.93 mg/dL Normal 0.52-1.04 [facility] Comment on above: Performed By: #### C MP #### [facility] [address] [place] [phone] Keron Shaniqua EGFR-AF BURMESE >60 Normal >=60 [facility] Comment on above: Performed By: #### C MP #### [facility] [address] [place] [address] Keron Shaniqua EGFR-NON AF BURMESE >60 Normal >=60 [facility] Comment on above: Performed By: #### C MP #### [facility] [address] [place] [phone] Keron Shaniqua Globulin (S) [Mass/Vol] 4.2 g/dL Normal [facility] Comment on above: Performed By: #### C MP #### [facility] [address] [place] [address] Keron Shaniqua Glucose [Mass/Vol] 120 mg/dL Critically high 74-106 [facility] Comment on above: Performed By: #### C MP #### [facility] [address] [place], [place] [address] Keron Shaniqua Potassium [Moles/Vol] 3.7 mmol/L Normal 3.4-5.0 [facility] Comment on above: Performed By: #### C MP #### [facility] [address] [place], [place] [address] Keron Shaniqua Protein [Mass/Vol] 7.9 g/dL Normal 6.1-8.2 [facility] Comment on above: Performed By: #### C MP #### [facility] [address] [place], [place] [address] Keron Shaniqua Sodium [Moles/Vol] 142 mmol/L Normal 137-145 [facility] Comment on above: Performed By: #### C MP #### [facility] [address] [place], [place] [address] Keron Shaniqua Urea nitrogen [Mass/Vol] 19.0 mg/dL Critically high 7.0-17.0 [facility] Comment on above: Performed By: #### C MP #### [facility] [address] [place] [phone] Keron Shaniqua Urea nitrogen/Creatinine [Mass ratio] 20.4 mg/mg Normal [facility] Comment on above: Performed By: #### C MP #### [facility] [address] [place] [address] Keron Shaniqua URINE MICROSCOPIC ONLYon BACTERIA SMALL Abnormal NONE SEEN The [facility] Comment on above: Performed By: #### U MICRO, ERUR #### [facility] [address] [place] [address] Keron Shaniqua Bacteria identified Cx Nom (U) INDICATED Normal [facility] Comment on above: Performed By: #### U MICRO, ERUR #### [facility] [address] [place] [address] Keron Shaniqua CAST NONE SEEN Normal NONE SEEN The [facility] Comment on above: Performed By: #### U MICRO, ERUR #### [facility] [address] [place] [address] Keron Shaniqua Crystals LM Nom (Urine sed) NONE SEEN Normal NONE SEEN The [facility] Comment on above: Performed By: #### U MICRO, ERUR #### [facility] [address] [place] [address] Keron Shaniqua Epithelial cells LM Ql (Urine sed) RARE Normal NONE SEEN /RARE [facility] Comment on above: Performed By: #### U MICRO, ERUR #### [facility] [address] [place] [address] Keron Shaniqua MUCOUS NONE SEEN Normal NONE SEEN [facility] Comment on above: Performed By: #### U MICRO, ERUR #### [facility] [address] [place] [address] Keron Shaniqua RBC 20-50 Abnormal 0-2 [facility] Comment on above: Performed By: #### U MICRO, ERUR #### [facility] [address] [place], [place] [address] Keron Shaniqua WBC 0-2 Abnormal NONE SEEN The [facility] Comment on above: Performed By: #### U MICRO, ERUR #### [facility] [address] [place], [place] [address] Keron Shaniqua CBC AUTO DIFFon 06-27-2020 BASO # 0.0 103/ul Normal 0.0-0.1 [facility] Comment on above: Performed By: #### C BC #### [facility] [address] [place], [place] [address] Keron Shaniqua Basophils/100 WBC (Bld) 0.5 % Normal 0.2-2.0 [facility] Comment on above: Performed By: #### C BC #### [facility] [address] [place] [phone] Keron Shaniqua EO # 0.1 103/ul Normal 0.0-0.7 [facility] Comment on above: Performed By: #### C BC #### [facility] [address] [place], [place] [address] Keron Shaniqua Eosinophils/100 WBC (Bld) 2.0 % Normal 0.9-7.0 [facility] Comment on above: Performed By: #### C BC #### [facility] [address] [place] [phone] Keron Shaniqua Erythrocyte distribution width (RBC) [Ratio] 13.2 % Normal 11.0-15.0 [facility] Comment on above: Performed By: #### C BC #### [facility] [address] [place], [place] [address] Keron Shaniqua Hematocrit (Bld) [Volume fraction] 40.9 % Normal 36.0-48.0 [facility] Comment on above: Performed By: #### C BC #### [facility] [address] [place], [place] [address] Keron Shaniqua Hemoglobin (Bld) [Mass/Vol] 13.2 g/dL Normal 12.0-16.0 [facility] Comment on above: Performed By: #### C BC #### [facility] [address] [place] [phone] Keron Shaniqua IG # 0.04 10e3/ul Critically high 0.00-0.03 [facility] Comment on above: Performed By: #### C BC #### [facility] [address] [place], [place] [address] Keron Shaniqua IG % 0.6 % Critically high 0.0-0.5 [facility] Comment on above: Performed By: #### C BC #### [facility] [address] [place], [place] [address] Keron Shaniqua LYMPH # 1.8 103/ul Normal 1.2-3.8 [facility] Comment on above: Performed By: #### C BC #### [facility] [address] [place], [place] [address] Keron Shaniqua Lymphocytes/100 WBC (Bld) 27.7 % Normal 20.5-60.0 [facility] Comment on above: Performed By: #### C BC #### [facility] [address] [place], [place] [address] Kerno Shaniqua MANUAL DIFF REQ NO Normal [facility] Comment on above: Performed By: #### C BC #### [facility] [address] [place], [place] [address] Keron Shaniqua MCH (RBC) [Entitic mass] 28.3 pg Normal 26.7-34.0 [facility] Comment on above: Performed By: #### C BC #### [facility] [address] [place], [place] [address] Keron Shaniqua MCHC (RBC) [Mass/Vol] 32.3 g/dL Normal 29.9-35.2 [facility] Comment on above: Performed By: #### C BC #### [facility] [address] [place], [place] [address] Keron Shaniqua MCV (RBC) [Entitic vol] 87.8 fL Normal 81.0-99.0 [facility] [facility] Comment on above: Performed By: #### C BC #### [facility] [address] [place], [place] [id number] Keron Shaniqua MONO # 0.5 103/ul Normal 0.3-0.8 [facility] Comment on above: Performed By: #### C BC #### [facility] [address] [place] [id number] Keron Shaniqua Monocytes/100 WBC (Bld) 7.9 % Normal 1.7-12.0 [facility] Comment on above: Performed By: #### C BC #### [facility] [address] [place], [place] [id number] Keronsandi Fabianen NEUT # 4.0 103/ul Normal 1.4-6.5 [facility] Comment on above: Performed By: #### C BC #### [facility] [address] [place], [place] [id number] Keron Shaniqua Neutrophils/100 WBC (Bld) 61.3 % Normal 43.0-75.0 [facility] Comment on above: Performed By: #### C BC #### [facility] [address] [place], [place] [phone] Keron Mcgovern Platelet mean volume (Bld) [Entitic vol] 10.3 fL Normal 9.5-13.5 [facility] Comment on above: Performed By: #### C BC #### [facility] [address] [place], [place] [phone] Keron Shaniqua PLT 223 103/ul Normal 150-450 [facility] Comment on above: Performed By: #### C BC #### [facility] [address] [place], [place] [id number] Keron Shaniqua RBC 4.66 106/ul Normal 4.20-5.40 [facility] Comment on above: Performed By: #### C BC #### [facility] [address] [place], [place] [id number] Keron Shaniqua WBC 6.5 103/ul Normal 4.0-11.0 [facility] Comment on above: Performed By: #### C BC #### [facility] [address] [place], [place] [phone] Keron Mcgovern LIPID PROFILEon 06-27-2020 CHOL-HDL RATIO NORM SEE BELOW Normal [facility] Comment on above: Result Comment: 3.3 - 4.4 LOW RISK 4.4 - 7.1 AVERAGE RISK 7.1 - 11.0 MODERATE RISK >11.0 HIGH RISK Performed By: #### C MP, LIPID, TSH #### [facility] [address] [place], [place] [address] Keron Shaniqua Cholesterol [Mass/Vol] 184 mg/dL Normal <=200 [facility] Comment on above: Performed By: #### C MP, LIPID, TSH #### [facility] [address] [place], [place] [address] Keron Shaniqua Cholesterol in HDL [Mass/Vol] 53 mg/dL Normal [facility] Comment on above: Performed By: #### C MP, LIPID, TSH #### [facility] [address] [place], [place] [address] Keron Shaniqua Cholesterol in LDL [Mass/Vol] 104.8 mg/dL Normal [facility] Comment on above: Performed By: #### C MP, LIPID, TSH #### [facility] [address] [place], [place] [address] Keron Shaniqua Cholesterol.total/Cho lesterol in HDL [Mass ratio] 3.5 {ratio} Normal [facility] Comment on above: Performed By: #### C MP, LIPID, TSH #### [facility] [address] [place], [place] [address] Keron Shaniqua HDL NORMAL > or = 60 mg/dl - LO W CARDIOVASCULAR RISK <40 mg/dl - HIGH CARDIOVASCULAR RISK Normal [facility] Comment on above: Performed By: #### C MP, LIPID, TSH #### [facility] [address] [place], [place] [address] Keron Shaniqua LDL CALC NORMAL SEE BELOW Normal [facility] Comment on above: Result Comment: <100 mg/dl OPTIMAL 100 - 129 mg/dl NEAR OR ABOVE OPTIMAL 130 - 159 mg/dl BORDERLINE HIGH 160 - 189 mg/dl HIGH >190 mg/dl VERY HIGH Performed By: #### C MP, LIPID, TSH #### [facility] [address] [place] [phone] Keron Shaniqua Triglyceride [Mass/Vol] 131 mg/dL Normal <=150 [facility] Comment on above: Performed By: #### C MP, LIPID, TSH #### [facility] [address] [place] [phone] Keron Shaniqua VLDL CALC 26.2 mg/dL Normal [facility] Comment on above: Performed By: #### C MP, LIPID, TSH #### [facility] [address] [place] [phone] Keron Mcgovern PROF 14(COMP METB)on 021 Albumin [Mass/Vol] 3.4 g/dL Critically low 3.5-5.0 [facility] Comment on above: Performed By: #### C MP, LIPID, TSH #### [facility] [address] [place] [address] Keronsandi Mcgovern Albumin/Globulin [Mass ratio] 0.9 {ratio} Normal [facility] Comment on above: Performed By: #### C MP, LIPID, TSH #### [facility] [address] [place] [address] Keron Shaniqua ALP [Catalytic activity/Vol] 111 U/L Normal 38-126 [facility] Comment on above: Performed By: #### C MP, LIPID, TSH #### [facility] [address] [place] [address] Keron Shaniqua ALT [Catalytic activity/Vol] 41 U/L Normal 9-52 [facility] Comment on above: Performed By: #### C MP, LIPID, TSH #### [facility] [address] [place] [address] Keron Shaniqua Anion gap [Moles/Vol] 12.1 mmol/L Normal [facility] Comment on above: Performed By: #### C MP, LIPID, TSH #### [facility] [address] [place] [address] Keron Shaniqua AST [Catalytic activity/Vol] 24 U/L Normal 14-36 [facility] Comment on above: Performed By: #### C MP, LIPID, TSH #### [facility] [address] [place], [place] [phone] Keron Shaniqua Bilirubin [Mass/Vol] 0.3 mg/dL Normal 0.2-1.3 [facility] Comment on above: Performed By: #### C MP, LIPID, TSH #### [facility] [address] [place], [place] [phone] Keron Shaniqua Calcium [Mass/Vol] 8.8 mg/dL Normal 8.4-10.2 [facility] Comment on above: Performed By: #### C MP, LIPID, TSH #### [facility] [address] [place] [address] Keron Shaniqua Chloride [Moles/Vol] 104 mmol/L Normal 98-107 [facility] Comment on above: Performed By: #### C MP, LIPID, TSH #### [facility] [address] [place] [address] Keron Shaniqua CO2 [Moles/Vol] 28.9 mmol/L Normal 22.0-30.0 [facility] Comment on above: Performed By: #### C MP, LIPID, TSH #### [facility] [address] [place] [address] Keron Shaniqua Creatinine [Mass/Vol] 0.81 mg/dL Normal 0.52-1.04 [facility] Comment on above: Performed By: #### C MP, LIPID, TSH #### [facility] [address] [place] [address] Keron Shaniqua EGFR-AF BURMESE >60 Normal >=60 [facility] Comment on above: Performed By: #### C MP, LIPID, TSH #### [facility] [address] [place] [address] Keron Shaniqua EGFR-NON AF BURMESE >60 Normal >=60 [facility] Comment on above: Performed By: #### C MP, LIPID, TSH #### [facility] [address] [place] [address] Keron Shaniqua Globulin (S) [Mass/Vol] 3.9 g/dL Normal [facility] Comment on above: Performed By: #### C MP, LIPID, TSH #### [facility] [address] [place] [address] Keron Shaniqua Glucose [Mass/Vol] 92 mg/dL Normal 74-106 [facility] Comment on above: Performed By: #### C MP, LIPID, TSH #### [facility] [address] [place] [address] Keron Shaniqua Potassium [Moles/Vol] 4.0 mmol/L Normal 3.4-5.0 [facility] Comment on above: Performed By: #### C MP, LIPID, TSH #### [facility] [address] [place] [address] Keron Shaniqua Protein [Mass/Vol] 7.3 g/dL Normal 6.1-8.2 [facility] Comment on above: Performed By: #### C MP, LIPID, TSH #### [facility] [address] [place] [address] Keron Shaniqua Sodium [Moles/Vol] 141 mmol/L Normal 137-145 [facility] Comment on above: Performed By: #### C MP, LIPID, TSH #### [facility] [address] [place] [address] Keron Shaniqua Urea nitrogen [Mass/Vol] 18.0 mg/dL Critically high 7.0-17.0 [facility] Comment on above: Performed By: #### C MP, LIPID, TSH #### [facility] [address] [place] [address] Keron Shaniqua Urea nitrogen/Creatinine [Mass ratio] 22.2 mg/mg Normal [facility] Comment on above: Performed By: #### C MP, LIPID, TSH #### [facility] [address] [place] [address] Keron Shaniqua TSHon 06-27-2020 TSH 1.459 uIU/mL Normal 0.470-4.680 [facility] Comment on above: Performed By: #### C MP, LIPID, TSH #### [facility] [address] [place] [address] Keron Shaniqua TSH RANGE SEE BELOW Normal [facility] Comment on above: Result Comment: <0.3 4 UIU/ml HYPERTHYROID 0.34-5.60 UIU/ml EUTHYROID >5.60 UIU/ml HYPOTHYROID Performed By: #### C MP, LIPID, TSH #### [facility] [address] [place] [address] Keron Shaniqua Vital Signs Date Time Vital Sign Value Performing Clinician Facility 02-28-2024 10:18-0500 Heart rate 78 /min JULIUS NKANSAH-AMANKRA [facility] 02-28-2024 10:18-0500 SaO2% (BldA) [Mass fraction] 100 % JULIUS NKANSAH-AMANKRA [facility] 02-28-2024 10:17-0500 Diastolic blood pressure 66 mm[Hg] JULIUS NKANSAH-AMANKRA [facility] 02-28-2024 10:17-0500 Mean blood pressure 90 mm[Hg] JULIUS NKANSAH-AMANKRA [facility] 02-28-2024 10:17-0500 Systolic blood pressure 138 mm[Hg] JULIUS NKANSAH-AMANKRA [facility] 02-28-2024 10:16-0500 Respiratory rate 18 /min JULIUS NKANSAH-AMANKRA [facility] 02-28-2024 09:07-0500 Heart rate 67 /min JULIUS NKANSAH-AMANKRA [facility] 02-28-2024 09:07-0500 SaO2% (BldA) [Mass fraction] 99 % JULIUS NKANSAH-AMANKRA [facility] 02-28-2024 09:07-0500 Body temperature 96.62 [degF] JULIUS NKANSAH-AMANKRA [facility] 02-28-2024 09:07-0500 Respiratory rate 16 /min JULIUS NKANSAH-AMANKRA [facility] 02-28-2024 09:05-0500 Diastolic blood pressure 69 mm[Hg] JULIUS NKANSAH-AMANKRA [facility] 02-28-2024 09:05-0500 Mean blood pressure 98 mm[Hg] JULIUS NKANSAH-AMANKRA [facility] 02-28-2024 09:05-0500 Systolic blood pressure 156 mm[Hg] JULIUS NKANSAH-AMANKRA [facility] 02-28-2024 09:00-0500 Diastolic blood pressure 67 mm[Hg] JULIUS NKANSAH-AMANKRA [facility] 02-28-2024 09:00-0500 Heart rate 71 /min JULIUS NKANSAH-AMANKRA [facility] 02-28-2024 09:00-0500 Mean blood pressure 89 mm[Hg] JULIUS NKANSAH-AMANKRA [facility] 02-28-2024 09:00-0500 SaO2% (BldA) [Mass fraction] 98 % JULIUS NKANSAH-AMANKRA [facility] 02-28-2024 09:00-0500 Systolic blood pressure 132 mm[Hg] JULIUS NKANSAH-AMANKRA [facility] 02-28-2024 08:50-0500 Blood Pressure Location JULIUS NKANSAH-AMANKRA [facility] 02-28-2024 08:50-0500 Mean blood pressure 90 mm[Hg] JULIUS NKANSAH-AMANKRA [facility] 02-28-2024 08:50-0500 Respiratory rate 22 /min JULIUS NKANSAH-AMANKRA [facility] 02-28-2024 08:45-0500 Mean blood pressure 86 mm[Hg] JULIUS NKANSAH-AMANKRA [facility] 02-28-2024 08:45-0500 Respiratory rate 12 /min JULIUS CAIAH-AMANKRA [facility] 02-28-2024 08:33-0500 Body temperature 97.34 [degF] JULIUS CAIAH-AMANKRA [facility] 02-28-2024 08:30-0500 Respiratory rate 2 /min JULIUS CAIAH-AMANKRA [facility] 02-28-2024 06:37-0500 Mean blood pressure 90 mm[Hg] JULIUS CAIAH-AMANKRA [facility] 02-26-2024 15:25-0500 Body mass index (BMI) [Ratio] 33.59 kg/m2 Jeison Pitt MD Work Phone: [facility] 02-26-2024 15:25-0500 Body weight 78.02 kg Jeison Pitt MD Work Phone: [facility] 02-26-2024 15:25-0500 Diastolic blood pressure 70 mm[Hg] Jeison Pitt MD Work Phone: [facility] 02-26-2024 15:25-0500 Systolic blood pressure 138 mm[Hg] Jeison Pitt MD Work Phone: [facility] 02-21-2024 08:52-0500 Body mass index (BMI) [Ratio] 34.18 kg/m2 Bob Carter DO Work Phone: [facility] 02-21-2024 08:52-0500 Body weight 79.38 kg Bob Carter DO Work Phone: [facility] 02-21-2024 08:52-0500 Heart rate 70 /min Bob Carter DO Work Phone: [facility] 02-21-2024 08:52-0500 SaO2% (BldA) [Mass fraction] 98 % Bob Carter DO Work Phone: [facility] 02-13-2024 15:25-0500 Body mass index (BMI) [Ratio] 33.79 kg/m2 Bob Carter DO Work Phone: [facility] 02-13-2024 15:25-0500 Body weight 78.47 kg Bob Carter DO Work Phone: [facility] 02-13-2024 15:25-0500 Diastolic blood pressure 62 mm[Hg] Bob Carter DO Work Phone: [facility] 02-13-2024 15:25-0500 Heart rate 72 /min Bob Carter DO Work Phone: [facility] 02-13-2024 15:25-0500 SaO2% (BldA) [Mass fraction] 98 % Bob Carter DO Work Phone: [facility] 02-13-2024 15:25-0500 Systolic blood pressure 136 mm[Hg] Bob Carter DO Work Phone: [facility] 01-03-2024 10:24-0400 Body height 152.4 cm Bob Carter DO Work Phone: [facility] 01-03-2024 10:24-0400 Body mass index (BMI) [Ratio] 34.37 kg/m2 Bob Carter DO Work Phone: [facility] 01-03-2024 10:24-0400 Body weight 79.83 kg Bob Carter DO Work Phone: [facility] 01-03-2024 10:24-0400 Heart rate 84 /min Bob Carter DO Work Phone: [facility] 01-03-2024 10:24-0400 SaO2% (BldA) [Mass fraction] 97 % Bob Carter DO Work Phone: [facility] 01-17-2022 13:29-0400 Body height 152.4 cm Bob Carter Work Phone: [facility] DO Work Phone: 01-17-2022 13:29-0400 Body mass index (BMI) [Ratio] 33.79 kg/m2 Bob Carter Work Phone: [facility] DO Work Phone: 01-17-2022 13:29-0400 Body surface area Derived from formula 1.76 m2 Bob Carter Work Phone: [facility] DO Work Phone: 01-17-2022 13:29-0400 Body weight 78.47 kg Bob Carter Work Phone: [facility] DO Work Phone: 01-17-2022 13:29-0400 Diastolic blood pressure 78 mm[Hg] Bob Carter Work Phone: [facility] DO Work Phone: 01-17-2022 13:29-0400 Heart rate 64 /min Bob Carter Work Phone: [facility] DO Work Phone: 01-17-2022 13:29-0400 Systolic blood pressure 136 mm[Hg] Bob Carter Work Phone: [facility] DO Work Phone: 04-01-2021 00:00-0500 154 1 Bob Carter Work Phone: [facility] DO Work Phone: Comment on above: [facility] 02-19-2021 09:35-0500 Diastolic blood pressure 72 mm[Hg] Bob Carter Work Phone: [facility] DO Work Phone: 02-19-2021 09:35-0500 Systolic blood pressure 146 mm[Hg] Bob Carter Work Phone: [facility] DO Work Phone: 02-19-2021 09:34-0500 Body height 152.4 cm Bob Carter Work Phone: [facility] DO Work Phone: 02-19-2021 09:34-0500 Body mass index (BMI) [Ratio] 35.35 kg/m2 Bob Carter Work Phone: [facility] DO Work Phone: 02-19-2021 09:34-0500 Body surface area Derived from formula 1.79 m2 Bob Carter Work Phone: [facility] DO Work Phone: 02-19-2021 09:34-0500 Body weight 82.1 kg Bob Carter Work Phone: [facility] DO Work Phone: 02-19-2021 09:34-0500 Diastolic blood pressure 70 mm[Hg] Bob Carter Work Phone: [facility] DO Work Phone: 02-19-2021 09:34-0500 Heart rate 67 /min Bob Carter Work Phone: [facility] DO Work Phone: 02-19-2021 09:34-0500 Systolic blood pressure 142 mm[Hg] Bob Carter Work Phone: [facility] DO Work Phone: Encounters Encounter Date Encounter Type Care Provider Facility Start: 04-23-2024 End: 06-12-2024 Pre-admission assessment JULIUS RASHEED [facility] Start: 04-23-2024 End: 04-23-2024 ambulatory MD JULIUS RASHEED Facility:[facility] Start: 04-23-2024 End: 04-23-2024 Patient encounter procedure JULIUS JEFFREYGALE [facility] Start: 04-18-2024 End: 04-18-2024 ambulatory JULIUS RASHEED Facility:[facility] Start: 04-18-2024 End: 04-18-2024 Patient encounter procedure JULIUS JEFFREYGALE [facility] Start: 04-02-2024 End: 04-02-2024 Patient encounter procedure Bob Carter DO Work Phone: [facility] Work Phone: Start: 04-02-2024 End: 04-02-2024 ambulatory Bob Carter Facility:[facility] Start: 02-28-2024 End: 02-28-2024 Admission to same day surgery [place] JULIUS JHONY [facility] Start: 02-28-2024 End: 02-28-2024 ambulatory MD JULIUS RASHEED Facility:[facility] Start: 02-26-2024 End: 02-26-2024 Initial preventive medicine new patient 66yrs&> Jeison Pitt MD Work Phone: [facility] Comment on above: Screening for malign ant neoplasm of cervix (Primary Dx); Mixed incontinence; Encounter for gynecological examination without abnormal finding; Encounter for screening mammogram for malignant neoplasm of breast; Osteoporosis, post-menopausal (CMS/HCC); Vaginal atrophy; Anxiety, generalized (CMS/HCC) Start: 02-26-2024 End: 02-26-2024 Patient encounter status Jeison Pitt MD Work Phone: [facility] Start: 02-26-2024 End: 02-26-2024 ambulatory JEISON PITT Not Available Start: 02-22-2024 End: 02-22-2024 ambulatory MD JULIUS RASHEED Facility:[facility] Start: 02-22-2024 End: 02-22-2024 Patient encounter procedure JULIUS RASHEED [facility] Start: 02-21-2024 End: 02-21-2024 ambulatory BOB CARTER Not Available Start: 02-21-2024 End: 02-21-2024 Office outpatient visit 25 minutes Bob Carter DO Work Phone: [facility] Comment on above: Kidney stone (Primar y Dx); Pain of right hip; Greater trochanteric bursitis of right hip Start: 02-13-2024 End: 02-13-2024 ambulatory BOB CARTER Not Available Start: 02-13-2024 End: 02-13-2024 ambulatory BOB CARTER Not Available Start: 02-13-2024 End: 02-13-2024 Office outpatient visit 25 minutes Bob Carter DO Work Phone: [facility] Comment on above: Chronic right-sided low back pain without sciatica (Primary Dx); Pain of right hip Start: 02-13-2024 End: 02-13-2024 ambulatory ARIEL COOPER Not Available Start: 02-13-2024 End: 02-13-2024 Postop follow up visit related to original px Ariel Cooper DPM Work Phone: [facility] Comment on above: Right foot pain Start: 01-22-2024 End: 01-22-2024 Bamboo flowsheet Ariel Cooper DPM Work Phone: [facility] Start: 01-22-2024 End: 01-22-2024 Bamboo flowsheet Ariel Gilmore Cooper DPM Work Phone: [facility] Start: 01-22-2024 End: 01-22-2024 ambulatory ARIEL Deirdre COOPER Not Available Start: 01-22-2024 End: 01-22-2024 Postop follow up visit related to original px Ariel Cooper DPM Work Phone: [facility] Comment on above: Surgery follow-up ex amination (Primary Dx); Hammertoe of right foot; Right foot pain Start: 01-15-2024 End: 01-15-2024 Bamboo flowsheet Ariel Cooper DPM Work Phone: [facility] Start: 01-15-2024 End: 01-15-2024 Bamboo flowsheet Ariel Gilmore Cooper DPM Work Phone: [facility] Start: 01-15-2024 End: 01-15-2024 Postop follow up visit related to original px Ariel Cooper DPM Work Phone: [facility] Comment on above: Surgery follow-up ex amination (Primary Dx); Right foot pain; Hammertoe of right foot Start: 01-15-2024 End: 01-15-2024 ambulatory ARIEL COOPER Not Available Start: 01-10-2024 End: 01-10-2024 ambulatory ARIEL Gilmore COOPER Not Available Start: 01-03-2024 End: 01-03-2024 Telephone encounter Jr. Reed Vazquez DO Work Phone: [facility] Start: 01-03-2024 End: 01-03-2024 ambulatory ARIEL COOPER Not Available Start: 01-03-2024 End: 01-03-2024 Office outpatient visit 15 minutes Ariel Deirdre Cooper DPM Work Phone: [facility] Comment on above: Hammertoe of right f oot (Primary Dx); [place] of toe Start: 01-03-2024 End: 01-03-2024 ambulatory BOB CARTER Not Available Start: 01-03-2024 End: 01-03-2024 Office outpatient visit 40 minutes Bob Carter DO Work Phone: [facility] Comment on above: Pre-op evaluation (P rimary Dx); Acquired ankle/foot deformity, right; Facet arthritis of lumbosacral region; Bilateral primary osteoarthritis of knee; Acquired hypothyroidism (CMS/HCC); Glaucoma of both eyes, unspecified glaucoma type (CMS/HCC); Elevated LDL cholesterol level ([facility]/HCC); Morbid (severe) obesity due to excess calories ([facility]/HCC); Body mass index (BMI) 35.0-35.9, adult Start: 01-03-2024 End: 01-03-2024 Preprocedural examination done Bob Carter DO Work Phone: [facility] Work Phone: Start: 11-27-2023 End: 11-27-2023 Bamboo flowsheet Ariel Cooper DPM Work Phone: [facility] Start: 11-27-2023 End: 11-27-2023 Bamboo flowsheet Ariel Cooper DPM Work Phone: [facility] Start: 11-27-2023 End: 11-27-2023 Office outpatient visit 25 minutes Ariel Cooper DPM Work Phone: [facility] Comment on above: [place] of toe (Primary Dx); Hammertoe of right foot Start: 11-27-2023 End: 11-27-2023 ambulatory ARIEL COOPER Not Available Start: 10-04-2023 End: 10-04-2023 ambulatory CECE BABIN Not Available Start: 08-30-2023 End: 08-30-2023 ambulatory BOB CARTER Not Available Start: 08-23-2023 End: 08-23-2023 ambulatory BOB CARTER Not Available Start: 08-08-2023 End: 08-08-2023 ambulatory BOB CARTER Not Available Start: 07-19-2023 End: 07-19-2023 ambulatory TAIWO RAI Not Available Start: 03-01-2023 End: 03-01-2023 ambulatory BOB CARTER Not Available Start: 01-26-2023 End: 01-26-2023 ambulatory DO Bob Carter Work Phone: [facility] Work Phone: Start: 01-26-2023 End: 01-26-2023 Patient encounter procedure DO Bob Carter Work Phone: [facility] Work Phone: Start: 07-26-2022 End: 07-26-2022 ambulatory DO Bob Carter Work Phone: [facility] Work Phone: Start: 07-26-2022 End: 07-26-2022 Patient encounter procedure DO Bob Carter Work Phone: [facility] Work Phone: Start: 01-17-2022 Office outpatient vi sit 15 minutes Bob Carter Work Phone: [facility] DO Work Phone: Start: 01-17-2022 Patient encounter procedure Bob Carter Work Phone: [facility] DO Work Phone: Start: 01-17-[address] Bob Wong Facility: Start: 04-08-2021 FUV, Provider: Vamsi Clement, Status: Pen, Time: 9:10 AM Bob Carter Work Phone: [facility] DO Work Phone: Start: 04-06-[address] Bob Wong Facility:[id number] Start: 04-06-2021 Chart Update Bob keane Work Phone: [facility] DO Work Phone: Start: 03-11-2021 End: 03-11-[address] DOCTOR COTTER Facility:[facility] Start: 03-09-2021 End: 03-10-[address] BOB CARTER Facility:[facility] Start: 02-19-[address] Bob Wong Facility: Start: 02-19-2021 Office consultation new/estab patient 80 min Bob Carter Work Phone: [facility] DO Work Phone: Start: 02-19-2021 Patient encounter procedure Bob Carter Work Phone: [facility] DO Work Phone: Start: 02-16-2021 ambulatory Dr. Bob Carter Faci lity:[facility] Start: 02-08-2021 End: 02-09-[address] DOCTOR COTTER Facility:H1 Start: 08-28-2020 End: 08-28-[address] BRANDT BROUSSARD Facility:[facility]1 Start: 08-27-[address] BOB CARTER Facil ity:H1 Start: 08-20-2020 End: 08-21-[address] PARUL BRYSON Facility:[facility]1 Start: 08-20-2020 End: 08-20-[address] MATT URBINA Facility:H1 Start: 06-27-2020 End: 06-28-[address] BOB CARTER Facility:H1 Echocardiogram normal Bob Carter Work Phone: [facility] 250 DO Work Phone: Imaging result normal Bob Carter Work Phone: [facility] 250 DO Work Phone: Procedures Date Procedure Procedure Detail Performing Clinician Start: 04-02-2024 Screening mammograph y of bilateral breasts Bob Carter DO Work Phone: Start: 02-28-2024 Cystoscopy JULUIS SULLIVAN-AMMAGALI Comment on above: Left cystoscopy with homium [...] views Ariel Cooper DPM Work Phone: Start: 11-27-2023 Radex foot complete minimum 3 views Ariel Cooper DPM Work Phone: Start: 01-26-2023 End: 01-26-2023 Bilateral mammography DO Bob Carter Work Phone: Start: 07-26-2022 Bilateral mammography D O Bob Emma Work Phone: Start: 08-28-2020 Cystoscopic removal of ureteric stent JULIUS SULLIVAN-AMMAGALI Start: 08-12-2020 Cystoscope, device ( physical object) JULIUS SULLIVAN-AMMAGALI Start: 04-03-2000 Total colonoscopy Em Carter Work Phone: Start: 04-03-1968 Tonsillectomy JULIUS SULLIVAN-AMMAGALI section Bob brooks Work Phone: Comment on above: x 3; section JULIUS SULLIVAN-AMEMILIARA Cholecystectomy Bob carrion Work Phone: Cholecystectomy JULIUS SULLIVAN-AMANKRA Colonoscopy JULIUS EUGENIO-AMANKRA Fasciotomy of foot Bob Carter Work Phone: Procedure on foot JULIUS SULLIVAN-AMEMILIARA Tonsillectomy Bob keane Work Phone: Plan of Treatment Date Care Activity Detail Author Start: 03-03-2025 End: 03-03-2025 Patient encounter procedure 03/03/2025 2:30 PM EST Office Visit [facility] [address] [place] [address] Jeison Pitt MD [address] [place] [address] [facility] Start: 02-25-2025 End: 05-28-2025 DBT Breast - bilateral screening Bilateral screening mammogram with tomosynthesis Imaging Routine Encounter for screening mammogram for malignant neoplasm of breast Expected: 02/25/2025, Expires: 05/28/2025 [facility] Work Phone: Comment on above: Expected: 02/25/2025 , Expires: 05/28/2025 Start: 02-25-2025 Medicare Annual Wellness (AWV) Medicare Annual Wellness (AWV) [facility] Start: 07-08-2024 End: 07-08-2024 Patient encounter procedure 07/08/2024 10:30 AM EDT Office Visit [facility] [address] [place] [phone] Bob Carter DO [address] [place] [address] [facility] Start: 07-03-2024 End: 01-02-2025 CBC panel - [...] 35.0-35.9, adult Expected: 07/03/2024 (Approximate), Expires: 01/02/2025 [facility] Work Phone: Comment on above: Expected: 07/03/2024 [...] 35.0-35.9, adult Expected: 07/03/2024 (Approximate), Expires: 01/02/2025 [facility] Comment on above: Expected: 07/03/2024 (Approximate), Expires: [...] 35.0-35.9, adult Expected: 07/03/2024 (Approximate), Expires: 01/02/2025 [facility] Comment on above: Expected: 07/03/2024 (Approximate), Expires: [...] 35.0-35.9, adult Expected: 07/03/2024 (Approximate), Expires: 01/02/2025 [facility] Comment on above: Expected: 07/03/2024 (Approximate), Expires: 01/02/2025 Start: 03-21-2024 End: 03-21-2024 Patient encounter procedure 03/21/2024 2:45 PM EST Office Visit [facility] [address] [place] [phone] Jeison Pitt MD [address] [place] [address] [facility] Start: 03-21-2024 End: 03-21-2024 Professional / ancillary services management 03/21/2024 2:00 PM EST Ancillary Procedure [facility] [address] [place] [phone] [facility] Start: 03-05-2024 End: 03-05-2024 Patient encounter procedure 03/05/2024 4:00 PM EST Office Visit [facility] [address] [place] [phone] Ariel Cooper DPM [address] [place] [address] [facility] Start: 03-04-2024 End: 03-04-2024 Patient encounter procedure 03/04/2024 2:30 PM EST Office Visit [facility] [address] [place] [phone] Jr. Reed Vazquez, [address] [place] [address] [facility] Start: 03-04-2024 End: 03-04-2024 Patient encounter procedure 03/04/2024 11:15 AM EST Office Visit [facility] [address] [place] [address] Bob Carter, DO [address] [place] [address] [facility] Start: 03-01-2024 Medicare Annual Wellness (AWV) Medicare Annual Wellness (AWV) [facility] Start: 02-26-2024 End: 02-25-2025 DXA Skeletal system Views for bone density DEXA bone density Imaging Routine Osteoporosis, post-menopausal ([facility]) Expected: 02/26/2024, Expires: 02/25/2025 [facility] Comment on above: Expected: 02/26/2024 , Expires: 02/25/2025 Start: 02-21-2024 End: 02-21-2024 Patient encounter procedure 02/21/2024 8:45 AM EST Office Visit [facility] [address] [place] [phone] Bob Carter, DO [address] [place] [address] [facility] Start: 02-13-2024 End: 02-13-2024 Patient encounter procedure 02/13/2024 4:30 PM EST Office Visit [facility] [address] [place] [address] Ariel Cooper DPM [address] [place] [address] [facility] Start: 01-27-2024 Screening for malign ant neoplasm of breast Mammogram [facility] Start: 01-22-2024 End: 01-22-2024 Patient encounter procedure 01/22/2024 9:30 AM EDT Office Visit [facility] [address] [place] [address] Ariel Cooper, DPM [address] [place] [address] [facility] Start: 01-15-2024 End: 01-15-2024 Patient encounter procedure [facility] Comment on above: Arrived Start: 01-12-2024 End: 01-12-2024 Patient encounter procedure 01/12/2024 12:30 PM EDT Procedure Visit [facility] Ariel Cooper, DPM [address] [place] [address] [facility] Start: 01-03-2024 End: 01-03-2024 Patient encounter procedure 01/03/2024 11:15 AM EDT Office Visit [facility] [address] [place] [address] Ariel Cooper, DPM [address] [place] [address] [facility] Start: 12-03-2023 Influenza vaccination Influenza Vacc ine (#1) [facility] Start: 11-27-2023 End: 11-27-2023 Patient encounter procedure 11/27/2023 11:00 AM EDT Office Visit [facility] [address] [place] [address] Ariel Cooper, DPM [address] [place] [address] Arrived [facility] Comment on above: Arrived Start: 03-11-2021 [facility], Provider: Vamsi Clement, Status: Pen, Time: 10:00 AM [facility], Provider: Vamsi Clement, Status: Pen, Time: 10:00 AM [facility] 250 DO Work Phone: Start: 02-23-2021 [facility], Provider: Vamsi Clement, Status: Pen, Time: 1:00 PM [facility], Provider: Vamsi Clement, Status: Moe, Time: 1:00 PM [facility] 250 DO Work Phone: Start: 1961 Pneumococcal Vaccine : 65+ Years (1 of 2 - PCV) Pneumococcal Vaccine: 65+ Years (1 of 2 - PCV) [facility] Start: 1955 Screening for malign ant neoplasm of colon [facility] Immunizations Immunization Date Immunization Notes Care Provider Hay guzman NEGATED: Highlighted row has not occurred!08-21-2020 influenza virus vaccine, unspecified formulation JULIUS RASHEED [facility] Payers Date Payer Category Payer Managed Care HMO (unspecified) AEGRAYSON MALIN [id number] 2023-Present [address] [place] [address] HMO [id number] 2023 Medicare [id number] 2023 Private Health Insurance [id number] .[id number] 2023 Medicare [id number] 2023 Private Health Insurance CLI [id number] 1959 Self-pay 1955 Unknown [id number] 2.16.840.1.969792.3.579.2 .593 1955 Unknown [id number] 2.16.840.1.465953.3.579.2 .593 1955 Unknown [id number] 2.16.840.1.343441.3.579.2 .593 1956 Unknown [id number] 2.16.840.1.449246.3.579.2 .593 1956 Unknown [id number] 2.16.840.1.501440.3.579.2 .593 1956 Unknown [id number] 2.16.840.1.879687.3.579.2 .593 1956 Unknown [id number] 2.16.840.1.768307.3.579.2 .593 1956 Unknown [id number] 2.16.840.1.363089.3.579.2 .593 1956 Unknown [id number] 2.16.840.1.908457.3.579.2 .356 1956 Unknown [id number] 2.16840.1.357727.3.579.2 .356 1956 Unknown [id number] 2.16.840.1.767379.3.579.2 .356 1956 Unknown [id number] 2.16.840.1.637144.3.579.2 .125 1956 Unknown [id number] 2.16.840.1.127802.3.579.2 .1259 1956 Unknown [id number] 2.16.840.1.533203.3.579.2 .125 1956 Unknown [id number] 2.16.840.1.621957.3.579.2 .1259 1956 Unknown [id number] 2.16.840.1.437202.3.579.2 .125 1956 Unknown [id number] 2.16.840.1.667467.3.579.2 .1259 1956 Unknown [id number] 2.16.840.1.917536.3.579.2 .1259 1957 Unknown [id number] 2.16.840.1.380714.3.579.2 .1258 1956 Unknown [id number] 2.16.840.1.350275.3.579.2 .1258 1956 Unknown [id number] 2.16.840.1.632976.3.579.2 .1258 1956 Unknown [id number] 2.16.840.1.051255.3.579.2 .1258 1956 Unknown [id number] 2.16.840.1.057748.3.579.2 .1258 1956 Unknown [id number] 2.16.840.1.121563.3.579.2 .1258 1956 Unknown [id number] 2.16.840.1.965117.3.579.2 .1258 1956 Unknown [id number] 2.16.840.1.373284.3.579.2 .1258 1956 Unknown [id number] 2.16.840.1.221251.3.579.2 .1258 1956 Unknown [id number] 2.16.840.1.591976.3.579.2 .1258 1956 Unknown [id number] 2.16.840.1.119713.3.579.2 .1258 1956 Unknown [id number] 2.16.840.1.120732.3.579.2 .1258 1956 Unknown [id number] 2.16.840.1.593899.3.579.2 .1956 Unknown [id number] 2.16.840.1.514063.3.579.2 .1956 Unknown [id number] 2.16.840.1.758613.3.579.2 .72 1956 Unknown [id number] 2.16.840.1.514902.3.579.2 .727 1956 Unknown [id number] 2.16.840.1.206057.3.579.2 .727 Unknown [id number] Unknown Unknown [id number] Social History Date Type Detail Facility Start: 09-30-2022 End: 07-19-2023 Consumes alcohol occasionally Consumes alcohol occasionally -[facility] 250 DO Work Phone: Comment on above: Coffee 1 cup every o ther day. Pop 2 monthly. Tea 2 monthly; Start: 04-06-2021 End: 04-23-2024 Tobacco smoking status NHIS Never smoked tobacco (finding) [facility] Start: 1955 Sex Assigned At Female F [facility] Start: 09-09-2022 Tobacco use and exposure Smoke less tobacco non-user [facility] Start: 11-27-2023 End: 01-03-2024 Alcoholic beverage intake Ex-drinker (finding) [facility] Start: 09-30-2022 End: 07-19-2023 Alcohol Use Disorder Identification Test - Consumption [AUDIT-C] [facility] How often to you hav e a drink containing alcohol? Never [facility] How many standard dr inks containing alcohol do you have on a typical day? Patient does not drink [facility] Start: 02-12-2023 Alcohol Comment caffeine- 1 to 2 cups of coffee per day [facility] Start: 1955 Sex assigned at Not on file [facility] Start: 04-03-2024 Sex Female (finding) [facility] Medical Equipment Procedure Code Equipment Code Equipment Origin al Text Equipment Identifier Dates Cystoscopy, with ureteral calculus manipulation and stent placement Polymeric ureteral stent [id number] FDA Start: 08-21-2020 CYSTOSCOPY W/ HOMIUM LASER JULIUS RASHEED MD 02/28/24 Unknown Ureter L FDA Start: 02-28-2024 CYSTOSCOPY W/ HOMIUM LASER JHONY NICHOLS, JULIUS 02/28/24 Unknown Ureter L FDA Start: 02-28-2024 CYSTOSCOPY W/ NEILIUM LASER JHONY NICHOLS, JULIUS 02/28/24 Unknown Ureter L FDA Start: 02-28-2024 CYSTOSCOPY W/ HOMIUM EZEQUIEL RASHEED MD, JULIUS 02/28/24 Unknown Ureter L FDA Start: 02-28-2024 CYSTOSCOPY W/ NEILIUM EZEQUIEL RASHEED MD, JULIUS 02/28/24 Unknown Ureter L FDA Start: 02-28-2024 Functional Status Date Assessment Result Facility 04-23-2024 Functional Status N/A [facility] 02-28-2024 Functional Status No [facility] 02-26-2024 Functional Status No [facility] 02-22-2024 Functional Status N/A [facility] Clinical Notes 02-19-2021 to 04-23-2024 Note Date & Type Note Facility 04-23-2024 Hospital Discharg e instructions Patient Education 04/23/2024 09:58:35 ESWL for Kidney Stones ESWL for Kidney Stones Extracorporeal shock wave lithotripsy (ESWL) is a treatment that can help break up kidney stones that are too large to pass on their own. This is a nonsurgical procedure that breaks up a kidney stone with shock waves. These shock waves pass through your body and focus on the kidney stone. They cause the kidney stone to break into smaller pieces (fragments) while it is still in the urinary tract. The fragments of stone can pass more easily out of your body in the urine. Tell a health care provider about: Any allergies you have. All medicines you are taking, including vitamins, herbs, eye drops, creams, and ftsw-dmi-nfysikb medicines. Any problems you or family members have had with anesthetic medicines. Any bleeding problems you have. Any surgeries you have had. Any medical conditions you have. Whether you are or may be . What are the risks? Your health care provider will talk with you about risks. These may include: Infection. Bleeding from the kidney. Bruising of the kidney or skin. Scarring of the kidney. This can lead to: ?Increased blood pressure. ?Poor kidney function. ?Return (recurrence) of kidney stones. Damage to other structures or organs. This may include the liver, colon, spleen, or pancreas. Blockage (obstruction) of the tube that carries urine from the kidney to the bladder (ureter). Failure of the kidney stone to break into fragments. What happens before the procedure? When to stop eating and drinking Follow instructions from your health care provider about what you may eat and drink. These may include: 8 hours before your procedure ?Stop eating [...] take medicines with small sips of water. If you do not follow your health care provider's instructions, your procedure may be delayed or canceled. Medicines Ask your health care provider about: Changing or stopping your regular medicines. These include any diabetes medicines or blood thinners you take. Taking medicines such as aspirin and ibuprofen. These medicines can thin your blood. Do not take them unless your health care provider tells you to. Taking zzei-lzp-lgpotqi medicines, vitamins, herbs, and supplements. Tests You may have tests, such as: Blood tests. Urine tests. Imaging tests. This may include a CT scan. Surgery safety Ask your health care provider: How your surgery site will be marked. What steps will be taken to help prevent infection. These steps may include: ?Washing skin with a soap that kills germs. ?Receiving antibiotics. General instructions If you will be going home right after the procedure, plan to have a responsible adult: ?Take you home from the hospital or clinic. You will not be allowed to drive. ?Care for you for the time you are told. What happens during the procedure? An IV will be inserted into one of your veins. You may be given: ?A sedative. This helps you relax. ?Anesthesia. This will: ?Numb certain areas of your body. ?Make you fall asleep for surgery. A water-filled cushion may be placed behind your kidney or on your abdomen. In some cases, you may be placed in a tub of lukewarm water. Your body will be positioned in a way that makes it easier to target the kidney stone. An X-ray or ultrasound exam will be done to locate your stone. Shock waves will be aimed at the stone. If you are awake, you may feel a tapping sensation as the shock waves pass through your body. A small mesh tube (stent) may be placed in your ureter. This will help keep urine flowing from the kidney if the fragments of the stone have been blocking the ureter. The stent will be removed at a later time by your health care provider. The procedure may vary among health care providers and hospitals. What happens after the procedure? Your blood pressure, heart rate, breathing rate, and blood oxygen level will be monitored until you leave the hospital or clinic. You may have an X-ray after the procedure to see how many of the kidney stones were broken up. This will also show how much of the stone has passed. If there are still large fragments after treatment, you may need to have a second procedure at a later time. This information is not intended to replace advice given to you by your health care provider. Make sure you discuss any questions you have with your health care provider. Document Revised: 07/21/2022 Document Reviewed: 07/21/2022 Area 1 [employer] Patient Education 2023 [employer]. Follow Up Care 04/18/2024 10:20:08 With:JHONY NICHOLS, MAYO MADRID Address: When: Unknown [facility] 04-23-2024 Note Patient Education Nephrology ESWL for Kidney Stones Extracorporeal shock wave lithotripsy (ESWL) is a treatment that can help break up kidney stones that are too large to pass on their own. This is a nonsurgical procedure that breaks up a kidney stone with shock waves. These shock waves pass through your body and focus on the kidney stone. They cause the kidney stone to break into smaller pieces (fragments) while it is still in the urinary tract. The fragments of stone can pass more easily out of your body in the urine. Tell a health care provider about: ??? Any allergies you have. ??? All medicines you are taking, including vitamins, herbs, eye drops, creams, and hepx-mdb-sqjndmq medicines. ??? Any problems you or family members have had with anesthetic medicines. ??? Any bleeding problems you have. ??? Any surgeries you have had. ??? Any medical conditions you have. ??? Whether you are or may be . What are the risks? Your health care provider will talk with you about risks. These may include: ??? Infection. ??? Bleeding from the kidney. ??? Bruising of the kidney or skin. ??? Scarring of the kidney. This can lead to: ? Increased blood pressure. ? Poor kidney function. ? Return (recurrence) of kidney stones. ??? Damage to other structures or organs. This may include the liver, colon, spleen, or pancreas. ??? Blockage (obstruction) of the tube that carries urine from the kidney to the bladder (ureter). ??? Failure of the kidney stone to break into fragments. What happens before the procedure? When to stop eating and drinking Follow instructions from your health care provider about what you may eat and drink. These may include: ??? 8 hours before your procedure ? [...] take medicines with small sips of water. If you do not follow your health care provider's instructions, your procedure may be delayed or canceled. Medicines Ask your health care provider about: ??? Changing or stopping your regular medicines. These include any diabetes medicines or blood thinners you take. ??? Taking medicines such as aspirin and ibuprofen. These medicines can thin your blood. Do not take them unless your health care provider tells you to. ??? Taking fedq-rhk-aybnofl medicines, vitamins, herbs, and supplements. Tests You may have tests, such as: ??? Blood tests. ??? Urine tests. ??? Imaging tests. This may include a CT scan. Surgery safety Ask your health care provider: ??? How your surgery site will be marked. ??? What steps will be taken to help prevent infection. These steps may include: ? Washing skin with a soap that kills germs. ? Receiving antibiotics. General instructions ??? If you will be going home right after the procedure, plan to have a responsible adult: ? Take you home from the hospital or clinic. You will not be allowed to drive. ? Care for you for the time you are told. What happens during the procedure? An IV will be inserted into one of your veins. ??? You may be given: ? A sedative. This helps you relax. ? Anesthesia. This will: ? Numb certain areas of your body. ? Make you fall asleep for surgery. ??? A water-filled cushion may be placed behind your kidney or on your abdomen. In some cases, you may be placed in a tub of lukewarm water. ??? Your body will be positioned in a way that makes it easier to target the kidney stone. ??? An X-ray or ultrasound exam will be done to locate your stone. ??? Shock waves will be aimed at the stone. If you are awake, you may feel a tapping sensation as the shock waves pass through your body. ??? A small mesh tube (stent) may be placed in your ureter. This will help keep urine flowing from the kidney if the fragments of the stone have been blocking the ureter. The stent will be removed at a later time by your health care provider. The procedure may vary among health care providers and hospitals. What happens after the procedure? Your blood pressure, heart rate, breathing rate, and blood oxygen level will be monitored until you leave the hospital or clinic. ??? You may have an X-ray after the procedure to see how many of the kidney stones were broken up. This will also show how much of the stone has passed. If there are still large fragments after treatment, you may need to have a second procedure at a later time. This information is not intended to replace advice given to you b (more content not included)... [facility] 02-28-2024 Evaluation + Plan note Extrac citlali from: Title:ANES Post-operative Note---General Author: Dony Lyon MD Date:02/28/24 Plan Transfer/Discharge: Transfer/Discharge Discharge when meets criteria ( To home ). Extracted from: Title:ANES Pre-operative Note 2022 Author:Dony Smith. Date:02/28/24 Plan [place] [employer] Anesthesi[employer] (ASA) physical status classification: Class II. Anesthetic Preoperative Plan: Anesthesia General. Diagnostic Tests Pending * Calculi Analysis Urinary 02/28/24 [facility] 11-27-2024 Hospital Discharge instructions Patient Education 02/28/2024 09:14:51 Xhkf-Rmgg-tj Utereroscopy,Lithotripsy, Stone Extraction, Stent Placement (CUSTOM) [facility] [place] [place] Dr. Parul Pitts Post-operative Instructions for [...] other reasons. If it is to remain snf, however, changes of the stent are required [...] arrange for your post-operative appointment (with XRAY) [phone] 02/28/2024 09:14:44 Post Op Patient Instructions - FT (CUSTOM) Follow Up Care 02/22/2024 15:55:04 With:JULIUS RASHEED Address: [address] [place] [phone] Business (1) When: Unknown Comments:Follow-up in 6 weeks with KUB, renal ultrasound. [facility] 11-27-2024 NotePatient Education - Text [facility] [place] [place] Dr. Parul Pitts Post-operative Instructions for [...] other reasons. 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 Optimetrix number: Optimetrix number [id number]. Anesthetic utilized: General. Health Status Allergies: Allergic [...] Discharge when meets criteria ( To home ).[facility] Comment: Electronically Signed By: Dony [...] All Problems BMI 34.0-34.9,adult / SNOMED CT 461978397 / Confirmed Glaucoma / SNOMED CT 71877783 / Confirmed Hypothyroidism / SNOMED CT 98328401 / Confirmed Kidney stone / SNOMED CT 555602997 / Confirmed Retained ureteral stent / SNOMED CT 5866904303 / Confirmed Ureteral stone / SNOMED CT 33115687 / Confirmed Ureteral stone with hydronephrosis / SNOMED CT 1921425591 / Confirmed Urge incontinence / SNOMED CT 382920137 / Confirmed, Active Problems (8) BMI 34.0-34.9,adult [...] Procedure history: Cystoscopic removal of ureteric stent (130359163) on 08/28/2020 at 65 Years. Cystoscope/Rt/ RG/Rt ureteroscopy/ureteroscopic homium laser ablation/ureteroscopic stone basket extraction and Rt. stent ([id number]) on 08/12/2020 at 65 Years. Tonsillectomy (865295383) in 1968 at 13 Years. Cholecystectomy (37852372). sectionx3 (87327085). Procedure on foot (120630650). Colonoscopy (982891955). Social History Social & Psychosocial Habits Tobacco [...] cm Weight Measured 77 (more content not included)...[facility] Comment on above:Result Comment: Electronically Signed By: Camron NICHOLS, Dony Pappas\.br\Date and Time Signed: 02/28/24 07:46 [id number] History of Present illness Narrative* Jeison Pitt MD - 02/26/2024 3:00 PM EST Images from the original note were not included. 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 Pt was referred by Dr Carter. Pt has past obstetrics gyn exam trauma Pt had bloody discharge at [...] CHOLECYSTECTOMY COLONOSCOPY 2009 COLPOSCOPY Procedure:colposcopy-bx's were ok-in [place], [place].;Disease:abnormal pap LAPAROSCOPIC ROSALES PROCEDURE cholecystectomy LITHOTRIPSY [...] Edkevin Cousino renal and colon Lymphoma Brother Vinny [...] screening mammogram with tomosynthesis 5. Osteoporosis, post-menopausal (CMS/HCC) M81.0 DEXA bone density 6. Vaginal atrophy N95.2 estradiol (Estrace) 0.1 MG/GM vaginal cream Ambulatory referral to Physical Therapy 7. Anxiety, generalized (CMS/HCC) F41.1 hydrOXYzine pamoate (Vistaril) 25 MG capsule Pap and exam performed. Mammogram ordered Results can be found in in3Dgalleryhart in 7 days Return 1 year for [...] IHUS results Probable D&C documented in this encounterCenterpoint Medical CenterAaylsfwfdw85-73-5172 Hospital Discharge instructions Patient Education 02/22/2024 15:32:56 [...] including vitamins, herbs, eye drops, creams, and khqv-uvb-chnicsz medicines. Any problems you or family members [...] health care provider tells you to. Taking jhvo-igs-eronbkx medicines, vitamins, herbs, and supplements. General instructions [...] provider. Document Revised: 02/20/2023 Document Reviewed: 02/20/2023 [employer] Patient Education 2023 [employer] Follow Up Care 02/20/2024 12:28:58 With:JULIUS RASHEED MD, URL Address: When: Unknown [facility] 11-21-2024 NotePatient Education Urology Ureteroscopy Ureteroscopy is [...] including vitamins, herbs, eye drops, creams, and jdcd-uck-tomwqux medicines. ??? Any problems you or family [...] care provider tells you to. ??? Taking gcrv-ndq-icvgnlc medicines, vitamins, herbs, and supplements. General instructions [...] happens after the procedure? (more content not included)...[facility]11-12-2024 History of Present illness Narrative* Ariel Cooper, DPM - 02/13/2024 4:30 PM EST Images from the original note were not included. HPI: Herminio Drake presents today for post-op appointment of derotational arthroplasty right 5th digit. Surgery was performed on 01/12/2024 at [facility]. Patient complains of pain 3 with weight [...] radiographs and for recheck. documented in this encounterCenterpoint Medical CenterLpxayubbrf36-15-2630 History of Present illness Narrative* Bob Carter, [...] CHOLECYSTECTOMY COLONOSCOPY 2009 COLPOSCOPY Procedure:colposcopy-[place] were [place]Disease:abnormal pap LAPAROSCOPIC ROSALES PROCEDURE cholecystectomy LITHOTRIPSY 08/2020 OTHER SURGICAL HISTORY 2002 Heel spurs OTHER SURGICAL HISTORY abnormal pap [...] degeneration Sister Cancer Sister Cancer Brother Vinny Falcon renal and colon Lymphoma Brother Vinny Campuzanoo Lupus Daughter Kim Colindres Ulcerative colitis Daughter Kim Colindres Miscarriages / Stillbirths Daughter Kim Colindres Breast cancer Paternal Grandmother Cancer Brother Angel Brookssino Diabetes Brother Angel Campuzanoo Hearing loss Brother Víctor Brookssinroe Vision loss Sister Giana Falcon MEDICATIONS: Current [...] there is some pain on the right. 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 I m gonna put her on [...] Dictated and not read. documented in this encounterCenterpoint Medical CenterUrrgkmkfgj62-59-4807 Miscellaneous Notes* Addendum Note - Ariel Arteaga - 02/13/2024 3:00 PM ESTAddended by: ARIEL ARTEAGA on: 02/13/2024 03:48 PM Modules accepted: Orders * Addendum Note - Benjie Rios LPN - 02/13/2024 3:00 PM ESTAddended by: BENJIE RIOS on: 02/13/2024 03:50 PM Modules accepted: Orders documented in this encounterCenterpoint Medical [id number] Note* Addendum Note - Ariel Arteaga - 02/13/2024 3:00 PM ESTAddended by: ARIEL ARTEAGA on: 02/13/2024 03:48 PM Modules accepted: Orders [facility] CenterHbdyaoyhpk34-66-7469 Note* Addendum Note - Benjie Rios LPN - 02/13/2024 3:00 PM ESTAddended by: BENJIE RIOS on: 02/13/2024 03:50 PM Modules accepted: Orders [facility] CenterPrbxidothk59-85-3155 Note* Addendum Note - Ariel Arteaga - 02/13/2024 3:00 PM ESTAddended by: ARIEL ARTEAGA on: 02/13/2024 03:48 PM Modules accepted: Orders [facility] CenterLqmynooraz81-61-5239 Note* Addendum Note - Benjie Rios LPN - 02/13/2024 3:00 PM ESTAddended by: BENJIE RIOS on: 02/13/2024 03:50 PM Modules accepted: Orders [facility] CenterHfhptwjxal59-57-6477 History of Present illness Narrative* Ariel Cooper DPM - 01/22/2024 9:30 AM EDT HPI: Herminio Drake presents today for post-op appointment of derotational arthroplasty right 5th digit. Surgery was performed on 01/12/2024 at [facility]. Patient complains of pain 3 with weight [...] symptoms. RTC: 3 weeks. documented in this encounterCenterpoint Medical CenterErmupffhpq48-52-4860 History of Present illness Narrative* Ariel Cooper DPM - 01/15/2024 9:30 AM EDT Images from the original note were not included. HPI: Herminio Drake presents today for post-op appointment of derotational arthroplasty right 5th digit. Surgery was performed on 01/12/2024 at [facility]. Patient complains of pain 8. Current symptoms [...] days for suture removal. documented in this encounterCenterpoint Medical CenterRklkfpgzyk58-34-2373 Telephone encounter Note* Telephone Encounter - Summer Romero - 01/03/2024 1:55 PM EDT Patient scheduled for 03/04/24 with . [facility] CenterZifwtztdtr15-59-7927 Miscellaneous Notes* Telephone Encounter - Summer Romero [...] see to get everything started? Please advise [phone]. documented in this encounterCenterpoint Medical CenterWwxchkjzqc75-75-3692 Telephone encounter Note* Telephone Encounter - Summer Romero - 01/03/2024 12:02 PM EDT Patient stopped in regarding her RT Knee. She wants to do her (R) TKA in May. Patient would like toknow when she should schedule her first appt to see to get everything started? Please advise [phone]. [facility] Medical CenterBicaxttphj03-62-2777 History of Present illness Narrative* Ariel Cooper DPM - 01/03/2024 11:15 AM EDT Images from the original note were not included. Patient presents today for their pre-operative appointment. The patient is scheduled for derotational arthroplasty right 5th digit at [facility] with Dr. Cooper on 01/12/2024 at 12:30 [...] 3-5 days after surgery. documented in this encounterCenterpoint Medical CenterLgydivklca26-19-4495 History of Present illness Narrative* Ariel Cooper DPM - 11/27/2023 11:00 AM EDT Images from the original note were not included. HPI: Patient has noted a hammertoe deformity [...] - Pain in right foot: Treatment Note: ICD M20.41 - Acquired hammer toe of right foot: Discussed all treatment options with patient in detail - both conservative and surgical. The further conservative treatment options were discussed with the patient including padding, callous trimming, shoe gear changes. The patient elects to proceed with surgical intervention at this time. The risks, complications, benefits, alternatives to surgery including 2nd opinion, OR personnel and rafa andpost-op care were discussed in detail with the patient. The elective nature of the procedure was also discussed in detail with the patient. Specific complications related to this surgery were also discussed including, but not limited to: possible infection, the need for oral or IV antibiotics, hospitalization, additional surgery including removal of hardware, prolonged pain, stiffness or reoccurrence. Other complications include blood clot, hematoma, loss of use, loss of toe, foot and or leg. We have reviewed the fact that prolonged swelling is possible up to a year after surgery and could delay return to normal shoes and activities. The clinical and radiographic findings were reviewed withthe patient. Patient was instructed that they will be in a surgical shoe and may have to use a walker or crutches protected weight bearing on the surgical foot for at least 4-6 weeks. The patient wastold that no guarantee could be made as to the outcome of the procedure patient consented to the proposed procedure: CORRECTION 5TH DIGIT DEFORMITY WITH DEROTATIONAL ARTHROPLASTY RIGHT. The patient will be contacted for surgical scheduling. The patient will call if any problems or questions arise prior to their surgery date. documented in this encounterCenterpoint Medical CenterTxbzicvdjc94-93-9816 Instructions* Patient Instructions* Ariel Cooper DPM - 11/27/2023 11:00 AM EDT Instructions for Surgery Today you discussed surgery on your foot or ankle with Dr. Cooper. The following information is to help answer any questions that you may have prior to your surgery. If you have further questions prior to surgery, please contact the office at [phone]. PRE-OPERATIVELY Scheduling Once the paperwork is completed for your surgery, you will be contacted within the next 5-[address] Cooper's nurse/MA ([phone]) to schedule your surgery. The date is based on the days that Dr. Cooper performs surgery and when her surgery schedule is open. We will check yourinsurance benefits prior to surgery to ensure that this will be approved by your insurance. You will be informed about what your out of pocket cost will be prior to scheduling. Most outpatient surgeries are done at the [facility] at the [facility] on [address]. Your surgery may also be scheduled at [facility] depending upon your insurance and what type of procedure is being performed. Pre-op Testing Once your surgery has been scheduled, you will need to contact your primary care physician (PCP) tannaer to schedule an appointment for pre-surgical clearance. At this appointment, they will performa history & physical and obtain needed lab work, EKG or chest x-rays that may needed based on the surgical procedure you are having and your medical history. If you choose, a pre-operative appointment can be scheduled at the hospital to obtain any necessary lab tests, physical examination and order any other tests that may be necessary for your surgery. In some cases, you may also need to have additional testing or medical clearance prior to your surgery. This will be determined by your personal medical history, physical examination and the staff atthe [facility] or hospital. Preparing your home This is the time to start thinking about preparing your home. Following surgery you will have either a bulky dressing, splint or cast on your foot or ankle that is not to be removed. When you go home, you may not be able to place any weight on the foot that was operated on. Look around your house and imagine that you cannot place any weight on your foot and that you will be using a walker or crutches to get around. You will need to get out of your vehicle when you get home, get into the house and go to the bathroom. You will need to prepare a place to sleep where you can get to the bathroom and get food or water. If you know that you do not have any one at home to help you, consider staying with a friend or family member for the first 2-3 days following surgery. This will allow for an easy transition following surgery and help to ensure your safety. Prescription Medications During your pre-operative testing appointment, you will be given instructions on what prescription medications should be taken the day of your surgery. These are usually taken with a small sip of water. If you take over the counter medications such as Aspirin, Ibuprofen, Aleve or Motrin; please stop taking these medications 7-10 days prior to your surgery unless otherwise directed by your doctor. Also any blood thinners, such as Warfarin/Coumadin, Plavix or Aspirin should be discontinued at least 7 days prior to surgery. Night before Surgery The anesthesiologist requires that you have nothing to eat or drink after midnight the night beforeyour surgery. Being under anesthesia with anything in your stomach places you at risk for complications. If you are having a procedure done under local then you can eat or drink as normal. Day of Surgery Parking is readily available at the [facility] and at the hospital. Please make sure to have a ride to and from your place of surgery. You are not allowed to drive following your procedure due to the medications that you will receive during anesthesia. Please bring with you your crutches or walker if they are needed following surgery. This will allowfor easy transport to and from your car and into your home when you arrive. POST-OPERATIVELY Medications All patients having surgery will receive a prescription for pain medications. For the first day following surgery it is important to take your pain medication on a timely schedule. This will ensure that you are the most comfortable. It is easier for you to control pain before it completely sets in then trying to catch back up with your pain. Expect to be in some pain following surgery. The soft tissues and bones in your foot are being manipulated during surgery to correct the problem, which will cause pain. The pain will usually subside within a few days to 1-2 weeks following the surgery, depending upon the type of surgery. Because the pain medication that you are given may contain a small amount of acetaminophen, you should avoid Tylenol or any other medication containing acetaminophen while you are taking the prescription pain medicine. Some anti- inflammatory medications (Motrin, Aleve, Advil, etc.) may impede bone healing and the doctor may ask you to stop these NSAID's during the postoperative period. You may also be given a prescription for an anti-nausea medication. If you have experienced nausea,upset stomach, vomiting or other problems with pain medications in the past, take this medication as directed: 30 minutes prior to your pain medication. If you have not had problems in the past then you can take your pain medications and use the anti-nausea medication if you encounter problems. You may also be given a prescription for a blood thinner. This is reserved for surgeries that wouldrequire a significant amount of time in a cast and being immobilized following surgery. Driving You need to have a ride home the day of surgery. You also are not to drive while you are taking pain medications. When you no longer need medications for pain, you can return to driving. We recommendthat you do not drive with a cast or post-op shoe on your foot, especially the right side. Please plan on not being able to drive until you are able to wear a normal tennis shoe on both feet. Dressing Please keep the dressing, splint or cast on your foot until your post-operative appointment. It is important to do so to ensure that you protect yourself from developing an infection at your surgicalsite. Ice Unless instructed not to do so, you may place ice around your surgical site. This is the most important for the first 3-5 days following surgery. You can ice with a bag of frozen vegetables or ice bag for 20 minutes an hour, 3-4 times daily. If you have a large dressing, you can place the ice behind your knee and this is just as effective as placing it over your foot. Elevation It is important for everyone following surgery to elevate their foot. In order to effectively do so, lie on a bed or couch and have your surgical leg elevated above the level of your heart. This willhelp to reduce the swelling and associated pain to your foot and ankle. You may also want to do gentle range of motion exercises with your foot or ankle following surgery.If you are in a cast, you can wiggle your toes. This will help to reduce swelling and stiffness following surgery. Other Concerns Nausea: If you encounter upset stomach or vomiting following surgery then take the anti-nausea medication if one was given to you. Otherwise, eating bland foods such as crackers, toast, rice and bananas may help. Also take your pain medications with food. Numbness: You may encounter numbness in your foot or ankle following surgery. This is normal as long as your toes are warm and their normal color. A block using anesthetic is performed on your surgical foot/ankle which will provide pain relief following surgery, but you may notice a numb or tingling feeling. You may also have a block that is done on the nerve behind your knee. This is reserved for surgeries where you may have more pain due to the amount of work being done. In this case, you may notice numbness in the leg for up to 24 hours following surgery. This will be discussed with you the day of your surgery with Dr. Cooper and the anesthesiologist. Bleeding/Drainage: Drainage and bleeding following surgery are normal. You may notice blood or drainage on the splint or dressing which is okay. It is okay to place extra gauze or an ADAM wrap over the dressing, but do not take the dressing off. If you notice that your dressing is soaked with wet blood, call the office and speak with a nurse or you will get a number to call after-hours. Skin Itching: Skin itching may be a side effect of the pain medications or anesthesia. You can takeover the counter Benadryl 25mg if you need for the itching. Please call if you notice large welts, hives or rash accompany the itching. Constipation: Narcotic pain medications and anesthesia can cause constipation. If you encounter this problem, take an over the counter stool softener as needed. Drinking plenty of water and eating fruits and vegetables will help this. If you experience trouble breathing, fever, nausea or pain that is not controlled with your medication then please call the office. If you feel you are having a life threatening problem, call 911 or go to your local emergency department. Activities You should plan on refraining from your normal activities for the first 1-2 weeks following your surgery. The time frame for how long you can do these activities depends upon the type of surgery thatyou had. Bathing: You will not be able to get the dressing on your foot wet. You will not be able to get thefoot wet until the stitches are removed. This is usually 2-3 weeks following surgery depending uponhow your skin heals. You can take a bath with the foot hanging over the outside, or you may want toconsider a plastic protector for your cast or dressing. These can be obtained at most drug stores. Deep Breathing: If you had general anesthesia (a tube down your throat) it is normal for you to experience some discomfort in your throat or with swallowing. It is important for you to do deep breathing exercises following surgery. Also breathing in and out while saying friend will help your lungs recover from the anesthesia. Stairs: If you are comfortable with walking up/down stairs, then it is okay to do so following surgery. If you are in a post-op shoe, make sure to support yourself with the railing or having someone walk in front of or behind you. If you are on crutches or using a walker, please go up and down the stairs with caution and when you feel comfortable and strong enough to do so. Exercise: When it is okay with Dr. Cooper, the best exercising to start following surgery is swimming (once your stitches are out), elliptical biking or upper body strength training. Return to your full level of activity and exercise will depend upon your healing and the surgical procedure that was performed. Appointments You will receive the time for your first post-operative appointment on the day of surgery. At that time, the dressing on your foot will be removed and examined. You can discuss further questions regarding your post-op course at that time. documented in this encounterCenterpoint Medical CenterDtfrvrsyyf74-33-2498 NoteHISTORY: Bone density screening COMPARISON: 08/06/2018. PROCEDURE: [...] and signed by Pablo Garcia on 02/18/2022 1551NoAC[facility] Hnnwjibagp25-32-2870 Chief complaint Narrative - Reported* HERMINIO DRAKE [...] heart catheterization and possible revascularization next week. -[facility] [employer] DO Work Phone: Chief complaint Narrative - ReportedSUSWAPNIL DRAKE is being seen for a consultation for abnormal test(s) results.-[facility] [employer] [address] DO Work Phone: Evaluation + Plan note Future Appointments Appointment Date:02/26/2024 08:45:00 AM Scheduled Provider: Location:[facility] Appointment Type:Surgery CALL PAT FT Appointment Date:02/28/2024 10:30:00 AM Scheduled Provider: Location:[facility] Appointment Type:Surgery FT [facility] evaluation + Plan note Future Appointments Appointment Date:04/23/2024 09:20:00 AM Scheduled Provider:JULIUS RASHEED MD Location:[facility] Appointment Type:URO Office Visit [facility] evaluation + Plan note Future Appointments Appointment Date:05/02/2024 12:30:00 PM Scheduled Provider: Location:[facility] Appointment Type:Surgical PAT FT Appointment Date:05/09/2024 08:00:00 AM Scheduled Provider: Location:[facility] Appointment Type:Surgery FT [facility] evaluation noteNo assessment information available [facility] Work Phone: evaluation note* Diagnosis Pre-op evaluation- Primary Acquired ankle/foot [...] note* Diagnosis Hammertoe of right foot- Primary [place] of toe Corns and callosities documented in [...] generalized (CMS/HCC) [facility] Diagnosis [place] of toe- Primary Corns and callosities Hammertoe of right foot documented in this encounter [facility] HealthcareHistory of [...] medication regimen. She denies medication side effects. [facility] [employer] Work Phone: History of Present illness Narrative* [...] medication regimen. She denies medication side effects. [facility] [employer] Work Phone: Hospital course Narrative No data available for this section [facility] Hospital Discharge instructions No data available for this section [facility] Progress note No data available for this section [facility] Family History Unknown Family Member Name Dates [...] Unknown Bradyarrhythmia Unknown Irritable bowel syndrome Unknown Relationship Condition Age at Onset Recorded Date/T jakub mother Asthma Unknown Diabetes mellitus Unknown Coronary artery disease Unknown father Coronary artery disease Unknown Malignant neoplasm of throat Unknown Presence of cardiac pacemaker Unknown History of coronary artery bypass surgery Unknown brother Lymphoma Unknown brother Malignant neoplasm of colon Unknown Glaucoma Unknown brother Coronary artery disease Unknown Bradyarrhythmia Unknown Irritable bowel syndrome Unknown father Unknown mother Unknown Summary Purpose Advance Directives Advance Directive Response Recorded Date/ Time Advance Directives No August 21 12:18pm Advance Directive Response Recorded Date/ Time Advance Directives No August 21 1 11:18am Chief Complaint * Cardiac risk stratification for [...] Chief Complaint abn mandi Chief Complaint R92.1 Chief Complaint Admit Date Z12.31 April 02, 2024 2:14pm Additional Source Comments INFORMATION SOURCE (unrecogn ized section and content) DATE CREATED AUTHOR 03/17/2021 [facility] DATE CREATED AUTHOR AUTHOR'S ORGANIZ ATION 01/22/2022 [facility] DATE CREATED AUTHOR AUTHOR'S ORGANIZ ATION 01/23/2022 [employer] DATE CREATED AUTHOR AUTHOR'S ORGANIZ ATION 02/19/2022 [facility] DATE CREATED AUTHOR AUTHOR'S ORGANIZ ATION 02/27/2024 [facility] EPIC DATE CREATED AUTHOR AUTHOR'S ORGANIZ ATION 03/01/2024 Meza Pawel [facility] DATE CREATED AUTHOR AUTHOR'S ORGANIZ ATION 04/04/2024 [facility] DATE CREATED AUTHOR AUTHOR'S ORGANIZ ATION 04/21/2024 Meza [place] [facility] DATE CREATED AUTHOR AUTHOR'S ORGANIZ ATION 04/24/2024 [facility] Care Teams (unrecognized sec tion and content) Personnel Name: BOB CARTER DO Address: Address: [address] [place] [address] [address] [place] [address] Team Status: Active Member Role Status Dates Bob Carter DO Primary Care Provider Active Team Status: Inactive Member Role Status Dates Bob Carter DO Primary Care Provider Active Mason Fowler DO Attending Provider Active Team Status: Inactive Member Role Status Dates Bob Carter DO Primary Care Provider, Attending Dawood medina Active Crane Helper Relationship Specialty Start Date End Date Bob Carter DO [address] [facility] [address] [place] [address] PCP - General Internal Medicine 09/09/22 Bob Carter DO [address] [place] [address] PCP - [employer] 03/03/23 Crane Helper Relationship Specialty Start Date End Date Bob Carter DO [address] [place] [address] PCP - General Internal Medicine 09/09/22 Bob Carter DO [address] [place] [address] PCP - [employer] 03/03/23 Crane Helper Relationship Specialty Start Date End Date Bob Carter DO [address] [place] [address] PCP - General Internal Medicine 09/09/22 oBb Carter DO [address] [place] [address] PCP - [employer] 03/03/23 Crane Helper Relationship Specialty Start Date End Date Bob Carter DO [address] [place] [address] PCP - General Internal Medicine 09/09/22 Crane Helper Relationship Specialty Start Date End Date Bob Carter DO [address] [place] [address] PCP - General Internal Medicine 09/09/22 Crane Helper Relationship Specialty Start Date End Date Bob Carter DO [address] [place] [address] PCP - General Internal Medicine 09/09/22 Crane Helper Relationship Specialty Start Date End Date Bob Carter DO [address] [place] [address] PCP - General Internal Medicine 09/09/22 Crane Helper Relationship Specialty Start Date End Date Bob Carter DO [address] [place] [address] PCP - General Internal Medicine 09/09/22 Crane Helper Relationship Specialty Start Date End Date Bob Carter DO [address] [place] [address] PCP - General Internal Medicine 09/09/22 Crane Helper Relationship Specialty Start Date End Date Bob Carter DO [address] [place] [address] PCP - General Internal Medicine 09/09/22 Crane Helper Relationship Specialty Start Date End Date Bob Carter DO [address] [place] [address] PCP - General Internal Medicine 09/09/22 Bob Carter DO [address] [place] [address] PCP - [employer] 03/03/23 Crane Helper Relationship Specialty Start Date End Date Bob Carter DO [address] [place] [address] PCP - General Internal Medicine 09/09/22 Bob Carter DO [address] [place] [address] PCP - [employer] 03/03/23 Team Status: Inactive Member Role Status Dates Bob Carter DO Primary Care Provider Active Start: April 02, 2024 End: April 02, 2024 Taiwo Rai RN MSN ANP-C Attending Provider Active Start: March End: April 02, 2024 Goals (unrecognized section and content) Goals may be documented in a n alternate sectionGoals may be documented in an alternate section No data available for this section No data available for this sectionGoals may be documented in an alternate section No data available for this section No data available for this section No data available for this section No data available for this section Reason for Visit (unrecogniz ed section and content) Reason Comments PSC foot surgery 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 She was on [place], Ketorolac, Flomax, Zofran. Pt. Would like to [...] BE BASED ON THE PRIMARY CLINICAL RECORDS. [email or web address] provides no warranty or guarantee of the accuracy or completeness of information in this document.
--- NOTE | 2024-06-24 22:59 | ED_ITS ---
HPI HPI - General Adult General Chief complaint: Urogenital-Female Stated complaint: Flank Pain Time Seen by Provider: 06/24/24 22:46 Source: patient Mode of arrival: walk-in History of Present Illness HPI narrative: 68-year-old female presents for left flank pain. It started about 5 PM, about 6 hours ago and it feels like when she has had kidney stones before. No dysuria or hematuria or injury or unusual activity. No pain on the right side and it has been continuous though it seems to wax and wane. Related Data Home Medications ?Medication ?Instructions ?Recorded ?Confirmed levothyroxine 100 mcg tablet 100 mcg PO DAILY 07/29/23 02/16/24 latanoprost 0.005 % eye drops drp ophthalmic (eye) 06/24/24 oxybutynin chloride 5 mg mg PO 06/24/24 tablet,extended release 24 hr Previous Rx's ?Medication ?Instructions ?Recorded hydrocodone 5 mg-acetaminophen 325 1 tab PO Q6H PRN pain 3 days #10 06/25/24 mg tablet tabs ondansetron 4 mg disintegrating 4 mg PO Q6H PRN nausea and 06/25/24 tablet vomiting #20 tabs tamsulosin 0.4 mg capsule (Flomax) 0.4 mg PO DAILY #7 caps 06/25/24 Allergies Allergy/AdvReac Type Severity Reaction Status Date / Time No Known Drug Allergies Allergy Verified 02/16/24 10:00 Opioid HPI Opioid Management Most Recent Opioid Data: Last Pain Scale 8 06/24/24 23:15 06/24/24 Last ED Pain Assessment 06/24/24 23:00 Review of Systems ROS Narrative A ten point review of systems is negative except as noted above. PFSH PFSH Social History Little interest or pleasure in doing things: not at all Feeling down, depressed, or hopeless: not at all Exam Narrative Exam Narrative: Nurses note and vital signs reviewed and patient is not hypoxic. General: The patient appears uncomfortable and is in no respiratory distress. Skin: Warm, dry, no pallor noted. There is no rash noted including in the left flank area. Head: Normocephalic, atraumatic Eye: Normal conjunctiva, no drainage Ears, Nose, Mouth, and Throat: oral mucosa is moist. Nares patent. Cardiovascular: Regular Rate and Rhythm Respiratory: Patient is in no distress, no accessory muscle use, lungs are clear to auscultation, no wheezing, rales or rhonchi Back: non-tender, no CVA tenderness bilaterally to percussion. GI: Soft and nontender Musculoskeletal: The patient has no evidence of calf tenderness, no pitting edema, symmetrical pulses noted bilaterally Neurological: A&O, normal speech Psychiatric: Cooperative Constitutional Vital Signs, click to edit/add: Last Vital Signs Temp 98.3 F 06/24/24 22:45 Pulse 70 06/24/24 22:45 Resp 20 06/24/24 22:45 BP 186/89 H 06/24/24 22:45 Pulse Ox 98 06/24/24 22:45 O2 Del Method Room Air 06/24/24 22:45 Course Vital Signs Vital signs: Vital Signs Temperature 98.3 F 06/24/24 22:45 Pulse Rate 70 06/24/24 22:45 Respiratory Rate 20 06/24/24 22:45 Blood Pressure 186/89 H 06/24/24 22:45 Pulse Oximetry 98 06/24/24 22:45 Oxygen Delivery Method Room Air 06/24/24 22:45 Temperature 98.3 F 06/24/24 22:45 Pulse Rate 70 06/24/24 22:45 Respiratory Rate 20 06/24/24 22:45 Blood Pressure 186/89 H 06/24/24 22:45 Pulse Oximetry 98 06/24/24 22:45 Oxygen Delivery Method Room Air 06/24/24 22:45 Medical Decision Making MDM Narrative Medical decision making narrative: 1 mm stone is noted in the proximal to mid left ureter. She is feeling improved and is able to be discharged home on Flomax, [place], and Zofran. [facility] with whom she will follow-up. Treatment diagnosis and follow-up were discussed with the patient. Differential Diagnosis Differential Diagnosis: Kidney stone, UTI, muscle strain Lab Data Lab results reviewed: Yes I reviewed the patient's lab results Labs: Lab Results 06/24/24 06/24/24 Range/Units 23:18 23:27 WBC 14.1 H (4.0-11.0) 10^3/uL RBC 5.04 (4.20-5.40) 10^6/uL Hgb 14.2 (12.0-16.0) g/dL Hct 43.5 (36.0-48.0) % MCV 86.3 (81.0-99.0) fL MCH 28.2 (26.7-34.0) pg MCHC 32.6 (29.9-35.2) g/dL RDW 14.0 (11.0-15.0) % Plt Count 241 (150-450) 10^3/uL MPV 11.1 (9.5-13.5) fL Neut % (Auto) 80.0 H (43.0-75.0) % Lymph % (Auto) 12.1 L (20.5-60.0) % [place] % (Auto) 7.0 (1.7-12.0) % Eos % (Auto) 0.6 L (0.9-7.0) % Baso % (Auto) 0.1 L (0.2-2.0) % Neut # (Auto) 11.3 H (1.4-6.5) 10^3/uL Lymph # (Auto) 1.7 (1.2-3.8) 10^3/uL [place] # (Auto) 1.0 H (0.3-0.8) 10^3/uL Eos # (Auto) 0.1 (0.0-0.7) 10^3/uL Baso # (Auto) 0.0 (0.0-0.1) 10^3/uL Abs Immat Gran (auto) 0.03 (0.00-0.03) 10^3/uL Imm/Tot Granulo (auto) 0.2 (0.0-0.5) % Sodium 140 (136-145) mmol/L Potassium 4.6 (3.5-5.1) mmol/L Chloride 104 (98-107) mmol/L Carbon Dioxide 28.2 (21.0-32.0) mmol/L Anion Gap 12.4 BUN 24.0 H (7.0-18.0) mg/dL Creatinine 1.16 H (0.55-1.02) mg/dL Est GFR ( Amer) 56 L (>=60 mL/min/1.73m^2) Est GFR (Non-Af Amer) 47 L (>=60 mL/min/1.73m^2) BUN/Creatinine Ratio 20.7 Glucose 119 H (74-106) mg/dL Calcium 9.6 (8.5-10.1) mg/dL Urine Color Yellow (YELLOW) Urine Clarity Clear (CLEAR) Urine pH 5.5 (5.0-9.0) Ur Specific [place] 1.025 (1.005-1.025) Urine Protein Negative (NEG/TRACE) mg/dL Urine Glucose (UA) Negative (NEGATIVE) mg/dL Urine Ketones Negative (NEGATIVE) mg/dL Urine Occult Blood Trace-i (NEGATIVE) Urine Nitrite Negative (NEGATIVE) Urine Bilirubin Negative (NEGATIVE) Urine Urobilinogen 0.2 (0.2-1.0) EU/dL Ur Leukocyte Esterase Trace A (NEGATIVE) Urine RBC 2-5 A (0-2) #/HPF Urine WBC 5-10 A (NONE SEEN) #/HPF Ur Squamous Epith Cells Few A (NONE/RARE) #/LPF Urine Crystals None seen (None Seen) #/HPF Urine Bacteria Small A (NONE SEEN) #/HPF Urine Casts None seen (NONE SEEN) #/LPF Urine Mucus None seen (NONE SEEN) Ur Culture Indicated? Yes-[facility] [place] [facility] [place] scan - abdomen: Radiologist's impression: Moderate stranding around the left kidney and left hydronephrosis consistent with changes related to partial left renal obstruction, there is a less than 1 mm calcification suggestive the junction of the proximal to mid left ureter Discharge Plan Discharge Chief Complaint: Urogenital-Female Clinical Impression: Kidney stone Patient Disposition: Home, Self-Care Time of Disposition Decision: 00:39 Condition: Good Mode of Transportation: Private Vehicle Prescriptions / Home Meds: New hydrocodone-acetaminophen 5-325 mg tablet 1 tab PO Q6H PRN (Reason: pain) 3 Days Qty: 10 0RF tamsulosin [Flomax] 0.4 mg capsule 0.4 mg PO DAILY Qty: 7 0RF ondansetron 4 mg tablet,disintegrating 4 mg PO Q6H PRN (Reason: nausea and vomiting) Qty: 20 0RF No Action oxybutynin chloride 5 mg tablet extended release 24hr PO latanoprost 0.005 % drops OPHTHALMIC (EYE) levothyroxine 100 mcg tablet 100 mcg PO DAILY Print Language: Latvian Instructions: Kidney Stones (ED), How to Strain Your Urine (ED) Additional Instructions: Follow-up with your established urologist. Referrals: SYMONE CARTER [Primary Care Provider] - 1 week
[2024-06-24] MEDS: MORPHINE SULFATE 4 MG/ML VIAL IV (23:15)
[2024-06-24] MEDS: ONDANSETRON PF 4 MG/2 ML VIAL IV (23:32)
[2024-06-24 23:34] LABS: Basophils Percent Auto 0.1 % (0.2-2.0); Eosinophils Absolute Auto 0.1 10^3/uL (0.0-0.7); Eosinophils Percent Auto 0.6 % (0.9-7.0); Hematocrit 43.5 % (36.0-48.0); Hemoglobin 14.2 g/dL (12.0-16.0); Immature Granulocytes Abs Auto 0.03 10^3/uL (0.00-0.03); Immature Granulocytes Pct Auto 0.2 % (0.0-0.5); Lymphocytes Absolute Auto 1.7 10^3/uL (1.2-3.8); Lymphocytes Percent Auto 12.1 % (20.5-60.0); Mean Corpuscular HGB Conc 32.6 g/dL (29.9-35.2); Mean Corpuscular Hemoglobin 28.2 pg (26.7-34.0); Mean Corpuscular Volume 86.3 fL (81.0-99.0); Mean Platelet Volume 11.1 fL (9.5-13.5); Neutrophils Absolute Auto 11.3 10^3/uL (1.4-6.5); Platelet Count 241 10^3/uL (150-450); Red Blood Count 5.04 10^6/uL (4.20-5.40); White Blood Count 14.1 10^3/uL (4.0-11.0)
[2024-06-24 23:35] LABS: Bilirubin Urine NEGATIVE (NEGATIVE); Blood Urine TRACE-I (NEGATIVE); Clarity Urine CLEAR (CLEAR); Color Urine YELLOW (YELLOW); Glucose Urine UA NEGATIVE (NEGATIVE); Ketones Urine NEGATIVE (NEGATIVE); Leukocyte Esterase Urine TRACE (NEGATIVE); Nitrite Urine NEGATIVE (NEGATIVE); Protein Urine NEGATIVE (NEG/TRACE); Specific Gravity Urine 1.025 (1.005-1.025); Urobilinogen Urine 0.2 EU/dL (0.2-1.0); pH Urine 5.5 (5.0-9.0)
[2024-06-24 23:41] LABS: Bacteria Urine SMALL #/HPF (NONE SEEN); Cast Seen? NONE SEEN #/LPF (NONE SEEN); Crystals Seen? None Seen #/HPF (None Seen); Mucus Urine NONE SEEN (NONE SEEN); Squamous Epithelial Cell Urine FEW #/LPF (NONE/RARE); Urine Culture Indicated YES-FRMC
[2024-06-24 23:57] LABS: Anion Gap 12.4; BUN Creatinine Ratio 20.7; Calcium 9.6 mg/dL (8.5-10.1); Carbon Dioxide 28.2 mmol/L (21.0-32.0); Chloride 104 mmol/L (98-107); Estimated GFR (African America 56 (>=60 mL/min/1.73m^2); Estimated GFR (Non-African Ame 47 (>=60 mL/min/1.73m^2); Glucose 119 mg/dL (74-106); Potassium 4.6 mmol/L (3.5-5.1); Sodium 140 mmol/L (136-145)
[2024-06-25] MEDS: TAMSULOSIN HCL 0.4 MG CAPSULE PO (00:46)
[2024-06-25 01:20] VITALS: BP 155/89; PULSE 78; O2SAT 96
== END 2024-06-25 01:23 | disposition home or self-care (01) ==
PROVIDERS: Emergency Provider Emergency Medicine; PCP Internal Medicine
DX: N13.2 Hydronephrosis with renal and ureteral calculous obstruction (principal); Z87.442 Personal history of urinary calculi; Z90.49 Acquired absence of other specified parts of digestive tract
CPT/HCPCS: 36415; 74176; 80048; 81001; 85025; 87086; 87150; 87186; 96374; 96375; 99284; J2270; J2405